=== PATIENT | male | born 1935 | race Caucasian/White ===

== ENCOUNTER 2023-07-07 07:58 | Outpatient (OUT) | payer MEDICARE, SELFPAY ==
[2023-07-07 08:27] LABS: Basophils Absolute Auto 0.1 10^3/uL (0.0-0.1); Basophils Percent Auto 1.4 % (0.2-2.0); Eosinophils Absolute Auto 0.3 10^3/uL (0.0-0.7); Eosinophils Percent Auto 3.4 % (0.9-7.0); Hematocrit 43.5 % (42.0-54.0); Hemoglobin 14.3 g/dL (14.0-18.0); Immature Granulocytes Abs Auto 0.02 10^3/uL (0.00-0.03); Immature Granulocytes Pct Auto 0.3 % (0.0-0.5); Lymphocytes Absolute Auto 2.5 10^3/uL (1.2-3.8); Lymphocytes Percent Auto 30.9 % (20.5-60.0); Mean Corpuscular HGB Conc 32.9 g/dL (29.9-35.2); Mean Corpuscular Hemoglobin 31.1 pg (25.9-34.0); Mean Corpuscular Volume 94.6 fL (80.0-94.0); Mean Platelet Volume 10.1 fL (9.5-13.5); Monocytes Absolute Auto 0.7 10^3/uL (0.3-0.8); Monocytes Percent Auto 8.3 % (1.7-12.0); Neutrophils Absolute Auto 4.4 10^3/uL (1.4-6.5); Neutrophils Percent Auto 55.7 % (43.0-75.0); Platelet Count 207 10^3/uL (150-450); Red Cell Distribution Width 13.9 % (11.0-15.0)
[2023-07-07 08:44] LABS: Estimated Average Glucose 131 mg/dL; Glycohemoglobin A1C 6.2 % (4.5-6.2)
[2023-07-07 09:01] LABS: Alanine Aminotransferase 21 U/L (16-63); Albumin Globulin Ratio 0.9; Albumin Level 3.3 g/dL (3.4-5.0); Alkaline Phosphatase 74 U/L (46-116); Anion Gap 14.4; Aspartate Amino Transferase 15 U/L (15-37); Bilirubin Total 0.6 mg/dL (0.2-1.0); Calcium 9.1 mg/dL (8.5-10.1); Carbon Dioxide 27.3 mmol/L (21.0-32.0); Chloride 107 mmol/L (98-107); Chol HDL Ratio 3.3; Cholesterol 137 mg/dL (<=200); Estimated GFR (African America 55 (>=60); Estimated GFR (Non-African Ame 45 (>=60); Globulin 3.8 g/dL; Glucose 115 mg/dL (74-106); HDL Cholesterol 42 mg/dL (40-60); LDL Cholesterol Calculated 76.8 mg/dL; Potassium 4.7 mmol/L (3.5-5.1); Sodium 144 mmol/L (136-145); Total Protein 7.1 g/dL (6.4-8.2); Triglycerides 91 mg/dL (<=150); VLDL CHOLESTEROL 18.2 mg/dL
[2023-07-07 09:04] LABS: Prostate Specific Antigen Scrn 4.38 ng/mL (<=4.00)
[2023-07-09 08:10] LABS: PSA, Free 0.98 ng/mL; Prostate Specific Ag 3.2 ng/mL (0.0-4.0)
== END 2023-07-07 07:59 | disposition home or self-care (01) ==
LOC: LAB 08:03
PROVIDERS: PCP Family Medicine; Visit Provider Family Medicine
DX: Z79.899 Other long term (current) drug therapy (principal); R53.83 Other fatigue; E78.5 Hyperlipidemia, unspecified; Z12.5 Encounter for screening for malignant neoplasm of prostate; R97.20 Elevated prostate specific antigen [PSA]
CPT/HCPCS: 36415; 80053; 80061; 83036; 84153; 84154; 85025; G0103

== ENCOUNTER 2023-07-26 09:09 | Outpatient (RCR) | payer MEDICARE, SELFPAY | END 2023-08-17 17:24 | disposition home or self-care (01) | LOC: MM 09:09 | PROVIDERS: PCP Internal Medicine Cardiovascular Disease; Visit Provider Internal Medicine | DX: Z51.81 Encounter for therapeutic drug level monitoring (principal); Z79.01 Long term (current) use of anticoagulants; I48.0 Paroxysmal atrial fibrillation | CPT/HCPCS: 85610; G0463 ==

== ENCOUNTER 2023-08-18 02:01 | Outpatient (RCR) | payer MEDICARE, SELFPAY | END 2023-09-15 17:31 | disposition home or self-care (01) | LOC: MM 02:01 | PROVIDERS: PCP Internal Medicine Cardiovascular Disease; Visit Provider Internal Medicine | DX: Z51.81 Encounter for therapeutic drug level monitoring (principal); Z79.01 Long term (current) use of anticoagulants; I48.0 Paroxysmal atrial fibrillation | CPT/HCPCS: 85610; G0463 ==

== ENCOUNTER 2023-09-16 03:37 | Outpatient (RCR) | payer MEDICARE, SELFPAY | END 2023-10-14 14:14 | disposition home or self-care (01) | LOC: MM 03:37 | PROVIDERS: PCP Internal Medicine Cardiovascular Disease; Visit Provider Internal Medicine | DX: Z51.81 Encounter for therapeutic drug level monitoring (principal); Z79.01 Long term (current) use of anticoagulants; I48.0 Paroxysmal atrial fibrillation | CPT/HCPCS: 85610; G0463 ==

== ENCOUNTER 2023-10-17 00:27 | Outpatient (RCR) | payer MEDICARE, SELFPAY | END 2023-11-15 18:03 | disposition home or self-care (01) | LOC: MM 00:27 | PROVIDERS: PCP Internal Medicine Cardiovascular Disease; Visit Provider Internal Medicine | DX: Z51.81 Encounter for therapeutic drug level monitoring (principal); Z79.01 Long term (current) use of anticoagulants; I48.0 Paroxysmal atrial fibrillation | CPT/HCPCS: 85610; G0463 ==

== ENCOUNTER 2023-11-16 00:24 | Outpatient (RCR) | payer MEDICARE, SELFPAY | END 2023-12-16 11:22 | disposition home or self-care (01) | LOC: MM 00:24 | PROVIDERS: PCP Internal Medicine Cardiovascular Disease; Visit Provider Internal Medicine | DX: Z51.81 Encounter for therapeutic drug level monitoring (principal); Z79.01 Long term (current) use of anticoagulants; I48.0 Paroxysmal atrial fibrillation | CPT/HCPCS: 85610; G0463 ==

== ENCOUNTER 2023-12-19 03:18 | Outpatient (RCR) | payer MEDICARE, SELFPAY | END 2024-01-13 10:48 | disposition home or self-care (01) | LOC: MM 03:18 | PROVIDERS: PCP Internal Medicine Cardiovascular Disease; Visit Provider Internal Medicine | DX: Z51.81 Encounter for therapeutic drug level monitoring (principal); Z79.01 Long term (current) use of anticoagulants; I48.0 Paroxysmal atrial fibrillation ==

== ENCOUNTER 2024-01-16 00:26 | Outpatient (RCR) | payer MEDICARE, SELFPAY | END 2024-02-15 10:05 | disposition home or self-care (01) | LOC: MM 00:26 | PROVIDERS: PCP Internal Medicine Cardiovascular Disease; Visit Provider Internal Medicine | DX: Z51.81 Encounter for therapeutic drug level monitoring (principal); Z79.01 Long term (current) use of anticoagulants; I48.0 Paroxysmal atrial fibrillation | CPT/HCPCS: 85610; G0463 ==

== ENCOUNTER 2024-02-16 00:23 | Outpatient (RCR) | payer MEDICARE, SELFPAY | END 2024-03-16 09:59 | disposition home or self-care (01) | LOC: MM 00:23 | PROVIDERS: PCP Internal Medicine Cardiovascular Disease; Visit Provider Internal Medicine | DX: Z51.81 Encounter for therapeutic drug level monitoring (principal); Z79.01 Long term (current) use of anticoagulants; I48.0 Paroxysmal atrial fibrillation | CPT/HCPCS: 85610; G0463 ==

== ENCOUNTER 2024-02-29 10:30 | Outpatient (OUT) | payer MEDICARE, SELFPAY ==
--- OUTSIDE RECORDS SUMMARY | 2024-02-29 10:51 | XMS_ITS | CCD ---
Author Organization [facility] Care Team Providers Care Mail Room Name Role Phone GHAZOUL, JOCELYN Unavailable Unavailable HOY, LSIA M Unavailable Unavailable GHAZOUL, JOCELYN Unavailable Unavailable HOY, LISA M Unavailable Unavailable GHAZOUL, JOCELYN Unavailable Unavailable GHAZOUL, JOCELYN Unavailable Unavailable GHAZOUL, JOCELYN Unavailable Unavailable GHAZOUL, JOCELYN Unavailable Unavailable GHAZOUL, JOCELYN Unavailable Unavailable UNKNOWN, PROVIDER Unavailable Unavailable HOYLISA M Unavailable Unavailable HoyLisa Unavailable Unavailable Unavailable MD Lisa Severino Primary Care Provider [phone] MD Jaja Cerda Attending Provider MD Lisa Severino Primary Care Provider [phone] MD Jaja Cerda Attending Provider Dr. Jaja Flower Attending Unavailable Dr. Jaja Flower Referring Unavailable Dr. Lisa Severino Primary Care Unavail able Dr. Jaja Flower Attending Unavailable Dr. Lisa Severino Primary Care Unavail able MD Lisa Severino Primary Care Provider [phone] MD Jaja Cerda Attending Provider DR LISA SEVERINO Consulting Unavailable DR LISA SEVERINO Attending Unavailable DR LISA SEVERINO Admitting Unavailable DR LISA SEVERINO Primary Care Unavailable DR BRIANNA SMITH V Consulting Unavailable DR JAJA FLOWER Consulting Unavailabl e DR LISA SEVERINO Consulting Unavailable DR LISA SEVERINO Attending Unavailable DR LISA SEVERINO Admitting Unavailable DR LISA SEVERINO Primary Care Unavailable MD Lisa Severino Primary Care Provider [phone] MD Jaja Cerda Attending Provider MD Lisa Severino Primary Care Provider MD Jaja Cerda Attending Provider MD Lisa Severino Primary Care Provider MD Jaja Cerda Attending Provider Dr. Lisa Severino Primary Care Unavail able Mere, Dr. Lisa Byers Primary Care Unavail able Mere, Dr. Lisa Byers Primary Care Unavail able Mere, Dr. Lisa Byers Primary Care Unavail able Hernan, Dr. Jaja Fonseca Referring Unava ilana m Flower, Dr. Jaja Fonseca Attending Unava ilana m Severino, Dr. Lisa Byers Primary Care Unavail able JALEN BLEDSOE Attending Unavailable MD Lisa Severino Primary Care Provider [phone] MD Jaja Cerda Attending Provider Lisa Severino MD Primary Care Provider MD Lisa Severino Primary Care Provider MD Jaja Cerda Attending Provider LISA SEVERINO Primary Care Unavailable JAJA FLOWER Referring Unavailable LIZA BLEDSOE Attending Unavailable JAJA FLOWER Referring Unavailable LISA SEVERINO Primary Care Unavailable JAJA FLOWER Attending Unavailable LISA SEVERINO Primary Care Unavailable MD Lisa Severino Primary Care Provider MD Jaja Cerda Attending Provider Jaja Cerda Admitting Unavail able Jaja Cerda Attending Unavail able Lisa Severino Primary Care Unavailable Jaja Cerda Admitting Unavail able Jaja Cerda Attending Unavail able Lisa Severino Primary Care Unavailable Jaja Cerda Admitting Unavail able Jaja Cerda Attending Unavail able Lisa Severino Primary Care Unavailable Jaja Creda Admitting Unavail able Jaja Cerda Attending Unavail able Lisa Severino Primary Care Unavailable Guy ANGELES Attending Unavailable Lisa Severino Referring Unavailable Lisa Severino Primary Care Physician Allergies Allergy Classification Reported Allergen(s) Allergy Type Date of Onset Reaction(s) Facility (1 source) meloxicam; Translations: [Mobic] Drug Allergy [facility] Repository (1 source) Naproxen; Translations: [Naprosyn] Drug Allergy [facility] Repository Medications Current Medications Medication Drug Class(es) Dates Sig (Normalized) Sig (Original) amoxicillin 500 mg oral capsule (9 sources) Penicillin-class Antibacterial Start: 12-01-2021 take 4 capsules by mouth every hour amoxicillin (Amoxil) 500 mg capsule Take 4 capsules (2,000 mg) by mouth see administration instructions. One hour prior to dental appointment 12/01/2021 Active aspirin 81 mg delayed release oral tablet (20 sources) Platelet Aggregation Inhibitor, Nonsteroidal Anti-inflammatory Drug Start: 01-31-2024 aspirin 81 mg Oral EC Tab 81 mg = 1 tab(s), Oral, TueSat, Refills(s) 0 Start Date: 01/31/24 Status: Ordered Start: 07-28-2023 take 1 tablet by angel th two times weekly aspirin 81 mg EC tablet Indications: S/P TAVR (transcatheter aortic valve replacement) , Valvular heart disease , Chronic systolic heart failure (CMS/HCC) , Mixed hyperlipidemia Take 1 tablet (81 mg) by mouth 2 times a week. 32 tablet 1 07/28/2023 Active Start: 12-14-2020 take 1 tablet by angel th once daily Aspirin (Aspirin Childrens) 81 mg Tablet,Chewable Active 81 MG PO Daily December 14, 2020 12:00am Start: 03-12-2016 take 1 tablet by angel th once daily Aspirin Low Dose 81 MG Oral Tablet Delayed Release Take 1 tablet daily Quantity: 90 Refills: 3 Ordered: 14-Oct-2022 Jaja Flower DO Start : 12-Mar-2016 Active Start: 03-12-2016 Aspirin Low Do se 81 MG Oral Tablet Delayed Release Quantity: 0 Refills: 0 Ordered: 12-Mar-2016 Kamla Macias Start : 12-Mar-2016 Active atorvastatin 40 mg oral tablet (20 sources) HMG-CoA Reductase Inhibitor Start: 12-27-2023 take 1 tablet by mouth once daily atorvastatin 40 mg Tab 40 mg = 1 tab(s), Oral, Daily, Refills(s) 0 Start Date: 12/27/23 Status: Ordered Start: 10-26-2023 take 1 tablet by angel th once daily at bedtime atorvastatin (Lipitor) 40 mg tablet Indications: Mixed hyperlipidemia Take 1 tablet (40 mg) by mouth once daily at bedtime. 90 tablet 3 10/26/2023 Active Start: 03-12-2016 End: 10-26-2023 take 1 tablet by mouth once daily Atorvastatin (Lipitor) 40 mg Tablet Active 40 MG PO Daily December 14, 2020 12:00am carvedilol 6.25 mg oral tablet (20 sources) alpha-Adrenergic Alvaro, beta-Adrenergic Alvaro Start: 10-26-2023 take 1 tablet by mouth twice daily carvedilol (Coreg) 6.25 mg tablet Indications: Paroxysmal atrial fibrillation (CMS/HCC) , Primary hypertension Take 1 tablet (6.25 mg) by mouth 2 times a day. 180 tablet 3 10/26/2023 Active Start: 03-12-2016 End: 10-26-2023 take 1 tablet by mouth twice daily Coreg 6.25 mg Tab 6.25 mg = 1 tab(s), Oral, BID, Refills(s) 0, High blood pressure Start Date: 10/04/16 Status: Ordered Start: 03-12-2016 Carvedilol 6.2 5 MG Oral Tablet Quantity: 0 Refills: 0 Ordered: 12-Mar-2016 Kamla Macias Start : 12-Mar-2016 Active clindamycin 300 mg oral capsule (9 sources) Lincosamide Antibacterial Start: 12-17-2020 take 600 mg by mouth three times daily Clindamycin Hcl Active 600 MG PO Three times daily 12 December 17, 2020 12:00am lisinopril 10 mg oral tablet (20 sources) Angiotensin Converting Enzyme Inhibitor Start: 12-27-2023 take 1 tablet by mouth once daily lisinopril 10 mg Tab 10 mg = 1 tab(s), Oral, Daily, Refills(s) 0 Start Date: 12/27/23 Status: Ordered Start: 10-26-2023 take 1 tablet by angel th once daily lisinopril 10 mg tablet Indications: Primary hypertension Take 1 tablet (10 mg) by mouth once daily. 90 tablet 3 10/26/2023 Active Start: 10-07-2021 End: 10-26-2023 take 1 tablet by mouth once daily lisinopril 10 mg tablet Take 1 tablet (10 mg) by mouth once daily. 10/07/2021 10/26/2023 Discontinued (Reorder) Start: 12-14-2020 take 5 mg by mouth once daily Lisinopril Active 5 MG PO Daily December 14, 2020 12:00am Start: 04-28-2017 take 1 tablet by angel th once daily Lisinopril 2.5 MG Oral Tablet Take 1 tablet daily Quantity: 0 Refills: 0 Ordered: 28-Apr-2017 [place] Kamla Start : 28-Apr-2017 Active warfarin sodium 5 mg oral tablet (5 sources) Vitamin K Antagonist Start: 07-25-2023 End: 07-24-2024 warfarin 5 mg Tab as directed, Refills(s) 0 Start Date: 12/27/23 Status: Ordered Completed/Discontinued Medications Medication Drug Class(es) Dates Sig (Normalized) Sig (Original) amoxicillin 875 mg / clavulanate 125 mg oral tablet (2 sources) Penicillin-class Antibacterial Start: 08-30-2022 take 1 tablet by mouth twice daily Amoxicillin-Pot Clavulanate 875-125 MG Oral Tablet TAKE 1 TABLET BY MOUTH TWICE A DAY Quantity: 20 Refills: 0 Ordered: 30-Aug-2022 DO Start : 30-Aug-2022 Complete predniSONE 20 mg oral tablet (2 sources) Start: 06-16-2022 take 3 tablets by mouth once daily predniSONE 20 MG Oral Tablet TAKE 3 TABLET BY MOUTH ONCE A DAY Quantity: 15 Refills: 0 Ordered: 16-Jun-2022 DO Start : 16-Jun-2022 Complete Problems Active Problems Problem Classification Problem Date Documented Date Episodic/Chronic Acute bronchitis (4 sources) Acute bronchitis, unspecified; Translations: [ACUTE BRONCHITIS UNSPECIFIED] Onset: 08-30-2022 Episodic Blindness and vision defects (1 source) Other visual disturbances; Translations: [OTHER VISUAL DISTURBANCES] Onset: 07-03-2022 Episodic Cardiac dysrhythmias (13 sources) Paroxysmal atrial fibrillation; Translations: [Paroxysmal atrial fibrillation] Onset: 08-17-2023 08-17-2023 Chronic Chronic kidney disease (9 sources) Chronic kidney disease; Translations: [Chronic kidney disease, unspecified] 12-15-2020 Chronic Conduction disorders (20 sources) Second degree atrioventricular block; Translations: [Other second degree atrioventricular block] Onset: 07-07-2023 Resolved: 08-17-2023 12-14-2020 Chronic Congestive heart failure; nonhypertensive (13 sources) Chronic systolic heart failure; Translations: [Chronic systolic heart failure] Onset: 04-15-2022 Resolved: 08-17-2023 08-17-2023 Chronic Coronary atherosclerosis and other heart disease (1 source) Coronary atherosclerosis and other heart disease Onset: 05-10-2018 Diabetes mellitus without complication (1 source) Other abnormal glucose; Translations: [OTHER ABNORMAL GLUCOSE] Onset: 07-03-2022 Episodic Disorders of lipid metabolism (17 sources) Hyperlipidemia; Translations: [Other and unspecified hyperlipidemia] Onset: 07-03-2022 08-17-2023 Chronic Essential hypertension (20 sources) Hypertensive disorder; Translations: [Unspecified essential hypertension] Onset: 07-07-2023 12-14-2020 Chronic Gout and other crystal arthropathies (1 source) Gout 12-27-2023 Chronic Heart valve disorders (20 sources) Nonrheumatic aortic (valve) stenosis; Translations: [Aortic valve stenosis, severe] Onset: 04-15-2022 Resolved: 08-17-2023 12-15-2020 Chronic Heart valve disorders (1 source) Murmur 12-27-2023 Episodic Malaise and fatigue (12 sources) Fatigue; Translations: [Other malaise and fatigue] Onset: 07-07-2023 07-07-2023 Episodic Neoplasms of unspecified nature or uncertain behavior (2 sources) Neoplasm of uncertain behavior of skin; Translations: [Neoplasm of uncertain behavior of skin] Onset: 11-21-2017 Episodic Nutritional deficiencies (1 source) Vitamin D deficiency, unspecified; Translations: [VITAMIN D DEFICIENCY UNSPECIFIED] Onset: 07-03-2022 Chronic Occlusion or stenosis of precerebral arteries (1 source) Occlusion and stenosis of bilateral carotid arteries; Translations: [OCCLUSION AND STENOS AUNDREA CAROTID ART] Onset: 07-03-2022 Chronic Other aftercare (6 sources) Long-term current use of anticoagulant; Translations: [residential (current) use of anticoagulants] Onset: 08-17-2023 08-17-2023 Episodic Other aftercare (2 sources) residential (current) use of anticoagulants; Translations: [residential (current) use of anticoagulants] Onset: 08-17-2023 Episodic Other and ill-defined heart disease (1 source) Heart disease 12-27-2023 Chronic Other circulatory disease (12 sources) History of cerebrovascular accident; Translations: [Personal history of transient ischemic attack (TIA), and cerebral infarction without residual deficits] Onset: 07-07-2023 07-07-2023 Episodic Other nutritional; endocrine; and metabolic disorders (1 source) Body mass index 25-29 - overweight; Translations: [Body Mass Index 25.0-25.9, adult] Episodic Other nutritional; endocrine; and metabolic disorders (2 sources) Overweight; Translations: [Overweight] 12-27-2023 Episodic Other nutritional; endocrine; and metabolic disorders (10 sources) Overweight in adulthood with body mass index of 25 or more but less than 30; Translations: [Overweight] Onset: 08-17-2023 08-17-2023 Episodic Other nutritional; endocrine; and metabolic disorders (2 sources) Body mass index (BMI) 25.0-25.9, adult; Translations: [Body mass index (BMI) 25.0-25.9, adult] Onset: 08-17-2023 Episodic Other screening for suspected conditions (not mental disorders or infectious disease) (5 sources) Elevated prostate specific antigen [PSA]; Translations: [Encounter for screening for malignant neoplasm of prostate] Onset: 06-28-2022 Episodic Other skin disorders (1 source) Epidermoid cyst; Translations: [Epidermal cyst] Onset: 01-31-2024 Episodic Other skin disorders (1 source) Epidermoid cyst of skin 01-31-2024 Episodic Residual codes; unclassified (3 sources) Body mass index 20-24 - normal; Translations: [Body Mass Index between 19-24, adult] Episodic Screening and history of mental health and substance abuse codes (10 sources) Ex-smoker; Translations: [Personal history of tobacco use] Onset: 10-26-2023 10-26-2023 Episodic Comment on above: Quit at age 37. 2 pp d; Syncope (9 sources) Near syncope; Translations: [Syncope and collapse] 12-14-2020 Episodic Unclassified (2 sources) Other cardiomyopathies / I42.8(ICD-9) Onset: 05-10-2018 Unclassified (1 source) Presence of prosthetic heart valve / Z95.2(ICD-9) Onset: 05-10-2018 Unclassified (1 source) Personal history of nicotine dependence / Z87.891(ICD-9) Onset: 05-10-2018 Unclassified (1 source) Prsnl hx of TIA (TIA), and cereb infrc w/o resid deficits / Z86.73(ICD-9) Onset: 05-10-2018 Unclassified (1 source) Encounter for checking and testing of cardiac pacemaker pulse generator [battery]; Translations: [Encounter for checking and testing of cardiac pacemaker pulse generator [battery]] Onset: 07-04-2023 Viral infection (1 source) COVID-19; Translations: [COVID-19] Onset: 09-03-2022 Past or Other Problems Problem Classification Problem Date Documented Da te Episodic/Chronic [place]-; endo-; and myocarditis; cardiomyopathy (except that caused by tuberculosis or sexually transmitted disease) (20 sources) Other cardiomyopathies ; Translations: [Cardiomyopathy] Onset: 05-10-2018 Resolved: 10-26-2023 07-07-2023 Chronic Unclassified (4 sources) Onset: 08-17-2023 Resolved: 10-26-2023 08-17-2023 Results Test Name Value Interpretation Reference Range Facility Ambulatory Visit Summaryon 0 01-31-2024 Ambulatory Visit Summary Ambulatory Visi t Summary MELO CUEVAS :1935 Visit Date:01/31/2024 Ambulatory Visit Instructions Your Care Team Attending Physician - Guy ANGELES MD Primary Care Physician - Lisa Severino MD Referring Physician - Lisa Severino MD This Is Your Medications List Contact prescribing physician if questions or concerns aspirin (aspirin 81 mg Oral EC Tab) atorvastatin (atorvastatin 40 mg Tab) carvedilol (Coreg 6.25 mg Tab) lisinopril (lisinopril 10 mg Tab) warfarin (warfarin 5 mg Tab) Procedures Performed Cataract Extraction with IOL placement / iStent - OS. (10/21/2016), Cataract extraction and insertion of intraocular lens (10/05/2016), Cardiac pacemaker, Repair of umbilical hernia, Replacement of aortic valve. Discharge Vitals Heart Rate (Peripheral) 72 Respiratory Rate 16 Blood Pressure 116/76 Height 188 cm Height 74 in Weight 89.3 kg Weight 196.46 lb BMI 25.27 Medications What How Much When Instructions Unchanged aspirin (aspirin 81 mg Oral EC Tab) 1 Tablets By Mouth Tuesday & Tuesday Contact prescribing physician if questions or concerns Unchanged atorvastatin (atorvastatin 40 mg Tab) 1 Tablets By Mouth Every day Contact prescribing physician if questions or concerns Unchanged carvedilol (Coreg 6.25 mg Tab) 1 Tablets By Mouth 2 times a day Contact prescribing physician if questions or concerns Unchanged lisinopril (lisinopril 10 mg Tab) 1 Tablets By Mouth Every day Contact prescribing physician if questions or concerns Unchanged warfarin (warfarin 5 mg Tab) as directed Contact prescribing physician if questions or concerns Allergies No Known Allergies Problems Ongoing - Any problem that you are currently receiving treatment for. Aortic stenosis Atrial fibrillation BMI 25.0-25.9,adult Congestive heart failure Essential hypertension Gout Heart disease History of CVA (cerebrovascular accident) Hyperlipidemia Murmur Overweight Patient Survey You may receive a survey via text or e-mail asking about your office visit. Please share your experience with us by completing your survey. We appreciate your feedback and thank you for choosing us for your care. [facility] Physician Referralon 024 Physician Referral [id number] 23#1.00TIFF [facility] Physician Referralon 024 Physician Referral [id number]# 1.00TIFF [facility] Physician Referral [id number]# 1.00TIFF [facility] Comment on above: Other Comment: MINDY KAM Physician Referral [id number]# 1.00TIFF [facility] US Heart TransthoracicOrdere d By: Moody Teixeira on 10-19-2023 Aortic Valve Area by Continuity of Peak Velocity 2.[address] [facility] Work Phone: Aortic Valve Area by Continuity of VTI 2.[address] [facility] Work Phone: AV mn grad 6.[address] [facility] Work Phone: AV pk grad 12.[address] [facility] Work Phone: AV pk benjamin 1.73 m/s [facility] Work Phone: LV A4C EF 56.[address] [facility] Work Phone: LVIDd 3.[address] [facility] Work Phone: LVOT diam 2.[address] [facility] Work Phone: MV avg E/e' ratio 22.20 [facility] Work Phone: MV E/A ratio 0.[address] [facility] Work Phone: RVSP 23.[address] [facility] Work Phone: [facility] Work Phone: Heart Tr[facility]hor[facility] [address], [address] [place] [address] TRANSTHORACIC ECHOCARDIOGRAM REPORT Patient Name: MELO Gant MASON Reading Physician: [id number] Moody Teixeira MD, [facility] Study Date: 10/18/2023 Ordering Provider: [id number] JAJA FLOWER MRN/PID: [id number] Fellow: Nurse: Date of /Age: 8 1935 / 88 years Wedger And Gluer: Daniela Veras RDCS, RVT Gender: M Additional Staff: Height: 187.96 cm Admit Date: Weight: 89.81 kg Admission Status: BSA / BMI: 2.16 m2 / 25.42 kg/m2 Department Location: [facility] Blood Pressure: 134 /72 mmHg Study Type: TRANSTHORACIC ECHO (TTE) COMPLETE Diagnosis/ICD: Nonrheumatic aortic (valve) stenosis-I35.0 Indication: #29 Luca 3 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 PHYSICIAN INTERPRETATION: Left Ventricle: Left ventricular systolic function is normal, with an estimated ejection fraction of 60-65%. There are no regional wall motion abnormalities. The left ventricular cavity size is normal. Spectral Doppler shows an impaired relaxation pattern of left ventricular diastolic filling. There is an elevated mean left atrial pressure. Mild to moderate concentric left ventricular hypertrophy. Left Atrium: The left atrium is mildly dilated. Right Ventricle: The right ventricle is normal in size. There is normal right ventricular global systolic function. Right Atrium: The right atrium is normal in size. Aortic Valve: The aortic valve appears abnormal. There is trivial aortic valve regurgitation. The peak instantaneous gradient of the aortic valve is 12.0 mmHg. The mean gradient of the aortic valve is 6.0 mmHg. There is a TAVR in good position and function. Mitral Valve: The mitral valve is severely thickened. There is evidence of mild to moderate mitral valve stenosis. The doppler estimated mean and peak diastolic pressure gradients are 7.5 mmHg and 23.7 mmHg respectively. There is severe mitral annular calcification. There is trace to mild mitral valve regurgitation. Mild to moderate degree of mitral stenosis with a mean gradient of 7 - 8 mmHg. Tricuspid Valve: The tricuspid valve is structurally normal. There is trace tricuspid regurgitation. Pulmonic Valve: The pulmonic valve is structurally normal. There is no indication of pulmonic valve regurgitation. Pericardium: There is no pericardial effusion noted. Aorta: The aortic root is normal. Systemic Veins: The inferior vena cava appears to be of normal size. In comparison to the previous echocardiogram(s): When compared to study from 04/13/2022 the present study demonstrated less amount of mitral and aortic regurgitation otherwise they look similar. CONCLUSIONS: 1. Left ventricular systolic function is normal with a 60-65% estimated ejection fraction. 2. Mild to moderate concentric left ventricular hypertrophy. 3. Spectral Doppler shows an impaired relaxation pattern of left ventricular diastolic filling. 4. There is an elevated mean left atrial pressure. 5. The mitral valve is severely thickened. 6. Mild to moderate degree of mitral stenosis with a mean gradient of 7 - 8 mmHg. 7. There is severe mitral annular calcification. 8. Aortic valve appears abnormal. 9. There is a TAVR in good position and function. 10. When compared to study from 04/13/2022 the present study demonstrated less amount of mitral and aortic regurgitation otherwise they look similar. QUANTITATIVE DATA SUMMARY: 2D MEASUREMENTS: Normal Ranges: Ao Root d: 2.80 cm (2.0-3.7cm) LAs: 3.90 cm (2.7-4.0cm) RVIDd: 3.39 cm (0.9-3.6cm) IVSd: 2.16 cm (0.6-1.1cm) LVPWd: 1.45 cm (0.6-1.1cm) LVIDd: 3.57 cm (3.9-5.9cm) LVIDs: 2.69 cm LV Mass Index: 125.1 g/m2 LV % FS 24.6 % LV SYSTOLIC FUNCTION BY 2D PLANIMETRY (MOD): Normal Ranges: EF-A4C View: 56.2 % (>=55%) LV DIASTOLIC FUNCTION: Normal Ranges: MV Peak E: 1.21 m/s (0.7-1.2 m/s) MV Peak A: 1.98 m/s (0.42-0.7 m/s) E/A Ratio: 0.61 (1.0-2.2) MV lateral e' 0.05 m/s MV medial e' 0.03 m/s E/e' Ratio: 22.20 (<8.0) MITRAL VALVE: Normal Ranges: (more content not included)... Moody Aguilar MD - 10/19/[address], [address] [place] [address] TRANSTHORACIC ECHOCARDIOGRAM REPORT Patient Name: MELO Pugh Physician: [id number] Moody Teixeira MD, [facility] Study Date: 10/18/2023 Ordering Provider: [id number] JAJA FLOWER MRN/PID: [id number] Fellow: Nurse: Date of /Age: 8 1935 / 88 years Wedger And Gluer: Daniela Veras RDCS, RVT Gender: M Additional Staff: Height: 187.96 cm Admit Date: Weight: 89.81 kg Admission Status: BSA / BMI: 2.16 m2 / 25.42 kg/m2 Department Location: [facility] Blood Pressure: 134 /72 mmHg Study Type: TRANSTHORACIC ECHO (TTE) COMPLETE Diagnosis/ICD: Nonrheumatic aortic (valve) stenosis-I35.0 Indication: #29 Luca 3 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 PHYSICIAN INTERPRETATION: Left Ventricle: Left ventricular systolic function is normal, with an estimated ejection fraction of 60-65%. There are no regional wall motion abnormalities. The left ventricular cavity size is normal. Spectral Doppler shows an impaired relaxation pattern of left ventricular diastolic filling. There is an elevated mean left atrial pressure. Mild to moderate concentric left ventricular hypertrophy. Left Atrium: The left atrium is mildly dilated. Right Ventricle: The right ventricle is normal in size. There is normal right ventricular global systolic function. Right Atrium: The right atrium is normal in size. Aortic Valve: The aortic valve appears abnormal. There is trivial aortic valve regurgitation. The peak instantaneous gradient of the aortic valve is 12.0 mmHg. The mean gradient of the aortic valve is 6.0 mmHg. There is a TAVR in good position and function. Mitral Valve: The mitral valve is severely thickened. There is evidence of mild to moderate mitral valve stenosis. The doppler estimated mean and peak diastolic pressure gradients are 7.5 mmHg and 23.7 mmHg respectively. There is severe mitral annular calcification. There is trace to mild mitral valve regurgitation. Mild to moderate degree of mitral stenosis with a mean gradient of 7 - 8 mmHg. Tricuspid Valve: The tricuspid valve is structurally normal. There is trace tricuspid regurgitation. Pulmonic Valve: The pulmonic valve is structurally normal. There is no indication of pulmonic valve regurgitation. Pericardium: There is no pericardial effusion noted. Aorta: The aortic root is normal. Systemic Veins: The inferior vena cava appears to be of normal size. In comparison to the previous echocardiogram(s): When compared to study from 04/13/2022 the present study demonstrated less amount of mitral and aortic regurgitation otherwise they look similar. CONCLUSIONS: 1. Left ventricular systolic function is normal with a 60-65% estimated ejection fraction. 2. Mild to moderate concentric left ventricular hypertrophy. 3. Spectral Doppler shows an impaired relaxation pattern of left ventricular diastolic filling. 4. There is an elevated mean left atrial pressure. 5. The mitral valve is severely thickened. 6. Mild to moderate degree of mitral stenosis with a mean gradient of 7 - 8 mmHg. 7. There is severe mitral annular calcification. 8. Aortic valve appears abnormal. 9. There is a TAVR in good position and function. 10. When compared to study from 04/13/2022 the present study demonstrated less amount of mitral and aortic regurgitation otherwise they look similar. QUANTITATIVE DATA SUMMARY: 2D MEASUREMENTS: Normal Ranges: Ao Root d: 2.80 cm (2.0-3.7cm) LAs: 3.90 cm (2.7-4.0cm) RVIDd: 3.39 cm (0.9-3.6cm) IVSd: 2.16 cm (0.6-1.1cm) LVPWd: 1.45 cm (0.6-1.1cm) LVIDd: 3.57 cm (3.9-5.9cm) LVIDs: 2.69 cm LV Mass Index: 125.1 g/m2 LV % FS 24.6 % LV SYSTOLIC FUNCTION BY 2D PLANIMETRY (MOD): Normal Ranges: EF-A4C View: 56.2 % (>=55%) LV DIASTOLIC FUNCTION: Normal Ranges: MV Peak E: 1.21 m/s (0.7-1.2 m/s) MV Peak A: 1.98 m/s (0.42-0.7 m/s) E/A Ratio: 0.61 (1.0-2.2) MV lateral e' 0.05 m/s MV medial e' 0.03 m/s E/e' Ratio: 22.20 (<8.0) MITRAL VALVE: Normal Ranges: MV Vmax: 2.44 m/s (<=1.3m/s) MV peak P.7 mmHg (<5mmHg) MV mean P.5 mmHg (<48mmHg) MITRAL INSUFFICIENCY: Normal Ranges: MR Vmax: 434.00 cm/s dP/dt: 568 mmHg/s (>1200mmHg/sec) AORTIC VALVE: Normal Ranges: AoV Vmax: 1.73 m/s (<=1.7m/s) AoV Peak P.0 mmHg (<20mmHg) AoV Mean P.0 mmHg (1.7-11.5mmHg) LVOT Max Benjamin: 0.99 m/s (<=1.1m/s) AoV VTI: 35.50 cm (18-25cm) LVOT VTI: 21.40 cm LVOT Diameter: 2.40 cm (1.8-2.4cm) AoV Area, VTI: 2.73 cm2 (2.5-5.5cm2) AoV Area,Vmax: 2.59 cm2 (2.5-4.5cm2) AoV Dimensionless Index: 0.60 AORTIC INSUF (more content not included)... 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 PHYSICIAN INTERPRETATION: Left Ventricle: Left ventricular systolic function is normal, with an estimated ejection fraction of 60-65%. There are no regional wall motion abnormalities. The left ventricular cavity size is normal. Spectral Doppler shows an impaired relaxation pattern of left ventricular diastolic filling. There is an elevated mean left atrial pressure. Mild to moderate concentric left ventricular hypertrophy. Left Atrium: The left atrium is mildly dilated. Right Ventricle: The right ventricle is normal in size. There is normal right ventricular global systolic function. Right Atrium: The right atrium is normal in size. Aortic Valve: The aortic valve appears abnormal. There is trivial aortic valve regurgitation. The peak instantaneous gradient of the aortic valve is 12.0 mmHg. The mean gradient of the aortic valve is 6.0 mmHg. There is a TAVR in good position and function. Mitral Valve: The mitral valve is severely thickened. There is evidence of mild to moderate mitral valve stenosis. The doppler estimated mean and peak diastolic pressure gradients are 7.5 mmHg and 23.7 mmHg respectively. There is severe mitral annular calcification. There is trace to mild mitral valve regurgitation. Mild to moderate degree of mitral stenosis with a mean gradient of 7 - 8 mmHg. Tricuspid Valve: The tricuspid valve is structurally normal. There is trace tricuspid regurgitation. Pulmonic Valve: The pulmonic valve is structurally normal. There is no indication of pulmonic valve regurgitation. Pericardium: There is no pericardial effusion noted. Aorta: The aortic root is normal. Systemic Veins: The inferior vena cava appears to be of normal size. In comparison to the previous echocardiogram(s): When compared to study from 04/13/2022 the present study demonstrated less amount of mitral and aortic regurgitation otherwise they look similar. CONCLUSIONS: 1. Left ventricular systolic function is normal with a 60-65% estimated ejection fraction. 2. Mild to moderate concentric left ventricular hypertrophy. 3. Spectral Doppler shows an impaired relaxation pattern of left ventricular diastolic filling. 4. There is an elevated mean left atrial pressure. 5. The mitral valve is severely thickened. 6. Mild to moderate degree of mitral stenosis with a mean gradient of 7 - 8 mmHg. 7. There is severe mitral annular calcification. 8. Aortic valve appears abnormal. 9. There is a TAVR in good position and function. 10. When compared to study from 04/13/2022 the present study demonstrated less amount of mitral and aortic regurgitation otherwise they look similar. QUANTITATIVE DATA SUMMARY: 2D MEASUREMENTS: Normal Ranges: Ao Root d: 2.80 cm (2.0-3.7cm) LAs: 3.90 cm (2.7-4.0cm) RVIDd: 3.39 cm (0.9-3.6cm) IVSd: 2.16 cm (0.6-1.1cm) LVPWd: 1.45 cm (0.6-1.1cm) LVIDd: 3.57 cm (3.9-5.9cm) LVIDs: 2.69 cm LV Mass Index: 125.1 g/m2 LV % FS 24.6 % LV SYSTOLIC FUNCTION BY 2D PLANIMETRY (MOD): Normal Ranges: EF-A4C View: 56.2 % (>=55%) LV DIASTOLIC FUNCTION: Normal Ranges: MV Peak E: 1.21 m/s (0.7-1.2 m/s) MV Peak A: 1.98 m/s (0.42-0.7 m/s) E/A Ratio: 0.61 (1.0-2.2) MV lateral e' 0.05 m/s MV medial e' 0.03 m/s E/e' Ratio: 22.20 (<8.0) MITRAL VALVE: Normal Ranges: MV Vmax: 2.44 m/s (<=1.3m/s) MV peak P.7 mmHg (<5mmHg) MV mean P.5 mmHg (<48mmHg) MITRAL INSUFFICIENCY: Normal Ranges: MR Vmax: 434.00 cm/s dP/dt: 568 mmHg/s (>1200mmHg/sec) AORTIC VALVE: Normal Ranges: AoV Vmax: 1.73 m/s (<=1.7m/s) AoV Peak P.0 mmHg (<20mmHg) AoV Mean P.0 mmHg (1.7-11.5mmHg) LVOT Max Benjamin: 0.99 m/s (<=1.1m/s) AoV VTI: 35.50 cm (18-25cm) LVOT VTI: 21.40 cm LVOT Diameter: 2.40 cm (1.8-2.4cm) AoV Area, VTI: 2.73 cm2 (2.5-5.5cm2) AoV Area,Vmax: 2.59 cm2 (2.5-4.5cm2) AoV Dimensionless Index: 0.60 AORTIC INSUFFICIENCY: AI Vmax: 3.82 m/s AI Half-time: 409 msec AI Decel Rate: 249.50 cm/s2 TRICUSPID VALVE/RVSP: No (more content not included)... 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) Pacemaker (V45.01) (Z95.0) Valvular heart disease (424.90) (I38) Orders Aortic valve stenosis, severe, AV block, 2nd degree, Chronic systolic heart failure Echocardiogram; Status:Hold For - Scheduling,Retrospec tive Authorization; Requested for:15Oct2023; Aortic valve stenosis, severe, HTN (hypertension), Non-ischemic cardiomyopathy Renew: Carvedilol 6.25 MG Oral Tablet; Take 1 tablet twice daily Aortic valve stenosis, severe, Non-ischemic cardiomyopathy Renew: Aspirin Low Dose 81 MG Oral Tablet Delayed Release; Take 1 tablet daily HLD (hyperlipidemia) Renew: Atorvastatin Calcium 40 MG Oral Tablet (Lipitor); TAKE 1 TABLET Bedtime HTN (hypertension) Renew: Lisinopril 10 MG Oral Tablet; TAKE 1 TABLET DAILY Overweight with body mass index (BMI) of 25 to 25.9 in adult Healthy Weight Tips; Status:Complete - Retrospective Authorization; Done: 14Oct2022 Some eating tips that can help you lose weight.; Status:Complete - Retrospective Authorization; Done: 14Oct2022 Patient Instructions Please bring all medicines, vitamins, and herbal supplements with you when you come to the office. Prescriptions will not be filled unless you are compliant with your follow up appointments or have a follow up appointment scheduled as per instruction of your physician. Refills should be requested at the time of your visit. Pacemaker/Defibrilla tor follow up per routine Follow up in 1 year Chief Complaint MELO CUEVAS is being seen for a 6 month follow-up of. 87-year-old gentleman returns for follow-up he is doing very well he has no cardiovascular complaints. He remains independent and ambulatory with minimal dyspnea. He has history of TAVR in 2015, recent echo from March 2022 reveals an intact aortic valve prosthesis with peak and mean gradients of 12.4 and 6 mm respectively, moderate to severely thickened mitral valve with evidence of moderate mitral valve stenosis with peak and mean gradients of 17 and 6 mmHg respectively with an estimated area of 1.5 cm. Left ventricular function is normal with ejection fraction of 70%; notably there is mild to moderate prosthetic valve central aortic valve regurgitation He does have a history of sick sinus syndrome with a pacemaker. He denies any angina or heart failure hospitalizations, he has no history of coronary revascularization. He remains hemodynamically stable his BMI is 25 Recommendations, continue current therapies and follow-up in 1 year Surgical History Problems History of Aortic valve repair 20Apr2016 History of Cataract Surgery Denied: History of Colonoscopy History of Inguinal Hernia Repair History of Lip surgery blood blister removal History of Pacemaker insertion 12/16/2020 History of Skin lesion excision Nose History of Surgery Basal cell removal History of Tonsillectomy History of Tonsillectomy History of Umbilical Hernia Repair Current Meds Medication NameInstruction Amoxicillin 500 MG Oral CapsuleTAKE FOUR CAPSULES BY MOUTH ONE HOUR BEFORE APPOINTMENT Aspirin Low Dose 81 MG Oral Tablet Delayed ReleaseTake 1 tablet daily Atorvastatin Calcium 40 MG Oral TabletTAKE 1 TABLET Bedtime Carvedilol 6.25 MG Oral TabletTake 1 tablet twice daily Lisinopril 10 MG Oral TabletTAKE 1 TABLET DAILY. Patient did not bring medication list or bottles. Updated verbally with patient Allergies Medication No Known Drug Allergies Recorded By: Shaunna Young; 02/19/2015 1:51:06 PM Social History Problems Caffeine use (V49.89) (Z78.9) Coffee - 1/2 cup daily Consumes alcohol (V49.89) (Z78.9) Rarely Former smoker (V15.82) (Z87.891) Quit at age 37. 2 ppd No illicit drug use Review of Systems Constitutional: not feeling tired. Cardiovascular: no intermittent leg claudication and as noted in HPI. Respiratory: no cough and no shortness of breath. Gastrointestinal: no change in bowel habits and no blood in stools. Integumentary: no skin rashes. Neurological: no seizures and no frequent falls. All other systems have been reviewed and are negative for complaint. Vitals Vital Signs Recorded: 14Oct2022 10:03AM Heart Rate64, L Radial [id number], LUE, Sitting [id number], LUE, Sitting Height6 ft 2 in Eyrflw106 lb BMI Hhsninhyza29.29 kg/m2 BSA Calculated2.16 Tobacco Useb) No Falls Screening (Age 18+)a) No falls within the last year Physical Exam Constitutional: alert and in no acute distress. Neck: neck is supple, symmetric, trachea midline, no masses and no thyromegaly . Pulmonary: no increased work of breathing or signs of respiratory distress and lungs clear to auscultation. (more content not included)... Normal [employer] Tobacco Screening.on 023 Fall risk assessment a) No falls within the last year [facility] [address] DO Work Phone: Tobacco use status [facility] b) No M [facility] [employer] [facility] 250 DO Work Phone: Covid-19 PCR ([facility])on 08-18 SARS-CoV-2 (COVID-19) RNA SVETLANA+probe Ql (Unsp spec) Detected Abnormal NOT DETECTED [facility] Comment on above: Result Comment: This test is not yet approved or cleared by the [place] FDA. When there are no FDA-approved or cleared tests available, and other criteria are met, FDA can make tests available under an emergency access mechanism called an Emergency Use Authorization (EUA). The EUA for this test is supported by the Intern of Health and Human Service's (HHS's) declaration that circumstances exist to justify the emergency use of in vitro diagnostics for the detection and/or diagnosis of the virus that causes COVID-19. This EUA will remain in effect (meaning this test can be used) for the duration of the COVID-19 declaration justifying emergency of IVDs, unless it is terminated or revoked by FDA (after which the test may no longer be used). Performed By: #### C VDTBH #### [facility] [address] [place] [id number] Ekaterina Alcocer INFLUENZA A AND B AGon 08-30 INFLUANEGH SEE BELOW Normal [facility] Comment on above: Result Comment: Nega tive for Flu A protein angiten. Infection due to Flu A cannot be ruled out. Flu A angiten in the sample may be below the detection limit of the test. Performed By: #### I NFLUAB #### [facility] [address] [place] [id number] Ekaterina Alcocer [facility] SEE BELOW Normal [facility] Comment on above: Result Comment: Nega tive for Flu B protein antigen. Infection due to Flu B cannot be ruled out. Flu B antigen in the sample may be below the detection limit of the test. Performed By: #### I NFLUAB #### [facility] [address] [place] [address] [address] Ekaterina Alcocer INFLUENZA A AG Negative Normal NEGATIVE SEE COMMENT [facility] Comment on above: Performed By: #### I NFLUAB #### [facility] [address] [place], [place] [address] Dr. Ekaterina Alcocer INFLUENZA B AG Negative Normal NEGATIVE SEE COMMENT [facility] Comment on above: Performed By: #### I NFLUAB #### [facility] [address] [place] [address] [address] Ekaterina Alcocer PSA, FREE AND TOTAL RATIOon 06-30-2022 % Free PSA 26.8 % Normal [facility] Comment on above: Result Comment: The table below lists the probability of prostate cancer for men with non-suspicious ANJEL results and total PSA between 4 and 10 ng/mL, by patient age (Desiree et al, GENARO 1998, 279:1542). % Free PSA 50-64 yr 65-75 yr 0.00-10.00% 56% 55% 10.01-15.00% 24% 35% 15.01-20.00% 17% 23% 20.01-25.00% 10% 20% >25.00% 5% 9% Please note: Desiree et al did not make specific recommendations regarding the use of percent free PSA for any other population of men. Performed By: #### P SAFREE ####[facility] [address] [place], [place] [address]ErDr. Ekaterina Alcocer Prostate specific Ag [Mass/Vol] 4.4 ng/mL Critically high 0.0-4.0 [facility] Comment on above: Result Comment: Roch cristofer ECLIA methodology. . According to the [employer] [place] [employer], Serum PSA should decrease and remain at undetectable levels after radical prostatectomy. The AUA defines biochemical recurrence as an initial PSA value 0.2 ng/mL or greater followed by a subsequent confirmatory PSA value 0.2 ng/mL or greater. Values obtained with different assay methods or kits cannot be used interchangeably. Results cannot be interpreted as absolute evidence of the presence or absence of malignant disease. Performed By: #### P SAFREE ####[facility] [address] [place] [address]Dr. Ekaterina Alcocer PSA, Free 1.18 ng/mL Normal N/A [facility] Comment on above: Result Comment: Antonio WHITE methodology. Performed By: #### P SAFREE ####[facility] [address] [place] [address]Dr. Ekaterina Alcocer INSULINon 06-29-2022 Insulin 7.5 uIU/mL Normal 2.6-24.9 [facility] Comment on above: Performed By: #### I NSULIN ####[facility] [address] [place], [place] [address]Dr. Ekaterina Alcocer CBC AUTO DIFFon 06-28-2022 BASO # 0.1 103/ul Normal 0.0-0.1 [facility] Comment on above: Performed By: #### C BC #### [facility] [address] [place] [address] Dr. Ekaterina Alcocer Basophils/100 WBC (Bld) 1.5 % Normal 0.2-2.0 [facility] Comment on above: Performed By: #### C BC #### [facility] [address] [place] [address] Dr. Ekaterina Alcocer EO # 0.2 103/ul Normal 0.0-0.7 [facility] Comment on above: Performed By: #### C BC #### [facility] [address] [place] [address] Dr. Ekaterina Alcocer Eosinophils/100 WBC (Bld) 2.4 % Normal 0.9-7.0 [facility] Comment on above: Performed By: #### C BC #### [facility] [address] [place] [address] Dr. Ekaterina Alcocer Erythrocyte distribution width (RBC) [Ratio] 13.6 % Normal 11.0-15.0 [facility] Comment on above: Performed By: #### C BC #### [facility] [address] [place] [address] Dr. Ekaterina Alcocer Hematocrit (Bld) [Volume fraction] 46.3 % Normal 42.0-54.0 [facility] Comment on above: Performed By: #### C BC #### [facility] [address] [place] [address] Dr. Ekaterina Alcocer Hemoglobin (Bld) [Mass/Vol] 15.5 g/dL Normal 14.0-18.0 [facility] Comment on above: Performed By: #### C BC #### [facility] [address] [place] [address] Dr. Ekaterina Alcocer IG # 0.03 10e3/ul Normal 0.00-0.03 [facility] Comment on above: Performed By: #### C BC #### [facility] [address] [place] [address] Dr. Ekaterina Alcocer IG % 0.3 % Normal 0.0-0.5 [facility] Comment on above: Performed By: #### C BC #### [facility] [address] [place] [address] Dr. Ekaterina Alcocer LYMPH # 2.6 103/ul Normal 1.2-3.8 [facility] Comment on above: Performed By: #### C BC #### [facility] [address] [place] [address] Dr. Ekaterina Alcocer Lymphocytes/100 WBC (Bld) 28.8 % Normal 20.5-60.0 [facility] Comment on above: Performed By: #### C BC #### [facility] [address] [place] [address] Dr. Ekaterina Aclocer MANUAL DIFF REQ NO Normal [facility] Comment on above: Performed By: #### C BC #### [facility] [address] [place] [address] Dr. Ekaterina Alcocer MCH (RBC) [Entitic mass] 30.7 pg Normal 25.9-34.0 [facility] Comment on above: Performed By: #### C BC #### [facility] [address] [place] [address] [address] Ekaterina Alcocer MCHC (RBC) [Mass/Vol] 33.5 g/dL Normal 29.9-35.2 [facility] Comment on above: Performed By: #### C BC #### [facility] [address] [place] [address] Dr. Ekaterina Alcocer MCV (RBC) [Entitic vol] 91.7 fL Normal 80.0-94.0 [facility] Comment on above: Performed By: #### C BC #### [facility] [address] [place] [address] Dr. Ekaterina Alcocer MONO # 0.7 103/ul Normal 0.3-0.8 [facility] Comment on above: Performed By: #### C BC #### [facility] [address] [place] [address] Dr. Ekaterina Alcocer Monocytes/100 WBC (Bld) 8.3 % Normal 1.7-12.0 [facility] Comment on above: Performed By: #### C BC #### [facility] [address] [place] [address] Dr. Ekaterina Alcocer NEUT # 5.2 103/ul Normal 1.4-6.5 [facility] Comment on above: Performed By: #### C BC #### [facility] [address] [place] [address] Dr. Ekaterina Alcocer Neutrophils/100 WBC (Bld) 58.7 % Normal 43.0-75.0 [facility] Comment on above: Performed By: #### C BC #### [facility] [address] [place] [address] Dr. Ekaterina Alcocre Platelet mean volume (Bld) [Entitic vol] 9.8 fL Normal 9.5-13.5 [facility] Comment on above: Performed By: #### C BC #### [facility] [address] [place] [address] Dr. Ekaterina Alcocer PLT 230 103/ul Normal 150-450 [facility] Comment on above: Performed By: #### C BC #### [facility] [address] [place] [address] [address] Ekaterina Alcocer RBC 5.05 106/ul Normal 4.70-6.10 [facility] Comment on above: Performed By: #### C BC #### [facility] [address] [place] [address] [address] Ekaterina Alcocer WBC 8.9 103/ul Normal 4.0-11.0 [facility] Comment on above: Performed By: #### C BC #### [facility] [address] [place] [address] Dr. Ekaterina Alcocer FREE THYROXINE INDEX T7on FTI 2.02 Normal 1.30-4.50 [facility] Comment on above: Performed By: #### T 7, TSH, LIPID, URIC, CMP #### [facility] [address] [place] [address] Dr. Ekaterina Alcocer T3U 32.0 % Critically low 33.0-40.0 [facility] Comment on above: Performed By: #### T 7, TSH, LIPID, URIC, CMP #### [facility] [address] [place] [address] Dr. Ekaterina Alcocer T4 [Mass/Vol] 6.30 ug/dL Normal 4.50-12.10 [facility] [place] [facility] Comment on above: Performed By: #### T 7, TSH, LIPID, URIC, CMP #### [facility] [address] [place] [address] Dr. Ekaterina Alcocer GLYCOHEMOGLOBIN A1Con 2021 ADA RECOMMENDATION SEE BELOW Normal [facility] Comment on above: Result Comment: ADA RECOMMENDED LIMIT 4.0 - 6.0 ADA THERAPEUTIC TARGET < 7.0 ACTION SUGGESTED > 7.0 Performed By: #### A 1C #### [facility] [address] [place] [address] Dr. Ekaterina Alcocer Glucose [Mass/Vol] 134 mg/dL Normal [facility] Comment on above: Performed By: #### A 1C #### [facility] [address] [place] [address] Dr. Ekaterina Alcocer HbA1c (Bld) [Mass fraction] 6.3 % Critically high 4.5-6.2 [facility] Comment on above: Performed By: #### A 1C #### [facility] [address] [place] [address] Dr. Ekaterina Alcocer LIPID PROFILEon 06-28-2022 CHOL-HDL RATIO NORM SEE BELOW Normal [facility] Comment on above: Result Comment: 3.3 - 4.4 LOW RISK 4.4 - 7.1 AVERAGE RISK 7.1 - 11.0 MODERATE RISK >11.0 HIGH RISK Performed By: #### T 7, TSH, LIPID, URIC, CMP #### [facility] [address] [place] [address] Dr. Ekaterina Alcocer Cholesterol [Mass/Vol] 142 mg/dL Normal <=200 Th [facility] Comment on above: Performed By: #### T 7, TSH, LIPID, URIC, CMP #### [facility] [address] [place] [address] Dr. Ekaterina Alcocer Cholesterol in HDL [Mass/Vol] 43 mg/dL Normal 40-60 [facility] Comment on above: Performed By: #### T 7, TSH, LIPID, URIC, CMP #### [facility] [address] [place] [address] Dr. Ekaterina Alcocer Cholesterol in LDL [Mass/Vol] 78.8 mg/dL Normal [facility] Comment on above: Performed By: #### T 7, TSH, LIPID, URIC, CMP #### [facility] [address] [place] [address] Dr. Ekaterina Alcocer Cholesterol.total/Choles terol in HDL [Mass ratio] 3.3 {ratio} Normal [facility] Comment on above: Performed By: #### T 7, TSH, LIPID, URIC, CMP #### [facility] [address] [place] [address] Dr. Ekaterina Alcocer HDL NORMAL > or = 60 mg/dl - LOW CARDIOVASCULAR RISK <40 mg/dl - HIGH CARDIOVASCULAR RISK Normal [facility] Comment on above: Performed By: #### T 7, TSH, LIPID, URIC, CMP #### [facility] [address] [place], [place] [id number] Dr. Ekaterina Alcocer LDL CALC NORMAL SEE BELOW Normal [facility] Comment on above: Result Comment: <100 mg/dl OPTIMAL 100 - 129 mg/dl NEAR OR ABOVE OPTIMAL 130 - 159 mg/dl BORDERLINE HIGH 160 - 189 mg/dl HIGH >190 mg/dl VERY HIGH Performed By: #### T 7, TSH, LIPID, URIC, CMP #### [facility] [address] [place] [address] Dr. Ekaterina Alcocer Triglyceride [Mass/Vol] 101 mg/dL Normal <=150 T [facility] Comment on above: Performed By: #### T 7, TSH, LIPID, URIC, CMP #### [facility] [address] [place] [address] Dr. Ekaterina Alcocer VLDL CALC 20.2 mg/dL Normal [facility] Comment on above: Performed By: #### T 7, TSH, LIPID, URIC, CMP #### [facility] [address] [place] [address] Dr. Ekaterina Alcocer PROF 14(COMP METB)on 022 Albumin [Mass/Vol] 3.5 g/dL Normal 3.4-5.0 [facility] Comment on above: Performed By: #### T 7, TSH, LIPID, URIC, CMP #### [facility] [address] [place] [address] Dr. Ekaterina Alcocer Albumin/Globulin [Mass ratio] 0.9 {ratio} Normal [facility] Comment on above: Performed By: #### T 7, TSH, LIPID, URIC, CMP #### [facility] [address] [place] [address] Dr. Ekaterina Alcocer ALP [Catalytic activity/Vol] 82 U/L Normal 46-116 [facility] Comment on above: Performed By: #### T 7, TSH, LIPID, URIC, CMP #### [facility] [address] [place] [address] Dr. Ekaterina Alcocer ALT [Catalytic activity/Vol] 26 U/L Normal 16-63 [facility] Comment on above: Performed By: #### T 7, TSH, LIPID, URIC, CMP #### [facility] [address] [place] [address] Dr. Ekaterina Alcocer Anion gap [Moles/Vol] 8.4 mmol/L Normal [facility] Comment on above: Performed By: #### T 7, TSH, LIPID, URIC, CMP #### [facility] [address] [place] [address] Dr. Ekaterina Alcocer AST [Catalytic activity/Vol] 17 U/L Normal 15-37 [facility] Comment on above: Performed By: #### T 7, TSH, LIPID, URIC, CMP #### [facility] [address] [place] [address] Dr. Ekaterina Alcocer Bilirubin [Mass/Vol] 0.6 mg/dL Normal 0.2-1.0 [facility] Comment on above: Performed By: #### T 7, TSH, LIPID, URIC, CMP #### [facility] [address] [place] [address] Dr. Ekaterina Alcocer Calcium [Mass/Vol] 8.8 mg/dL Normal 8.5-10.1 [facility] Comment on above: Performed By: #### T 7, TSH, LIPID, URIC, CMP #### [facility] [address] [place] [address] Dr. Ekaterina Alcocer Chloride [Moles/Vol] 105 mmol/L Normal 98-107 [facility] Comment on above: Performed By: #### T 7, TSH, LIPID, URIC, CMP #### [facility] [address] [place] [address] Dr. Ekaterina Alcocer CO2 [Moles/Vol] 32.6 mmol/L Critically high 21.0-32.0 [facility] Comment on above: Performed By: #### T 7, TSH, LIPID, URIC, CMP #### [facility] [address] [place] [address] Dr. Ekaterina Alcocer Creatinine [Mass/Vol] 1.48 mg/dL Critically high 0.70-1.30 [facility] Comment on above: Performed By: #### T 7, TSH, LIPID, URIC, CMP #### [facility] [address] [place] [address] Dr. Ekaterina Alcocer EGFR-AF IRANIAN 55 mL/min/1.73m2 Critically low >=60 [facility] Comment on above: Performed By: #### T 7, TSH, LIPID, URIC, CMP #### [facility] [address] [address] [address] Ekaterina Alcocer EGFR-NON AF IRANIAN 45 mL/min/1.73m2 Critically low >=60 [facility] Comment on above: Performed By: #### T 7, TSH, LIPID, URIC, CMP #### [facility] [address] [address] [address] Ekaterina Alcocer Globulin (S) [Mass/Vol] 3.9 g/dL Normal [facility] Comment on above: Performed By: #### T 7, TSH, LIPID, URIC, CMP #### [facility] [address] [place] [address] Dr. Ekaterina Alcocer Glucose [Mass/Vol] 118 mg/dL Critically high 74-106 [facility] Comment on above: Performed By: #### T 7, TSH, LIPID, URIC, CMP #### [facility] [address] [address] [address] Ekaterina Alcocer Potassium [Moles/Vol] 5.0 mmol/L Normal 3.5-5.1 [facility] Comment on above: Performed By: #### T 7, TSH, LIPID, URIC, CMP #### [facility] [address] [place] [address] Dr. Ekaterina Alcocer Protein [Mass/Vol] 7.4 g/dL Normal 6.4-8.2 [facility] Comment on above: Performed By: #### T 7, TSH, LIPID, URIC, CMP #### [facility] [address] [address] [address] Ekaterina Alcocer Sodium [Moles/Vol] 141 mmol/L Normal 136-145 [facility] Comment on above: Performed By: #### T 7, TSH, LIPID, URIC, CMP #### [facility] [address] [address] [address] Ekaterina Alcocer Urea nitrogen [Mass/Vol] 23.0 mg/dL Critically high 7.0-18 .0 [facility] Comment on above: Performed By: #### T 7, TSH, LIPID, URIC, CMP #### [facility] [address] [address] [address] Ekaterina Alcocer Urea nitrogen/Creatinine [Mass ratio] 15.5 mg/mg Normal [facility] Comment on above: Performed By: #### T 7, TSH, LIPID, URIC, CMP #### [facility] [address] [address] [address] Ekaterina Alcocer TSHon 06-28-2022 TSH 3.329 uIU/mL Normal 0.358-3.740 [facility] Comment on above: Performed By: #### T 7, TSH, LIPID, URIC, CMP #### [facility] [address] [address] [address] Ekaterina Alcocer URIC ACID SERUMon 06-28-2022 Urate [Mass/Vol] 8.1 mg/dL Critically high 3.5-7.2 [facility] Comment on above: Performed By: #### T 7, TSH, LIPID, URIC, CMP #### [facility] [address] [address] [address] Ekaterina Alcocer US CAROTID ART BILon 022 US CAROTID ART AUNDREA EXAMINATION: US CAROTID ART AUNDREA HISTORY: Visual disturbance COMPARISON: No relevant comparison available. TECHNIQUE: Duplex Doppler ultrasound analysis of carotid and vertebral arteries. . Bilateral carotid arterial duplex examination was performed using B-mode, color flow and spectral analysis. Carotid stenosis is reported according to validated velocity parameters, similar to NASCET criteria. FINDINGS: RIGHT CAROTID ARTERY Mild atherosclerotic plaque Subclavian: PSV: 131.9 cm/s cm/s EDV: 0.0 cm/s cm/s CCA: Prox: PSV: 114.1 cm/s cm/s EDV: 17.5 cm/s cm/s Mid: PSV: 96.4 cm/s cm/s EDV: 19.5 cm/s cm/s Distal: PSV: 70.8 cm/s cm/s EDV: 11.6 cm/s cm/s BULB: PSV: 72.7 cm/s cm/s EDV: 13.6 cm/s cm/s ICA: Prox: PSV: 82.6 cm/s cm/s EDV: 25.4 cm/s cm/s Mid: PSV: 70.7 cm/s cm/s EDV: 23.4 cm/s cm/s Distal: PSV: 82.5 cm/s cm/s EDV: 27.4 cm/s cm/s ECA: PSV: 102.2 cm/s cm/s EDV: 0.0 cm/s cm/s VERTEBRAL: PSV: 62.8 cm/s cm/s EDV: 13.6 cm/s cm/s ICA/CCA ratio: PSV: 0.7 EDV: 1.4 LEFT CAROTID ARTERY Mild atherosclerotic plaque Subclavian: PSV: 171.7 cm/s cm/s EDV: 16.0 cm/s CCA: Prox: PSV: 153.1 cm/s cm/s EDV: 20.7 cm/s Mid: PSV: 134.5 cm/s cm/s EDV: 20.7 cm/s Distal: PSV: 139.0 cm/s cm/s EDV: 20.7 cm/s BULB: PSV: 101.9 cm/s cm/s EDV: 11.4 cm/s ICA: Prox: PSV: 92.6 cm/s cm/s EDV: 18.3 cm/s Mid: PSV: 67.1 cm/s cm/s EDV: 20.7 cm/s Distal: PSV: 80.9 cm/s cm/s EDV: 23.0 cm/s ECA: PSV: 76.3 cm/s cm/s EDV: 0.0 cm/s VERTEBRAL: PSV: 59.4 cm/s cm/s EDV: 15.4 cm/s ICA/CCA ratio: PSV: 0.7 EDV: 0.5 IMPRESSION: 0-49% flow stenosis bilateral internal carotid arteries Spectral Doppler US Thresholds (Reference: Christiano EG, et al. Radiology 2000; 214:247-252) Stenosis (%) PSV (cm/sec) VICA/VCCA 0-49 <150 <2.5 50-69 150-225 2.5-4.0 >70 >225 >4.0 Electronically authenticated by: BRIANNA SMITH Date: 2022-06-28 17:35 Normal [facility] VITAMIN D 25 OHon 06-28-2022 VIT D 25-OH 53.8 ng/mL Normal [facility] Comment on above: Performed By: #### V ITAD, PSASC ####[facility] [id number] [place], [place] [address]Rl. Ekaterina Alcocer VIT D RANGES SEE BELOW Normal [facility] Comment on above: Result Comment: <20 ng/mL Vit D deficient 20 - <30 ng/mL Vit D insufficient 30 - 100 ng/mL Vit D sufficient >100 ng/mL Potential Toxicity Performed By: #### V ITHOLLEY, PSASC ####[facility] [id number] [id number]. Ekaterina Alcocer Echocardiogramon 04-15-[address], [address] [address] TRANSTHORACIC ECHOCARDIOGRAM REPORT Patient Name: MELO CUEVAS Reading Physician: [id number] Fabián Tony MD Study Date: 04/15/2022 Referring Physician: JAJA FLOWER MRN/PID: [id number] PCP: Lisa Severino Accession/Order#: [id number] Department Location: [facility] Date of : 1935 Fellow: Gender: M Nurse: Admit Date: Wedger And Gluer: Daniela Veras RD, T Height: 187.96 cm CC Report to: Weight: 87.09 kg Study Type: Echocardiogram BSA: 2.14 m2 Blood Pressure: 120 /74 mmHg Diagnosis/ICD: I35.0-Nonrheumatic aortic (valve) stenosis; I50.22-Chronic systolic (congestive) heart failure (CHF); I34.0-Nonrheumatic mitral (valve) insufficiency; 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 PHYSICIAN INTERPRETATION: Left Ventricle: Left ventricular systolic function is normal, with an estimated ejection fraction of 70%. There are no regional wall motion abnormalities. The left ventricular cavity size is normal. Spectral Doppler shows a normal pattern of left ventricular diastolic filling. Mild to moderate concentric left ventricular hypertrophy. Left Atrium: The left atrium is mildly dilated. Mildly dilated left atrium. Right Ventricle: The right ventricle is normal in size. There is normal right ventricular global systolic function. Right Atrium: The right atrium is normal in size. Aortic Valve: The aortic valve appears abnormal. There is mild to moderate aortic valve regurgitation. The peak instantaneous gradient of the aortic valve is 12.4 mmHg. The mean gradient of the aortic valve is 6.0 mmHg. The aortic valve historically is bioprosthetic. Appears to be in good position. Peak gradient measured around 12 mmHg. Mean gradient is 6 mmHg. Calculated aortic valve area is 3 cm???. Those findings consistent with acceptable bioprosthetic aortic valve function. Mitral Valve: The mitral valve is moderately to severely thickened. There is mild to moderate mitral valve regurgitation. The mitral valve is heavily calcified with appearance of degenerative mitral stenosis. Peak gradient is 17 mmHg. Mean gradient is 6 mmHg. Calculated mitral valve area is 1.5 sonometer square consistent with moderate mitral stenosis. Tricuspid Valve: The tricuspid valve is structurally normal. No evidence of tricuspid regurgitation. Pulmonic Valve: The pulmonic valve is structurally normal. There is no indication of pulmonic valve regurgitation. Pericardium: There is no pericardial effusion noted. Aorta: The aortic root is normal. CONCLUSIONS: 1. Left ventricular systolic function is normal with a 70% estimated ejection fraction. 2. Mild to moderate concentric left ventricular hypertrophy. 3. Mildly dilated left atrium. 4. The mitral valve is moderately to severely thickened. 5. The mitral valve is heavily calcified with appearance of degenerative mitral stenosis. Peak gradient is 17 mmHg. Mean gradient is 6 mmHg. Calculated mitral valve area is 1.5 sonometer square consistent with moderate mitral stenosis. 6. Mild to moderate mitral valve regurgitation. 7. Aortic valve appears abnormal. 8. The aortic valve historically is bioprosthetic. Appears to be in good position. Peak gradient measured around 12 mmHg. Mean gradient is 6 mmHg. Calculated aortic valve area is 3 cm???. Those findings consistent with acceptable bioprosthetic aortic valve function. 9. Mild to moderate aortic valve regurgitation. QUANTITATIVE DATA SUMMARY: 2D MEASUREMENTS: Normal Ranges: Ao Root d: 3.20 cm (2.0-3.7cm) LAs: 4.30 cm (2.7-4.0cm) RVIDd: 3.50 cm (0.9-3.6cm) IVSd: 1.70 cm (0.6-1.1cm) LVPWd: 1.10 cm (0.6-1.1cm) LVIDd: 4.20 cm (3.9-5.9cm) LVIDs: 2.90 cm LV Mass Index: 105.0 g/m2 LV % FS 31.0 % LV SYSTOLIC FUNCTION BY 2D PLANIMETRY (MOD): Normal Ranges: EF-A4C View: 52.1 % (>55%) LV DIASTOLIC FUNCTION: Normal Ranges: MV Peak E: 1.36 m/s (0.7-1.2 m/s) MV Peak A: 2.05 m/s (0.42-0.7 m/s) E/A Ratio: 0.66 (1.0-2.2) MV lateral e' 0.07 m/s MV medial e' 0.03 m/s E/e' Ratio: 19.80 (<8.0) MITRAL VALVE: Normal Ranges: MV Vmax: 2.28 m/s (<1.3m/s) MV peak P.9 mmHg (<5mmHg) MV mean P.5 mmHg (<48mmHg) MITRAL INSUFFICIENCY: Normal Ranges: MR Vmax: 478.00 cm/s dP/dt: 606 mmHg/s (>1200mmHg/sec) AORTIC VALVE: Normal Ranges: AoV Vmax: 1.76 m/s (<1.7m/s) AoV Peak P.4 mmHg (<20mmHg) AoV Mean P.0 mmHg (1.7-11.5mmHg) LVOT Max Benjamin: 1.02 m/s (<1.1m/s) AoV VTI: 36.80 cm (18-25cm) LVOT VTI: 22.60 (more content not included)... 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 Prescriptions will not be filled unless you are compliant with your follow up appointments or have a follow up appointment scheduled as per instruction of your physician. Refills should be requested at the time of your visit. Pacemaker/Defibrilla tor follow up per routine Follow up in 6 months Chief Complaint MELO CUEVAS is being seen for a 6 month follow-up of. 87-year-old gentleman returns for follow-up. He is doing well he has no cardiovascular complaints other than the occasional exertional dyspnea and fatigue while doing yard work. He denies any angina or heart failure. Patient underwent TAVR with Garcia S3 #29 valve on 04/20/2016. 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 On exam he has a persistent 2/6 diastolic AI murmur. Recommendations, follow-up with echocardiogram and further potential assessment with structural heart team if necessary. 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 (V12.54) (Z86.73) Valvular heart disease (424.90) (I38) Surgical History Problems History of Aortic valve repair 20Apr2016 History of Cataract Surgery Denied: History of Colonoscopy History of Inguinal Hernia Repair History of Lip surgery blood blister removal History of Pacemaker insertion 12/16/2020 History of Skin lesion excision Nose History of Surgery Basal cell removal History of Tonsillectomy History of Tonsillectomy History of Umbilical Hernia Repair Current Meds Medication NameInstruction Amoxicillin 500 MG Oral CapsuleTAKE FOUR CAPSULES BY MOUTH ONE HOUR BEFORE APPOINTMENT Aspirin Low Dose 81 MG Oral Tablet Delayed ReleaseTake 1 tablet daily Atorvastatin Calcium 40 MG Oral TabletTAKE 1 TABLET Bedtime Carvedilol 6.25 MG Oral TabletTake 1 tablet twice daily Lisinopril 10 MG Oral TabletTAKE 1 TABLET DAILY. Allergies Medication No Known Drug Allergies Recorded By: Shaunna Young; 02/19/2015 1:51:06 PM Family History Father Family history of congestive heart failure (V17.49) (Z82.49) - age 83 Social History Problems Caffeine use (V49.89) (Z78.9) Coffee - 1/2 cup daily Consumes alcohol (V49.89) (Z72.89) Rarely Former smoker (V15.82) (Z87.891) Quit at age 37. 2 ppd No illicit drug use Review of Systems Constitutional: not feeling tired. Cardiovascular: no intermittent leg claudication and as noted in HPI. Respiratory: no cough and no shortness of breath. Gastrointestinal: no change in bowel habits and no blood in stools. Integumentary: no skin rashes. Neurological: no seizures and no frequent falls. All other systems have been reviewed and are negative for complaint. Vitals Vital Signs Recorded: [id number] 10:47AM Heart Rate72, L Radial Wumidrmi225, LUE, Sitting [id number], LUE, Sitting Height6 ft 2 in Grfbbc032 lb BMI Bamuxaizpi84.65 kg/m2 BSA Calculated2.14 Tobacco Useb) No Falls Screening (Age 18+)a) No falls within the last year Physical Exam Constitutio (more content not included)... Normal [facility] Tobacco Screening.on 022 Fall risk assessment a) No falls within the last year [facility] [place] 250 DO Work Phone: Tobacco use status [facility] b) No M [facility] y 250 DO Work Phone: Tobacco Screening.on 022 Adult depression screening assessment No [facility] y 250 DO Work Phone: Fall risk assessment a) No falls within the last year [facility] y 250 DO Work Phone: Heart Rate Bounding [facility] [place] 250 DO Work Phone: Tobacco use status [facility] b) No M [facility] [employer] y 250 DO Work Phone: Echocardiogramon 09-29-2021 Echocardiography [facility] [address] [place] [address], Suite [facility] [place], [place] [address] TRANSTHORACIC ECHOCARDIOGRAM REPORT Patient Name: MELO CUEVAS Reading Physician: [id number] Fabián Tony MD Study Date: 09/29/2021 Referring Physician: [id number] JAJA FLOWER MRN/PID: [id number] PCP: Lisa Severino Accession/Order#: [id number] Department Location: Date of : 1935 Fellow: Gender: M Nurse: Admit Date: Wedger And Gluer: Daniela Veras RDCS, RVT Height: 187.96 cm CC Report to: Weight: 88.45 kg Study Type: Echocardiogram BSA: 2.15 m2 Blood Pressure: 116 /58 mmHg Diagnosis/ICD: I35.0-Nonrheumatic aortic (valve) stenosis; 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 Indication: #29 Luca 3 TAVR-04/2016, Abnormal EKG-Complete Heart Block, Pacemaker-12/2020, Hyperlipidemia, Former Smoker, Mitral Stenosis, Aortic Regurgiation, CVA Procedure/CPT: Echo Complete w Full Doppler-[id number] Study Detail: The following Echo studies were performed: 2D, M-Mode, Doppler and color flow. PHYSICIAN INTERPRETATION: Left Ventricle: The left ventricular systolic function is normal, with an estimated ejection fraction of 70%. The left ventricular cavity size is normal. Spectral Doppler shows an impaired relaxation pattern of left ventricular diastolic filling. Mild to moderate left ventricular hypertrophy. Left Atrium: The left atrium is mildly dilated. Right Ventricle: The right ventricle is normal in size. There is normal right ventricular global systolic function. Right Atrium: The right atrium is normal in size. Aortic Valve: The aortic valve appears abnormal. There is moderate aortic valve regurgitation. The peak instantaneous gradient of the aortic valve is 14.0 mmHg. The mean gradient of the aortic valve is 8.0 mmHg. The aortic valve historically is bioprosthetic. Peak gradient measured at 14 mmHg. Mean gradient is 8 mmHg. There is evidence of moderate aortic regurgitation difficult to determine whether it is intra or perivalvular regurgitation. Mitral Valve: The mitral valve is abnormal. There is mild to moderate mitral valve regurgitation. The mitral valve demonstrate heavy calcification and restriction of leaflet motion. There is evidence of mild to moderate mitral stenosis with peak gradient of 17 mmHg and mean around 8 mmHg and calculated aortic valve area of 1.71 cm???. Tricuspid Valve: The tricuspid valve is structurally normal. There is mild tricuspid regurgitation. The Doppler estimated RVSP is within normal limits at 21.1 mmHg. Pulmonic Valve: The pulmonic valve is structurally normal. There is no indication of pulmonic valve regurgitation. Pericardium: There is no pericardial effusion noted. Aorta: The aortic root is normal. CONCLUSIONS: 1. The left ventricular systolic function is normal with a 70% estimated ejection fraction. 2. Mild to moderate left ventricular hypertrophy. 3. Spectral Doppler shows an impaired relaxation pattern of left ventricular diastolic filling. 4. The mitral valve demonstrate heavy calcification and restriction of leaflet motion. There is evidence of mild to moderate mitral stenosis with peak gradient of 17 mmHg and mean around 8 mmHg and calculated aortic valve area of 1.71 cm???. 5. Mild to moderate mitral valve regurgitation. 6. RVSP within normal limits. 7. The aortic valve historically is bioprosthetic. Peak gradient measured at 14 mmHg. Mean gradient is 8 mmHg. There is evidence of moderate aortic regurgitation difficult to determine whether it is intra or perivalvular regurgitation. 8. There is moderate aortic valve regurgitation. 9. No significant changes noted when compared to prior study. QUANTITATIVE DATA SUMMARY: 2D MEASUREMENTS: Normal Ranges: Ao Root d: 2.90 cm (2.0-3.7cm) LAs: 4.30 cm (2.7-4.0cm) RVIDd: 3.00 cm (0.9-3.6cm) IVSd: 1.80 cm (0.6-1.1cm) LVPWd: 1.50 cm (0.6-1.1cm) LVIDd: 3.70 cm (3.9-5.9cm) LVIDs: 2.50 cm LV Mass Index: 113.4 g/m2 LV % FS 32.4 % LV SYSTOLIC FUNCTION BY 2D PLANIMETRY (MOD): Normal Ranges: EF-A4C View: 68.7 % (>55%) LV DIASTOLIC FUNCTION: Normal Ranges: MV Peak E: 1.40 m/s (0.7-1.2 m/s) MV Peak A: 1.76 m/s (0.42-0.7 m/s) E/A Ratio: 0.79 (1.0-2.2) MV lateral e' 0.03 m/s MV medial e' 0.03 m/s E/e' Ratio: 49.50 (<8.0) MITRAL VALVE: Normal Ranges: MV Vmax: 2.09 m/s (<1.3m/s) MV peak P.5 mmHg (<5mmHg) MV mean P.0 mmHg (<48mmHg) MITRAL INSUFFICIENCY: Normal Ranges: MR Vmax: 480.00 cm/s dP/dt: 699 mmHg/s (>1200mmHg/sec) AORTIC VALVE: Normal Ranges: AoV Vmax: 1.87 m/s (<1.7m/s) AoV Peak P.0 mmHg (<20mmHg) AoV Mean P.0 mmHg (1.7-11.5mmHg) LVOT Max Benjamin: 0.86 m/s (<1.1m/s) AoV VTI: 42.70 cm (18-25cm) LVOT VTI: 19.70 cm LVOT Diameter: 2.40 cm (1.8-2.4cm) AoV Area, VTI: 2.09 cm2 (2.5-5.5cm2) AoV Area,Vmax: 2.09 cm2 (2.5-4.5cm2) AoV Dimensionless Index: 0.46 AORTIC INSUFFICIENCY: AI Vmax: 3.10 m/s AI Half-time: 524 msec AI Decel Rate: 162.00 cm/s2 TRICU (more content not included)... Normal [facility] PROGRESSon 12-06-2017 [facility] NOTES Normal [facility] BRIEF OP NOTon 11-21-2017 [facility] HIM CAC NOTES Normal [facility] HISTORY AND PHYSICALon 11-21 [facility] NOTES Normal [facility] OR NURSINGon 11-21-2017 [facility] HIM CAC NOTES Normal [facility] PROGRESSon 11-01-2017 [facility] NOTES Normal [facility] Vital Signs Date Time Vital Sign Value Performing Clinician Facility 01-31-2024 13:10-0400 Blood Pressure Location Guy ANGELES [facility] 01-31-2024 13:10-0400 Diastolic blood pressure 76 mm[Hg] Guy ANGELES [facility] 01-31-2024 13:10-0400 Heart rate 72 /min Guy ANGELES [facility] 01-31-2024 13:10-0400 Respiratory rate 16 /min Guy ANGELES [facility] 01-31-2024 13:10-0400 Systolic blood pressure 116 mm[Hg] Guy ANGELES [facility] 10-26-2023 09:30-0400 Body height 188 cm Jaja Hernan Work Phone: [facility] 10-26-2023 09:30-0400 Body mass index (BMI) [Ratio] 25.42 kg/m2 Jaja Flower DO Work Phone: [facility] 10-26-2023 09:30-0400 Body weight 89.81 kg Jaja Flower DO Work Phone: [facility] 10-26-2023 09:30-0400 Diastolic blood pressure 60 mm[Hg] Jaja Flower DO Work Phone: [facility] 10-26-2023 09:30-0400 Heart rate 60 /min Jaja Yorkdon Work Phone: [facility] 10-26-2023 09:30-0400 Systolic blood pressure 118 mm[Hg] Jaja Yorkshabnam POTTER Work Phone: [facility] 10-18-2023 09:41-0400 Body height [address] 10-18-2023 09:41-0400 Body mass index (BMI) [Ratio] 25.42 kg/m2 [address] 10-18-2023 09:41-0400 Body weight 89.[address] 10-18-2023 09:41-0400 Diastolic blood pressure 72 mm[Hg] [address] 10-18-2023 09:41-0400 Systolic blood pressure 134 mm[Hg] [address] 08-17-2023 11:27-0500 Body height 188 cm Liza Bledsoe APRN-CORRECTIONAL SUPPLY SUPERVISOR Work Phone: [facility] 08-17-2023 11:27-0500 Body mass index (BMI) [Ratio] 25.42 kg/m2 Liza Bledsoe ACTIVE DIRECTORY ARCHITECT-CORRECTIONAL SUPPLY SUPERVISOR Work Phone: [facility] 08-17-2023 11:27-0500 Body weight 89.81 kg Liza Bledsoe ACTIVE DIRECTORY ARCHITECT-CORRECTIONAL SUPPLY SUPERVISOR Work Phone: [facility] 08-17-2023 11:27-0500 Diastolic blood pressure 64 mm[Hg] Liza Bledsoe ACTIVE DIRECTORY ARCHITECT-CORRECTIONAL SUPPLY SUPERVISOR Work Phone: [facility] 08-17-2023 11:27-0500 Heart rate 60 /min Liza Bledsoe ACTIVE DIRECTORY ARCHITECT-CORRECTIONAL SUPPLY SUPERVISOR Work Phone: [facility] 08-17-2023 11:27-0500 Systolic blood pressure 138 mm[Hg] Liza Bledsoe ACTIVE DIRECTORY ARCHITECT-CORRECTIONAL SUPPLY SUPERVISOR Work Phone: [facility] 10-14-2022 10:03-0400 Body height 187.96 cm Lisa Kameron Hoy Work Phone: [facility] [address] [place] Work Phone: 10-14-2022 10:03-0400 Body mass index (BMI) [Ratio] 25.29 kg/m2 Lisa M Hoy Work Phone: [facility] DO Work Phone: 10-14-2022 10:03-0400 Body surface area Derived from formula 2.16 m2 Lisa M Hoy Work Phone: [facility] [address] DO Work Phone: 10-14-2022 10:03-0400 Body weight 89.36 kg Lisa M Hoy Work Phone: [facility] [address] DO Work Phone: 10-14-2022 10:03-0400 Diastolic blood pressure 52 mm[Hg] Lisa M Hoy Work Phone: [facility] [address] DO Work Phone: 10-14-2022 10:03-0400 Heart rate 64 /min Lisa Kameron Hoy Work Phone: [facility] [address] DO Work Phone: 10-14-2022 10:03-0400 Systolic blood pressure 112 mm[Hg] Lisa Kameron Hoy Work Phone: [facility] [address] DO Work Phone: 04-15-2022 09:45-0400 70 1 Lisa M Hoy Work Phone: [facility] [address] [place] Work Phone: Comment on above: [id number] 04-13-2022 10:47-0400 Body height 187.96 cm Lisa Kameron Hoy Work Phone: [facility] [address] DO Work Phone: 04-13-2022 10:47-0400 Body mass index (BMI) [Ratio] 24.65 kg/m2 Lisa Kameron Hoy Work Phone: [facility] [address] DO Work Phone: 04-13-2022 10:47-0400 Body surface area Derived from formula 2.14 m2 Lisa Kameron Hoy Work Phone: [facility] [address] DO Work Phone: 04-13-2022 10:47-0400 Body weight 87.09 kg Lisa M Hoy Work Phone: [facility] [address] DO Work Phone: 04-13-2022 10:47-0400 Diastolic blood pressure 74 mm[Hg] Lisa M Hoy Work Phone: [facility] [address] DO Work Phone: 04-13-2022 10:47-0400 Heart rate 72 /min Lisa Kameron Hoy Work Phone: [facility] [address] DO Work Phone: 04-13-2022 10:47-0400 Systolic blood pressure 122 mm[Hg] Lisa Kameron Hoy Work Phone: [facility] [address] DO Work Phone: 10-07-2021 10:50-0400 Body height 185.42 cm Lisa Kameron Hoy Work Phone: [facility] [address] DO Work Phone: 10-07-2021 10:50-0400 Body mass index (BMI) [Ratio] 26.25 kg/m2 Lisa M Hoy Work Phone: [facility] [address] DO Work Phone: 10-07-2021 10:50-0400 Body surface area Derived from formula 2.15 m2 Lisa Kameron Hoy Work Phone: [facility] DO Work Phone: 10-07-2021 10:50-0400 Body weight 90.27 kg Lisa Kameron Hoy Work Phone: [facility] DO Work Phone: 10-07-2021 10:50-0400 Diastolic blood pressure 60 mm[Hg] Lisa Kameron Hoy Work Phone: [facility] DO Work Phone: 10-07-2021 10:50-0400 Heart rate 61 /min Lisa Kameron Hoy Work Phone: [facility] [facility] DO Work Phone: 10-07-2021 10:50-0400 Systolic blood pressure 136 mm[Hg] Lisa Kameron Hoy Work Phone: [facility] [facility] DO Work Phone: 09-29-2021 10:45-0400 70 1 iLsa Severino Work Phone: [facility] [address] [place] Work Phone: Comment on above: [id number] Encounters Encounter Date Encounter Type Care Provider Facility Start: 01-31-2024 End: 01-31-2024 ambulatory Guy ANGELES Facility:[facility] Start: 01-31-2024 End: 01-31-2024 Patient encounter procedure Guy ANGELES [facility] Start: 01-03-2024 End: 01-03-2024 Patient encounter procedure MD Lisa Severino Work Phone: [facility] Start: 01-03-2024 End: 01-03-2024 ambulatory MD Lisa Severino Work Phone: [facility] Work Phone: Start: 12-26-2023 ambulatory Guy BRIDGETTE Facility:[facility] Start: 10-26-2023 End: 10-26-2023 ambulatory [facility] Amb[facility] Start: 10-26-2023 End: 10-26-2023 Office outpatient visit 25 minutes [facility] Work Phone: [facility] Comment on above: Paroxysmal atrial fi brillation (CMS/HCC); 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; Fatigue, unspecified type; SSS (sick sinus syndrome) (CMS/HCC); Pacemaker; Mitral valve stenosis, unspecified etiology; Primary hypertension; Mixed hyperlipidemia; BMI 25.0-25.9,adult; Former smoker Start: 10-18-2023 End: 10-19-2023 ambulatory LISA BYERS [facility] Start: 10-18-2023 End: 10-18-2023 Subsequent hospital visit by physician Janet Wu Echo/Vasc Room 2 [facility] Comment on above: Aortic valve stenosi s, etiology of cardiac valve disease unspecified Start: 10-04-2023 End: 10-04-2023 Patient encounter procedure MD Lisa Severino Work Phone: [facility] Start: 10-04-2023 End: 10-04-2023 ambulatory MD Lisa Severino Work Phone: [facility] Work Phone: Start: 08-17-2023 End: 08-17-[address] 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); Paroxysmal atrial fibrillation (CMS/HCC); residential current use of anticoagulant therapy; Mitral valve stenosis, unspecified etiology; Mixed hyperlipidemia; Primary hypertension; Pacemaker; BMI 25.0-25.9,adult Start: 07-04-2023 End: 07-04-2023 Patient encounter procedure MD Lisa Severino Work Phone: [facility] Start: 07-04-2023 End: 07-04-2023 ambulatory MD Lisa Severino Work Phone: [facility] Work Phone: Start: 06-23-2023 End: 06-23-2023 ambulatory JALEN BLEDSOE Not Available Start: 04-04-2023 End: 04-04-2023 Patient encounter procedure MD Lisa Severino Work Phone: [facility] Start: 04-04-2023 End: 04-04-2023 ambulatory MD Lisa Severino Work Phone: [facility] Work Phone: Start: 01-03-2023 End: 01-03-2023 ambulatory MD Lisa Severino Work Phone: [facility] Work Phone: Start: 01-03-2023 End: 01-03-2023 Patient encounter procedure MD Lisa Severino Work Phone: [facility] Start: 01-03-[address] Lisa Severino Facility:[id number] Start: 10-14-2022 Office outpatient vi sit 15 minutes Lisa Severino Work Phone: [facility] DO Work Phone: Start: 10-14-[address] Lisa Severino Facility:[id number] Start: 10-04-2022 End: 10-04-2022 Patient encounter procedure MD Lisa Severino Work Phone: [facility] Start: 10-04-2022 End: 10-04-2022 ambulatory MD Lisa Severino Work Phone: [facility] Work Phone: Start: 08-30-2022 End: 08-30-[address] LISA SEVERINO Facility:H1 Start: 07-05-[address] Lisa Severino Facility:[id number] Start: 07-05-2022 End: 07-05-2022 ambulatory MD Lisa Severino Work Phone: [facility] Work Phone: Start: 07-05-2022 End: 07-05-2022 Patient encounter procedure MD Lisa Severino Work Phone: [facility] Start: 06-28-2022 End: 06-29-[address] LISA SEVERINO Facility:[id number] Start: 04-21-2022 Chart Update Lisa Severino Work Phone: [facility] [facility] DO Work Phone: Start: 04-15-2022 ECHO, Provider: MARIELLE EVANS ULTRASOUND 01,[id number], Status: Pen, Time: 9:45 AM Lisa Severino Work Phone: [facility] DO Work Phone: Start: 04-15-2022 Patient encounter procedure Lisa Severino Work Phone: [facility] [address] [place] Work Phone: Start: 04-15-[address] Jaja presleyty:[id number] Start: 04-13-2022 Office outpatient vi sit 25 minutes Lisa M Hoy Work Phone: [facility] DO Work Phone: Start: 04-02-2022 End: 04-02-2022 Patient encounter procedure MD Lisa Severino Work Phone: [facility] Start: 01-01-2022 End: 01-01-2022 Patient encounter procedure MD Lisa Severino Work Phone: [facility] Start: 10-07-2021 Office outpatient vi sit 25 minutes Lisa M Hoy Work Phone: [facility] DO Work Phone: Start: 09-29-2021 Patient encounter procedure Lisa M Hoy Work Phone: [facility] [address] [place] Work Phone: Start: 09-29-[address] Jaja presleyty:[id number] Start: 05-10-2018 Patient encounter procedure PROVIDER UNKNOWN Facility:[facility] Start: 12-06-2017 Ambulatory [facility] Start: 11-21-2017 Ambulatory JOCELYN GHAZOUL [facility] Start: 11-21-2017 End: 11-21-2017 Ambulatory [facility] Start: 11-01-2017 Ambulatory JOCELYN GHAZOUL [facility] Procedures Date Procedure Procedure Detail Performing Clinician Start: 10-18-2023 TRANSTHORACIC ECHO ( TTE) SHO SEVERINO Start: 10-18-2023 Echo tthrc r-t 2d w/wom-mode compl spec&colr d Jaja Flower DO Work Phone: Start: 08-17-2023 FOLLOW UP IN CARDIOLOGY LIZA BLEDSOE Start: 06-28-[address] MELO SEVERINO Comment on above: Performed By: #### V ITAD, PSASC ####[facility] [address] [place], [place] [address]HyDr. Ekaterina Alcocer Start: 04-15-2022 Echocardiography Melo Severino Work Phone: Start: 09-29-2021 Echocardiography Melo Severino Work Phone: Start: 10-21-2016 Cataract Extraction with IOL placement / iStent - OS. Guy LARIOSL Start: 10-05-2016 Cataract extraction and insertion of intraocular lens [facility] [employer] (P) Comment on above: right Aortic valve repair Lisa Severino Work Phone: Comment on above: 20Apr2016; Cardiac pacemaker, d evice (physical object) [facility] [employer] (P) Cataract surgery Lisa Siddiqui oy Work Phone: Excision of lesion of skin D ouglas Kameron Hocurtis Work Phone: Comment on above: Nose; Inguinal Hernia Repair Adalid as Kameron Hoy Work Phone: Insertion of pacemak er pulse generator Lisa Severino Work Phone: Comment on above: 12/16/2020; Operation on lip Lisa Siddiqui oy Work Phone: Comment on above: blood blister remova l; Repair of umbilical hernia Kameron ANGELES Replacement of aorti c valve Guy LARIOSShoutEm Surgical procedure Lisa Severino Work Phone: Comment on above: Basal cell removal; Tonsillectomy Lisa Rothmany Work Phone: Total colonoscopy Lisa Severino Work Phone: Umbilical Hernia Repair Osvaldo las Kameron Hoy Work Phone: Valvuloplasty of aor tic valve Lisa Melo Hoy Work Phone: Comment on above: 20Apr2016; NEGATED: Highlighted row has not occurred! Colonoscopy Lisa Severino Work Phone: Plan of Treatment Date Care Activity Detail Author Start: 08-27-2024 End: 10-25-2025 [facility] Transthoracic Transthoracic Echo Complete Echocardiography Routine Mitral valve stenosis, unspecified etiology Expected: 08/27/2024 (Approximate), Expires: 10/25/2025 [facility] [[email or web address] Service Area Work Phone: Comment on above: Expected: 08/27/2024 (Approximate), Expires: 10/25/2025 Start: 08-07-2024 End: 08-07-2024 Patient encounter procedure 08/07/2024 9:30 AM EST Office Visit [facility] [address] [place] [id number] Jaja Flower, DO [address] [place] [address] [facility] Start: 07-24-2024 End: 07-24-2024 Patient encounter procedure 07/24/2024 9:45 AM EST Appointment [facility] [address] [place] [phone] [facility] Start: 03-18-2024 Influenza vaccination Influenz a Vaccine (Season Ended) [facility] Start: 10-26-2023 FUV, Provider: Jaja Flower, Status: Pen, Time: 9:30 AM FUV, Provider: Jaja Flower, Status: Pen, Time: 9:30 AM [facility] [facility] DO Work Phone: Start: 10-26-2023 End: 10-26-2023 Patient encounter procedure 10/26/2023 9:30 AM EDT Office Visit [facility] [address] [place] [address] Jaja Flower, DO [address] [place] [address] [facility] Start: 10-18-2023 ECHO, Provider: [facility] ULTRASOUND 01,[id number], Status: Pen, Time: 9:45 AM ECHO, Provider: [facility] ULTRASOUND 01,[id number], Status: Pen, Time: 9:45 AM -[facility] DO Work Phone: Start: 10-18-2023 End: 10-18-2023 Patient encounter procedure 10/18/2023 9:45 AM EDT Appointment [facility] [address] [place] [id number] [facility] Start: 03-18-2023 COVID-19 Vaccine ( season) COVID-19 Vaccine () [facility] Start: 03-18-2023 Influenza vaccination Influenza Vacc ine (#1) [facility] Start: 10-14-2022 FUV, Provider: Jaja Flower, Status: Pen, Time: 10:00 AM FUV, Provider: Jaja Flower, Status: Pen, Time: 10:00 AM [facility] DO Work Phone: Start: 04-13-2022 FUV, Provider: Jaja Flower, Status: Pen, Time: 10:40 AM FUV, Provider: Jaja Flower, Status: Pen, Time: 10:40 AM [facility] [facility] DO Work Phone: Start: 10-07-2021 FUV, Provider: Jaja Flower, Status: Pen, Time: 10:30 AM FUV, Provider: Jaja Flower, Status: Pen, Time: 10:30 AM [facility] [address] [place] Work Phone: Start: 06-28-2018 Pneumococcal Vaccine : 65+ Years (2 - PPSV23 or PCV20) Pneumococcal Vaccine: 65+ Years (2 - PPSV23 or PCV20) [facility] Start: 06-28-2018 Pneumococcal Vaccine : 65+ Years (2 of 2 - PPSV23 or PCV20) Pneumococcal Vaccine: 65+ Years (2 of 2 - PPSV23 or PCV20) [facility] Start: 1987 Zoster Vaccines (1 o f 2) Zoster Vaccines (1 of 2) [facility] Start: 1959 DTaP/Tdap/Td Vaccine s (1 - Tdap) DTaP/Tdap/Td Vaccines (1 - Tdap) [facility] Start: 1955 Diabetes mellitus screening Diabetes Screening [facility] Start: 1937 Lipid panel Lipid Panel [facility] Start: 1937 Medicare Annual Wellness Visit Medicare Annual Wellness Visit (AWV) [facility] End: 10-18-2023 [facility] Service Area Work Phone: Comment on above: Once for 1 Occurrenc es starting 10/18/2023 until 10/18/2023 Immunizations Immunization Date Immunization Notes Care Provider Pricila smith 06-25-2021 Influenza, injectabl e, Madin Tracey Canine Kidney, preservative free, quadrivalent [facility] [place] Work Phone: 10-07-2020 Pfizer-BioNTech COVI D-19 Vacc 30 MCG/0.3ML Intramuscular Suspension Lisa M HealthTeacher / [employer] Work Phone: [facility] 09-15-2020 Pfizer-BioNTech COVI D-19 Vacc 30 MCG/0.3ML Intramuscular Suspension Lisa M HealthTeacher / [employer] Work Phone: [facility] 04-29-2020 Seasonal trivalent influenza vaccine, adjuvanted, preservative free Lisa Melo HealthTeacher / [employer] [facility] [place] Work Phone: 04-17-2020 influenza virus vacc ine, unspecified formulation Lisa Kameron HealthTeacher / [employer] [facility] [place] Work Phone: 04-25-2019 Seasonal trivalent influenza vaccine, adjuvanted, preservative free Lisa M Mere Work Phone: [facility] [address] [place] Work Phone: 03-18-2019 influenza virus vacc ine, unspecified formulation Lisa Kameron Hoy Work Phone: [facility] [address] [place] Work Phone: 05-03-2018 pneumococcal vaccine , unspecified formulation Lisa M Hoy Work Phone: [facility] [address] [place] Work Phone: 05-02-2018 pneumococcal polysaccharide vaccine, 23 valent Lisa M Hoy Work Phone: [facility] [address] [place] Work Phone: 04-26-2018 influenza virus vacc ine, unspecified formulation Lisa Kameron HealthTeacher / [employer] Work Phone: [facility] [address] [place] Work Phone: 04-18-2018 Seasonal trivalent influenza vaccine, adjuvanted, preservative free Lisa Melo HealthTeacher / [employer] Work Phone: [facility] [address] [place] Work Phone: 06-15-2017 pneumococcal polysaccharide vaccine, 23 valent Lisa M HealthTeacher / [employer] Work Phone: [facility] [address] [place] Work Phone: 05-05-2017 influenza, injectabl e, quadrivalent, preservative free Lisa Melo HealthTeacher / [employer] Work Phone: [facility] [address] [place] Work Phone: 04-17-2017 influenza virus vacc ine, unspecified formulation Lisa Kameron HealthTeacher / [employer] Work Phone: [facility] [address] [place] Work Phone: 06-14-2016 pneumococcal conjuga te vaccine, 13 valent Lisa M Hoy Work Phone: [facility] [address] [place] Work Phone: 05-18-2016 pneumococcal conjuga te vaccine, 13 valent Lisa M Hoy [facility] [place] Work Phone: 04-17-2016 influenza virus vacc ine, unspecified formulation Lisa Severino [facility] [place] Work Phone: 05-09-2015 tetanus toxoid, redu alexandra diphtheria toxoid, and acellular pertussis vaccine, adsorbed Lisa Severino Work Phone: [facility] [address] [place] Work Phone: 05-01-2015 influenza, high dose seasonal, preservative-free Lisa Severino Work Phone: [facility] [address] [place] Work Phone: 04-17-2015 influenza virus vacc ine, unspecified formulation Lisa Severino Work Phone: [facility] [address] [place] Work Phone: 07-30-2005 hepatitis A vaccine, unspecified formulation Lisa Severino Work Phone: [facility] [address] [place] Work Phone: Comment on above: Series: Payers Date Payer Category Payer Self-pay [id number] 2002 Medicare [id number] 2002 Medicare [id number] 1959 Medicare [id number] 1959 Unknown [id number] 1937 Unknown [id number] 2.16.8 [id number] 1937 Unknown [id number] 2.16.8 40.1.572770.3.579.2.1068 1937 Unknown [id number] 2.16.8 40.1.930662.3.579.2.1068 1937 Unknown [id number] 2.16.84 0.1.212272.3.579.2.593 1937 Unknown [id number] 2.16.84 0.1.024626.3.579.2.593 1937 Unknown [id number] 2.16. 840.1.316649.3.579.2.356 1937 Unknown [id number] 2.16. 840.1.410334.3.579.2.356 1937 Unknown [id number] 2.16. 840.1.263788.3.579.2.356 1937 Unknown [id number] 2.16. 840.1.376982.3.579.2.356 1937 Unknown [id number] 2.16. 840.1.661060.3.579.2.356 1937 Unknown [id number] 2.16.840 .1.784188.3.579.2.1259 1937 Unknown [id number] 2.16.84 0.1.799610.3.579.2.1246 1937 Unknown [id number] 2.16.8 40.1.054764.3.579.2.1244 1937 Unknown [id number] 2.16.8 40.1.506415.3.579.2.1244 1937 Unknown [id number] 2.16.8 40.1.758520.3.579.2.727 1937 Unknown [id number] 2.16.8 40.1.093411.3.579.2.727 Medicare [id number] Private Health Insurance Unknown Unknown [id number] 2.16.8 40.1.489408.3.579.2.531 Unknown [id number] 2.16.8 40.1.060274.3.579.2.531 Unknown [id number] 2.16.8 40.1.033192.3.579.2.531 Unknown [id number] 2.16.8 40.1.310410.3.579.2.531 Social History Date Type Detail Facility Start: 08-17-2023 End: 10-26-2023 Retired Retired [facility] [address] [place] Work Phone: Comment on above: Quit at 37. 2 ppd; Coffee - 1/2 cup michael ly; Rarely; Quit at age 37. 2 pp d; Start: 12-16-2020 End: 01-31-2024 Tobacco smoking status NHIS Ex-smoker (finding) [facility] Start: 08-17-2023 End: 10-26-2023 History of tobacco use [facility] Start: 1935 Sex Assigned At Male F [facility] History of tobacco use Current smoker [facility] Work Phone: History of tobacco use Cigarette Smoker [facility] Work Phone: Start: 08-17-2023 Tobacco use and exposure Smokeless tobacco non-user [facility] Work Phone: Start: 08-17-2023 End: 10-26-2023 Alcohol intake Current drinker of alcohol (finding) [facility] Work Phone: Start: 08-17-2023 Alcohol Comment beer nightly [facility] Work Phone: Start: 1935 Sex Assigned At Not on file [facility] Work Phone: Start: 08-07-2023 End: 10-26-2023 Exposure to SARS-CoV-2 (event) Not sure [facility] Start: 10-18-2023 Gender identity Identifies as male gender (finding) [facility] Work Phone: Start: 10-18-2023 Sexual orientation Heterosexual (fracisco rouse) [facility] Work Phone: Tobacco smoking status Never [facility] Equipment Procedure Code Equipment Code Equipment Origin al Text Equipment Identifier Dates Insertion, pacemaker Endocardial pacing lead [id number] FDA Start: 12-16-2020 Insertion, pacemaker Endocardial pacing lead [id number] FDA Start: 12-16-2020 Insertion, pacemaker Dual-chamber implantable pacemaker, rate-responsive [id number] FDA Start: 12-16-2020 Functional Status Date Assessment Result Facility 01-31-2024 [facility] 08-17-2023 to 01-31-2024 Jaja Flower, - 10/26/2023 9:30 AM EDTPatient InstructionsAssessment & Plan Note - BUCK Stoner - 08/18/2023 1:11 PM TRACY Diaz CNP - 08/17/2023 11:30 AM EST Note Date & Type Note Facility 01-31-2024 Note General Surgery Offi ce/Clinic Note Chief Complaint consultation for cyst HPI Staff 88 year old male presents on consultation from Dr. Severino for sebaceous cyst. Reports noting nodule to mid upper back approximately 4 months ago. Unsure if this has changed in size. Denies redness, soreness or tenderness. Verbalized this has never opened or drained. He noted similar nodules to back in the past all of which have spontaneously drained and resolved. On Warfarin for a.fib. History of Present Illness 88 yo male with h/o htn, AVR, atrial fibrillation, on Coumadin, CAD, CVA, hyperlipidemia, referred for enlarging epidermal cyst of upper back; patient reports 4 month h/o enlarging cyst upper back; no pain or drainage; has had cyst in past that spontaneously drained and went away; on Coumadin and baby asa; no tobacco use. Review of Systems PHQ Score Initial Depression Screen Score: 0 SCORE ROS - Provider Constitutional: no fever, no sweats, no weight loss. Eyes: yes glasses, no blurred vision, no visual loss. ENMT: no dentures, no hoarseness, no swallowing difficulties, no hearing loss, no ear infection(s), no nose bleeds. Cardiovascular: normal blood pressure, no chest pain, regular heartbeat, no heart murmur. Respiratory: no shortness of breath, no cough, no asthma, no wheezing. Gastrointestinal: no nausea, no vomiting, no diarrhea, no constipation, no blood in stool, no change in bowel habits, no abdominal pain, no hepatitis. Genitourinary: no kidney stones, no urine infection, no dysuria. Musculoskeletal: no pain, no weakness. Skin: no changing moles, no rash, yes skin lumps. Neurologic: no seizures, no epilepsy, no headache. Psychiatric: no emotional or psychiatric problem. Heme/Lymph: no bleeding problems, no anemia, no blood clots, no transfusions. Allergy/Immunologic: no swollen lymph nodes/glands, no IV drug abuse. Other: Additional ROS info: Except as noted in the above Review of Systems and in the History of Present Illness, all other systems have been reviewed and are negative or noncontributory. Physical Exam Vitals & Measurements HR: 72(Peripheral) RR: 16 BP: 116/76 HT: 74 in HT: 188 cm WT: 89.3 kg WT: 196.46 lb BMI: 25.27 HEENT: normal conjunctiva, sclera clear, no scleral icterus, EOM intact, PERRLA, oral mucosa moist without lesions. Respiratory: lungs CTA, respirations non labored. Cardiovascular: regular rate and rhythm, no murmur, no pedal edema or varicosities. Lymphatic: no cervical adenopathy, no supraclavicular adenopathy. Musculoskeletal: normal gait, digits and nails without infection, nodes, cyanosis, clubbing. Skin: no rashes, no lesions, no ulcers, upper mid back with 2 cm epidermal cyst, below and to right of old scar; no skin changes, nontender, no drainage or fluctuance. Psychiatric/Neuro: oriented to time, place, person, judgement normal, affect appropriate for age, insight intact, no focal deficits. Tests: review of old records completed , Discussed surgical options, risks, and possible complications with patient. Assessment/Plan 1. Epidermal cyst (L72.0: Epidermal cyst) plan excisional biopsy under local anesthesia at [facility]; informed consent obtained; hold Coumadin 4 days prior to procedure, if ok with Dr. Pinzon. Follow-up No qualifying data available Problem List/Past Medical History Ongoing Aortic stenosis Atrial fibrillation BMI 25.0-25.9,adult Congestive heart failure Epidermal cyst Essential hypertension Gout Heart disease History of CVA (cerebrovascular accident) Hyperlipidemia Murmur Overweight Historical No qualifying data Procedure/Surgical History Cataract Extraction with IOL placement / iStent - OS. (10/21/2016), Cataract extraction and insertion of intraocular lens (10/05/2016), Cardiac pacemaker, Repair of umbilical hernia, Replacement of aortic valve. Medications aspirin 81 mg Oral EC Tab, 81 mg= 1 tab(s), Oral, TueSat atorvastatin 40 mg Tab, 40 mg= 1 tab(s), Oral, Daily Coreg 6.25 mg Tab, 6.25 mg= 1 tab(s), Oral, BID lisinopril 10 mg Tab, 10 mg= 1 tab(s), Oral, Daily warfarin 5 mg Tab Allergies No Known Allergies Social History Alcohol Current, Beer, Daily, 01/31/2024 Substance Abuse - Denies Substance Abuse, 01/31/2024 Tobacco Former smoker, quit more than 30 days ago Tobacco Use:. Never Smokeless Tobacco Use:. Cigarettes, 1 per day. Started age 16.0 Years. Stopped age 37 Years., 01/31/2024 Family History Dementia: Mother. Diabetes mellitus type 2: Father. Immunizations Vaccine Date Status SARS-CoV-2 (COVID-19) mRNA BNT-162b2 vax 10/07/2020 Recorded SARS-CoV-2 (COVID-19) mRNA BNT-162b2 vax 09/15/[address] [facility] Comment on above: Result Comment: Elec tronically Signed By: BRIDGETTE SCOTT, Guy Min\Date and Time Signed: 01/31/24 14:00 EDT 10-26-2023 History of Presen t illness Narrative Subjective Melo Cuevas is a 88 y.o. 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 He is doing well other than exertional fatigue. He has no significant dyspnea or angina or hospitalizations. He has history of TAVR in 2016 with a nicely functioning aortic valve prosthesis with mild aortic insufficiency. We continue to follow him as well for moderate mitral stenosis with peak/mean gradients of 23/7 to 8 mmHg. His mitral valve gradients have been stable. He has had no edema, abdominal ascites, thromboembolic events or bleeding issues. We continue to treat him for history of sick sinus syndrome, paroxysmal atrial fibrillation currently on warfarin He is otherwise performing yard work, moving 2 yards of mulch and housework without any difficulty other than daily fatigue Recommendations: Continue current therapies, follow-up in July with another echocardiogram Review of Systems All other systems reviewed and are negative. Vitals: 10/26/23 0930 BP: 118/60 BP Location: Left arm Patient Position: Sitting Pulse: 60 Weight: 89.8 kg (198 lb) Height: 1.88 m (6' 2 ) Objective Physical Exam Constitutional: Appearance: Normal appearance. HENT: Nose: Nose normal. Neck: Vascular: No carotid bruit. Cardiovascular: Rate and Rhythm: Normal rate. Pulses: Normal pulses. Heart sounds: Normal heart sounds. Pulmonary: Effort: Pulmonary effort is normal. Abdominal: General: Bowel sounds are normal. Palpations: Abdomen is soft. Musculoskeletal: General: Normal range of motion. Cervical back: Normal range of motion. Right lower leg: No edema. Left lower leg: No edema. Skin: General: Skin is warm and dry. Neurological: General: No focal deficit present. Mental Status: He is alert. Psychiatric: Mood and Affect: Mood normal. Behavior: Behavior normal. Thought Content: Thought content normal. Judgment: Judgment normal. Allergies Patient has no known allergies. Current Medications Current Outpatient Medications: amoxicillin (Amoxil) 500 mg capsule, Take 4 capsules (2,000 mg) by mouth see administration instructions. One hour prior to dental appointment, Disp: , Rfl: aspirin 81 mg EC tablet, Take 1 tablet (81 mg) by mouth 2 times a week., Disp: 32 tablet, Rfl: 1 atorvastatin (Lipitor) 40 mg tablet, Take 1 tablet (40 mg) by mouth once daily at bedtime., Disp: , Rfl: carvedilol (Coreg) 6.25 mg tablet, Take 1 tablet (6.25 mg) by mouth 2 times a day., Disp: , Rfl: lisinopril 10 mg tablet, Take 1 tablet (10 mg) by mouth once daily., Disp: , Rfl: warfarin (Coumadin) 5 mg tablet, Take 1 tablet (5 mg) by mouth see administration instructions. Start with one tablet daily. Take as directed per [place] [facility], Disp: 90 tablet, Rfl: 0 Assessment/Plan 1. 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 Fatigue, unspecified type 4. SSS (sick sinus syndrome) (CMS/HCC) 5. Pacemaker 6. Mitral valve stenosis, unspecified etiology 7. Primary hypertension 8. Mixed hyperlipidemia 9. BMI 25.0-25.9,adult 10. Former smoker Scribe Attestation By signing my name below, I, [place] Ellison LPN attest that this documentation has been prepared under the direction and in the presence of Jaja Flower DO. Provider Attestation - Scribe documentation All medical record entries made by the Scribe were at my direction and personally dictated by me. I have reviewed the chart and agree that the record accurately reflects my personal performance of the history, physical exam, discussion and plan. documented in this encounter [facility] Work Phone: 10-26-2023 Instructions Jocelyn Pop LPN - 10/26/2023 9:30 AM EDT Please bring all medicines, vitamins, and herbal supplements with you when you come to the office. Prescriptions will not be filled unless you are compliant with your follow up appointments or have a follow up appointment scheduled as per instruction of your physician. Refills should be requested at the time of your visit. Pacemaker/Defibrillator follow up per routine BMI was above normal measurement. Current weight: 89.8 kg (198 lb) Weight change since last visit (-) denotes wt loss 0 lbs Weight loss needed to achieve BMI 25: 3.7 Lbs Weight loss needed to achieve BMI 30: -35.2 Lbs Provided instructions on dietary changes Provided instructions on exercise. documented in this encounter [facility] Work Phone: 08-18-2023 Evaluation + Plan note Associated Problem(s): Cardiac and Vasculature February 2016 cardiac cath minimal CAD March 2022 TTE LVEF 70% [facility] Work Phone: 08-18-2023 Miscellaneous Notes Associated Problem(s): Cardiac and Vasculature February 2016 cardiac cath minimal CAD March 2022 TTE LVEF 70% Associated Problem(s): BMI 25.0-25.9,adult Reviewed the merits of healthy lifestyle choices on overall cardiovascular health. 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 Work Phone: 08-18-2023 Evaluation + Plan note Associated Problem(s): BMI 25.0-25.9,adult Reviewed the merits of healthy lifestyle choices on overall cardiovascular health. 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 Work Phone: 08-18-2023 Evaluation + Plan note Associated Problem(s): Paroxysmal atrial fibrillation (CMS/HCC) June 2023 device interrogation with [address] 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 Last evaluated March 2022 TTE Peak 12, mean 6 [facility] Work Phone: 08-18-2023 Evaluation + Plan note Associated Problem(s): Pacemaker M Assurity 2272 dual-chamber permanent pacemaker June 2023 device interrogation [facility] Work Phone: 08-18-2023 Evaluation + Plan note Associated Problem(s): Mitral stenosis March 2022 TTE Mild mitral stenosis peak 17, mean 6 Valve area 1.5 [facility] Work Phone: 08-18-2023 Evaluation + Plan note Associated Problem(s): HTN (hypertension) Optimal in office [facility] Work Phone: 08-18-2023 Evaluation + Plan note Associated Problem(s): HLD (hyperlipidemia) Moderate intensity statin Reports had lab completed earlier this month at [facility] Work Phone: 08-17-2023 History of Presen t illness Narrative Chief Complaint Doing pretty good Reason for Visit 9-month follow-up Patient presents to the office today for outpatient follow-up for valvular heart disease, newly diagnosed atrial fibrillation initiation of anticoagulation. Last evaluated in clinic by Dr. Flower September 2022 Presents today ambulatory with steady gait. Accompanied by patient Patient denies any hospitalizations or significant changes to interval medical history since last office follow-up. June 2023 device interrogation showed 10 seconds of atrial fibrillation, he was initiated on anticoagulation. DOACs were cost prohibitive. Tolerating initiation of Coumadin, managed by Coumadin clinic. History of Present Illness Patient is an extremely pleasant 88-year-old gentleman who presents to the office today where he reports a 3-day history of feeling congestion around my heart . He describes this more of a fullness across his anterior chest wall, denies any dyspnea. He reports a 3-day weight gain over approximately 48 hours without any sodium indiscretions. He reports he had some difficulty sleeping and was twisting and turning . He denies any nocturnal cough, there is no edema noted on exam today. He does feel better today . Unclear if this represents early onset of URI symptoms, possibility of symptomatic atrial fibrillation (will call and check device clinic for remote interrogation) -offered to repeat echocardiogram earlier than scheduled. He prefers to [id number] and will notify me if symptoms do not completely atli. Otherwise, last week he was out picking up sticks in his yard, he has stairs down to the basement. He tries to do 1 mile on his treadmill daily. He ambulated in from the parking lot without concerns. Patient reports that overall has no complaint(s) of chest pain, chest pressure/discomfort, claudication, exertional chest pressure/discomfort, fatigue, irregular heart beat, and lower extremity edema Denies any change in exercise capacity or functional tolerance since last office visit. Reviewed the pathophysiology of atrial fibrillation and the need to reduce cardioembolic events with anticoagulation. Discussed possibility of antiarrhythmic initiation for symptomatic atrial fibrillation (in setting [place]) Mild mitral stenosis: no dyspnea or hemoptysis, no fatigability. Otherwise primary prevention is optimally addressed. Reports that he had lab work done earlier this month, will need to obtain. Review of Systems Constitutional: Positive for weight gain. HENT: Positive for congestion. Cardiovascular: Negative for chest pain, dyspnea on exertion, irregular heartbeat, leg swelling, near-syncope, orthopnea, palpitations, paroxysmal nocturnal dyspnea and syncope. Visit Vitals BP 138/64 (BP Location: Right arm, Patient Position: Sitting) Pulse 60 Ht 1.88 m (6' 2 ) Wt 89.8 kg (198 lb) BMI 25.42 kg/m Smoking Status Former BSA 2.17 m Physical Exam Vitals and nursing note reviewed. Constitutional: Appearance: Normal appearance. Cardiovascular: Rate and Rhythm: Normal rate and regular rhythm. Heart sounds: Murmur heard. Systolic murmur is present with a grade of 2/6. Diastolic murmur is present with a grade of 1/4. Pulmonary: Effort: Pulmonary effort is normal. Breath sounds: Normal breath sounds. Musculoskeletal: Cervical back: Full passive range of motion without pain. Right lower leg: No edema. Left lower leg: No edema. Skin: General: Skin is cool. Neurological: Mental Status: He is alert and oriented to person, place, and time. Psychiatric: Attention and Perception: Attention normal. Mood and Affect: Mood normal. Behavior: Behavior is cooperative. No Known Allergies Current Outpatient Medications Medication Instructions amoxicillin (AMOXIL) 2,000 mg, oral, See admin instructions, One hour prior to dental appointment aspirin 81 mg, oral, 2 times weekly atorvastatin (Lipitor) 40 mg tablet 1 tablet, oral, Nightly carvedilol (Coreg) 6.25 mg tablet 1 tablet, oral, 2 times daily lisinopril 10 mg tablet 1 tablet, oral, Daily warfarin (COUMADIN) 5 mg, oral, See admin instructions, Start with one tablet daily. 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 Cardiac and Vasculature February 2016 cardiac cath minimal CAD March 2022 TTE LVEF 70% Plan: Through informed decision making process incorporating patients unique circumstances, the following treatment plan will be initiated: 1. Prescription drug management of cardiovascular medication for efficacy, adherence to treatment, side effect assessment and polypharmacy. Current treatment clinically warranted and to continue without modifications. 2. Return for follow-up; in the interim, contact the office if new symptoms arise. Dr. Flower as scheduled Liza Bledsoe MSN, ACTIVE DIRECTORY ARCHITECT-CORRECTIONAL SUPPLY SUPERVISOR, PMHNP-[facility] Please excuse any errors in grammar or translation related to this dictation. Voice recognition software was utilized to prepare this document. documented in this encounter [facility] Work Phone: 08-17-2023 Instructions BUCK Stoner - 08/17/2023 11:30 AM EST Please bring all medicines, vitamins, and herbal supplements with you when you come to the office. Prescriptions will not be filled unless you are compliant with your follow up appointments or have a follow up appointment scheduled as per instruction of your physician. Refills should be requested at the time of your visit. PLAN: Through informed decision making process incorporating patients unique circumstances, the following treatment plan will be initiated: 1. Prescription drug management of cardiovascular medication for efficacy, adherence to treatment, side effect assessment and polypharmacy. Current treatment clinically warranted and to continue without modifications. 2. Return for follow-up; in the interim, contact the office if new symptoms arise. Dr. Flower as scheduled documented in this encounter [facility] Work Phone: Evaluation + Plan note No data available for this section [facility] [place] Evaluation note No assessment inform ation available [facility] Work Phone: Evaluation note Diagnosis S/P TAVR (transcatheter aortic valve replacement)- Primary Paroxysmal atrial fibrillation (CMS/HCC) Atrial fibrillation residential current use of anticoagulant therapy Mitral valve stenosis, unspecified etiology Mixed hyperlipidemia Primary hypertension Unspecified essential hypertension Pacemaker Cardiac pacemaker in situ BMI 25.0-25.9,adult documented in this encounter [facility] Work Phone: Evaluation note* Diagnosis Aortic valve stenosis, etiology of cardiac valve disease unspecified documented in this encounter [facility] Work Phone: Evaluation note* Diagnosis Aortic valve stenosis, etiology of cardiac valve disease unspecified documented in this encounter [facility] Work Phone: Evaluation note* Diagnosis Paroxysmal atrial fibrillation (CMS/HCC) Atrial fibrillation residential current use of anticoagulant therapy Fatigue, unspecified type SSS (sick sinus syndrome) (CMS/HCC) Sinoatrial node dysfunction Pacemaker Cardiac pacemaker in situ Mitral valve stenosis, unspecified etiology Primary hypertension Unspecified essential hypertension Mixed hyperlipidemia BMI 25.0-25.9,adult Former smoker Personal history of tobacco use, presenting hazards to health documented in this encounter [facility] Work Phone: Hospital Discharge instructions No data available for this section [facility] [place] Progress note No data available for this section [facility] Summary Purpose Family History Unknown Family Member Name Dates Details Family history of congestive heart failure: Father(V17.49, Z82.49) Comments: - age 83; Status:Active Unknown Family Member Name Dates Details Family history of congestive heart failure: Father(V17.49, Z82.49) Comments: - age 83; Status:Active Unknown Family Member Name Dates Details Family history of congestive heart failure: Father(V17.49, Z82.49) Comments: - age 83; Status:Active Unknown Family Member Name Dates Details Family history of congestive heart failure: Father(V17.49, Z82.49) Comments: - age 83; Status:Active Unknown Family Member Name Dates Details Family history of congestive heart failure: Father(V17.49, Z82.49) Comments: - age 83; Status:Active Unknown Family Member Name Dates Details Family history of congestive heart failure: Father(V17.49, Z82.49) Comments: - age 83; Status:Active Unknown Family Member Name Dates Details Family history of congestive heart failure: Father(V17.49, Z82.49) Comments: - age 83; Status:Active Advance Directives Advance Directive Response Recorded Date/ Time Advance Directives No December 14 1:49pm Advance Directive Response Recorded Date/ Time Advance Directives No December 14 12:49pm Chief Complaint * Echo results. * MELO CUEVAS is being seen for a month follow-up of. * Patient is 86-year-old gentleman returns for follow-up he is asymptomatic and doing very well. He has no heart failure, angina, hospitalizations. He has valvular heart disease with previous TAVR in 2016 with sapient 3 valve. 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 * Most recent echo is reviewed and unchanged from 6 months ago * Recommendations: Increase lisinopril to 10 mg daily based on hemodynamics, as well as aortic regurgitation, will follow-up in 6 months with another echo. * MELO CUEVAS is being seen for a 6 month follow-up of. * 87-year-old gentleman returns for follow-up. He is doing well he has no cardiovascular complaints other than the occasional exertional dyspnea and fatigue while doing yard work. He denies any angina or heart failure. Patient underwent TAVR with Garcia S3 #29 valve on 04/20/2016. 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 On exam he has a persistent 2/6 diastolic AI murmur. * Recommendations, follow-up with echocardiogram and further potential assessment with structural heart team if necessary. * MELO CUEVAS is being seen for a 6 month follow-up of. * 87-year-old gentleman returns for follow-up he is doing very well he has no cardiovascular complaints. He remains independent and ambulatory with minimal dyspnea. * He has history of TAVR in 2016, recent echo from March 2022 reveals an intact aortic valve prosthesis with peak and mean gradients of 12.4 and 6 mm respectively, moderate to severely thickened mitral valve with evidence of moderate mitral valve stenosis with peak and mean gradients of 17 and 6 mmHg respectively with an estimated area of 1.5 cm . 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 * He denies any angina or heart failure hospitalizations, he has no history of coronary revascularization. He remains hemodynamically stable his BMI is 25 * Recommendations, continue current therapies and follow-up in 1 year * MELO CUEVAS is being seen for a 6 month follow-up of. * 87-year-old gentleman returns for follow-up he is doing very well he has no cardiovascular complaints. He remains independent and ambulatory with minimal dyspnea. * He has history of TAVR in 2016, recent echo from March 2022 reveals an intact aortic valve prosthesis with peak and mean gradients of 12.4 and 6 mm respectively, moderate to severely thickened mitral valve with evidence of moderate mitral valve stenosis with peak and mean gradients of 17 and 6 mmHg respectively with an estimated area of 1.5 cm . 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 * He denies any angina or heart failure hospitalizations, he has no history of coronary revascularization. He remains hemodynamically stable his BMI is 25 * Recommendations, continue current therapies and follow-up in 1 year Chief Complaint and Reason for Visit Chief Complaint complete heart block Reason for Referral Specialty Diagnoses / Procedures Referred By Julius campbell Referred To Contact Cardiology Diagnoses Aortic valve stenosis, etiology of cardiac valve disease unspecified Procedures Transthoracic Echo (TTE) Complete OR ECHO TRANSTHORC R-T 2D W/WO M-MODE REC F-UP/LMTD OR DOP ECHOCARD COLOR FLOW VELOCITY MAPPING OR DOP ECHOCARD PULSE WAVE W/SPECTRAL F-UP/LMTD STD Jaja Flower DO [address] [facility], [facility] [address] [place] [address] Referral ID Status Reason Start Date Expiration Date Visits Requested Visits Authorized [id number] Authorized Perform Procedure 3 06/28/2024 1 1 Specialty Diagnoses / Procedures Referred By Contac t Referred To Contact Cardiology Diagnoses Mitral valve stenosis, unspecified etiology Procedures Transthoracic Echo Complete OR ECHO TTHRC R-T 2D W/WOM-MODE COMPL SPEC&COLR D Jaja Flower, DO [address] [facility], [place] [address] [place] [id number] Referral ID Status Reason Start Date Expiration Date Visits Requested Visits Authorized [id number] Pending Review Perform Procedure 10/26/2023 10/25/2024 1 1 Specialty Diagnoses / Procedures Referred By Contac t Referred To Contact Cardiology Diagnoses Mitral valve stenosis, unspecified etiology Procedures Follow Up In Cardiology Jaja Flower, DO [address] [facility], [address] [address] Jaja Flower, DO [address] [facility], [address] [address] Referral ID Status Reason Start Date Expiration Date V isits Requested Visits Authorized [id number] Authorized 10/26/2023 10/25/2024 1 1 Additional Source Comments (unrecognized sect ion and content) No Status Records FoundNo Status Records FoundNo Status Records FoundNo Status Records FoundNo Status Records FoundNo Status Records FoundNo Status Records FoundNo Status Records FoundNo Status Records FoundNo Status Records FoundNo Status Records FoundNo Status Records FoundNo Status Records Found INFORMATION SOURCE (unrecogn ized section and content) DATE CREATED AUTHOR 01/04/2018 [facility] DATE CREATED AUTHOR AUTHOR'S ORGANIZ ATION 01/05/2018 [facility] DATE CREATED AUTHOR AUTHOR'S ORGANIZ ATION 01/05/2018 [facility] DATE CREATED AUTHOR AUTHOR'S ORGANIZ ATION 06/16/2018 [facility] DATE CREATED AUTHOR AUTHOR'S ORGANIZ ATION 04/19/2022 [facility] DATE CREATED AUTHOR AUTHOR'S ORGANIZ ATION 09/04/2022 [facility] DATE CREATED AUTHOR AUTHOR'S ORGANIZ ATION 10/19/2022 [facility] DATE CREATED AUTHOR AUTHOR'S ORGANIZ ATION 05/14/2023 [facility] DATE CREATED AUTHOR AUTHOR'S ORGANIZ ATION 06/25/2023 [facility] DATE CREATED AUTHOR AUTHOR'S ORGANIZ ATION 10/22/2023 [facility] DATE CREATED AUTHOR AUTHOR'S ORGANIZ ATION 10/27/2023 [facility] DATE CREATED AUTHOR AUTHOR'S ORGANIZ ATION 01/08/2024 [facility] DATE CREATED AUTHOR AUTHOR'S ORGANIZ ATION 02/02/[address] [facility] Care Teams (unrecognized sec tion and content) Personnel Name: Lisa Severino MD Address: Address: [address] [place] [address] Team Status: Active Member Role Status Dates Lisa Severino MD Primary Care Provider Active Team Status: Inactive Member Role Status Dates Lisa Severino MD Primary Care Provider Active Jaja Cerda MD Attending Provider Active Mail Room Relationship Specialty Start Date End Date Lisa Severino MD [address] [place], [place] [id number] PCP - General 05/13/20 Team Status: Inactive Member Role Status Dates Lisa Severino MD Primary Care Provider Active Start: October 04, 2023 End: October 04, 2023 Jaja Cerda MD Attending Provider Active Start: October 04, 2023 End: October 04, 2023 Mail Room Relationship Specialty Start Date End Date Lisa Severino MD [address] [place] [id number] PCP - General 05/13/20 Mail Room Relationship Specialty Start Date End Date Lisa Severino MD [address] [place] [id number] PCP - General 05/13/20 Mail Room Relationship Specialty Start Date End Date Lisa Severino MD [address] [facility] [place] [id number] PCP - General 05/13/20 Team Status: Inactive Member Role Status Dates Lisa Severino MD Primary Care Provider Active Start: January 03, 2024 End: January 03, 2024 Jaja Cerda MD Attending Provider Active Start: January 03, 2024 End: January 03, 2024 Goals (unrecognized section and content) Goals may be documented in a n alternate sectionGoals may be documented in an alternate sectionGoals may be documented in an alternate sectionGoals may be documented in an alternate sectionGoals may be documented in an alternate sectionGoals may be documented in an alternate sectionGoals may be documented in an alternate sectionGoals may be documented in an alternate sectionGoals may be documented in an alternate section No data available for this section Reason for Visit (unrecogniz ed section and content) Reason Comments Follow-up 6-8 week, Afib Specialty Diagnoses / Procedures Referred By Contac t Referred To Contact Cardiology Diagnoses Paroxysmal atrial fibrillation (CMS/HCC) Procedures Follow Up In Cardiology Jaja Flower, DO [address] [facility], [address] [address] Liza Bledsoe, ACTIVE DIRECTORY ARCH[employer] SUPER[employer] [address] [facility], [address] [address] Referral ID Status Reason Start Date Expiration Date V isits Requested Visits Authorized [id number] Authorized 07/08/2023 07/07/2024 1 1 Specialty Diagnoses / Procedures Referred By Contac t Referred To Contact Cardiology Diagnoses Aortic valve stenosis, etiology of cardiac valve disease unspecified Procedures Transthoracic Echo (TTE) Complete OR ECHO TRANSTHORC R-T 2D W/WO M-MODE REC F-UP/LMTD OR DOP ECHOCARD COLOR FLOW VELOCITY MAPPING OR DOP ECHOCARD PULSE WAVE W/SPECTRAL F-UP/LMTD STD Jaja Flower, DO [address] [facility], [address] [address] Referral ID Status Reason Start Date Expiration Date Visits Requested Visits Authorized [id number] Authorized Perform Procedure 3 06/28/2024 1 1 Reason Comments Annual Exam 1yr FOR RECORDS PERTAINING TO PATIENTS WHO ARE OR HAVE BEEN ENROLLED IN A CHEMICAL DEPENDENCY/SUBSTANCEABUSE PROGRAM, SOME INFORMATION MAY BE OMITTED. This clinical summary was aggregated from multiple sources. Caution should be exercised in using it in the provision of clinical care. This summary normalizes information from multiple sources, and as a consequence, information in this document may materially change the coding, format and clinical context of patient data. In addition, data may be omitted in some cases. CLINICAL DECISIONS SHOULD BE BASED ON THE PRIMARY CLINICAL RECORDS. [facility]. provides no warranty or guarantee of the accuracy or completeness of information in this document.
== END 2024-02-29 10:31 | disposition home or self-care (01) ==
LOC: PST 10:30
PROVIDERS: PCP Internal Medicine Cardiovascular Disease; Visit Provider Surgery
DX: Z01.818 Encounter for other preprocedural examination (principal); L72.0 Epidermal cyst; Z95.0 Presence of cardiac pacemaker

== ENCOUNTER 2024-03-07 09:44 | Day surgery (SDC) | payer MEDICARE, SELFPAY ==
--- NOTE | 2024-03-07 | OP_ITS ---
OPERATION DATE: 03/07/2024 PREOPERATIVE DIAGNOSIS: Enlarging epidermal cyst mid back. POSTOPERATIVE DIAGNOSIS: Enlarging epidermal cyst mid back. PROCEDURE: Excisional biopsy enlarging epidermal cyst of the mid back. SURGEON: Guy Clay M.D. ANESTHESIA: Local with 1% lidocaine with epinephrine. ESTIMATED BLOOD LOSS: Less than 5 mL. INDICATIONS AND CONSENT: Patient is an 89-year-old male with history of an enlarging epidermal cyst of the mid back. Indications, risks, benefits, alternatives of proceeding with excisional biopsy under local anesthesia were explained extensively to the patient, including risks of bleeding, infection, scarring, pain, recurrence, need for further surgery. All of his questions were answered. Informed consent was obtained. PROCEDURE: Patient brought to the procedure room, placed in the left lateral decubitus position. The area was prepped and draped in the usual sterile fashion. It was anesthetized with 0.5% lidocaine with epinephrine. The lesion was excised in elliptical fashion, down to the subcutaneous fat. Total length of the incision was 3 cm. Once it was completely excised, the cyst was sent off to Pathology. Hemostasis was achieved with needle tip electrocautery. Incision was then closed with 3-0 nylon mattress sutures, as well as 4-0 nylon simple sutures. There was good hemostasis. A sterile pressure dressing was applied. Sponge and needle counts were correct x3 per nursing personnel. Patient tolerated procedure well, was sent back to recovery room and discharged to home in good condition. CC: Jolene Tomas
[2024-03-07 11:35] VITALS: BP 153/69; PULSE 61; O2SAT 98
[2024-03-07] MEDS: LIDOCAINE HCL 1%-EPINEPHRINE 1:100,000 10 ML MDV 9 ML INJ (11:37)
[2024-03-07 12:02] VITALS: BP 152/75; PULSE 62; O2SAT 100
== END 2024-03-07 12:10 | disposition home or self-care (01) ==
PROVIDERS: PCP Family Medicine; Visit Provider Surgery
PROC: (CPT 11403; principal; 2024-03-07 10:20)
DX: L72.0 Epidermal cyst (principal); Z95.0 Presence of cardiac pacemaker; D48.5 Neoplasm of uncertain behavior of skin
CPT/HCPCS: 11403; 88304

== ENCOUNTER 2024-03-19 01:35 | Outpatient (RCR) | payer MEDICARE, SELFPAY | END 2024-04-16 23:56 | disposition home or self-care (01) | LOC: MM 01:35 | PROVIDERS: PCP Family Medicine; Visit Provider Internal Medicine | DX: Z51.81 Encounter for therapeutic drug level monitoring (principal); Z79.01 Long term (current) use of anticoagulants; I48.0 Paroxysmal atrial fibrillation | CPT/HCPCS: 85610; G0463 ==

== ENCOUNTER 2024-04-17 02:44 | Outpatient (RCR) | payer MEDICARE, SELFPAY | END 2024-05-17 23:47 | disposition home or self-care (01) | LOC: MM 02:44 | PROVIDERS: PCP Family Medicine; Visit Provider Internal Medicine | DX: Z51.81 Encounter for therapeutic drug level monitoring (principal); Z79.01 Long term (current) use of anticoagulants; I48.0 Paroxysmal atrial fibrillation | CPT/HCPCS: 85610; G0463 ==

== ENCOUNTER 2024-05-18 12:50 | Outpatient (RCR) | payer MEDICARE, SELFPAY | END 2024-06-16 23:59 | disposition home or self-care (01) | LOC: MM 12:50 | PROVIDERS: PCP Family Medicine; Visit Provider Internal Medicine | DX: Z51.81 Encounter for therapeutic drug level monitoring (principal); Z79.01 Long term (current) use of anticoagulants; I48.0 Paroxysmal atrial fibrillation | CPT/HCPCS: 85610; G0463 ==

== ENCOUNTER 2024-06-18 05:12 | Outpatient (RCR) | payer MEDICARE, SELFPAY | END 2024-07-17 09:20 | disposition home or self-care (01) | LOC: MM 05:12 | PROVIDERS: PCP Family Medicine; Visit Provider Internal Medicine | DX: Z51.81 Encounter for therapeutic drug level monitoring (principal); Z79.01 Long term (current) use of anticoagulants; I48.0 Paroxysmal atrial fibrillation | CPT/HCPCS: 85610; G0463 ==

== ENCOUNTER 2024-07-19 01:06 | Outpatient (RCR) | payer MEDICARE, SELFPAY | END 2024-08-17 14:37 | disposition home or self-care (01) | LOC: MM 01:06 | PROVIDERS: PCP Family Medicine; Visit Provider Internal Medicine | DX: Z51.81 Encounter for therapeutic drug level monitoring (principal); Z79.01 Long term (current) use of anticoagulants; I48.0 Paroxysmal atrial fibrillation | CPT/HCPCS: 85610; G0463 ==

== ENCOUNTER 2024-08-09 08:48 | Outpatient (OUT) | payer MEDICARE, SELFPAY ==
--- OUTSIDE RECORDS SUMMARY | 2024-08-09 08:52 | XMS_ITS | CCD ---
Author Organization [facility] CliniSyal Care Team Providers Care Women'S Swim Coach Name Role Phone GHAZOUL, BEBE Unavailable Unavailable HOYOSVALDOLISA M Unavailable Unavailable GHAZOUL, BEBE Unavailable Unavailable HOYLISA M Unavailable Unavailable GHAZOUL, BEBE Unavailable Unavailable GHAZOUL, BEBE Unavailable Unavailable GHAZOUL, BEBE Unavailable Unavailable GHAZOUL, BEBE Unavailable Unavailable GHAZOUL, BEBE Unavailable Unavailable UNKNOWN, PROVIDER Unavailable Unavailable LISA MIMS Unavailable Unavailable Lisa Mims Unavailable Unavailable Unavailable MD Lisa Mims Primary Care Provider [phone] MD Alex Cerda Attending Provider MD Lisa Mims Primary Care Provider [phone] MD Alex Cerda Attending Provider Dr. Alex Becerra Attending Unavailable Dr. Alex Becerra Referring Unavailable Dr. Lisa Mims Primary Care Unavail able Dr. Alex Becerra Attending Unavailable Dr. Lisa Mims Primary Care Unavail able MD Lisa Mims Primary Care Provider [phone] MD Alex Cerda Attending Provider DR LISA MIMS Consulting Unavailable DR LISA MIMS Attending Unavailable DR LISA MIMS Admitting Unavailable DR LISA MIMS Primary Care Unavailable DR BRIANNA SMITH V Consulting Unavailable DR ALEX BECERRA Consulting Unavailabl DR LISA Cagle Consulting Unavailable DR LISA MIMS Attending Unavailable DR LISA MIMS Admitting Unavailable DR LISA MIMS Primary Care Unavailable MD Lisa Mims Primary Care Provider [phone] MD Alex Cerda Attending Provider MD Lisa Mims Primary Care Provider [phone] MD Alex Cerda Attending Provider MD Lisa Mims Primary Care Provider MD Alex Cerda Attending Provider Dr. Lisa Mims Primary Care Unavail able Mere, Dr. Lisa Byers Primary Care Unavail able Mere, Dr. Lisa Byers Primary Care Unavail able Mere, Dr. Lisa Byers Primary Care Unavail able Hernan, Dr. Alex Fonseca Referring Unava lachelle Becerra, Dr. Alex Fonseca Attending Unava ilable Mere, Dr. Lisa Byers Primary Care Unavail able MD Lisa Mims Primary Care Provider MD Alex Cerda Attending Provider Lisa Mims MD Primary Care Provider MD Lisa Mims Primary Care Provider [phone] MD Alex Cerda Attending Provider MD Lisa Mims Primary Care Provider MD Alex Cerda Attending Provider Lisa Mims Primary Care Physician MD Guy Angeles Attending Provider Guy ANGELES Attending Unavailable Lisa Mims Referring Unavailable Guy ANGELES Attending Unavailable Guy ANGELES Attending Unavailable MD Lisa Mims Primary Care Provider MD Alex Cerda Attending Provider Lisa Mims MD Primary Care Provider Alex Cerda Admitting Unavail able Lisa Mims Primary Care Unavailable Alex Cerda Attending Unavail able Alex Cerda Attending Unavail able Lisa Mims Primary Care Unavailable Alex Cerda Admitting Unavail able Alex Cerda Attending Unavail able Lisa Mims Primary Care Unavailable Alex Cerda Admitting Unavail able Lisa Mims Primary Care Unavailable Nill, Guy R Admitting Unavailable Guy Angeles Attending Unavailable Alex Cerda Attending Unavail able Lisa Mims Primary Care Unavailable Alex Cerda Admitting Unavail able LISA MIMS Primary Care Unavailable HERNANALEX GARCIA Referring Unavailable HERNANALEX GARCIA Referring Unavailable LISA MIMS Primary Care Unavailable POCOS, BRIANNA Main Referring Unavailable POCOS, BRIANNA Main Attending Unavailable LISA MIMS Referring Unavailable SHAYY TROTTER Attending Unavailable POCOS, BRIANNA Main Referring Unavailable CIARRABLEMARY Simpson Attending Unavailable POCOS, BRIANNA Main Referring Unavailable POCOS, BRIANNA Main Referring Unavailable POCOS, BRIANNA Main Attending Unavailable POCOS, BRIANNA Main Referring Unavailable POCOS, BRIANNA Main Referring Unavailable SHAYY TROTTER Attending Unavailable POCOS, BRIANNA Main Referring Unavailable ROXANA MANLEY Attending Unavailable POCOS, BRIANNA Main Referring Unavailable BRJIM MATSON Attending Unavailable POCOS, BRIANNA Main Referring Unavailable JIM MURILLO Attending Unavailable POCOS, BRIANNA Main Referring Unavailable POCOS, BRIANNA aMin Attending Unavailable LIZA BLEDSOE Attending Unavailable HERNAN, ALEX Bundy Referring Unavailable LISA MIMS [facility] Care Unavailable HERNANALEX Attending Unavailable LISA MIMS [facility] Care Unavailable HERNAN, ALEX Bundy Attending Unavailable HERNAN, ALEX Bundy Referring Unavailable LISA MIMS [facility] Unavailable Allergies Allergy Classification Reported Allergen(s) Allergy Type Date of Onset Reaction(s) Facility (1 source) meloxicam; Translations: [Mobic] Drug Allergy [facility] Repository (1 source) Naproxen; Translations: [Naprosyn] Drug Allergy [facility] Repository Medications Current Medications Medication Drug Class(es) Dates Sig (Normalized) Sig (Original) amoxicillin 500 mg oral capsule (11 sources) Penicillin-class Antibacterial Start: 12-01-2021 take 4 capsules by mouth every hour amoxicillin (Amoxil) 500 mg capsule Take 4 capsules (2,000 mg) by mouth see administration instructions. One hour prior to dental appointment 12/01/2021 Active aspirin 81 mg delayed release oral tablet (20 sources) Platelet Aggregation Inhibitor, Nonsteroidal Anti-inflammatory Drug Start: 07-28-2023 aspirin 81 MG EC tablet Take 81 mg by mouth 07/28/2023 Active Start: 12-14-2020 take 1 tablet by angel th once daily Aspirin (Aspirin Childrens) 81 mg Tablet,Chewable Active 81 MG PO Daily December 14, 2020 12:00am Start: 03-12-2016 take 1 tablet by angel th once daily Aspirin Low Dose 81 MG Oral Tablet Delayed Release Take 1 tablet daily Quantity: 90 Refills: 3 Ordered: 14-Oct-2022 Alex Becerra DO Start : 12-Mar-2016 Active Start: 03-12-2016 Aspirin Low Do se 81 MG Oral Tablet Delayed Release Quantity: 0 Refills: 0 Ordered: 12-Mar-2016 Kamla Macias Start : 12-Mar-2016 Active atorvastatin 40 mg oral tablet (20 sources) HMG-CoA Reductase Inhibitor Start: 03-12-2016 End: 10-26-2023 take 1 tablet by mouth once daily at bedtime atorvastatin (Lipitor) 40 mg tablet Indications: Mixed hyperlipidemia Take 1 tablet (40 mg) by mouth once daily at bedtime. 90 tablet 3 10/26/2023 Active carvedilol 6.25 mg oral tablet (20 sources) alpha-Adrenergic Alvaro, beta-Adrenergic Alvaro Start: 03-12-2016 End: 10-26-2023 take 1 tablet by mouth twice daily carvedilol (Coreg) 6.25 mg tablet Indications: Paroxysmal atrial fibrillation (Multi) , Primary hypertension Take 1 tablet (6.25 mg) by mouth 2 times a day. 180 tablet 3 10/26/2023 Active Start: 03-12-2016 Carvedilol 6.2 5 MG Oral Tablet Quantity: 0 Refills: 0 Ordered: 12-Mar-2016 Kamla Macias Start : 12-Mar-2016 Active clindamycin 300 mg oral capsule (11 sources) Lincosamide Antibacterial Start: 12-17-2020 take 600 mg by mouth three times daily Clindamycin Hcl Active 600 MG PO Three times daily 12 December 17, 2020 12:00am lisinopril 10 mg oral tablet (20 sources) Angiotensin Converting Enzyme Inhibitor Start: 10-07-2021 End: 10-26-2023 take 1 tablet by mouth once daily lisinopril 10 mg tablet Indications: Primary hypertension Take 1 tablet (10 mg) by mouth once daily. 90 tablet 3 10/26/2023 Active Start: 12-14-2020 take 5 mg by mouth once daily Lisinopril Active 5 MG PO Daily December 14, 2020 12:00am Start: 04-28-2017 take 1 tablet by angel th once daily Lisinopril 2.5 MG Oral Tablet Take 1 tablet daily Quantity: 0 Refills: 0 Ordered: 28-Apr-2017 Kamla Macias Start : 28-Apr-2017 Active warfarin sodium 5 mg oral tablet (20 sources) Vitamin K Antagonist Start: 07-25-2023 End: 07-24-2024 warfarin (Coumadin) 5 mg tablet Indications: Paroxysmal atrial fibrillation (Multi) Take 1 tablet (5 mg) by mouth see administration instructions. Start with one tablet daily. Take as directed per [place] coumadin [facility] 90 tablet 07/25/2023 Active Completed/Discontinued Medications Medication Drug Class(es) Dates Sig (Normalized) Sig (Original) amoxicillin 875 mg / clavulanate 125 mg oral tablet (2 sources) Penicillin-class Antibacterial Start: 08-30-2022 take 1 tablet by mouth twice daily Amoxicillin-Pot Clavulanate 875-125 MG Oral Tablet TAKE 1 TABLET BY MOUTH TWICE A DAY Quantity: 20 Refills: 0 Ordered: 30-Aug-2022 DO Start : 30-Aug-2022 Complete betamethasone 3 mg/ml / betamethasone acetate 3 mg/ml injectable suspension (4 sources) Corticosteroid Start: 06-27-2024 End: 06-27-2024 betamethasone acetate-betamethas one sodium phosphate (Celestone) injection 1 mg Start: 06-27-2024 End: 06-27-2024 1 mg, Intra-articular, Once PRN Procedure, Starting on Tue06/27/24 at 1430, For 1 dose predniSONE 20 mg oral tablet (2 sources) [...] VISUAL DISTURBANCES] Onset: 07-03-2022 Episodic Cardiac dysrhythmias (20 sources) Paroxysmal atrial fibrillation; Translations: [Paroxysmal atrial fibrillation] Onset: 08-17-2023 08-17-2023 Chronic Chronic kidney disease (11 sources) Chronic kidney disease; Translations: [Chronic kidney disease, unspecified] 12-15-2020 Chronic Conduction disorders (20 sources) Second degree atrioventricular block; Translations: [Other second degree atrioventricular block] Onset: 07-07-2023 Resolved: 08-17-2023 12-14-2020 Chronic Congestive heart failure; nonhypertensive (19 sources) Chronic systolic heart failure; Translations: [Chronic systolic heart failure] Onset: 04-15-2022 Resolved: 08-17-2023 08-17-2023 Chronic Coronary atherosclerosis and other heart disease (2 sources) Ischemic cardiomyopathy; Translations: [Ischemic cardiomyopathy] Onset: 08-07-2024 Chronic Coronary atherosclerosis and other heart disease (1 source) Coronary atherosclerosis and other heart disease Onset: 05-10-2018 Diabetes mellitus without complication (1 source) Other abnormal glucose; Translations: [OTHER ABNORMAL GLUCOSE] Onset: 07-03-2022 Episodic Disorders of lipid metabolism (20 sources) Hyperlipidemia; Translations: [Other and unspecified hyperlipidemia] Onset: 07-03-2022 08-17-2023 Chronic Essential hypertension (20 sources) Hypertensive disorder; Translations: [Unspecified essential hypertension] Onset: 07-07-2023 12-14-2020 Chronic Gout and other crystal arthropathies (2 sources) Gout 12-27-2023 Chronic Heart valve disorders (20 sources) Nonrheumatic aortic (valve) stenosis; Translations: [Aortic valve stenosis, severe] Onset: 04-15-2022 Resolved: 08-17-2023 12-15-2020 Chronic Heart valve disorders (2 sources) Murmur 12-27-2023 Episodic Neoplasms of unspecified nature or uncertain [...] STENOS AUNDREA CAROTID ART] Onset: 07-03-2022 Chronic Osteoarthritis (12 sources) Primary osteoarthritis, right shoulder; Translations: [Arthropathy, unspecified, shoulder region] 06-27-2024 Chronic Other aftercare (11 sources) Long-term current use of anticoagulant; Translations: [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] Onset: 08-17-2023 08-17-2023 Episodic Other and ill-defined heart disease (2 sources) Heart disease 12-27-2023 Chronic Other circulatory disease (16 sources) History of cerebrovascular accident; Translations: [Personal history of transient ischemic attack (TIA), and cerebral infarction without residual deficits] Onset: 07-07-2023 07-07-2023 Episodic Other circulatory disease (2 sources) Personal history of transient ischemic attack (TIA), and cerebral infarction without residual deficits; Translations: [Personal history of transient ischemic attack (TIA), and cerebral infarction without residual deficits] Onset: 07-07-2023 Episodic Other non-traumatic joint disorders (8 sources) Pain in right shoulder; Translations: [Pain in joint, shoulder region] 06-27-2024 Episodic Other non-traumatic joint disorders (2 sources) Hip pain; Translations: [Pain in right hip] 07-12-2024 Episodic Other non-traumatic joint disorders (2 sources) Pain in right knee; Translations: [Pain in joint, lower leg] 07-12-2024 Episodic Other nutritional; endocrine; and metabolic disorders (1 source) Body mass index 25-29 - overweight; Translations: [Body Mass Index 25.0-25.9, adult] Episodic Other nutritional; endocrine; and metabolic disorders (3 sources) Overweight; Translations: [Overweight] 12-27-2023 Episodic Other nutritional; endocrine; and metabolic disorders (14 sources) Overweight in adulthood with body mass index of 25 or more but less than 30; Translations: [Overweight] Onset: 08-17-2023 08-17-2023 Episodic Other screening for suspected conditions (not mental disorders or infectious disease) (5 sources) Elevated prostate specific antigen [PSA]; Translations: [Encounter for screening for malignant neoplasm of prostate] Onset: 06-28-2022 Episodic Other skin disorders (2 sources) Epidermoid cyst; Translations: [Epidermal cyst] Onset: 01-31-2024 Episodic Other skin disorders (2 sources) Epidermoid cyst of skin 01-31-2024 Episodic Residual codes; unclassified (3 sources) Body mass index 20-24 - normal; Translations: [Body Mass Index between 19-24, adult] Episodic Sprains and strains (6 sources) Shoulder strain; Translations: [Strain of unspecified muscle, fascia and tendon at shoulder and upper arm level, right arm, initial encounter] 06-27-2024 Episodic Superficial injury; contusion (4 sources) Contusion of right knee; Translations: [Contusion of right knee, initial encounter] 07-12-2024 Episodic Syncope (11 sources) Near syncope; Translations: [Syncope and collapse] 12-14-2020 Episodic Unclassified (2 sources) Other cardiomyopathies / I42.8(ICD-9) Onset: 05-10-2018 Unclassified (1 source) Presence of prosthetic heart valve / Z95.2(ICD-9) Onset: 05-10-2018 Unclassified (1 source) Personal history of nicotine dependence / Z87.891(ICD-9) Onset: 05-10-2018 Unclassified (1 source) Prsnl hx of TIA (TIA), and cereb infrc w/o resid deficits / Z86.73(ICD-9) Onset: 05-10-2018 Unclassified (4 sources) Right shoulder pain, unspecified chronicity 07-02-2024 Unclassified (2 sources) Arthritis of shoulder region, right 06-27-2024 Viral infection (1 source) COVID-19; Translations: [COVID-19] Onset: 09-03-2022 Past or Other Problems Problem Classification Problem Date Documented Da te Episodic/Chronic Malaise and fatigue (14 sources) Fatigue; Translations: [Other malaise and fatigue] Onset: 07-07-2023 07-07-2023 Episodic Other aftercare (2 sources) 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; Translations: [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] Onset: 08-17-2023 Episodic Other nutritional; endocrine; and metabolic disorders (2 sources) Body mass index (BMI) 25.0-25.9, adult; Translations: [Body mass index (BMI) 25.0-25.9, adult] Onset: 08-17-2023 Episodic [place]-; endo-; and myocarditis; cardiomyopathy (except that caused by tuberculosis or sexually transmitted disease) (20 sources) Other cardiomyopathies ; Translations: [Cardiomyopathy] Onset: 05-10-2018 Resolved: 10-26-2023 07-07-2023 Chronic Screening and history of mental health and substance abuse codes (13 sources) Ex-smoker; Translations: [Personal history of tobacco use] Onset: 10-26-2023 10-26-2023 Episodic Comment on above: Quit at age 37. 2 pp d; Unclassified (6 sources) Onset: 08-17-2023 Resolved: 10-26-2023 08-17-2023 Results Test Name Value Interpretation Reference Range Facility TRANSTHORACIC ECHO (TTE) COM PLETEon 07-24-2024 TRANSTHORACIC ECHO (TTE) COMPLETE [address], [address], [place] [address] TRANSTHORACIC ECHOCARDIOGRAM REPORT Patient Name: MELO CUEVAS Reading Physician: [id number] Fabián Tony MD Study Date: 07/24/2024 Ordering Provider: [id number] ALEX BECERRA MRN/PID: [id number] Fellow: Nurse: Date of /Age: 8 1935 / 89 years Winterizer: Daniela Veras RDCS, RVT Gender Assigned at M Additional Staff: : Height: 187.96 cm Admit Date: Weight: 89.81 kg Admission Status: BSA / BMI: 2.16 m2 / 25.42 Department Location: 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 PHYSICIAN INTERPRETATION: Left Ventricle: The left ventricular systolic function is normal, with a visually estimated ejection fraction of 65%. There is moderate concentric left ventricular hypertrophy. There are no regional wall motion abnormalities. The left ventricular cavity size is normal. Spectral Doppler shows a Grade I (impaired relaxation pattern) of left ventricular diastolic filling with normal left atrial filling pressure. Moderate concentric left nuclear hypertrophy. Left Atrium: The left atrium is normal in size. Right Ventricle: The right ventricle is normal in size. There is normal right ventricular global systolic function. Right Atrium: The right atrium is normal in size. 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 The aortic valve dimensionless index is 0.53. There is no evidence of aortic valve regurgitation. The peak instantaneous gradient of the aortic valve is 11 mmHg. The mean gradient of the aortic valve is 5 mmHg. The aortic valve historically is bioprosthetic. Not well-visualized. Peak gradient measured around 11 mmHg. Mean gradient around 5 mmHg. Calculated aortic valve area is 2.1cm???. By color flow Doppler there is evidence of moderate aortic regurgitation difficult to assess whether it is intra or perivalvular regurgitation. Mitral Valve: The mitral valve is normal in structure with a degenerative appearance. There is moderate to severe mitral annular calcification. The peak instantaneous gradient of the mitral valve is 23 mmHg. There is mild to moderate mitral valve regurgitation. The mitral valve appearance consistent with degenerative changes with restriction of leaflet excursion causing mild degree of mitral stenosis with mean gradient of around 8 mmHg. Tricuspid Valve: The tricuspid valve is structurally normal. There is mild tricuspid regurgitation. Pulmonic Valve: The pulmonic valve is structurally normal. There is no indication of pulmonic valve regurgitation. Pericardium: No pericardial effusion noted. Aorta: The aortic root is normal. CONCLUSIONS: 1. The left ventricular systolic function is normal, with a visually estimated ejection fraction of 65%. 2. Spectral Doppler shows a Grade I (impaired relaxation pattern) of left ventricular diastolic filling with normal left atrial filling pressure. 3. Moderate concentric left nuclear hypertrophy. 4. There is normal right ventricular global systolic function. 5. The mitral valve appearance consistent with degenerative changes with restriction of leaflet excursion causing mild degree of mitral stenosis with mean gradient of around 8 mmHg. 6. There is moderate to severe mitral annular calcification. 7. Mild to moderate mitral valve regurgitation. 8. Mild tricuspid regurgitation is visualized. 9. The aortic valve historically is bioprosthetic. Not well-visualized. Peak gradient measured around 11 mmHg. Mean gradient around 5 mmHg. Calculated aortic valve area is 2.1cm???. By color flow Doppler there is evidence of moderate aortic regurgitation difficult to assess whether it is intra or perivalvular regurgitation. 10. When compared previously the only difference is the aortic regurgitation appears to be more pronounced. QUANTITATIVE DATA SUMMARY: 2D MEASUREMENTS: Normal Ranges: Ao Root d: 3.00 cm (2.0-3.7cm) LAs: 4.20 cm (2.7-4.0cm) RVIDd: 2.65 cm (0.9-3.6cm) IVSd: 1.62 cm (0.6-1.1cm) LVPWd: 1.37 cm (0.6-1.1cm) LVIDd: 4.98 cm (3.9-5.9cm) LVIDs: 3.46 cm LV Mass Index: 147.4 g/m2 LV % FS 30.5 % LV SYSTOLIC FUNCTION BY 2D PLANIMETRY (MOD): Normal Ranges: EF-A4C View: 66 % (>=55%) EF-A2C View: 59 % EF-Biplane: 62 % EF-Visual: 65 % LV EF Reported: 65 % LV DIASTOLIC FUNCTION: Normal Ranges: MV Peak E: 1.23 m/s (0.7-1.2 m/s) MV Peak A: 2.13 m/s (0.42-0.7 m/s) E/A Ratio: 0.58 (1.0-2.2) MV e' 0.054 m/s (>8.0) MV lateral e' 0.08 m/s MV medial e' 0.03 m/s E/e' Ratio: 22.93 (<8.0) (more content not included)... Normal [facility] US Heart TransthoracicOrdere d By: Fabián Tony on 07-24-2024 Aortic Valve Area by Continuity of Peak Velocity 2.74 cm2 [facility] Work Phone: Aortic Valve Area by Continuity of VTI 2.8 cm2 [facility] Work Phone: AV mn grad 5 mmHg [facility] Work Phone: AV pk grad 11 mmHg [facility] Work Phone: AV pk arron 1.65 m/s [facility] Work Phone: LV A4C EF 65.7 [facility] Work Phone: LV Biplane EF 62 % [facility] Work Phone: LV EF 65 % [facility] Work Phone: LVIDd 4.98 cm [facility] Work Phone: LVOT diam 2.6 cm [facility] Work Phone: MV avg E/e' ratio 16.[address] [facility] Work Phone: MV E/A ratio 0.58 [facility] Work Phone: RVSP 20.5 mmHg [facility] Work Phone: [facility] Work Phone: Heart Transthoracicon [address], [address] [place] [address] TRANSTHORACIC ECHOCARDIOGRAM REPORT Patient Name: MELO Pugh Physician: [id number] Fabián Tony MD Study Date: 07/24/2024 Ordering Provider: [id number] ALEX BECERRA MRN/PID: [id number] Fellow: Nurse: Date of /Age: 8 1935 / 89 years Winterizer: Daniela Veras RDCS, RVT Gender Assigned at M Additional Staff: : Height: 187.96 cm Admit Date: Weight: 89.81 kg Admission Status: BSA / BMI: 2.16 m2 / 25.42 Department Location: 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 PHYSICIAN INTERPRETATION: Left Ventricle: The left ventricular systolic function is normal, with a visually estimated ejection fraction of 65%. There is moderate concentric left ventricular hypertrophy. There are no regional wall motion abnormalities. The left ventricular cavity size is normal. Spectral Doppler shows a Grade I (impaired relaxation pattern) of left ventricular diastolic filling with normal left atrial filling pressure. Moderate concentric left nuclear hypertrophy. Left Atrium: The left atrium is normal in size. Right Ventricle: The right ventricle is normal in size. There is normal right ventricular global systolic function. Right Atrium: The right atrium is normal in size. 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 The aortic valve dimensionless index is 0.53. There is no evidence of aortic valve regurgitation. The peak instantaneous gradient of the aortic valve is 11 mmHg. The mean gradient of the aortic valve is 5 mmHg. The aortic valve historically is bioprosthetic. Not well-visualized. Peak gradient measured around 11 mmHg. Mean gradient around 5 mmHg. Calculated aortic valve area is 2.1cm . By color flow Doppler there is evidence of moderate aortic regurgitation difficult to assess whether it is intra or perivalvular regurgitation. Mitral Valve: The mitral valve is normal in structure with a degenerative appearance. There is moderate to severe mitral annular calcification. The peak instantaneous gradient of the mitral valve is 23 mmHg. There is mild to moderate mitral valve regurgitation. The mitral valve appearance consistent with degenerative changes with restriction of leaflet excursion causing mild degree of mitral stenosis with mean gradient of around 8 mmHg. Tricuspid Valve: The tricuspid valve is structurally normal. There is mild tricuspid regurgitation. Pulmonic Valve: The pulmonic valve is structurally normal. There is no indication of pulmonic valve regurgitation. Pericardium: No pericardial effusion noted. Aorta: The aortic root is normal. CONCLUSIONS: 1. The left ventricular systolic function is normal, with a visually estimated ejection fraction of 65%. 2. Spectral Doppler shows a Grade I (impaired relaxation pattern) of left ventricular diastolic filling with normal left atrial filling pressure. 3. Moderate concentric left nuclear hypertrophy. 4. There is normal right ventricular global systolic function. 5. The mitral valve appearance consistent with degenerative changes with restriction of leaflet excursion causing mild degree of mitral stenosis with mean gradient of around 8 mmHg. 6. There is moderate to severe mitral annular calcification. 7. Mild to moderate mitral valve regurgitation. 8. Mild tricuspid regurgitation is visualized. 9. The aortic valve historically is bioprosthetic. Not well-visualized. Peak gradient measured around 11 mmHg. Mean gradient around 5 mmHg. Calculated aortic valve area is 2.1cm . By color flow Doppler there is evidence of moderate aortic regurgitation difficult to assess whether it is intra or perivalvular regurgitation. 10. When compared previously the only difference is the aortic regurgitation appears to be more pronounced. QUANTITATIVE DATA SUMMARY: 2D MEASUREMENTS: Normal Ranges: Ao Root d: 3.00 cm (2.0-3.7cm) LAs: 4.20 cm (2.7-4.0cm) RVIDd: 2.65 cm (0.9-3.6cm) IVSd: 1.62 cm ( (more content not included)... Fabián Beverly MD - 07/24/[address], [address], [place] [address] TRANSTHORACIC ECHOCARDIOGRAM REPORT Patient Name: MELO CUEVAS Reading Physician: [id number] Fabián Tony MD Study Date: 07/24/2024 Ordering Provider: [id number] ALEX BECERRA MRN/PID: [id number] Fellow: Nurse: Date of /Age: 8 1935 / 89 years Winterizer: Daniela Veras RDCS, T Gender Assigned at M Additional Staff: : Height: 187.96 cm Admit Date: Weight: 89.81 kg Admission Status: BSA / BMI: 2.16 m2 / 25.42 Department Location: 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 PHYSICIAN INTERPRETATION: Left Ventricle: The left ventricular systolic function is normal, with a visually estimated ejection fraction of 65%. There is moderate concentric left ventricular hypertrophy. There are no regional wall motion abnormalities. The left ventricular cavity size is normal. Spectral Doppler shows a Grade I (impaired relaxation pattern) of left ventricular diastolic filling with normal left atrial filling pressure. Moderate concentric left nuclear hypertrophy. Left Atrium: The left atrium is normal in size. Right Ventricle: The right ventricle is normal in size. There is normal right ventricular global systolic function. Right Atrium: The right atrium is normal in size. 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 The aortic valve dimensionless index is 0.53. There is no evidence of aortic valve regurgitation. The peak instantaneous gradient of the aortic valve is 11 mmHg. The mean gradient of the aortic valve is 5 mmHg. The aortic valve historically is bioprosthetic. Not well-visualized. Peak gradient measured around 11 mmHg. Mean gradient around 5 mmHg. Calculated aortic valve area is 2.1cm . By color flow Doppler there is evidence of moderate aortic regurgitation difficult to assess whether it is intra or perivalvular regurgitation. Mitral Valve: The mitral valve is normal in structure with a degenerative appearance. There is moderate to severe mitral annular calcification. The peak instantaneous gradient of the mitral valve is 23 mmHg. There is mild to moderate mitral valve regurgitation. The mitral valve appearance consistent with degenerative changes with restriction of leaflet excursion causing mild degree of mitral stenosis with mean gradient of around 8 mmHg. Tricuspid Valve: The tricuspid valve is structurally normal. There is mild tricuspid regurgitation. Pulmonic Valve: The pulmonic valve is structurally normal. There is no indication of pulmonic valve regurgitation. Pericardium: No pericardial effusion noted. Aorta: The aortic root is normal. CONCLUSIONS: 1. The left ventricular systolic function is normal, with a visually estimated ejection fraction of 65%. 2. Spectral Doppler shows a Grade I (impaired relaxation pattern) of left ventricular diastolic filling with normal left atrial filling pressure. 3. Moderate concentric left nuclear hypertrophy. 4. There is normal right ventricular global systolic function. 5. The mitral valve appearance consistent with degenerative changes with restriction of leaflet excursion causing mild degree of mitral stenosis with mean gradient of around 8 mmHg. 6. There is moderate to severe mitral annular calcification. 7. Mild to moderate mitral valve regurgitation. 8. Mild tricuspid regurgitation is visualized. 9. The aortic valve historically is bioprosthetic. Not well-visualized. Peak gradient measured around 11 mmHg. Mean gradient around 5 mmHg. Calculated aortic valve area is 2.1cm . By color flow Doppler there is evidence of moderate aortic regurgitation difficult to assess whether it is intra or perivalvular regurgitation. 10. When compared previously the only difference is the aortic regurgitation appears to be more pronounced. QUANTITATIVE DATA SUMMARY: 2D MEASUREMENTS: Normal Ranges: Ao Root d: 3.00 cm (2.0-3.7cm) LAs: 4.20 cm (2.7-4.0cm) RVIDd: 2.65 cm (0.9-3.6cm) IVSd: 1.62 cm (0.6-1.1cm) LVPWd: 1.37 cm (0.6-1.1cm) LVIDd: 4.98 cm (3.9-5.9cm) LVIDs: 3.46 cm LV Mass Index: 147.4 g/m2 LV % FS 30.5 % LV SYSTOLIC FUNCTION BY 2D PLANIMETRY (MOD): Normal Ranges: EF-A4C View: 66 % (>=55%) EF-A2C View: 59 % EF-Biplane: 62 % EF-Visual: 65 % LV EF Reported: 65 % LV DIASTOLIC FUNCTION: Normal Ranges: MV Peak E: 1.23 m/s (0.7-1.2 m/s) MV Peak A: 2.13 m/s (0.42-0.7 m/s) E/A Ratio: 0.58 (1.0-2.2 (more content not included)... [facility] Work Phone: No Panel Informationon 06-27 Mini Joya MA 07/02/2024 4:42 PM L Inj/Asp: R glenohumeral on 06/27/2024 2:30 PM Indications: pain Details: 22 G needle Medications: 1 mg betamethasone acetate-betamethason e sodium phosphate 6 (3-3) MG/ML [facility] General Surgery Office/Clini c Noteon 03-21-2024 General Surgery Office/Clinic Note General Surgery Office/Clinic Note Chief Complaint post operative follow up HPI Staff 14 day post operative follow up post excisional biopsy epidermal cyst mid back. Reports minimal soreness. Denies bleeding or drainage. History of Present Illness f/u excision epidermal cyst of mid back; doing well, mild soreness/itching; no drainage. Review of Systems ROS - Provider Constitutional: no fever, no sweats, no weight loss. Eyes: no glasses, no blurred vision, no visual loss. [...] weakness. Skin: no changing moles, no rash, no skin lumps. Neurologic: no seizures, no epilepsy, [...] and are negative or noncontributory. Physical Exam skin: incision healing well, minimal erythema around sutures, no induration; no drainage. Assessment/Plan 1. Epidermal cyst (L72.0: Epidermal cyst) sutures removed, doing well; call with problems/questions. Follow-up No qualifying data available Problem List/Past Medical History Ongoing Aortic stenosis Atrial fibrillation BMI 25.0-25.9,adult Congestive heart failure Epidermal cyst Essential hypertension Gout Heart disease History of CVA (cerebrovascular accident) Hyperlipidemia Murmur Overweight Historical No qualifying data Procedure/Surgical History Excision of cyst (03/07/2024), Cataract Extraction with IOL placement / iStent [...] SARS-CoV-2 (COVID-19) mRNA BNT-162b2 vax 09/15/2020 Recorded Normal [facility] Comment on above: Result Comment: Elec tronically Signed By: BRIDGETTE SCOTT, Guy Joyabr\Date and Time Signed: 03/21/24 14:07 EDT Pepe 03-07-2024 L Specimen: [id number] Received: 03/08/24 Status: GAYLE Cole Num: [id number] Spec Type: Surgical Subm Dr: Guy Angeles MD FACS Tissues: A Skin Cyst Procedures: HE, Gross/Micro L3 Age/ Patient Sex Location Account Attending Physician Melo Cuevas 89/M LABELL [id number] Guy Angeles MD FACS SPEC NUM: [id number] RECD: 03/08/24 STATUS: GAYLE COLE NUM: [id number] AALIYHA: 03/07/24-[address]: Guy Angeles MD FACS ENTERED: 03/08/24-[address] [facility] [address]: SPEC TYPE: Surgical DEPT: AHMET NICHOLSON ENTERED BY: [id number] RECV BY: [id number] ORDERED: HE, Gross/Micro L3 ORDERED: HE, Gross/Micro L3 Pathological Diagnosis Cyst, right upper mid back, excision: Epidermal inclusion cyst. Clinical Information Epidermal cyst upper back path pending Gross Description The specimen was received in formalin with the patient's name and right upper mid back cyst is a unoriented olvera ellipse of skin measuring 2.8 x 1.5 cm and excised to a depth of 1.9 cm. Attached to the skin is a oval-shaped white cystic structure measuring 2.0 x 1.8 x 2.0 cm. The resection margin is inked black. The specimen is serially sectioned revealing a cystic cavity filled with white cystic debris. 1 career services representative section is submitted in cassette A1. CPT Codes 16041 Specimen: [id number] Received: 03/08/24-160 Status: GAYLE Emmy Num: [id number] Spec Type: Surgical Subm Dr: Guy Angeles MD [facility] Tissues: A Skin Cyst Procedures: Brian HAIR/Paige L3 Patient: Melo Cuevas [id number] (Continued) Signed (signature on file) Mahesh Ortiz MD 03/13/24 [address] [place] [facility] Ambulatory Visit Summaryon 0 01-31-2024 Ambulatory Visit Summary Ambulatory Visi t Summary MELO CUEVAS :1935 Visit Date:01/31/2024 Ambulatory Visit Instructions Your Care Team Attending Physician - BRIDGETTE SCOTT, Guy Potter Primary Care Physician - Mere SCOTT, Lisa Referring Physician - Lisa Mims MD This Is Your Medications List Contact [...] you for choosing us for your care. [facility] Physician Referralon 024 Physician Referral [id number] 23#1.00TIFF [facility] Physician Referralon 024 Physician Referral [id number]# 1.00TIFF Normal [facility] Physician Referral [id number]# 1.00TIFF Normal [facility] Comment on above: Other Comment: MINDY KAM Physician Referral [id number]# 1.00TIFF Normal [facility] Heart TransthoracicOrdere d By: Moody Teixeira on 10-19-2023 Aortic Valve Area by Continuity of Peak Velocity 2.59 cm2 [facility] Work Phone: Aortic Valve Area by Continuity of VTI 2.73 cm2 [facility] Work Phone: [phone] AV mn grad 6.0 mmHg [facility] Work Phone: [phone] AV pk grad 12.0 mmHg [facility] Work Phone: [phone] AV pk arron 1.73 m/s [facility] Work Phone: [phone] LV A4C EF 56.3 [facility] Work Phone: [phone] LVIDd 3.57 cm [facility] Work Phone: [phone] LVOT diam 2.40 cm [facility] Work Phone: [phone] MV avg E/e' ratio 22.[address] [facility] Work Phone: [phone] MV E/A ratio 0.61 [facility] Work Phone: [phone] RVSP 23.3 mmHg [facility] Work Phone: [phone] [facility] Work Phone: Heart Transthoracicon [address], [address] [facility], [place] [address] TRANSTHORACIC ECHOCARDIOGRAM REPORT Patient Name: MELO Pugh Physician: [id number] Moody Teixeira MD, FACC Study Date: 10/18/2023 Ordering Provider: [id number] ALEX BECERRA MRN/PID: [id number] Fellow: Nurse: Date of /Age: 8 1935 / 88 years Winterizer: Daniela Veras RDCS, RVT Gender: M Additional Staff: Height: 187.96 cm Admit Date: Weight: 89.81 kg Admission Status: BSA / BMI: 2.16 m2 / 25.42 kg/m2 Department Location: [facility] Blood Pressure: 134 /72 mmHg Study Type: [...] not included)... Moody Aguilar MD - 10/19/2023 [facility] [address], [address], [place] [address] TRANSTHORACIC ECHOCARDIOGRAM REPORT Patient Name: MELO CUEVAS Reading Physician: [id number] Moody Teixeira MD, [facility] Study Date: 10/18/2023 Ordering Provider: [id number] ALEX Niharika JAFFEHERNAN MRN/PID: [id number] Fellow: Nurse: Date of /Age: 8 1935 / 88 years Winterizer: Daniela Veras RDCS, RVT Gender: M Additional Staff: Height: 187.96 cm Admit Date: Weight: 89.81 kg Admission Status: BSA / BMI: 2.16 m2 / 25.42 kg/m2 Department Location: [facility] Blood Pressure: 134 /72 mmHg Study Type: [...] AoV Mean P.0 mmHg (1.7-11.5mmHg) LVOT Max Arron: 0.99 m/s (<=1.1m/s) AoV VTI: 35.50 cm (18-25cm) LVOT VTI: 21.40 cm LVOT Diameter: 2.40 cm (1.8-2.4cm) AoV Area, VTI: 2.73 cm2 (2.5-5.5cm2) AoV Area,Vmax: 2.59 cm2 (2.5-4.5cm2) AoV Dimensionless Index: 0.60 AORTIC INSUF (more content not included)... [facility] Work Phone: TRANSTHORACIC ECHO (TTE) [facility] 10-18-2023 TRANSTHORACIC ECHO (TTE) COMPLETE [address], [address] [place] [address] TRANSTHORACIC ECHOCARDIOGRAM REPORT Patient Name: MELO Pugh Physician: [id number] Moody Teixeira MD, [facility] Study Date: 10/18/2023 Ordering Provider: [id number] ALEX BECERRA MRN/PID: [id number] Fellow: Nurse: Date of /Age: 8 1935 / 88 years Winterizer: Daniela Veras RD, RVT Gender: M Additional Staff: Height: 187.96 cm Admit Date: Weight: 89.81 kg Admission Status: BSA / BMI: 2.16 m2 / 25.42 kg/m2 Department Location: [facility] Blood Pressure: 134 /72 mmHg Study Type: [...] AoV Mean P.0 mmHg (1.7-11.5mmHg) LVOT Max Arron: 0.99 m/s (<=1.1m/s) AoV VTI: 35.50 cm (18-25cm) LVOT VTI: 21.40 cm LVOT Diameter: 2.40 cm (1.8-2.4cm) AoV Area, VTI: 2.73 cm2 (2.5-5.5cm2) AoV Area,Vmax: 2.59 cm2 (2.5-4.5cm2) AoV Dimensionless Index: 0.60 AORTIC INSUFFICIENCY: AI Vmax: 3.82 m/s AI Half-time: 409 msec AI Decel Rate: 249.50 cm/s2 TRICUSPID VALVE/RVSP: No (more content not included)... [facility] Office Visit (Cardiology)on 10-14-2022 Follow-up visit Diagnoses/Problems [...] Recorded: 14Oct2022 10:03AM Heart Rate64, L Radial Rfzaaljj354, LUE, Sitting Xxcgmmakf46, LUE, Sitting Height6 ft 2 in Anskor855 lb BMI Gebyhkayoa86.29 kg/m2 BSA Calculated2.16 Tobacco Useb) No Falls Screening (Age 18+)a) No falls within the last year Physical Exam Constitutional: alert and in no acute distress. Neck: neck is supple, symmetric, trachea midline, no masses and no thyromegaly . Pulmonary: no increased work of breathing or signs of respiratory distress and lungs clear to auscultation. (more content not included)... Normal [facility] Tobacco Screening.on 023 Fall risk assessment a) No falls within the last year [facility] y [address] DO Work Phone: Tobacco use status [facility] b) No M [facility] [address] DO Work Phone: Covid-19 PCR (CVDTB)on 08-18 SARS-CoV-2 (COVID-19) RNA SVETLANA+probe Ql (Unsp spec) Detected Abnormal NOT DETECTED [facility] Comment on above: Result Comment: This test is not yet approved or cleared by the [place] FDA. When there are no FDA-approved or cleared tests available, and other criteria are met, FDA can make tests available under an emergency access mechanism called an Emergency Use Authorization (EUA). The EUA for this test is supported by the [place] of Health and Human Service's (HHS's) declaration [...] longer be used). Performed By: #### C VDTB #### [facility] [address] [place] [address] Dr. Ekaterina Alcocer INFLUENZA A AND B [facility] 08[facility] SEE BELOW Normal [facility] Comment on above: Result Comment: Nega tive for Flu A protein angiten. Infection due to Flu A cannot be ruled out. Flu A angiten in the sample may be below the detection limit of the test. Performed By: #### I NFLUAB #### [facility] [address] [place] [address] Dr. [facility]ater[facility] Normal [facility] Comment on above: Result Comment: Nega tive for Flu B protein antigen. Infection due to Flu B cannot be ruled out. Flu B antigen in the sample may be below the detection limit of the test. Performed By: #### I NFLUAB #### [facility] [address] [place] [address] Dr. Ekaterina Alcocer INFLUENZA A AG Negative Normal NEGATIVE SEE COMMENT [facility] Comment on above: Performed By: #### I NFLUAB #### [facility] [address] [place] [address] Dr. Ekaterina Alcocer INFLUENZA B AG Negative Normal NEGATIVE SEE COMMENT [facility] Comment on above: Performed By: #### I NFLUAB #### [facility] [address] [place] [address] Dr. Ekaterina Alcocer PSA, FREE AND TOTAL RATIOon 06-30-2022 % Free PSA 26.8 % Normal [facility] Comment on above: Result Comment: The table below lists the probability of prostate cancer for men with non-suspicious ANJEL results and total PSA between 4 and 10 ng/mL, by patient age (Catalona et al, GENARO 1998, 279:1542). % Free PSA 50-64 yr 65-75 yr 0.00-10.00% 56% 55% 10.01-15.00% 24% 35% 15.01-20.00% 17% 23% 20.01-25.00% 10% 20% >25.00% 5% 9% Please note: Desiree et al did not make specific recommendations regarding the use of percent free PSA for any other population of men. Performed By: #### P SAFREE ####[facility] [address] [place] [id number]. Ekaterina Alcocer Prostate specific Ag [Mass/Vol] 4.4 ng/mL Critically high 0.0-4.0 [facility] Comment on above: Result Comment: Roch cristofer ECLIA methodology. . According to the [place] [employer], Serum PSA should decrease and [...] malignant disease. Performed By: #### P SAFREE ####[facility] [address] [place] [address]Dr. Ekaterina Alcocer PSA, Free 1.18 ng/mL Normal N/A [facility] Comment on above: Result Comment: Antonio gant ECLIA methodology. Performed By: #### P SAFREE ####[facility] [address] [place] [id number]. Ekaterina Alcocer INSULINon 06-29-2022 Insulin 7.5 uIU/mL Normal 2.6-24.9 [facility] Comment on above: Performed By: #### I NSULIN ####[facility] [address] [place] [id number]. Ekaterina Alcocer CBC AUTO DIFFon 06-28-2022 BASO # 0.1 103/ul Normal 0.0-0.1 [facility] Comment on above: Performed By: #### C BC #### [facility] [address] [place] [address] [address] Ekaterina Alcocer Basophils/100 WBC (Bld) 1.5 % Normal 0.2-2.0 [facility] Comment on above: Performed By: #### C BC #### [facility] [address] [place] [address] Dr. Ekaterian Alcocer EO # 0.2 103/ul Normal 0.0-0.7 [facility] Comment on above: Performed By: #### C BC #### [facility] [address] [place] [address] Dr. Ekaterina Alcocer Eosinophils/100 WBC (Bld) 2.4 % Normal 0.9-7.0 [facility] Comment on above: Performed By: #### C BC #### [facility] [address] [place] [address] Dr. Ekaterina Alcocer Erythrocyte distribution width (RBC) [Ratio] 13.6 % Normal 11.0-15.0 [facility] Comment on above: Performed By: #### C BC #### [facility] [address] [place] [address] Dr. Ekaterina Alcocer Hematocrit (Bld) [Volume fraction] 46.3 % Normal 42.0-54.0 [facility] Comment on above: Performed By: #### C BC #### [facility] [address] [place] [address] Dr. Ekaterina Alcocer Hemoglobin (Bld) [Mass/Vol] 15.5 g/dL Normal 14.0-18.0 [facility] Comment on above: Performed By: #### C BC #### [facility] [address] [place] [address] Dr. Ekaterina Alcocer IG # 0.03 10e3/ul Normal 0.00-0.03 [facility] Comment on above: Performed By: #### C BC #### [facility] [address] [place] [address] Dr. Ekaterina Alcocer IG % 0.3 % Normal 0.0-0.5 [facility] Comment on above: Performed By: #### C BC #### [facility] [address] [place] [address] Dr. Ekaterina Alcocer LYMPH # 2.6 103/ul Normal 1.2-3.8 [facility] Comment on above: Performed By: #### C BC #### [facility] [address] [place] [address] Dr. Ekaterina Alcocer Lymphocytes/100 WBC (Bld) 28.8 % Normal 20.5-60.0 [facility] Comment on above: Performed By: #### C BC #### [facility] [address] [place] [address] Dr. Ekaterina Alcocer MANUAL DIFF REQ NO Normal [facility] Comment on above: Performed By: #### C BC #### [facility] [address] [place] [address] Dr. Ekaterina Alcocer MCH (RBC) [Entitic mass] 30.7 pg Normal 25.9-34.0 [facility] Comment on above: Performed By: #### C BC #### [facility] [address] [place] [address] Dr. Ekaterina Alcocer MCHC (RBC) [Mass/Vol] 33.5 g/dL Normal 29.9-35.2 [facility] Comment on above: Performed By: #### C BC #### [facility] [address] [place] [address] Dr. Ekaterina Alcocer MCV (RBC) [Entitic vol] 91.7 fL Normal 80.0-94.0 [facility] Comment on above: Performed By: #### C BC #### [facility] [address] [place] [address] Dr. Ekaterina Alcocer MONO # 0.7 103/ul Normal 0.3-0.8 [facility] Comment on above: Performed By: #### C BC #### [facility] [address] [place] [address] Dr. Ekaterina Alcocer Monocytes/100 WBC (Bld) 8.3 % Normal 1.7-12.0 [facility] Comment on above: Performed By: #### C BC #### [facility] [address] [place] [address] Dr. Ekaterina Alcocer NEUT # 5.2 103/ul Normal 1.4-6.5 [facility] Comment on above: Performed By: #### C BC #### [facility] [address] [place] [address] Dr. Ekaterina Alcocer Neutrophils/100 WBC (Bld) 58.7 % Normal 43.0-75.0 [facility] Comment on above: Performed By: #### C BC #### [facility] [address] [place] [address] Dr. Ekaterina Alcocer Platelet mean volume (Bld) [Entitic vol] 9.8 fL Normal 9.5-13.5 [facility] Comment on above: Performed By: #### C BC #### [facility] [address] [place] [address] Dr. Ekaterina Alcocer PLT 230 103/ul Normal 150-450 [facility] Comment on above: Performed By: #### C BC #### [facility] [address] [place] [address] Dr. Ekaterina Alcocer RBC 5.05 106/ul Normal 4.70-6.10 [facility] Comment on above: Performed By: #### C BC #### [facility] [address] [place] [address] Dr. Ekaterina Alcocer WBC 8.9 103/ul Normal 4.0-11.0 [facility] [facility] Comment on above: Performed By: #### C BC #### [facility] [address] [place] [address] Dr. Ekaterina Alcocer FREE THYROXINE INDEX T7on FTI 2.02 Normal 1.30-4.50 [facility] Comment on above: Performed By: #### T 7, TSH, LIPID, URIC, CMP #### [facility] [address] [place] [address] Dr. Ekaterina Alcocer T3U 32.0 % Critically low 33.0-40.0 [facility] Comment on above: Performed By: #### T 7, TSH, LIPID, URIC, CMP #### [facility] [address] [place] [address] Dr. Ekaterina Alcocer T4 [Mass/Vol] 6.30 ug/dL Normal 4.50-12.10 [facility] Comment on above: Performed By: #### T 7, TSH, LIPID, URIC, CMP #### [facility] [address] [address] [address] Ekaterina Alcocer GLYCOHEMOGLOBIN A1Con 2021 ADA RECOMMENDATION SEE BELOW Normal [facility] Comment on above: Result Comment: ADA RECOMMENDED LIMIT 4.0 - 6.0 ADA THERAPEUTIC TARGET < 7.0 ACTION SUGGESTED > 7.0 Performed By: #### A 1C #### [facility] [address] [address] [address] Ekaterina Alcocer Glucose [Mass/Vol] 134 mg/dL Normal [facility] Comment on above: Performed By: #### A 1C #### [facility] [address] [place] [address] Dr. Ekaterina Alcocer HbA1c (Bld) [Mass fraction] 6.3 % Critically high 4.5-6.2 [facility] Comment on above: Performed By: #### A 1C #### [facility] [address] [address] [address] Ekaterina Alcocer LIPID PROFILEon 06-28-2022 CHOL-HDL RATIO NORM SEE BELOW Normal [facility] Comment on above: Result Comment: 3.3 - 4.4 LOW RISK 4.4 - 7.1 AVERAGE RISK 7.1 - 11.0 MODERATE RISK >11.0 HIGH RISK Performed By: #### T 7, TSH, LIPID, URIC, CMP #### [facility] [address] [address] [address] Ekaterina Alcocer Cholesterol [Mass/Vol] 142 mg/dL Normal <=200 [facility] Comment on above: Performed By: #### T 7, TSH, LIPID, URIC, CMP #### [facility] [address] [address] [address] Ekaterina Alcocer Cholesterol in HDL [Mass/Vol] 43 mg/dL Normal 40-60 [facility] Comment on above: Performed By: #### T 7, TSH, LIPID, URIC, CMP #### [facility] [address] [address] [address] Ekaterina Alcocer Cholesterol in LDL [Mass/Vol] 78.8 mg/dL Normal [facility] Comment on above: Performed By: #### T 7, TSH, LIPID, URIC, CMP #### [facility] [address] [address] [address] Ekaterina Alcocer Cholesterol.total/Choles terol in HDL [Mass ratio] 3.3 {ratio} Normal [facility] Comment on above: Performed By: #### T 7, TSH, LIPID, URIC, CMP #### [facility] [address] [address] [address] Ekaterina Alcocer HDL NORMAL > or = 60 mg/dl - LOW CARDIOVASCULAR RISK <40 mg/dl - HIGH CARDIOVASCULAR RISK Normal [facility] Comment on above: Performed By: #### T 7, TSH, LIPID, URIC, CMP #### [facility] [address] [place] [address] Dr. Ekaterina Alcocer LDL CALC NORMAL SEE BELOW Normal [facility] Comment on above: Result Comment: <100 mg/dl OPTIMAL 100 - 129 mg/dl NEAR OR ABOVE OPTIMAL 130 - 159 mg/dl BORDERLINE HIGH 160 - 189 mg/dl HIGH >190 mg/dl VERY HIGH Performed By: #### T 7, TSH, LIPID, URIC, CMP #### [facility] [address] [place] [address] Dr. Ekaterina Alcocer Triglyceride [Mass/Vol] 101 mg/dL Normal <=[address] [facility] Comment on above: Performed By: #### T 7, TSH, LIPID, URIC, CMP #### [facility] [address] [place] [address] Dr. Ekaterina Alcocer VLDL CALC 20.2 mg/dL Normal [facility] Comment on above: Performed By: #### T 7, TSH, LIPID, URIC, CMP #### [facility] [address] [place] [address] Dr. Ekaterina Alcocer PROF 14(COMP METB)on 2 022 Albumin [Mass/Vol] 3.5 g/dL Normal 3.4-5.0 [facility] Comment on above: Performed By: #### T 7, TSH, LIPID, URIC, CMP #### [facility] [address] [place] [address] Dr. Ekaterina Alcocer Albumin/Globulin [Mass ratio] 0.9 {ratio} Normal [facility] Comment on above: Performed By: #### T 7, TSH, LIPID, URIC, CMP #### [facility] [address] [place] [address] Dr. Ekaterina Alcocer ALP [Catalytic activity/Vol] 82 U/L Normal 46-116 [facility] Comment on above: Performed By: #### T 7, TSH, LIPID, URIC, CMP #### [facility] [address] [place] [address] Dr. Ekaterina Alcocer ALT [Catalytic activity/Vol] 26 U/L Normal 16-63 [facility] Comment on above: Performed By: #### T 7, TSH, LIPID, URIC, CMP #### [facility] [address] [place] [address] Dr. Ekaterina Alcocer Anion gap [Moles/Vol] 8.4 mmol/L Normal [facility] Comment on above: Performed By: #### T 7, TSH, LIPID, URIC, CMP #### [facility] [address] [place] [address] Dr. Ekaterina Alcocer AST [Catalytic activity/Vol] 17 U/L Normal 15-37 [facility] Comment on above: Performed By: #### T 7, TSH, LIPID, URIC, CMP #### [facility] [address] [place] [address] Dr. Ekaterina Alcocer Bilirubin [Mass/Vol] 0.6 mg/dL Normal 0.2-1.0 [facility] Comment on above: Performed By: #### T 7, TSH, LIPID, URIC, CMP #### [facility] [address] [place] [address] Dr. Ekaterina Alcocer Calcium [Mass/Vol] 8.8 mg/dL Normal 8.5-10.1 [facility] Comment on above: Performed By: #### T 7, TSH, LIPID, URIC, CMP #### [facility] [address] [address] [address] Ekaterina Alcocer Chloride [Moles/Vol] 105 mmol/L Normal 98-107 [facility] Comment on above: Performed By: #### T 7, TSH, LIPID, URIC, CMP #### [facility] [address] [place] [address] Dr. Ekaterina Alcocer CO2 [Moles/Vol] 32.6 mmol/L Critically high 21.0-32.0 [facility] Comment on above: Performed By: #### T 7, TSH, LIPID, URIC, CMP #### [facility] [address] [place] [address] Dr. Ekaterina Alcocer Creatinine [Mass/Vol] 1.48 mg/dL Critically high 0.70-1.30 [facility] Comment on above: Performed By: #### T 7, TSH, LIPID, URIC, CMP #### [facility] [address] [place] [address] Dr. Ekaterina Alcocer EGFR-AF ESTONIAN 55 mL/min/1.73m2 Critically low >=60 [facility] Comment on above: Performed By: #### T 7, TSH, LIPID, URIC, CMP #### [facility] [address] [place] [address] Dr. Ekaterina Alcocer EGFR-NON AF ESTONIAN 45 mL/min/1.73m2 Critically low >=60 [facility] Comment on above: Performed By: #### T 7, TSH, LIPID, URIC, CMP #### [facility] [address] [place] [address] Dr. Ekaterina Alcocer Globulin (S) [Mass/Vol] 3.9 g/dL Normal [facility] Comment on above: Performed By: #### T 7, TSH, LIPID, URIC, CMP #### [facility] [address] [place] [address] Dr. Ekaterina Alcocer Glucose [Mass/Vol] 118 mg/dL Critically high 74-106 [facility] Comment on above: Performed By: #### T 7, TSH, LIPID, URIC, CMP #### [facility] [address] [place] [address] Dr. Ekaterina Alcocer Potassium [Moles/Vol] 5.0 mmol/L Normal 3.5-5.1 [facility] Comment on above: Performed By: #### T 7, TSH, LIPID, URIC, CMP #### [facility] [address] [place] [address] Dr. Ekaterina Alcocer Protein [Mass/Vol] 7.4 g/dL Normal 6.4-8.2 [facility] Comment on above: Performed By: #### T 7, TSH, LIPID, URIC, CMP #### [facility] [address] [place] [address] Dr. Ekaterina Alcocer Sodium [Moles/Vol] 141 mmol/L Normal 136-145 [facility] Comment on above: Performed By: #### T 7, TSH, LIPID, URIC, CMP #### [facility] [address] [place] [address] Dr. Ekaterina Alcocer Urea nitrogen [Mass/Vol] 23.0 mg/dL Critically high 7.0-18 .0 [facility] Comment on above: Performed By: #### T 7, TSH, LIPID, URIC, CMP #### [facility] [address] [place] [address] Dr. Ekaterina Alcocer Urea nitrogen/Creatinine [Mass ratio] 15.5 mg/mg Normal [facility] Comment on above: Performed By: #### T 7, TSH, LIPID, URIC, CMP #### [facility] [address] [place] [address] Dr. Ekaterina Alcocer TSHon 06-28-2022 TSH 3.329 uIU/mL Normal 0.358-3.740 [facility] Comment on above: Performed By: #### T 7, TSH, LIPID, URIC, CMP #### [facility] [address] [place] [address] Dr. Ekaterina Alcocer URIC ACID SERUMon 06-28-2022 Urate [Mass/Vol] 8.1 mg/dL Critically high 3.5-7.2 [facility] Comment on above: Performed By: #### T 7, TSH, LIPID, URIC, CMP #### [facility] [address] [address] [address] Ekaterina Alcocer CAROTID ART BILon 12-12-2 022 US CAROTID ART AUNDREA EXAMINATION: US [...] by: BRIANNA SMITH Date: 2022-06-28 17:35 Normal [facility] VITAMIN D 25 OHon 06-28-2022 VIT D 25-OH 53.8 ng/mL Normal [facility] Comment on above: Performed By: #### GEO ROWLAND ####[facility] [id number] [id number] Alcocer VIT D RANGES SEE BELOW Normal [facility] Comment on above: Result Comment: <20 ng/mL Vit D deficient 20 - <30 ng/mL Vit D insufficient 30 - 100 ng/mL Vit D sufficient >100 ng/mL Potential Toxicity Performed By: #### Jocelyn DAVILA PSASC ####[facility] [id number] [id number]. Ekaterina Alcocer Echocardiogramon 04-15-[address], [address], [place] [address] TRANSTHORACIC ECHOCARDIOGRAM REPORT Patient Name: MELO Gant MASON Reading Physician: [id number] Fabián Tony MD Study Date: 04/15/2022 Referring Physician: ALEX BECERRA MRN/PID: [id number] PCP: Lisa Mims Accession/Order#: [id number] Department Location: [facility] Date of : 1935 Fellow: Gender: M Nurse: Admit Date: [place]izer: Daniela Veras RDCS, RVT Height: 187.96 cm [...] 3 TAVR-04/2016 Procedure/CPT: Echo Complete w Full [id number] Study Detail: The following Echo studies were [...] AoV Mean P.0 mmHg (1.7-11.5mmHg) LVOT Max Arron: 1.02 m/s (<1.1m/s) AoV VTI: 36.80 cm (18-25cm) LVOT VTI: 22.60 (more content not included)... Normal [facility] Office Visit (Cardiology)on 04-13-2022 Follow-up visit Diagnoses/Problems [...] Status:Hold For - Scheduling,Retrospec tive Authorization; Requested for:[id number]; SocHx: Former smoker Tobacco Use Screening; Status:Complete; Done: [id number] Patient Instructions Please bring all medicines, vitamins, [...] negative for complaint. Vitals Vital Signs Recorded: 13Apr2022 10:47AM Heart Rate72, L Radial Ggdskjon328, LUE, Sitting Lhisnigma79, LUE, Sitting Height6 ft 2 in Plwovk434 lb BMI Skrpjexxfe95.65 kg/m2 BSA Calculated2.14 Tobacco Useb) No Falls Screening (Age 18+)a) No falls within the last year Physical Exam Constitutio (more content not included)... Normal [facility] Tobacco Screening.on 022 Fall risk assessment a) No falls within the last year [facility] [facility] 250 DO Work Phone: Tobacco use status CP b) No M [facility] 250 DO Work Phone: Tobacco Screening.on 022 Adult depression screening assessment No [facility] [facility] 250 DO Work Phone: Fall risk assessment a) [facility] the [facility] Work Phone: Heart Rate Bounding [facility] y 250 DO Work Phone: Tobacco use status CP b) No M [facility] 250 DO Work Phone: Echocardiogramon 09-29-[address], [place] [address] TRANSTHORACIC ECHOCARDIOGRAM REPORT Patient Name: MELO CUEVAS Reading Physician: [id number] Fabián Tony MD Study Date: 09/29/2021 Referring Physician: [id number] ALEX BECERRA MRN/PID: [id number] PCP: Lisa Mims Accession/Order#: [id number] Department Location: Date of : 1935 Fellow: Gender: M Nurse: Admit Date: [place]: Daniela Veras [facility], T Height: 187.96 cm CC Report to: Weight: 88.45 kg Study Type: Echocardiogram BSA: 2.15 m2 Blood Pressure: 116 /58 mmHg Diagnosis/ICD: I35.0-Nonrheumatic aortic (valve) stenosis; 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 Indication: #29 Luca 3 TAVR-04/2016, Abnormal EKG-Complete Heart Block, Pacemaker-12/2020, Hyperlipidemia, Former Smoker, Mitral Stenosis, Aortic Regurgiation, CVA Procedure/CPT: Echo Complete w Full Doppler-[id number] Study Detail: The following Echo studies were [...] AoV Mean P.0 mmHg (1.7-11.5mmHg) LVOT Max Arron: 0.86 m/s (<1.1m/s) AoV VTI: 42.70 cm (18-25cm) LVOT VTI: 19.70 cm LVOT Diameter: 2.40 cm (1.8-2.4cm) AoV Area, VTI: 2.09 cm2 (2.5-5.5cm2) AoV Area,Vmax: 2.09 cm2 (2.5-4.5cm2) AoV Dimensionless Index: 0.46 AORTIC INSUFFICIENCY: AI Vmax: 3.10 m/s AI Half-time: 524 msec AI Decel Rate: 162.00 cm/s2 TRICU (more content not included)... Normal [facility] PROGRESSon 12-06-2017 [facility] NOTES Normal [facility] BRIEF OP NOTon 11-21-2017 [facility] NOTES Normal [facility] HISTORY AND PHYSICALon 11-21 [facility] NOTES Normal [facility] OR NURSINGon 11-21-2017 [facility] NOTES Normal [facility] PROGRESSon 11-01-2017 [facility] NOTES Normal [facility] Vital Signs Date Time Vital Sign Value Performing Clinician Facility 08-07-2024 09:28-0500 Body height 188 cm Alex Becerra DO Work Phone: [facility] 08-07-2024 09:28-0500 Body mass index (BMI) [Ratio] 25.42 kg/m2 Alex Becerra DO Work Phone: [facility] 08-07-2024 09:28-0500 Body weight 89.81 kg Alex Becerra DO Work Phone: [facility] 08-07-2024 09:28-0500 Diastolic blood pressure 60 mm[Hg] Alex Becerra DO Work Phone: [facility] 08-07-2024 09:28-0500 Heart rate 72 /min Alex Becerra DO Work Phone: [facility] 08-07-2024 09:28-0500 Systolic blood pressure 126 mm[Hg] Alex Becerra DO Work Phone: [facility] 07-30-2024 10:20-0500 Body height 182.9 cm Brianna Doty DO Work Phone: [facility] 07-30-2024 10:20-0500 Body mass index (BMI) [Ratio] 26.45 kg/m2 Brianna Doty DO Work Phone: [facility] 07-30-2024 10:20-0500 Body weight 88.45 kg Brianna Doty DO Work Phone: [facility] 07-24-2024 09:38-0500 Body height [address] 07-24-2024 09:38-0500 Body mass index (BMI) [Ratio] 25.42 kg/m2 [address] 07-24-2024 09:38-0500 Body weight 89.[address] 07-24-2024 09:38-0500 Diastolic blood pressure 62 mm[Hg] [address] 07-24-2024 09:38-0500 Systolic blood pressure 124 mm[Hg] [address] 07-12-2024 09:59-0500 Body height 182.9 cm Brianna Pocos DO Work Phone: [facility] 07-12-2024 09:59-0500 Body mass index (BMI) [Ratio] 26.45 kg/m2 Brianna Pocos DO Work Phone: [facility] 07-12-2024 09:59-0500 Body weight 88.45 kg Brianna Pocos DO Work Phone: [facility] 06-27-2024 13:46-0500 Body height 182.9 cm Brianna Pocos DO Work Phone: [facility] 06-27-2024 13:46-0500 Body mass index (BMI) [Ratio] 26.45 kg/m2 Brianna Pocos DO Work Phone: [facility] 06-27-2024 13:46-0500 Body weight 88.45 kg Brianna Pocos DO Work Phone: [facility] 01-31-2024 13:10-0400 Blood Pressure Location Guy NILL [facility] 01-31-2024 13:10-0400 Diastolic blood pressure 76 mm[Hg] Guy LARIOSL [facility] 01-31-2024 13:10-0400 Heart rate 72 /min Guy LARIOSL [facility] 01-31-2024 13:10-0400 Respiratory rate 16 /min Guy LARIOSL [facility] 01-31-2024 13:10-0400 Systolic blood pressure 116 mm[Hg] Guy LARIOSRosina [facility] 10-26-2023 09:30-0400 Body height 188 cm Alex Becerra DO Work Phone: [facility] 10-26-2023 09:30-0400 Body mass index (BMI) [Ratio] 25.42 kg/m2 Alex Becerra Work Phone: [facility] 10-26-2023 09:30-0400 Body weight 89.81 kg Alex Becerra DO Work Phone: [facility] 10-26-2023 09:30-0400 Diastolic blood pressure 60 mm[Hg] Alex Becerra Work Phone: [facility] 10-26-2023 09:30-0400 Heart rate 60 /min Alex Becerra Work Phone: [facility] 10-26-2023 09:30-0400 Systolic blood pressure 118 mm[Hg] Alex Becerra DO Work Phone: [facility] 10-18-2023 09:41-0400 Body height [address] 10-18-2023 09:41-0400 Body mass index (BMI) [Ratio] 25.42 kg/m2 [address] 10-18-2023 09:41-0400 Body weight 89.[address] 10-18-2023 09:41-0400 Diastolic blood pressure 72 mm[Hg] [address] 10-18-2023 09:41-0400 Systolic blood pressure 134 mm[Hg] [address] 08-17-2023 11:27-0500 Body height 188 cm Liza Bledsoe [employer] Work Phone: [facility] 08-17-2023 11:27-0500 Body mass index (BMI) [Ratio] 25.42 kg/m2 Liza Bledsoe [employer] Work Phone: [facility] 08-17-2023 11:27-0500 Body weight 89.81 kg Liza Bledsoe [employer] Work Phone: [facility] 08-17-2023 11:27-0500 Diastolic blood pressure 64 mm[Hg] Liza Bledsoe [employer] Work Phone: [facility] 08-17-2023 11:27-0500 Heart rate 60 /min Liza Bledsoe [employer] Work Phone: [facility] 08-17-2023 11:27-0500 Systolic blood pressure 138 mm[Hg] Liza Bledsoe [employer] Work Phone: [facility] 10-14-2022 10:03-0400 Body height 187.96 cm Lisa M Hoy Work Phone: [facility] 250 DO Work Phone: 10-14-2022 10:03-0400 Body mass index (BMI) [Ratio] 25.29 kg/m2 Lisa M Hoy Work Phone: [facility] [address] DO Work Phone: 10-14-2022 10:03-0400 Body surface area Derived from formula 2.16 m2 Lisa M Hoy Work Phone: [facility] [address] DO Work Phone: 10-14-2022 10:03-0400 Body weight 89.36 kg Lisa M Hoy Work Phone: [facility] [address] DO Work Phone: 10-14-2022 10:03-0400 Diastolic blood pressure 52 mm[Hg] Lisa M Hoy Work Phone: [facility] [address] DO Work Phone: 10-14-2022 10:03-0400 Heart rate 64 /min Lisa M Hoy Work Phone: [facility] [address] DO Work Phone: 10-14-2022 10:03-0400 Systolic blood pressure 112 mm[Hg] Lisa M Hoy Work Phone: [facility] [address] DO Work Phone: 04-15-2022 09:45-0400 70 1 Lisa M Hoy Work Phone: [facility] [address] [place] Work Phone: Comment on above: [id number] 04-13-2022 10:47-0400 Body height 187.96 cm Lisa M Hoy Work Phone: [facility] 250 DO Work Phone: 04-13-2022 10:47-0400 Body mass index (BMI) [Ratio] 24.65 kg/m2 Lisa M Hoy Work Phone: [facility] [address] DO Work Phone: 04-13-2022 10:47-0400 Body surface area Derived from formula 2.14 m2 Lisa M Hoy Work Phone: [facility] [address] DO Work Phone: 04-13-2022 10:47-0400 Body weight 87.09 kg Lisa Kameron Hoy Work Phone: [facility] [address] DO Work Phone: 04-13-2022 10:47-0400 Diastolic blood pressure 74 mm[Hg] Lisa M Hoy Work Phone: [facility] [address] DO Work Phone: 04-13-2022 10:47-0400 Heart rate 72 /min Lisa M Hoy Work Phone: [facility] [address] DO Work Phone: 04-13-2022 10:47-0400 Systolic blood pressure 122 mm[Hg] Lisa M Hoy Work Phone: [facility] [address] DO Work Phone: 10-07-2021 10:50-0400 Body height 185.42 cm Lisa M Hoy Work Phone: [facility] [address] DO Work Phone: 10-07-2021 10:50-0400 Body mass index (BMI) [Ratio] 26.25 kg/m2 Lisa M Hoy Work Phone: [facility] [address] DO Work Phone: 10-07-2021 10:50-0400 Body surface area Derived from formula 2.15 m2 Lisa M Hoy Work Phone: [facility] [address] DO Work Phone: 10-07-2021 10:50-0400 Body weight 90.27 kg Lisa M Hoy Work Phone: [facility] [address] DO Work Phone: 10-07-2021 10:50-0400 Diastolic blood pressure 60 mm[Hg] Lisa M Hoy Work Phone: [facility] [address] DO Work Phone: 10-07-2021 10:50-0400 Heart rate 61 /min Lisa M Hoy Work Phone: [facility] [address] DO Work Phone: 10-07-2021 10:50-0400 Systolic blood pressure 136 mm[Hg] Lisa M Hoy Work Phone: [facility] [address] DO Work Phone: 09-29-2021 10:45-0400 70 1 Lisa M Hoy Work Phone: [facility] [address] [place] Work Phone: Comment on above: [id number] Encounters Encounter Date Encounter Type Care Provider Facility Start: 08-07-2024 End: 08-07-2024 Telephone encounter Shayy Trotter PT Work Phone: [facility] Comment on above: re: PT and fu w/ Dr. Doty Start: 08-07-2024 End: 08-07-2024 Office outpatient visit 25 minutes Alex Niharika JaffeHernan DO Work Phone: [facility] Comment on above: Mitral valve stenosi s, unspecified etiology; Mitral valve insufficiency, unspecified etiology; Aortic valve stenosis, etiology of cardiac valve disease unspecified; S/P TAVR (transcatheter aortic valve replacement); Paroxysmal atrial fibrillation (Multi); Status post CVA; assisted current use of anticoagulant therapy; SSS (sick sinus syndrome) (Multi); Pacemaker; Primary hypertension; Mixed hyperlipidemia; BMI 25.0-25.9,adult; Former smoker; 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 Start: 08-07-2024 End: 08-07-2024 ambulatory [facility] Start: 07-30-2024 End: 07-30-2024 Bamboo flowsheet Brianna Doty DO Work Phone: [facility] Start: 07-30-2024 End: 07-30-2024 Bamboo flowsheet Brianna Doty DO Work Phone: [facility] Start: 07-30-2024 End: 07-30-2024 Patient encounter procedure Brianna Main Pocbuddy DO Work Phone: [facility] Comment on above: Strain of right shou lder, subsequent encounter (Primary Dx); Arthritis of right shoulder region; 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 Start: 07-30-2024 End: 07-30-2024 ambulatory BRIANNA DOTY Not Available Start: 07-27-2024 End: 07-27-2024 Bamboo flowsheet Jim Murillo 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ER [facility] Start: 07-27-2024 End: 07-27-2024 Bamboo flowsheet Jim Murillo 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[employer] [facility] Start: 07-27-2024 End: 07-27-2024 ambulatory Jim Murillo 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[employer] [facility] Comment on above: Acute pain of right shoulder (Primary Dx); Arthritis of right shoulder region Start: 07-24-2024 End: 07-24-2024 Bamboo flowsheet Jim Murillo 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[employer] [facility] Start: 07-24-2024 End: 07-24-2024 Bamboo flowsheet Jim Murillo 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[employer] [facility] Start: 07-24-2024 End: 07-24-2024 Subsequent hospital visit by physician Janet Wu Echo/Vasc Room [facility] Comment on above: Mitral valve stenosi s, unspecified etiology Start: 07-24-2024 End: 07-24-2024 ambulatory Jim Murillo 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[employer] [facility] Comment on above: Acute pain of right shoulder (Primary Dx); Arthritis of right shoulder region Start: 07-20-2024 End: 07-20-2024 Bamboo flowsheet Roxana Manley PT Work Phone: [facility] Start: 07-20-2024 End: 07-20-2024 Bamboo flowsheet Roxana Manley PT Work Phone: [facility] Start: 07-20-2024 End: 07-20-2024 ambulatory Roxana Manley PT Work Phone: [facility] Comment on above: Acute pain of right shoulder (Primary Dx); Arthritis of right shoulder region Start: 07-17-2024 End: 07-17-2024 ambulatory Shayy Trotter PT Work Phone: [facility] Comment on above: Acute pain of right shoulder (Primary Dx); Arthritis of right shoulder region Start: 07-12-2024 End: 07-12-2024 Patient encounter procedure Brianna Doty DO Work Phone: [facility] Comment on above: Right hip pain (Prim jarad Dx); Right knee pain, unspecified chronicity; Contusion of right knee, initial encounter; Primary osteoarthritis of right knee; Abrasion of left lower leg, initial encounter Start: 07-12-2024 End: 07-12-2024 ambulatory ROYCE POCOS Not Available Start: 07-12-2024 End: 07-12-2024 ambulatory ROYCE POCOS Not Available Start: 07-06-2024 End: 07-06-2024 Bamboo flowsheet Mary Arriaga 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[employer] [facility] Start: 07-06-2024 End: 07-06-2024 Bamboo flowsheet Mary Arriaga 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ER [facility] Start: 07-06-2024 End: 07-06-2024 ambulatory Mary Arriaga 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[employer] [facility] Comment on above: Acute pain of right shoulder (Primary Dx); Arthritis of right shoulder region Start: 07-04-2024 End: 07-04-2024 Bamboo flowsheet Shayy Trotter PT Work Phone: [facility] Start: 07-04-2024 End: 07-04-2024 Bamboo flowsheet Shayy Trotter PT Work Phone: [facility] Start: 07-04-2024 End: 07-04-2024 ambulatory Shayy Trotter PT Work Phone: [facility] Comment on above: Acute pain of right shoulder (Primary Dx); Arthritis of right shoulder region Start: 07-03-2024 End: 07-03-2024 ambulatory Alex Cerda Facility:[facility] Start: 06-27-2024 End: 06-27-2024 Patient encounter procedure Brianna Main Pocos DO Work Phone: [facility] Comment on above: Right shoulder pain, unspecified chronicity; Right shoulder strain, initial encounter; Arthritis of shoulder region, right Start: 06-27-2024 End: 06-27-2024 ambulatory ROYEC POCOS Not Available Start: 06-27-2024 End: 06-27-2024 ambulatory ROYCE POCOS Not Available Start: 04-03-2024 End: 04-03-2024 Patient encounter procedure MD Lisa Mims Work Phone: [facility] Start: 04-03-2024 End: 04-03-2024 ambulatory MD Lisa Mims Work Phone: [facility] Work Phone: Start: 03-21-2024 End: 03-21-2024 ambulatory Guy Potter HARRIETRosina Facility: [place] Start: 03-21-2024 End: 03-21-2024 Patient encounter procedure Guy Potter BRIDGETTE [facility] [place] Start: 03-07-2024 End: 03-07-2024 ambulatory MD Lisa Mims Work Phone: [facility] Work Phone: Start: 03-07-2024 End: 03-07-2024 Departed Referred MD Lisa Mims Work Phone: [facility] Start: 03-07-2024 End: 03-07-2024 ambulatory Guy ANGELES Facility:[id number] Start: 01-31-2024 End: 01-31-2024 ambulatory Lisa Mims Facility: [facility] Start: 01-31-2024 End: 01-31-2024 Patient encounter [facility] Start: 01-03-2024 End: 01-03-2024 Patient encounter procedure MD Lisa Mims Work Phone: [facility] Start: 01-03-2024 End: 01-03-2024 ambulatory MD Lisa Mims Work Phone: [facility] Work Phone: Start: 12-26-2023 ambulatory Guy ANGELES Facility:[facility] [place] Start: 10-26-2023 End: 10-26-2023 Office outpatient visit 25 minutes Alex Becerra DO Work Phone: [facility] Comment on above: Paroxysmal atrial fi brillation (CMS/HCC); 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; Fatigue, unspecified type; SSS (sick sinus syndrome) (CMS/HCC); Pacemaker; Mitral valve stenosis, unspecified etiology; Primary hypertension; Mixed hyperlipidemia; BMI 25.0-25.9,adult; Former smoker Start: 10-26-2023 End: 10-26-2023 ambulatory [facility] Ambulatory Start: 10-18-2023 End: 10-18-2023 Subsequent hospital visit by physician Janet Wu Echo/Vasc Room 2 [facility] Comment on above: Aortic valve stenosi s, etiology of cardiac valve disease unspecified Start: 10-18-2023 End: 10-18-2023 ambulatory LISA BYERS [facility] Start: 10-04-2023 End: 10-04-2023 Patient encounter procedure MD Lisa Mims Work Phone: [facility] Start: 10-04-2023 End: 10-04-2023 ambulatory MD Lisa Mims Work Phone: [facility] Work Phone: Start: 08-17-2023 End: 08-17-2023 Office outpatient visit 25 minutes Liza Peralta [employer] Work Phone: [facility] Comment on above: S/P TAVR (transcathe ter aortic valve replacement) (Primary Dx); Paroxysmal atrial fibrillation (CMS/HCC); 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; Mitral valve stenosis, unspecified etiology; Mixed hyperlipidemia; Primary hypertension; Pacemaker; BMI 25.0-25.9,adult Start: 08-17-2023 End: 08-17-2023 ambulatory LIZA Peralta [facility] Ambulatory Start: 07-04-2023 End: 07-04-2023 ambulatory MD Lisa Mims Work Phone: [facility] Work Phone: Start: 07-04-2023 End: 07-04-2023 Patient encounter procedure MD Lisa Mims Work Phone: [facility] Start: 04-04-2023 End: 04-04-2023 Patient encounter procedure MD Lisa Mims Work Phone: [facility] Start: 04-04-2023 End: 04-04-2023 ambulatory MD Lisa Mims Work Phone: [facility] Work Phone: Start: 01-03-2023 End: 01-03-2023 ambulatory MD Lisa Mims Work Phone: [facility] Work Phone: Start: 01-03-2023 End: 01-03-2023 Patient encounter procedure MD Lisa Mims Work Phone: [facility] Start: 01-03-[address] Lisa Mims Facility:[id number] Start: 10-14-2022 Office outpatient vi sit 15 minutes Lisa Mims Work Phone: [facility] [address] DO Work Phone: Start: 10-14-[address] Lisa Mims Facility: Start: 10-04-2022 End: 10-04-2022 Patient encounter procedure MD Lisa Mims Work Phone: [facility] Start: 10-04-2022 End: 10-04-2022 ambulatory MD Lisa Mims Work Phone: [facility] Work Phone: Start: 08-30-2022 End: 08-30-[address] LISA MIMS Facility:[id number] Start: 07-05-[address] Lisa Mims Facility:[id number] Start: 07-05-2022 End: 07-05-2022 ambulatory MD Lisa Mims Work Phone: [facility] Work Phone: Start: 07-05-2022 End: 07-05-2022 Patient encounter procedure MD Lisa Mims Work Phone: [facility] Start: 06-28-2022 End: 06-29-[address] LISA MIMS Facility:[id number] Start: 04-21-2022 Chart Update Lisa M Hoy Work Phone: [facility] [address] DO Work Phone: Start: 04-15-2022 ECHO, Provider: MARIELLE EVANS ULTRASOUND 01,[id number], Status: Pen, Time: 9:45 AM Lisa Mims Work Phone: [facility] [address] DO Work Phone: Start: 04-15-2022 Patient encounter procedure Lisa Melo Hoy Work Phone: [facility] [address] [place] Work Phone: Start: 04-15-[address] Alex Berman ility:[id number] Start: 04-13-2022 Office outpatient vi sit 25 minutes Lisa Mims Work Phone: [facility] [address] DO Work Phone: Start: 04-02-2022 End: 04-02-2022 Patient encounter procedure MD Lisa Mims Work Phone: [facility] Start: 01-01-2022 End: 01-01-2022 Patient encounter procedure MD Lisa Mims Work Phone: [facility] Start: 10-07-2021 Office outpatient vi sit 25 minutes Lisa Rothmany Work Phone: [facility] [address] DO Work Phone: Start: 09-29-2021 Patient encounter procedure Lisa Melo Hoy Work Phone: [facility] [address] [place] Work Phone: Start: 09-29-[address] Alex Berman ility:[id number] Start: 05-10-2018 Patient encounter procedure PROVIDER UNKNOWN Facility:[id number] Start: 12-06-2017 Ambulatory [facility]BE [facility] Start: 11-21-2017 Ambulatory BEBE Row[facility] Start: 11-21-2017 End: 11-21-2017 Ambulatory [facility] Start: 11-01-2017 Ambulatory [facility] Procedures Date Procedure Procedure Detail Performing Clinician Start: 07-24-2024 Echo tthrc r-t 2d w/wom-mode compl spec&colr d Alex Becerra DO Work Phone: Start: 07-12-2024 Radiologic examinati on knee 3 views Brianna Main Pocos DO Work Phone: Start: 06-27-2024 Arthrocentesis aspir &/inj major jt/bursa w/o us Brianna Main Pocos DO Work Phone: Start: 06-27-2024 Radex shoulder compl ete minimum 2 views Brianna Main Pocos DO Work Phone: Start: 03-07-2024 Excision of cyst Damianae rosina ANGELES Comment on above: mid back Start: 10-18-2023 TRANSTHORACIC ECHO ( TTE) COMPLETE LISA MIMS Start: 10-18-2023 Echo tthrc r-t 2d w/wom-mode compl spec&colr d Alex Becerra DO Work Phone: Start: 08-17-2023 FOLLOW UP IN CARDIOLOGY LIZA BLEDSOE Start: 06-28-[address] MELO MIMS Comment on above: Performed By: #### V ITAD, PSASC ####[facility] [id number] [place] [place] [id number]. Ekaterina Alcocer Start: 04-15-2022 Echocardiography eMlo Mims Work Phone: Start: 09-29-2021 Echocardiography Melo Mims Work Phone: Start: 10-21-2016 Cataract Extraction with IOL placement / iStent - OS. Guy ANGELES Start: 10-05-2016 Cataract extraction and insertion of intraocular lens Guy ANGELES Comment on above: right Aortic valve repair Lisa Mims Work Phone: Comment on above: 20Apr2016; Cardiac pacemaker, nadiya dumas (physical object) Guy ANGELES Cataract surgery Lisa Siddiqui ocurtis Work Phone: Excision of lesion of skin Nadiya ouglas Kameron Mims Work Phone: Comment on above: Nose; Inguinal Hernia Repair Adalid Mims Work Phone: Insertion of pacemak er pulse generator Lisa Mims Work Phone: Comment on above: 12/16/2020; Operation on lip Lisa fish Work Phone: Comment on above: blood blister remova l; Repair of umbilical hernia Kameron ANGELES Replacement of aorti c valve Guy ANGELES Surgical procedure Lisa Mims Work Phone: Comment on above: Basal cell removal; Tonsillectomy Lisa Mims Work Phone: Total colonoscopy Lisa Mims Work Phone: Umbilical Hernia Repair Osvaldo Mims Work Phone: Valvuloplasty of aor tic valve Lisa Mims Work Phone: Comment on above: 20Apr2016; NEGATED: Highlighted row has not occurred! Colonoscopy Lisa Mims Work Phone: Plan of Treatment Date Care Activity Detail Author Start: 07-24-2025 Echocardiography Echocardiogram [facility] Start: 05-09-2025 DTaP/Tdap/Td Vaccines (2 - Td or Tdap) DTaP/Tdap/Td Vaccines (2 - Td or Tdap) [facility] Start: 08-27-2024 End: 10-25-2025 US Heart Transthoracic Transthoracic Echo Complete Echocardiography Routine Mitral valve stenosis, unspecified etiology Expected: 08/27/2024 (Approximate), Expires: 10/25/2025 [facility] Service Area Work Phone: Comment on above: Expected: 08/27/2024 (Approximate), Expi res: 10/25/2025 Start: 08-07-2024 End: 08-07-2025 Alanine aminotransferase [Enzymatic activity/volume] in Serum or Plasma by With P-5'-P Alanine Aminotransferase Lab Routine Mixed hyperlipidemia Expected: 08/07/2024 (Approximate), Expires: 08/07/2025 [facility] Work Phone: Comment on above: Expected: 08/07/2024 (Approximate), Expi res: 08/07/2025 Start: 08-07-2024 End: 08-07-2025 Aspartate aminotransferase [Enzymatic activity/volume] in Serum or Plasma by With P-5'-P Aspartate Aminotransferase Lab Routine Mixed hyperlipidemia Expected: 08/07/2024 (Approximate), Expires: 08/07/2025 [facility] Work Phone: Comment on above: Expected: 08/07/2024 (Approximate), Expi res: 08/07/2025 Start: 08-07-2024 End: 08-07-2025 Basic metabolic 2000 panel - Serum or Plasma Basic Metabolic Panel Lab Routine Primary hypertension Expected: 08/07/2024 (Approximate), Expires: 08/07/2025 [facility] Work Phone: Comment on above: Expected: 08/07/2024 (Approximate), Expi res: 08/07/2025 Start: 08-07-2024 End: 08-07-2025 Lipid 1996 panel - Serum or Plasma Lipid Panel Lab Routine Mixed hyperlipidemia Expected: 08/07/2024 (Approximate), Expires: 08/07/2025 [facility] Work Phone: Comment on above: Expected: 08/07/2024 (Approximate), Expi res: 08/07/2025 Start: 08-07-2024 End: 08-07-2025 Natriuretic peptide B [Mass/volume] in Blood B-Type Natriuretic Peptide Lab Routine Mitral valve stenosis, unspecified etiology Mitral valve insufficiency, unspecified etiology Aortic valve stenosis, etiology of cardiac valve disease unspecified S/P TAVR (transcatheter aortic valve replacement) Paroxysmal atrial fibrillation (Multi) 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 SSS (sick sinus syndrome) (Multi) Primary hypertension Mixed hyperlipidemia BMI 25.0-25.9,adult Former smoker 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 (Multi) Expected: 08/07/2024 (Approximate), Expires: 08/07/2025 [facility] Work Phone: Comment on above: Expected: 08/07/2024 (Approximate), Expi res: 08/07/2025 Start: 08-07-2024 End: 08-07-2026 Heart Transthoracic Transthoracic Echo Complete Echocardiography Routine Mitral valve stenosis, unspecified etiology Mitral valve insufficiency, unspecified etiology Aortic valve stenosis, etiology of cardiac valve disease unspecified S/P TAVR (transcatheter aortic valve replacement) Expected: 08/07/2024 (Approximate), Expires: 08/07/2026 [facility] Service Area Work Phone: Comment on above: Expected: 08/07/2024 (Approximate), Expi res: 08/07/2026 Start: 08-07-2024 End: 08-07-2024 Patient encounter procedure 08/07/2024 9:30 AM EST Office Visit [facility] [address] [facility] [address] [place] [id number] Alex Becerra DO [address] [facility] [address] [place], [place] [id number] [facility] Start: 08-02-2024 End: 08-02-2024 ambulatory 08/02/2024 10:00 AM EST Treatment [facility] [address] [facility] [address] [place] [address] Jim Murillo, 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ER [facility] Start: 07-31-2024 End: 07-31-2024 ambulatory 07/31/2024 1:00 PM EST Treatment [facility] [address] [facility] [address] [place] [address] Jim Murillo, 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ER [facility] Start: 07-30-2024 End: 07-30-2024 Patient encounter procedure [facility] Comment on above: Arrived Start: 07-27-2024 End: 07-27-2024 ambulatory [facility] Comment on above: Arrived Start: 07-24-2024 End: 07-24-2024 ambulatory [facility] Comment on above: Arrived Start: 07-24-2024 End: 07-24-2024 Patient encounter procedure 07/24/2024 9:45 AM EST [facility] [address] [facility] [place] [address] Milad [facility] Start: 07-20-2024 End: 07-20-2024 ambulatory [facility] Comment on above: Acute pain of right shoulder (Primary Dx ); Arthritis of right shoulder region Start: 07-17-2024 End: 07-17-2024 ambulatory 07/17/2024 10:00 AM EST Treatment [facility] [address] [facility] [address] [place] [address] Shayy Trotter, PT [address] [facility] [address] [place] [address] [facility] Start: 07-12-2024 End: 07-12-2024 ambulatory 07/12/2024 3:30 PM EST Treatment [facility] [address] [facility] [address] [place] [address] Mary Arriaga, 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ER [facility] Start: 07-10-2024 End: 07-10-2024 ambulatory 07/10/2024 1:00 PM EST Treatment [facility] [address] [facility] [address] [place] [address] Jim Murillo, 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ER [facility] Start: 07-06-2024 End: 07-06-2024 ambulatory [facility] Comment on above: Acute pain of right shoulder (Primary Dx ); Arthritis of right shoulder region Start: 07-04-2024 End: 07-04-2024 ambulatory [facility] Comment on above: Arrived Start: 03-18-2024 COVID-19 Vaccine () COVID-19 Vaccine () [facility] Start: 03-18-2024 Influenza vaccination [facility] Start: 10-26-2023 FUV, Provider: Alex Becerra, Status: Pen, Time: 9:30 AM FUV, Provider: Alex Becerra, Status: Pen, Time: 9:30 AM [facility] Work Phone: Start: 10-26-2023 End: 10-26-2023 Patient encounter procedure 10/26/2023 9:30 AM EDT Office Visit [facility] [address] [facility] [address] [place] [address] Alex Becerra S, DO [address] [facility] [place] [address] [facility] Start: 10-18-2023 ECHO, Provider: [facility] ULTRASOUND 01,[id number], Status: Pen, Time: 9:45 AM ECHO, Provider: [facility] ULTRASOUND 01,[id number], Status: Pen, Time: 9:45 AM [facility] Work Phone: Start: 10-18-2023 End: 10-18-2023 Patient encounter procedure 10/18/2023 9:45 AM EDT Appointment [address] [place] [address] [facility] Start: 03-18-2023 COVID-19 Vaccine ( season) COVID-19 Vaccine ( season) [facility] Start: 03-18-2023 Influenza vaccination Influenza Vaccine (#1) [facility] Start: 10-14-2022 FUV, Provider: Alex Becerra, Status: Pen, Time: 10:00 AM FUV, Provider: Alex Becerra, Status: Pen, Time: 10:00 AM [facility] Work Phone: Start: 04-13-2022 FUV, Provider: Alex Becerra, Status: Pen, Time: 10:40 AM FUV, Provider: Alex Becerra, Status: Pen, Time: 10:40 AM [facility] [address] DO Work Phone: Start: 10-07-2021 FUV, Provider: Alex Becerra, Status: Pen, Time: 10:30 AM FUV, Provider: Alex Becerra, Status: Javier, Time: 10:30 AM [facility] [address] [place] Work Phone: Start: 06-28-2018 Pneumococcal Vaccine: 65+ Years (2 - PPSV23 or PCV20) Pneumococcal Vaccine: 65+ Years (2 - PPSV23 or PCV20) [facility] Start: 06-28-2018 Pneumococcal Vaccine: 65+ Years (2 of 2 - PPSV23 or PCV20) Pneumococcal Vaccine: 65+ Years (2 of 2 - PPSV23 or PCV20) [facility] Start: 07-13-2016 Pneumococcal vaccination Pneumococcal Vaccine (2 of 2 - PPSV23) [facility] Start: 02-17-2012 RSV High Risk: (Elderly (60+) or Population) (1 - 1-dose 75+ series) RSV High Risk: (Elderly (60+) or Population) (1 - 1-dose 75+ series) [facility] Start: 1987 Zoster Vaccines (1 of 2) Zoster Vaccines (1 of 2) [facility] Start: 1959 DTaP/Tdap/Td Vaccines (1 - Tdap) DTaP/Tdap/Td Vaccines (1 - Tdap) [facility] Start: 1955 Diabetes mellitus screening Diabetes Screening [facility] Start: 1937 Creatinine measurement Creatinine Level [facility] Start: 1937 Lipid panel Lipid Panel [facility] Start: 1937 Medicare Annual Wellness Visit Medicare Annual Wellness Visit (AWV) [facility] Start: 1937 Potassium measurement Potassium Level [facility] End: 10-18-2023 [facility] Service Area Work Phone: Comment on above: Once for 1 Occurrences starting 10/18/19 24 until 10/18/2023 XR Knee - right 3 Views XR knee 3 views right Imaging Routine Right knee pain, unspecified chronicity 07/12/2024 10:05 AM EST [employer] Work Phone: XR Shoulder - right 2 Views XR shoulder 2+ views right Imaging Routine Right shoulder pain, unspecified chronicity 06/27/2024 11:17 AM [employer] Work Phone: Immunizations Immunization Date Immunization Notes Care Provider Pricila smith 06-25-2021 Influenza, injectabl e, Madin [place] Canine Kidney, preservative free, quadrivalent Lisa M Hoy Work Phone: [facility] [address] [place] Work Phone: 06-25-2021 influenza virus vacc ine, unspecified formulation Brianna Doty DO Work Phone: [facility] [employer] 10-07-2020 Pfizer-BioNTech COVI D-19 Vacc 30 MCG/0.3ML Intramuscular Suspension Lisa M Hoy Work Phone: [facility] 09-15-2020 Pfizer-BioNTech COVI D-19 Vacc 30 MCG/0.3ML Intramuscular Suspension Lisa M Hoy Work Phone: [facility] 04-29-2020 Seasonal trivalent influenza vaccine, adjuvanted, preservative free Lisa M Hoy Work Phone: [facility] [address] [place] Work Phone: 04-17-2020 influenza virus vacc ine, unspecified formulation Lisa M Hoy Work Phone: [facility] [address] [place] Work Phone: 04-25-2019 Seasonal trivalent influenza vaccine, adjuvanted, preservative free Lisa M Hoy Work Phone: [facility] [address] [place] Work Phone: 03-18-2019 influenza virus vacc ine, unspecified formulation Lisa M Hoy Work Phone: [facility] [address] [place] Work Phone: 05-03-2018 pneumococcal vaccine , unspecified formulation Lisa M Hoy Work Phone: [facility] [address] [place] Work Phone: 05-02-2018 pneumococcal polysaccharide vaccine, 23 valent Lisa Melo Hoy Work Phone: [facility] [address] [place] Work Phone: 04-26-2018 influenza virus vacc ine, unspecified formulation Lisa Melo Hoy Work Phone: [facility] [address] [place] Work Phone: 04-18-2018 Seasonal trivalent influenza vaccine, adjuvanted, preservative free Lisa Melo Solutoy Work Phone: [facility] [address] [place] Work Phone: 06-15-2017 pneumococcal polysaccharide vaccine, 23 valent Lisa Melo Hoy Work Phone: [facility] [address] [place] Work Phone: 05-05-2017 influenza, injectabl e, quadrivalent, preservative free Lisa Melo Solutoy Work Phone: [facility] [address] [place] Work Phone: 04-17-2017 influenza virus vacc ine, unspecified formulation Lisa Melo Solutoy Work Phone: [facility] [address] [place] Work Phone: 06-14-2016 pneumococcal conjuga te vaccine, 13 valent Lisa Kameron Hoy Work Phone: [facility] [address] [place] Work Phone: 05-18-2016 pneumococcal conjuga te vaccine, 13 valent Lisa Melo Hoy Work Phone: [facility] [address] [place] Work Phone: 04-17-2016 influenza virus vacc ine, unspecified formulation Lisa Kameron Solutoy Work Phone: [facility] [address] [place] Work Phone: 05-09-2015 tetanus toxoid, redu alexandra diphtheria toxoid, and acellular pertussis vaccine, adsorbed Lisa Mims Work Phone: [facility] [address] [place] Work Phone: 05-01-2015 influenza, high dose seasonal, preservative-free Lisa Mims Work Phone: [facility] [address] [place] Work Phone: 04-17-2015 influenza virus vacc ine, unspecified formulation Lisa Mims Work Phone: [facility] [place] Work Phone: 07-30-2005 hepatitis A vaccine, unspecified formulation Lisa Mims Work Phone: [facility] [employer] [address] Work Phone: Comment on above: Series: Payers Date Payer Category Payer Self-pay [id number] 2023 Private Health Insurance 2015 Medicare supplementa l policy (as second payer) [id number] 2002 Medicare [id number] 2002 Medicare [id number] 1959 Medicare [id number] 1959 Unknown [id number] 1937 Unknown [id number] 2..840.1.630615.3.579.2.355 1937 Unknown [id number] 2.16.840.1.895183.3.579.2.1068 1937 Unknown [id number] 2.16.840.1.570183.3.579.2.1068 1937 Unknown [id number] 2.16.840.1.846249.3.579.2.593 1937 Unknown [id number] 2.16.840.1.393573.3.579.2.593 1937 Unknown [id number] 2.16.840.1.939462.3.579.2.356 1937 Unknown [id number] 2.840.1.028786.3.579.2.356 1937 Unknown [id number] 2.840.1.432013.3.579.2.356 1937 Unknown [id number] 2.840.1.855482.3.579.2.356 1937 Unknown [id number] 2.840.1.110615.3.579.2.356 1937 Unknown [id number] 2.840.1.129023.3.579.2.727 1937 Unknown [id number] 2.840.1.682802.3.579.2.727 1937 Unknown [id number] 2.840.1.695587.3.579.2.727 1937 Unknown [id number] 2.16840.1.888777.3.579.2.727 1937 Unknown [id number] 2.840.1.553078.3.579.2.1246 1937 Unknown [id number] 2.16840.1.881528.3.579.2.1246 1937 Unknown [id number] 2.840.1.457707.3.579.2.125 1937 Unknown [id number] 2.840.1.247273.3.579.2.1258 1937 Unknown [id number] 2.840.1.412260.3.579.2.1258 1937 Unknown [id number] 2.840.1.820012.3.579.2.1258 1937 Unknown [id number] 2.840.1.573145.3.579.2.1258 1937 Unknown [id number] 2.840.1.313849.3.579.2.1258 1937 Unknown [id number] .0.1.134094.3.579.2.1258 1937 Unknown [id number] 2..1.507896.3.579.2.1258 1937 Unknown [id number] 2.0.1.897257.3.579.2.1258 1937 Unknown [id number] .0.1.530509.3.579.2.1258 1937 Unknown [id number] .0.1.307958.3.579.2.1258 1937 Unknown [id number] .1.341702.3.579.2.1258 1937 Unknown [id number] 2.840.1.840082.3.579.2.1258 1937 Unknown [id number] .840.1.900818.3.579.2.1243 1937 Unknown [id number] 2.840.1.268008.3.579.2.4 1937 Unknown [id number] 2.840.1.657340.3.579.2.1244 Medicare [id number] Unknown Unknown [id number] 2.16.840.1.703978.3.579.2.531 Unknown [id number] 2.16.840.1.782188.3.579.2.531 Unknown [id number] 2.16.840.1.387161.3.579.2.531 Unknown [id number] 2.16.840.1.114863.3.579.2.531 Unknown [id number] 2.16.840.1.470504.3.579.2.531 Social History Date Type Detail Facility Start: 08-17-2023 End: 07-30-2024 Retired Retired [place] [id number] Work Phone: Comment on above: Quit at 37. 2 ppd; Coffee - 1/2 cup michael ly; Rarely; Quit at age 37. 2 pp d; Start: 12-16-2020 End: 06-23-2023 Tobacco smoking status NHIS Ex-smoker (finding) [facility] Start: 08-17-2023 End: 07-30-2024 History of tobacco use [facility] Start: 1935 Sex Assigned At Male F [facility] History of tobacco use Current smoker [facility] Work Phone: History of tobacco use Cigarette Smoker [facility] Work Phone: Start: 06-23-2023 End: 08-17-2023 Tobacco use and exposure Smokeless tobacco non-user [facility] Work Phone: Start: 08-17-2023 End: 07-30-2024 Alcohol intake Current drinker of alcohol (finding) [facility] Work Phone: Start: 08-17-2023 Alcohol Comment beer nightly [facility] Work Phone: Start: 1935 Sex Assigned At Not on file [facility] Work Phone: Start: 08-07-2023 End: 08-07-2024 Exposure to SARS-CoV-2 (event) Not sure [facility] Start: 10-18-2023 Gender identity Identifies as male gender (finding) [facility] Work Phone: Start: 10-18-2023 Sexual orientation Heterosexual (fracisco rouse) [facility] Work Phone: Tobacco [facility] How often to you hav e a drink containing alcohol? 4 or more times a week [facility] How many standard drinks containing alcohol do you have on a typical day? 1 or 2 [facility] How often do you hav e 6 or more drinks on 1 occasion? Less than monthly [facility] Start: 06-23-2023 Alcohol Comment caffeine intak e: 1-2 cups per day [facility] Medical Equipment Procedure Code Equipment Code Equipment Origin al Text Equipment Identifier Dates Insertion, pacemaker Endocardial pacing lead [id number] FDA Start: 12-16-2020 Insertion, pacemaker Endocardial pacing lead [id number] FDA Start: 12-16-2020 Insertion, pacemaker Dual-chamber implantable pacemaker, rate-responsive [id number] FDA Start: 12-16-2020 Functional Status Date Assessment Result Facility 01-31-2024 Functional Status N[facility] 08-17-2023 to 08-07-2024 Telephone Encounter - Loretta Bishop - 08/07/2024 1:01 PM ESTTelephone Encounter - Loretta Bishop - 08/07/2024 1:01 PM Starla Becerra DO - 08/07/2024 9:30 AM ESTPatient InstructionsAttachments Note Date & Type Note Facility 08-07-2024 Telephone encounter Note Called to request status and to check on fu w/ Dr. Doty. He said he's feeling better and happy w/ status. His fu went very well and per Michelle he can cont on if he feels needed; he said he is happy as of now. I reminded not to hesitate and contact if needed. [facility] 08-07-2024 Miscellaneous Notes Called to request status and to check on fu w/ Dr. Doty. He said he's feeling better and happy w/ status. His fu went very well and per Michelle he can cont on if he feels needed; he said he is happy as of now. I reminded not to hesitate and contact if needed. documented in this encounter [facility] 08-07-2024 History of Present illness Narrative Subjective Melo Cuevas is a 89 y.o. male Chief Complaint Follow-up 89-year-old gentleman returns for annual follow-up he is doing well he denies any cardiovascular events or complaints or nitrate usage or hospitalizations. Does admit to a couple falls with injury to his left tibia but he is ambulatory without assistance, continuing doing yard work and daily activities without any problems. He remains anticoagulated with warfarin for paroxysmal atrial fibrillation/sick sinus syndrome He has history of TAVR in 2016 [...] syndrome, paroxysmal atrial fibrillation currently on warfarin Recent echo from July reveals unchanged aortic valvular gradients reportedly no aortic insufficiency on the report, stable mitral valve with degenerative disease, moderate mitral stenosis and moderate mitral regurgitation On exam he clearly has a aortic insufficiency murmur (the echo report may be discordant with the clinical findings) We did discuss indications for mitral repair as well as continued medical therapy which she is currently a candidate for continued medical therapy. Will otherwise follow-up in 1 year repeat echocardiogram at that point in time to assess aortic and mitral valve and LV functional assessment; obtain chemistry and BMP panels currently. Review of Systems All other systems reviewed and are negative. Vitals: 08/07/24 0928 BP: 126/60 BP Location: Right arm Patient Position: Sitting Pulse: 72 Weight: 89.8 kg (198 lb) Height: 1.88 m (6' 2 ) Objective Physical Exam Constitutional: Appearance: Normal appearance. HENT: Nose: Nose normal. Neck: Vascular: No carotid bruit. Cardiovascular: Rate and Rhythm: Normal rate. Pulses: Normal pulses. Heart sounds: Murmur heard. Diastolic murmur is present with a grade of 2/4. Pulmonary: Effort: Pulmonary effort is normal. Abdominal: [...] by mouth once daily at bedtime., Disp: 90 tablet, Rfl: 3 carvedilol (Coreg) 6.25 mg tablet, Take 1 tablet (6.25 mg) by mouth 2 times a day., Disp: 180 tablet, Rfl: 3 lisinopril 10 mg tablet, Take 1 tablet (10 mg) by mouth once daily., Disp: 90 tablet, Rfl: 3 warfarin (Coumadin) 5 mg tablet, Take 1 tablet (5 mg) by mouth see administration instructions. Start with one tablet daily. Take as directed per [place] [facility], Disp: 90 tablet, Rfl: 0 Assessment/Plan 1. Mitral valve stenosis, unspecified etiology Follow Up In Cardiology 2. Mitral valve insufficiency, unspecified etiology 3. Aortic valve stenosis, etiology of cardiac valve disease unspecified 4. S/P TAVR (transcatheter aortic valve replacement) 5. Paroxysmal atrial fibrillation (Multi) 6. 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 SSS (sick sinus syndrome) (Multi) 9. Pacemaker 10. Primary hypertension 11. Mixed hyperlipidemia 12. BMI 25.0-25.9,adult 13. Former smoker Scribe Attestation By signing my name below, I, Bebe MeloShayne GUY , Scribe attest that this documentation has been prepared under the direction and in the presence of Alex Becerra DO. Provider Attestation - Scribe documentation All medical record entries made by the Scribe were at my direction and personally dictated by me. I have reviewed the chart and agree that the record accurately reflects my personal performance of the history, physical exam, discussion and plan. documented in this encounter [facility] Work Phone: 08-07-2024 Instructions Bebe Pop LPN - 08/07/2024 9:30 AM EST Please bring all medicines, vitamins, and herbal supplements with you when you come to the office. Prescriptions will not be filled unless you are compliant with your follow up appointments or have a follow up appointment scheduled as per instruction of your physician. Refills should be requested at the time of your visit. BMI was above normal measurement. Current weight: 89.8 kg (198 lb) Weight change since last visit (-) denotes wt loss 0 lbs Weight loss needed to achieve BMI 25: 3.7 Lbs Weight loss needed to achieve BMI 30: -35.2 Lbs Provided instructions on dietary changes Provided instructions on exercise. Pacemaker/Defibrillator follow up per routine The following attachments cannot be sent through Care Everywhere.Heart Healthy Diet ([place])documented in this encounter [facility] Work Phone: 07-30-2024 History of Present illness Narrative Images from the original note were not included. Melo Cuevas is a 89 y.o. male presents with chief complaint of right shoulder strain with acromioclavicular joint osteoarthritis. HPI: Melo returns here today for repeat evaluation of all the above. He is doing fairly well. He denies any numbness or tingling. No new or interval symptoms. He has been advancing his activities. He is pleased with his result thus far. He is still doing the therapy. He states that the therapists have scheduled him a couple of visits tentatively. He is unsure exactly what that means. He does question whether further therapy should be done. The hip, leg and lower extremity area has quieted down with the Neosporin cream. SUBJECTIVE: MEDICATIONS: Current Outpatient Medications Medication Instructions aspirin 81 mg atorvastatin (LIPITOR) 40 mg, Nightly carvedilol (COREG) 6.25 mg, 2 times daily lisinopril 10 mg, Daily warfarin (Coumadin) 5 MG tablet TAKE ONE TABLET BY MOUTH ONCE DAILY DIRECTED PER [facility] CL[facility] ALLERGIES: No Known Allergies SURGICAL HISTORY: Past Surgical History: Procedure Laterality Date BASAL CELL CARCINOMA EXCISION nose CARDIAC VALVE REPLACEMENT 2016 CATARACT EXTRACTION 2016 HERNIA REPAIR Left inguinal hernia x2 INSERT / REPLACE / REMOVE PACEMAKER 2020 TONSILLECTOMY FAMILY HISTORY: Family History Problem Relation Name Age of Onset Alzheimer's disease Mother Heart disease Father SOCIAL HISTORY: Social History Tobacco Use Smoking status: Former Types: Cigarettes Smokeless tobacco: Never Vaping Use Vaping status: Unknown Substance Use Topics Alcohol use: Yes Comment: caffeine intake: 1-2 cups per day Drug use: Never Depression: Not on file REVIEW OF SYMPTOMS: The review of systems, history and current medications list are all reviewed today. OBJECTIVE: Visit Vitals Ht 6' Wt 195 lb BMI 26.45 kg/m Smoking Status Former BSA 2.12 m Physical Exam His orthopedic exam here today reveals gentle arc of motion without difficulty. Cuff strength is excellent. His neurocirculatory status is overall grossly intact to all distributions. His pulses are otherwise brisk. Examination of the contralateral left shoulder reveals arc of motion without difficulty. Cuff strength is excellent. Examination of the x-ray AP bilateral weight bearing, bilateral sunrise and right lateral knee total of five views with permanent images are saved to the record does show some minimal osteoarthritic change. She does have calcification of the posterior vasculature seen on both knees. No evidence of fracture noted. 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 The findings are discussed. At [id number], we would recommend strength and optimization as best we can have for this individual. He does voice understanding of this. We would recommend the therapists take this to that level as best they can. We will give him the autonomy on the decision making for this. He will follow up with them and have that discussion. We will leave his return here with myself only as needed. He states that things are very tolerable and doing well. He is not in search of or wanting anything further from a work up, diagnostics or treatment standpoint. He does voice understanding. All of his questions are otherwise answered this day. He is discharged in stable condition. Cosigned by Brianna Doty DO at 08/01/2024 7:53 AM EST documented in this encounter [facility] 07-20-2024 History of Present illness Narrative Physical Therapy Treatment Visit Patient Name: Melo Cuevas Today's Date: 07/20/2024 Encounter Diagnoses Name Primary? Acute pain of right shoulder Yes Arthritis of right shoulder region Visit number: 4 Timed Code Treatment: 45 minutes Total Treatment Time: 59 minutes Time In: 1101 AM Time Out: 1200 PM History: Pt. Presents to PT with c/c right shoulder pain. Pt. Injury right shoulder by pushing a screen, lost his balance came down on [place] door. 2 days later he started having shoulder pain. Pt. had injection last week which helped to decrease his pain by 50%. Reports of improved shoulder ROM and is able to dress himself now. Pt. Continues to have shoulder pain while reaching overhead and lifting objects. Pt. Also reports of right lower abdominal pain which started after racking leaves and pulling wheel [place]. Precautions: PACEMAKER Subjective Pt. Reports shoulder is feeling 60-70% better. Shoulder still feels stiff. He relates that he has had 2 falls this past month. Pain: 0/10 rest; 2/10 Objective: PT Evaluation (07/04/24) Right shoulder AROM: flexion 150 degrees, abduction 145 deg, ER C5, IR L5 Right shoulder PROM: flexion 155 deg, abduction 150 deg Right shoulder joint: hypomobility in right shoulder Flexibility: pectoralis minor muscle tightness Strength: right shoulder flexion 4/5, abduction 4/5, ER 4+/5 IR +/5 Palpation: TTP anterior shoulder Treatment: Manual Therapy: ( 15 minutes) Delivered manual ther to R UE /shoulder PROM in all planes, STM to anterior shoulder to improve mobility and decrease pain, manual stretch lateral scapular muscles, STM levator Therapeutic Exercise: (30 minutes) Guided pt through ther and flex exercises per grid to improve right UE/Shoulder Strength, Endurance, Flexibility, ROM, HEP, Neural Mobilization, Power, and Core Stability Pulleys (4 minutes unsupervised) Therapeutic Activity: Exercises to improve dynamic activities, functional tasks, functional mobility to return to prior activity level Neuromuscular re-education: Balance Training, Muscle Facilitation, Dynamic Stability, Core Stabilization, and Blood Flow Restriction Training (BFRT) Modalities: Don't recommend due to PACEMAKER. 10 min ice Assessment: Pt. Has participated in 4 PT session with start of POC on 07/04 for right shoulder pain. Reports improved pain level since initial evaluation. States performing HEP as instructed. Continued resistance band exercises today. Scapular dyskinesis addressed with soft tissue mobes and stretching. Pt. Demonstrates good improvement in his shoulder ROM. He stated today he has fallen twice in past month. Outcome Measure: 56/80 Short Term Goal: To be met in 2 weeks Goal 1: Pt to be instructed in home exercise program. [employer] Goals: To be met in 10 weeks Goal 1: Pt to report independence and compliance with home program. Goal 2: Pt. Will report of 0/10 right shoulder pain while reaching/lifting objects overhead to help improve his quality of life. Goal 3: Pt. Will demonstrate 170 degrees or greater right shoulder flexion/abduction to help improve his functional mobility to return to PLOF. Goal 4: Pt. Will demonstrate 5/5 right shoulder strength grossly in all planes to allow him to lift/carry objects to help improve his quality of life and return to PLOF. Pt will benefit from skilled PT for 2x/week from 07/04/24 to 09/12/24 to address the above impairments. I hereby deem this POC medically necessary. Please sign below. Date: documented in this encounter [facility] 07-17-2024 History of Present illness Narrative Images from the original note were not included. Physical Therapy Treatment Visit Patient Name: Melo Cuevas Today's Date: 07/17/2024 Encounter Diagnoses Name Primary? Acute pain of right shoulder Yes Arthritis of right shoulder region Visit number: 3 Timed Code Treatment: 53 minutes Total Treatment Time: 59 minutes Time In: 1000 PM Time Out: 1059 PM History: Pt. Presents to PT with c/c right shoulder pain. Pt. Injury right shoulder by pushing a screen, lost his balance came down on [place] door. 2 days later he started having shoulder pain. Pt. Has injection last week which helped to decrease his pain by 50%. Reports of improved shoulder ROM and is able to dress himself now. Pt. Continues to have shoulder pain while reaching overhead and lifting objects. Pt. Also reports of right lower abdominal pain which started after racking leaves and pulling wheel [place]. Precautions: PACEMAKER Subjective Pt. Reports shoulder is feeling 60-70% better. Shoulder still feels stiff. Pain: 0/10 rest; 2/10 Objective: PT Evaluation (07/04/24) Right shoulder AROM: flexion 150 degrees, abduction 145 deg, ER C5, IR L5 Right shoulder PROM: flexion 155 deg, abduction 150 deg Right shoulder joint: hypomobility in right shoulder Flexibility: pectoralis minor muscle tightness Strength: right shoulder flexion 4/5, abduction 4/5, ER 4+/5 IR 4+/5 Palpation: TTP anterior shoulder Treatment: Manual Therapy: (12 minutes) Delivered manual ther to R UE /shoulder PROM in all planes, STM to anterior shoulder to improve mobility and decrease pain Therapeutic Exercise: (27 minutes) Guided pt through ther and flex exercises per grid to improve right UE/Shoulder Strength, Endurance, Flexibility, ROM, HEP, Neural Mobilization, Power, and Core Stability Pulleys ( 5 minutes unsupervised) Therapeutic Activity: Exercises to improve dynamic activities, functional tasks, functional mobility to return to prior activity level Neuromuscular re-education: (14 minutes) Balance Training, Muscle Facilitation, Dynamic Stability, Core Stabilization, and Blood Flow Restriction Training (BFRT) Modalities: Don't recommend due to PACEMAKER Assessment: Pt. Has participated in 3 PT session with start of POC on 07/04 for right shoulder pain. Reports mild muscle soreness post I.E States performing HEP as instructed. Added resistance band exercises today and pt. Tolerated well. Pt. Demonstrates good improvement in his shoulder ROM. Outcome Measure: 56/80 Short Term Goal: To be met in 2 weeks Goal 1: Pt to be instructed in home exercise program. [facility] Goals: To be met in 10 weeks Goal 1: Pt to report independence and compliance with home program. Goal 2: Pt. Will report of 0/10 right shoulder pain while reaching/lifting objects overhead to help improve his quality of life. Goal 3: Pt. Will demonstrate 170 degrees or greater right shoulder flexion/abduction to help improve his functional mobility to return to PLOF. Goal 4: Pt. Will demonstrate 5/5 right shoulder strength grossly in all planes to allow him to lift/carry objects to help improve his quality of life and return to PLOF. Pt will benefit from skilled PT for 2x/week from 07/04/24 to 09/12/24 to address the above impairments. I hereby deem this POC medically necessary. Please sign below. Date: documented in this encounter [facility] 07-12-2024 History of Present illness Narrative Images from the original note were not included. Melo Cuevas is a 89 y.o. male presents with chief complaint of right knee pain. Left leg abrasion, status post fall. HPI: Melo is an 89-year-old white male who did sustain a mechanical fall on a sidewalk with a step. This happened on 07-08-2024. He did well over that day. The next day, he was having significant pain, much worse. Since then, it has gotten a little bit better. He is using Neosporin ointment. He has had no other treatment or evaluation. He has had no further care to the area. SUBJECTIVE: MEDICATIONS: Current Outpatient Medications Medication Instructions aspirin 81 mg atorvastatin (LIPITOR) 40 mg, Nightly carvedilol (COREG) 6.25 mg, 2 times daily lisinopril 10 mg, Daily warfarin (Coumadin) 5 MG tablet TAKE ONE TABLET BY MOUTH ONCE DAILY DIRECTED PER [facility] ALLERGIES: No Known Allergies SURGICAL HISTORY: Past Surgical History: Procedure Laterality Date BASAL CELL CARCINOMA EXCISION nose CARDIAC VALVE REPLACEMENT 2015 CATARACT EXTRACTION 2015 HERNIA REPAIR Left inguinal hernia x2 INSERT / REPLACE / REMOVE PACEMAKER 2020 TONSILLECTOMY FAMILY HISTORY: Family History Problem Relation Name Age of Onset Alzheimer's disease Mother Heart disease Father SOCIAL HISTORY: Social History Tobacco Use Smoking status: Former Types: Cigarettes Smokeless tobacco: Never Vaping Use Vaping status: Unknown Substance Use Topics Alcohol use: Yes Comment: caffeine intake: 1-2 cups per day Drug use: Never Depression: Not on file REVIEW OF SYMPTOMS: The review of systems, history and current medications list are all reviewed today. OBJECTIVE: Visit Vitals Ht 6' Wt 195 lb BMI 26.45 kg/m Smoking Status Former BSA 2.12 m Physical Exam His orthopedic exam shows no gross malalignment or deformity. He does have an abrasion over the anterior knee area on the right. This is right over the patella. It does appear to be healing in nicely. There is no evidence of deformity, no swelling. No effusion. No ecchymosis. Examination of the left knee and leg reveals an abrasion pretty much along the entire pretibial area. This is also scabbed over, a little bit of rubor. No drainage. There is Neosporin ointment clearly present. His neurocirculatory status is intact. The knee is benign. Examination of the x-ray AP bilateral weight bearing, bilateral sunrise and right lateral knee total of five views with permanent images are saved to the record does show some minimal osteoarthritic change. She does have calcification of the posterior vasculature seen on both knees. No evidence of fracture noted. ASSESSMENT AND PLAN: Assessment/Plan Right knee contusion with osteoarthritis. Left leg abrasion. The findings are discussed. The treatment alternatives are outlined. We did recommend supportive care for him. We did recommend Neosporin cream. He will use watchful observation. We discussed peroxide to the area. We will check him back here in another two weeks for recheck as previously scheduled for the shoulder. All of his questions are otherwise answered this day. He is discharged in stable condition. He will call or return sooner should he have any increasing pain or difficulty whatsoever. Follow up letter sent to his primary care physician. Cosigned by Brianna Doty DO at 07/16/2024 7:33 AM EST documented in this encounter [facility] 07-04-2024 History of Present illness Narrative Physical Therapy Evaluation Visit Patient Name: Melo Cuevas Today's Date: 07/04/2024 Encounter Diagnoses Name Primary? Acute pain of right shoulder Yes Arthritis of right shoulder region Visit number: 1 Timed Code Treatment Minutes: 60 minutes Total Treatment Time: 60 minutes Time In: 1100 Time Out: 1200 History: Pt. Presents to PT with c/c right shoulder pain. Pt. Injury right shoulder by pushing a screen, lost his balance came down on [place] door. 2 days later he started having shoulder pain. Pt. Has injection last week which helped to decrease his pain by 50%. Reports of improved shoulder ROM and is able to dress himself now. Pt. Continues to have shoulder pain while reaching overhead and lifting objects. Pt. Also reports of right lower abdominal pain which started after racking leaves and pulling wheel [place]. Precautions: PACEMAKER Subjective Pain: 0/10 rest; 2/10 Objective: PT Evaluation (07/04/24) Right shoulder AROM: flexion 150 degrees, abduction 145 deg, ER C5, IR L5 Right shoulder PROM: flexion 155 deg, abduction 150 deg Right shoulder joint: hypomobility in right shoulder Flexibility: pectoralis minor muscle tightness Strength: right shoulder flexion 4/5, abduction 4/5, ER 4+/5 IR 4+/5 Palpation: TTP anterior shoulder Treatment: PT evaluation (20 minutes) Education: HEP education with demonstration, Educated on Eval Findings and POC Manual Therapy: (12 minutes) shoulder MFR, Passive ROM, Joint mobilization, Soft Tissue Mobilization, Myofascial Release, Muscle Energy Technique, Neural Mobilization, Myofascial Cupping, Dry Needling, IASTM, and Scar mobilization Therapeutic Exercise: (16 minutes) exercises in grid; Strength, Endurance, Flexibility, ROM, HEP, Neural Mobilization, Power, and Core Stability Therapeutic Activity: Exercises to improve dynamic activities, functional tasks, functional mobility to return to prior activity level Neuromuscular re-education: Balance Training, Muscle Facilitation, Dynamic Stability, Core Stabilization, and Blood Flow Restriction Training (BFRT) Modalities: Don't recommend due to PACEMAKER Assessment: Pt. Has participated in 1 PT session with start of POC on 07/04 for right shoulder pain. Pt. Will benefit from skilled PT services. PT treatment to focus on improve shoulder ROM/strength. Outcome Measure: 56/80 Short Term Goal: To be met in 2 weeks Goal 1: Pt to be instructed in home exercise program. [facility] Goals: To be met in 10 weeks Goal 1: Pt to report independence and compliance with home program. Goal 2: Pt. Will report of 0/10 right shoulder pain while reaching/lifting objects overhead to help improve his quality of life. Goal 3: Pt. Will demonstrate 170 degrees or greater right shoulder flexion/abduction to help improve his functional mobility to return to PLOF. Goal 4: Pt. Will demonstrate 5/5 right shoulder strength grossly in all planes to allow him to lift/carry objects to help improve his quality of life and return to PLOF. Pt will benefit from skilled PT for 2x/week from 07/04/24 to 09/12/24 to address the above impairments. I hereby deem this POC medically necessary. Please sign below. Date: documented in this encounter [facility] 06-27-2024 History of Present illness Narrative Associated Order(s): L Inj/Asp: R glenohumeral Post-Procedure Diagnose(s): Right shoulder pain, unspecified chronicity L Inj/Asp: R glenohumeral on 06/27/2024 2:30 PM Indications: pain Details: 22 G needle Medications: 1 mg betamethasone acetate-betamethasone sodium phosphate 6 (3-3) MG/ML Images from the original note were not included. Melo Cuevas is a 89 y.o. male presents with chief complaint of right shoulder pain. HPI: Melo is an 89-year-old right hand dominant white male who presents complaining of right shoulder pain and difficulty. This has been going on since early May of 2024. He was pushing a screen, lost his balance, came down a [place] door, essentially pushed himself off on a gas grill. Two days later, he started having pain. He did see his family doctor, had prednisone, muscle relaxer for a week, did feel a little bit better. He is on Coumadin. He has had no other care or treatment. He is frustrated by this. He does report some pain in his abdominal area from blowing leaves, question whether he may have a hernia. This is down in his right lower lateral aspect. SUBJECTIVE: MEDICATIONS: Current Outpatient Medications Medication Instructions aspirin 81 mg atorvastatin (LIPITOR) 40 mg, Nightly carvedilol (COREG) 6.25 mg, 2 times daily lisinopril 10 mg, Daily warfarin (Coumadin) 5 MG tablet TAKE ONE TABLET BY MOUTH ONCE DAILY DIRECTED PER COUMADIN CLINIC ALLERGIES: No Known Allergies SURGICAL HISTORY: Past Surgical History: Procedure Laterality Date BASAL CELL CARCINOMA EXCISION nose CARDIAC VALVE REPLACEMENT 2016 CATARACT EXTRACTION 2016 HERNIA REPAIR Left inguinal hernia x2 INSERT / REPLACE / REMOVE PACEMAKER 2020 TONSILLECTOMY FAMILY HISTORY: Family History Problem Relation Name Age of Onset Alzheimer's disease Mother Heart disease Father SOCIAL HISTORY: Social History Tobacco Use Smoking status: Former Types: Cigarettes Smokeless tobacco: Never Vaping Use Vaping status: Unknown Substance Use Topics Alcohol use: Yes Comment: caffeine intake: 1-2 cups per day Drug use: Never Depression: Not on file REVIEW OF SYMPTOMS: The review of systems, history and current medications list are all reviewed today. OBJECTIVE: Visit Vitals Ht 6' Wt 195 lb BMI 26.45 kg/m Smoking Status Former BSA 2.12 m Physical Exam His orthopedic exam here today reveals positive impingement at roughly 120 degrees of flexion abduction. Cuff strength is grossly intact. He does have some tenderness to palpation over the coracoacromial arch. Some tenderness at the acromioclavicular joint. Some pain with cross over adduction testing. The left side reveals arc of motion without difficulty. No tenderness to palpation. Neurocirculatory status is overall grossly intact. Pulses are brisk. X-rays done here today AP and lateral views of the right shoulder total of two views with permanent images are saved to the record and does show evidence of some acromioclavicular joint osteoarthritis, moderate in nature with subclavicular spurring. The acromiohumeral interval is fairly well maintained. No significant arthritic change otherwise. 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 Chronic anticoagulation in the form of Coumadin. The findings are discussed. We did recommend corticosteroid injection. He does opt for that here today. He is injected with 1 cc of Betamethasone and 3 cc of 1% Lidocaine plain (6 mg of Betamethasone with 3 ml of 1% Lidocaine plain). This is given per the office protocol under sterile technique. He did tolerate the injection well. We will couple this with physical therapy through [facility]. We did discuss Tylenol and its dosing and how this may effect his Coumadin. We will see him back here in one month for a recheck and review. All questions are otherwise answered. We did discuss likely his abdominal injury as being an oblique strain. We did explain that if it does persist, he would get with his primary care physician for an evaluation for possible inguinal hernia. All questions are otherwise answered. Follow up letter sent to Dr. Mims. Cosigned by Brianna Doty DO at 06/28/2024 4:36 PM EST documented in this encounter [facility] 01-31-2024 Note General Surgery Offi ce/Clinic Note Chief Complaint consultation for cyst HPI Staff 88 year old male presents on consultation from Dr. Mims for sebaceous cyst. Reports noting nodule to [...] plan excisional biopsy under local anesthesia at [facility]; informed consent obtained; hold Coumadin 4 days [...] SARS-CoV-2 (COVID-19) mRNA BNT-162b2 vax 09/15/2020 Recorded [facility] Comment on above: Result Comment: Elec tronically Signed By: BRIDGETTE SCOTT, Guy Min\Date and Time Signed: 01/31/24 14:00 EDT 10-26-2023 History of Present illness Narrative Subjective Melo Cuevas is a 88 y.o. male Chief Complaint Annual Exam 88-year-old healthy gentleman returns for 3-month follow-up following recent HEMATOLOGY NURSE EDUCATOR evaluation and echo from 07/09. He is doing well other than exertional [...] one tablet daily. Take as directed per [place] coumadin [facility], Disp: 90 tablet, Rfl: 0 Assessment/Plan 1. 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 Fatigue, unspecified type 4. SSS (sick sinus syndrome) (CMS/HCC) 5. Pacemaker 6. Mitral valve stenosis, unspecified etiology 7. Primary hypertension 8. Mixed hyperlipidemia 9. BMI 25.0-25.9,adult 10. Former smoker Scribe Attestation By signing my name below, IBebe LPN, Scribe attest that this documentation has been prepared under the direction and in the presence of Alex Becerra DO. Provider Attestation - Scribe documentation All medical record entries made by the Scribe were at my direction and personally dictated by me. I have reviewed the chart and agree that the record accurately reflects my personal performance of the history, physical exam, discussion and plan. documented in this encounter [facility] Work Phone: 10-26-2023 Instructions Bebe Pop LPN - 10/26/2023 9:30 AM EDT [...] instructions on exercise. documented in this encounter [facility] Work Phone: 08-18-2023 Evaluation + Plan note Associated Problem(s): Cardiac and Vasculature February 2016 cardiac cath minimal CAD March 2022 TTE LVEF 70% [facility] Work Phone: 08-18-2023 Miscellaneous Notes Associated Problem(s): Cardiac and Vasculature February 2016 cardiac cath minimal CAD March 2022 TTE LVEF 70% Associated Problem(s): BMI 25.0-25.9,adult Reviewed the merits of healthy lifestyle choices on overall cardiovascular health. 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 Last evaluated March 2022 TTE Peak 12, mean 6 Associated Problem(s): Pacemaker M Assurity 2272 dual-chamber permanent pacemaker June 2023 device interrogation Associated Problem(s): Mitral stenosis March 2022 TTE Mild mitral stenosis peak 17, mean 6 Valve area 1.5 Associated Problem(s): HTN (hypertension) Optimal in office Associated Problem(s): HLD (hyperlipidemia) Moderate intensity statin Reports had lab completed earlier this month at [facility] documented in this encounter [facility] Work Phone: 08-18-2023 Evaluation + Plan note Associated Problem(s): BMI 25.0-25.9,adult Reviewed the merits of healthy lifestyle choices on overall cardiovascular health. 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 Last evaluated March 2022 TTE Peak 12, mean 6 [facility] Work Phone: 08-18-2023 Evaluation + Plan note Associated Problem(s): Pacemaker SJM Assurity 2272 dual-chamber permanent pacemaker June 2023 device interrogation [facility] Work Phone: 08-18-2023 Evaluation + Plan note Associated Problem(s): Mitral stenosis March 2022 TTE Mild mitral stenosis peak 17, mean 6 Valve area 1.5 [facility] Work Phone: 08-18-2023 Evaluation + Plan note Associated Problem(s): HTN (hypertension) Optimal in office [facility] Work Phone: 08-18-2023 Evaluation + Plan note Associated Problem(s): HLD (hyperlipidemia) Moderate intensity statin Reports had lab completed earlier this month at [facility] Work Phone: 08-17-2023 History of Present illness Narrative Chief Complaint Doing pretty good Reason for Visit 9-month follow-up Patient presents to the office today for outpatient follow-up for valvular heart disease, newly diagnosed atrial fibrillation initiation of anticoagulation. Last evaluated in clinic by Dr. Becerra September 2022 Presents today ambulatory with steady [...] echocardiogram earlier than scheduled. He prefers to [id number] and will notify me if symptoms do not completely tali. Otherwise, last week he was out picking [...] one tablet daily. 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 Dr. Becerra as scheduled Liza Bledsoe MSN, BUCK, PMHNP-[facility] Please excuse any errors in grammar or translation related to this dictation. Voice recognition software was utilized to prepare this document. documented in this encounter [facility] Work Phone: 08-17-2023 Instructions BUCK Stoner - [...] the office if new symptoms arise. Dr. Becerra as scheduled documented in this encounter [facility] Work Phone: Evaluation + Plan note No data available for this section [facility] General Surgery [place] Evaluation note No assessment inform ation available [facility] Work Phone: Evaluation note Diagnosis S/P TAVR (transcatheter aortic valve replacement)- Primary Paroxysmal atrial fibrillation (CMS/HCC) Atrial fibrillation assisted current use of anticoagulant therapy Mitral valve stenosis, unspecified etiology Mixed hyperlipidemia Primary hypertension Unspecified essential hypertension Pacemaker Cardiac pacemaker in situ BMI 25.0-25.9,adult documented in this encounter [facility] Work Phone: Evaluation note* Diagnosis Aortic valve stenosis, etiology of cardiac valve disease unspecified documented in this encounter [facility] Work Phone: Evaluation note* Diagnosis Aortic valve stenosis, etiology of cardiac valve disease unspecified documented in this encounter [facility] Work Phone: Evaluation note* Diagnosis Paroxysmal atrial fibrillation (CMS/HCC) Atrial fibrillation assisted current use of anticoagulant therapy Fatigue, unspecified type SSS (sick sinus syndrome) (CMS/HCC) Sinoatrial node dysfunction Pacemaker Cardiac pacemaker in situ Mitral valve stenosis, unspecified etiology Primary hypertension Unspecified essential hypertension Mixed hyperlipidemia BMI 25.0-25.9,adult Former smoker Personal history of tobacco use, presenting hazards to health documented in this encounter [facility] Work Phone: Evaluation note* Diagnosis Right shoulder pain, unspecified chronicity Right shoulder strain, initial encounter Arthritis of shoulder region, right documented in this encounter [facility] HealthcareEvaluation note* Diagnosis Acute pain of right shoulder- Primary Arthritis of right shoulder region documented in this encounter [facility]* Diagnosis Acute pain of right shoulder- Primary Arthritis of right shoulder region documented in this encounter [facility]* Diagnosis Right hip pain- Primary Pain in joint, pelvic region and thigh Right knee pain, unspecified chronicity Contusion of right knee, initial encounter Primary osteoarthritis of right knee Abrasion of left lower leg, initial encounter documented in this encounter [facility] HealthcareEvaluation note* Diagnosis Acute pain of right shoulder- Primary Arthritis of right shoulder region documented in this encounter [facility] HealthcareEvaluation note* Diagnosis Acute pain of right shoulder- Primary Arthritis of right shoulder region documented in this encounter [facility] HealthcareEvaluation note* Diagnosis Acute pain of right shoulder- Primary Arthritis of right shoulder region documented in this encounter [facility] HealthcareEvaluation note* Diagnosis S/P TAVR (transcatheter aortic valve replacement)- Primary Paroxysmal atrial fibrillation (Multi) Atrial fibrillation assisted current use of anticoagulant therapy Mitral valve stenosis, unspecified etiology Mixed hyperlipidemia Primary hypertension Unspecified essential hypertension Pacemaker Cardiac pacemaker in situ BMI 25.0-25.9,adult Mitral valve stenosis, unspecified etiology documented in this encounter [facility] Work Phone: Evaluation note* Diagnosis Acute pain of right shoulder- Primary Arthritis of right shoulder region documented in this encounter [facility] HealthcareEvaluation note* Diagnosis Strain of right shoulder, subsequent encounter- Primary Arthritis of right shoulder region assisted (current) use of anticoagulants Long-term (current) use of anticoagulants documented in this encounter [facility] HealthcareEvaluation note* Diagnosis S/P TAVR (transcatheter aortic valve replacement)- Primary Paroxysmal atrial fibrillation (Multi) Atrial fibrillation assisted current use of anticoagulant therapy Mitral valve stenosis, unspecified etiology Mixed hyperlipidemia Primary hypertension Unspecified essential hypertension Pacemaker Cardiac pacemaker in situ BMI 25.0-25.9,adult Mitral valve stenosis, unspecified etiology Mitral valve insufficiency, unspecified etiology Aortic valve stenosis, etiology of cardiac valve disease unspecified S/P TAVR (transcatheter aortic valve replacement) Paroxysmal atrial fibrillation (Multi) Atrial fibrillation 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 SSS (sick sinus syndrome) (Multi) Sinoatrial node dysfunction Pacemaker Cardiac pacemaker in situ Primary hypertension Unspecified essential hypertension Mixed hyperlipidemia BMI 25.0-25.9,adult Former smoker Personal history of tobacco use, presenting hazards to [facility] 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 documented in this encounter [facility] Work Phone: Hospital Discharge instructions No data available for this section [facility] Surgery [place] Progress note No data available for this section [facility] Surgery [place] Reason for visit Narrative* Consultation (Routine) - Authorized Specialty Diagnoses / Procedures Referred By Julius campbell Referred To Contact Physical Therapy Diagnoses Right shoulder pain, unspecified chronicity Right shoulder strain, initial encounter Arthritis of shoulder region, right Procedures [place] OFFICE[facility]OUTPATIENT [facility] Brianna Doty, DO [address] [place] [address] Phone: tel: fax: Shayy Trotter, PT [address] [address] Phone: tel: fax: Referral ID Status Reason Start Date Expiration Date Visits Requested Visits Authorized [id number] Authorized Consult and Treat 06/27/2024 12/24/2024 10 10 [facility] Narrative* Consultation (Routine) - Authorized Specialty Diagnoses / Procedures Referred By Julius campbell Referred To Contact Physical Therapy Diagnoses Right shoulder pain, unspecified chronicity Right shoulder strain, initial encounter Arthritis of shoulder region, right Procedures [place] OFFICE/OUTPATIENT [facility] Brianna Doty, DO [address] [place] [address] Phone: tel: fax: Shayy Trotter, PT [address] [address] Phone: tel: fax: Referral ID Status Reason Start Date Expiration Date Visits Requested Visits Authorized [id number] Authorized Consult and Treat 06/27/2024 07/17/2024 30 30 [facility] Narrative* Consultation (Routine) - Closed Specialty Diagnoses / Procedures Referred By Julius t Referred To Contact Physical Therapy Diagnoses Right shoulder pain, unspecified chronicity Right shoulder strain, initial encounter Arthritis of shoulder region, right Procedures [place] OFFICE[facility]OUTPATIENT [facility] Brianna Doty, DO [address] [place] [address] Phone: tel: fax: Shayy Trotter, PT [address] [address] Phone: tel: fax: Referral ID Status Reason Start Date Expiration Date V isits Requested Visits Authorized [id number] Closed Consult and Treat 06/27/2024 07/17/2024 30 30 [facility] Narrative* Consultation (Routine) - Authorized Specialty Diagnoses / Procedures Referred By Julius campbell Referred To Contact Physical Therapy Diagnoses Right shoulder pain, unspecified chronicity Right shoulder strain, initial encounter Arthritis of shoulder region, right Procedures PHYS/OCC THERAPY SS MI MANUAL THERAPY TQS 1/> REGIONS EACH 15 MINUTES MI THERAPEUTIC PX 1/> AREAS EACH 15 MIN EXERCISES MI THER PX 1/> AREAS EACH 15 MIN NEUROMUSC REEDUCA Brianna Doty, DO [address] [place] [address] Phone: tel: fax: Shayy Trotter, PT [address] [address] Phone: tel: fax: Referral ID Status Reason Start Date Expiration Date Visits Requested Visits Authorized [id number] Authorized Consult and Treat 07/18/2024 08/07/2024 20 20 [facility] Narrative* Consultation (Routine) - Authorized Specialty Diagnoses / Procedures Referred By Julius campbell Referred To Contact Physical Therapy Diagnoses Right shoulder pain, unspecified chronicity Right shoulder strain, initial encounter Arthritis of shoulder region, right Procedures PHYS/OCC THERAPY SS MI MANUAL THERAPY TQS 1/> REGIONS EACH 15 MINUTES MI THERAPEUTIC PX 1/> AREAS EACH 15 MIN EXERCISES MI THER PX 1/> AREAS EACH 15 MIN NEUROMUSC REEDUCA Brianna Doty, DO [address] [place] [address] Phone: tel: fax: Shayy Trotter, PT [address] [address] Phone: tel: fax: Referral ID Status Reason Start Date Expiration Date Visits Requested Visits Authorized [id number] Authorized Consult and Treat 07/18/2024 08/07/2024 20 30 [facility] Narrative* CV Imaging (Routine) - Authorized Specialty Diagnoses / Procedures Referred By Julius campbell Referred To Contact Cardiology Diagnoses Mitral valve stenosis, unspecified etiology Procedures Transthoracic Echo Complete [place] ECHO TTHRC R-T 2D W/WOM-MODE COMPL SPEC&COLR D Alex Becerra, DO [address] [facility] [address] [place] [address] Phone: tel: fax: Referral ID Status Reason Start Date Expiration Date Visits Requested Visits Authorized [id number] Authorized Perform Procedure 10/26/2023 10/25/2024 1 1 [facility] Work Phone: Reason for visit Narrative* Consultation (Routine) - Authorized Specialty Diagnoses / Procedures Referred By Julius campbell Referred To Contact Physical Therapy Diagnoses Right shoulder pain, unspecified chronicity Right shoulder strain, initial encounter Arthritis of shoulder region, right Procedures PHYS/OCC THERAPY SS MI MANUAL THERAPY TQS 1/> REGIONS EACH 15 MINUTES MI THERAPEUTIC PX 1/> AREAS EACH 15 MIN EXERCISES MI THER PX 1/> AREAS EACH 15 MIN NEUROMUSC REEDUCA Brianna Doty, DO [address] [facility] [place] [address] Phone: tel: fax: Shayy Trotter, PT [address] [facility] [address] [place] [address] Phone: tel: fax: Referral ID Status Reason Start Date Expiration Date Visits Requested Visits Authorized [id number] Authorized Consult and Treat 07/18/2024 07/17/2025 20 30 [facility] Summary Purpose Family History No Family History Records FoundUnknown Family Member Name Dates Details Family history [...] Comments: - age 85; Status:Active Advance Directives No Advanced Directives Records Found Advance Directive Response Recorded Date/ Time Advance Directives No December 14 1:49pm Advance Directive Response Recorded Date/ Time Advance Directives No December 14 1 12:49pm Chief Complaint * Echo results. * [...] * He has history of TAVR in 2015, [...] * He has history of TAVR in 2015, [...] for Visit Chief Complaint complete heart block Chief Complaint complete heart block Unknown Chief Complaint Unknown complete heart block Reason for Referral [facility]ty Diagnoses / [facility] To Contact Cardiology Diagnoses Aortic valve stenosis, etiology of cardiac valve disease unspecified Procedures Transthoracic Echo (TTE) Complete MI ECHO TRANSTHORC R-T 2D W/WO M-MODE REC F-UP/LMTD MI DOP ECHOCARD COLOR FLOW VELOCITY MAPPING MI DOP ECHOCARD PULSE WAVE W/SPECTRAL F-UP/LMTD STD Alex Becerra, DO [address] [place] [address] 2, [place] [address] [place], [place] [id number] Referral ID Status Reason Start Date Expiration Date Visits Requested Visits Authorized [id number] Authorized Perform Procedure 3 06/28/2024 1 1 Specialty Diagnoses / Procedures [facility]erred To Contact Cardiology Diagnoses Mitral valve stenosis, unspecified etiology Procedures Transthoracic Echo Complete MI ECHO TTHRC R-T 2D W/WOM-MODE COMPL SPEC&COLR D Alex Becerra, [address], [place] [id number] Referral ID Status Reason Start Date Expiration Date Visits Requested Visits Authorized [id number] Pending Review Perform Procedure 10/26/2023 10/25/2024 1 1 Specialty Diagnoses / Procedures [facility]erred To Contact Cardiology Diagnoses Mitral valve stenosis, unspecified etiology Procedures Follow Up In Cardiology Alex Becerra, [address], [place] [id number] Alex Becerra, [address], [place] [id number] Referral ID Status Reason Start Date Expiration Date V isits Requested Visits Authorized [id number] Authorized 10/26/2023 10/25/2024 1 1 Additional Source [...] and content) DATE CREATED AUTHOR 01/04/2018 [facility] DATE CREATED AUTHOR AUTHOR'S ORGANIZ ATION 01/05/2018 [facility] DATE CREATED AUTHOR AUTHOR'S ORGANIZ ATION 01/05/2018 [facility] DATE CREATED AUTHOR AUTHOR'S ORGANIZ ATION 06/16/2018 [facility] DATE CREATED AUTHOR AUTHOR'S ORGANIZ ATION 04/19/2022 [facility] DATE CREATED AUTHOR AUTHOR'S ORGANIZ ATION 09/04/2022 [facility] DATE CREATED AUTHOR AUTHOR'S ORGANIZ ATION 10/19/2022 [facility] DATE CREATED AUTHOR AUTHOR'S ORGANIZ ATION 05/14/2023 [facility] Center DATE CREATED AUTHOR AUTHOR'S ORGANIZ ATION 03/23/2024 [facility] ical Center DATE CREATED AUTHOR AUTHOR'S ORGANIZ ATION 07/06/2024 [facility] DATE CREATED AUTHOR AUTHOR'S ORGANIZ ATION 07/30/2024 [facility] DATE CREATED AUTHOR AUTHOR'S ORGANIZ ATION 08/02/2024 [facility] Special[facility] DATE CREATED AUTHOR AUTHOR'S ORGANIZ ATION 08/08/2024 [facility] Health Safety Engineer Teams (unrecognized sec tion and content) Team Status: Active Member Role Status Dates Lisa Mims MD Primary Care Provider Active Team Status: Inactive Member Role Status Dates Lisa Mims MD Primary Care Provider Active Alex Cerda MD Attending Provider Active Women'S Swim Coach Relationship Specialty Start Date End Date Lisa Mims MD [address] [facility] [place] [address] PCP - General 05/13/20 Team Status: Inactive Member Role Status Dates Lisa Mims MD Primary Care Provider Active Start: October 04, 2023 End: October 04, 2023 Alex Cerda MD Attending Provider Active Start: October 04, 2023 End: October 04, 2023 Women'S Swim Coach Relationship Specialty Start Date End Date Lisa Mims MD [address] [place] [address] PCP - General 05/13/20 Women'S Swim Coach Relationship Specialty Start Date End Date Lisa Mims MD [address] [place] [address] PCP - General 05/13/20 Women'S Swim Coach Relationship Specialty Start Date End Date Lisa Mims MD [address] [place] [address] PCP - General 05/13/20 Team Status: Inactive Member Role Status Dates Lisa Mims MD Primary Care Provider Active Start: January 03, 2024 End: January 03, 2024 Alex Cerda MD Attending Provider Active Start: January 03, 2024 End: January 03, 2024 Team Status: Inactive Member Role Status Dates Lisa Mims MD Primary Care Provider Active Start: March 07, 2024 End: March 07, 2024 Guy Angeles MD [facility] Attending Provider Active Start: March 07, 2024 End: March 07, 2024 Team Status: Inactive Member Role Status Dates Lisa Mims MD Primary Care Provider Active Start: April 03, 2024 End: April 03, 2024 Alex Cerda MD Attending Provider Active Start: April 03, 2024 End: April 03, 2024 Women'S Swim Coach Relationship Specialty Start Date End Date Lisa Mims MD [address] [place] [address] PCP - General Family Medicine 06/23/23 Women'S Swim Coach Relationship Specialty Start Date End Date Lisa Mims MD [address] [place] [address] PCP - General Family Medicine 06/23/23 Women'S Swim Coach Relationship Specialty Start Date End Date Lisa Mims MD [address] [place] [facility] [place] [address] PCP - General Family Medicine 06/23/23 Women'S Swim Coach Relationship Specialty Start Date End Date Lisa Mims MD [address] [place] [facility] [place] [address] PCP - General Family Medicine 06/23/23 Women'S Swim Coach Relationship Specialty Start Date End Date Lisa Mims MD [address] [place] [facility] [place] [address] PCP - General Family Medicine 06/23/23 Women'S Swim Coach Relationship Specialty Start Date End Date Lisa Mims MD [address] [place] [facility] [place] [address] PCP - General Family Medicine 06/23/23 Women'S Swim Coach Relationship Specialty Start Date End Date Lisa Mims MD [address] [place] [facility] [place] [address] PCP - General Family Medicine 06/23/23 Women'S Swim Coach Relationship Specialty Start Date End Date Lisa Mims MD [address] [place] [facility] [place] [address] PCP - General Family Medicine 06/23/23 Women'S Swim Coach Relationship Specialty Start Date End Date Lisa Mims MD [address] [place] [facility] [place] [address] PCP - General Family Medicine 06/23/23 Women'S Swim Coach Relationship Specialty Start Date End Date Lisa Mims MD [address] [place] [facility] [place] [address] PCP - General Family Medicine 06/23/23 Women'S Swim Coach Relationship Specialty Start Date End Date Lisa Mims MD [address] [place] [facility] [place] [address] PCP - General Family Medicine 06/23/23 Women'S Swim Coach Relationship Specialty Start Date End Date Lisa Mims MD [address] [facility], [id number] PCP - General 05/13/20 Women'S Swim Coach Relationship Specialty Start Date End Date Lisa Mims MD [address] [place] [address] PCP - General Family Medicine 06/23/23 Women'S Swim Coach Relationship Specialty Start Date End Date Lisa Mims MD [address] [place] [address] PCP - General Family Medicine 06/23/23 Women'S Swim Coach Relationship Specialty Start Date End Date Lisa Mims MD [address] [place] [facility] [address] PCP - General 05/13/20 Goals (unrecognized section and content) Goals may [...] alternate section No data available for this sectionGoals may be documented in an alternate section No data available for this sectionGoals may be documented in an alternate section Reason for Visit (unrecogniz ed section and content) Reason Comments Follow-up 6-8 week, Afib Specialty Diagnoses / Procedures Referred By [facility] t Referred To Contact Cardiology Diagnoses Paroxysmal atrial fibrillation (CMS/HCC) Procedures Follow Up In Cardiology Alex Becerra, DO [address] [facility] [address], [address] [address] Liza Bledsoe, [employer]ATION CHIE[employer] [address] [facility] [address], [address] [address] Referral ID Status Reason Start Date Expiration Date V isits Requested Visits Authorized [id number] Authorized 07/08/2023 07/07/2024 1 1 Specialty Diagnoses / Procedures Referred By [facility] t Referred To Contact Cardiology Diagnoses Aortic valve stenosis, etiology of cardiac valve disease unspecified Procedures Transthoracic Echo (TTE) Complete MI ECHO TRANSTHORC R-T 2D W/WO M-MODE REC F-UP/LMTD MI DOP ECHOCARD COLOR FLOW VELOCITY MAPPING MI DOP ECHOCARD PULSE WAVE W/SPECTRAL F-UP/LMTD STD Alex Becerra, DO [address] [place] [address] 2, [address] [address] Referral ID Status Reason Start Date Expiration Date Visits Requested Visits Authorized [id number] Authorized Perform Procedure 3 06/28/2024 1 1 Reason Comments Annual Exam 1yr Reason Comments Pain Reason Comments Pain Fall DOI 07/08/24 Reason Comments Follow-up Reason Comments Follow-up 9 month/echo results Specialty Diagnoses / Procedures Referred By Cont[facility] t Referred To Contact Cardiology Diagnoses Mitral valve stenosis, unspecified etiology Procedures Follow Up In Cardiology Alex Becerra, DO [address] [facility] [address], [address] [address] Phone: tel: fax: Alex Becerra, DO [address] [facility] [address], [address] [address] Phone: tel: fax: Referral ID Status Reason Start Date Expiration Date V isits Requested Visits Authorized [id number] Pending Review 10/26/2023 10/25/2024 1 1 Reason Onset Date Comments re: PT and tanya w/ Dr. Doty 08/07/2024 FOR RECORDS PERTAINING TO PATIENTS WHO ARE [...] BE BASED ON THE PRIMARY CLINICAL RECORDS. [employer] [facility]. provides no warranty or guarantee of the accuracy or completeness of information in this document.
[2024-08-09 10:43] LABS: Alanine Aminotransferase 22 U/L (16-63); Anion Gap 9.7; Aspartate Amino Transferase 13 U/L (15-37); BUN Creatinine Ratio 13.9; Carbon Dioxide 31.6 mmol/L (21.0-32.0); Chloride 107 mmol/L (98-107); Cholesterol 164 mg/dL (<=200); Estimated GFR (African America 53 (>=60 mL/min/1.73m^2); Estimated GFR (Non-African Ame 44 (>=60 mL/min/1.73m^2); Glucose 119 mg/dL (74-106); HDL Cholesterol 41 mg/dL (40-60); Potassium 5.3 mmol/L (3.5-5.1); Sodium 143 mmol/L (136-145); Triglycerides 189 mg/dL (<=150); VLDL CHOLESTEROL 37.8 mg/dL
== END 2024-08-09 08:49 | disposition home or self-care (01) ==
LOC: LAB 08:48
PROVIDERS: PCP Family Medicine; Visit Provider Internal Medicine Cardiovascular Disease
DX: I05.0 Rheumatic mitral stenosis (principal); I35.0 Nonrheumatic aortic (valve) stenosis; Z95.2 Presence of prosthetic heart valve; I48.0 Paroxysmal atrial fibrillation; Z86.73 Personal history of transient ischemic attack (TIA), and cerebral infarction without residual deficits; Z79.01 Long term (current) use of anticoagulants; I49.5 Sick sinus syndrome; E78.2 Mixed hyperlipidemia; Z68.25 Body mass index [BMI] 25.0-25.9, adult; Z87.891 Personal history of nicotine dependence; I25.5 Ischemic cardiomyopathy; I11.0 Hypertensive heart disease with heart failure; I50.9 Heart failure, unspecified
CPT/HCPCS: 36415; 80048; 80061; 83880; 84450; 84460

== ENCOUNTER 2024-08-20 00:41 | Outpatient (RCR) | payer MEDICARE, SELFPAY | END 2024-09-14 10:26 | disposition home or self-care (01) | LOC: MM 00:41 | PROVIDERS: PCP Family Medicine; Visit Provider Internal Medicine | DX: Z51.81 Encounter for therapeutic drug level monitoring (principal); Z79.01 Long term (current) use of anticoagulants; I48.0 Paroxysmal atrial fibrillation | CPT/HCPCS: 85610; G0463 ==

== ENCOUNTER 2024-08-23 08:43 | Outpatient (OUT) | payer MEDICARE, SELFPAY ==
--- OUTSIDE RECORDS SUMMARY | 2024-08-23 09:10 | XMS_ITS | CCD ---
Author Organization [facility] CliniSywa Care Team Providers Care Telephone Operator Receptionist Name Role Phone GHAZOUL, BEBE Unavailable Unavailable [...] Care Unavailable Nill, Guy R Admitting Unavailable NilGuy almaguer Attending Unavailable Alex Cerda Attending Unavail able Lisa Mims Primary Care Unavailable Alex Cerda Admitting Unavail able POCOS, BRIANNA Main Referring Unavailable POCOS, BRIANNA Main Attending Unavailable LISA MIMS Referring Unavailable SHAYY TROTTER Attending Unavailable POCOS, BRIANNA Main Referring Unavailable MARY LEON Attending Unavailable POCOS, BRIANNA Main Referring Unavailable POCOS, BRIANNA Main Referring Unavailable POCOS, BRIANNA Main Attending Unavailable POCOS, BRIANNA Main Referring Unavailable POCOS, BRIANNA Main Referring Unavailable BLACKSTONSHAYY Attending Unavailable POCOS, BRIANNA Main Referring Unavailable ROXANA MANLEY Attending Unavailable POCOS, BRIANNA Main Referring Unavailable JIM MURILLO Attending Unavailable POCOS, BRIANNA Main Referring Unavailable JIM MURILLO Attending Unavailable POCOS, BRIANNA Main Referring Unavailable POCFLOR, BRIANNA Main Attending Unavailable LISA MIMS Primary Care Unavailable ALEX BECERRA Referring Unavailable ALEX BECERRA Referring Unavailable LISA MIMS Primary Care Unavailable ALEX BECERRA Attending Unavailable LISA MIMS Primary Care Unavailable HERNAN, ALEX Bonilla Attending Unavailable ALEX BECERRA Referring Unavailable LISA MIMS [facility] Care Unavailable Allergies Allergy Classification Reported Allergen(s) Allergy Type Date of Onset Reaction(s) Facility (1 source) meloxicam; Translations: [Mobic] Drug Allergy [facility] Repository (1 source) Naproxen; Translations: [Naprosyn] Drug Allergy [facility] Repository Medications Current Medications Medication Drug [...] one tablet daily. Take as directed per [facility] coumadin [facility] 90 tablet 07/25/2023 Active Completed/Discontinued Medications Medication [...] sources) Long-term current use of anticoagulant; Translations: [long term (current) use of anticoagulants] Onset: 08-17-2023 08-17-2023 [...] 07-07-2023 07-07-2023 Episodic Other aftercare (2 sources) longterm (current) use of anticoagulants; Translations: [long term (current) use of anticoagulants] Onset: 08-17-2023 Episodic [...] COM PLETEon 07-24-2024 TRANSTHORACIC ECHO (TTE) COMPLETE [address], [address] [place] [address] TRANSTHORACIC ECHOCARDIOGRAM REPORT Patient Name: MELO CUEVAS Reading Physician: [id number] Fabián Tony MD Study Date: 07/24/2024 Ordering Provider: [id number] ALEX BECERRA MRN/PID: [id number] Fellow: Nurse: Date of /Age: 8 1935 / 89 years 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 Personnel Selection: Daniela Veras RDCS, RVT Gender Assigned at Additional Staff: : Height: 187.96 cm Admit Date: Weight: 89.81 kg Admission Status: BSA / BMI: 2.16 m2 / 25.42 Department Location: [address] Blood Pressure: 124 /62 mmHg Study Type: TRANSTHORACIC ECHO (TTE) COMPLETE 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 Normal [facility] US Heart TransthoracicOrdere d By: Fabián Tony on 07-24-2024 Aortic Valve Area by Continuity of Peak Velocity 2.74 cm2 [facility] Work Phone: Aortic Valve Area by Continuity of VTI 2.8 cm2 [facility] Work Phone: [phone] AV mn grad 5 mmHg [facility] Work Phone: [phone] AV pk grad 11 mmHg [facility] Work Phone: [phone] AV pk arron 1.65 m/s [facility] Work Phone: [phone] LV A4C EF 65.7 [facility] Work Phone: LV Biplane EF 62 % [facility] Work Phone: LV EF 65 % [facility] Work Phone: LVIDd 4.98 cm [facility] Work Phone: LVOT diam 2.6 cm [facility] Work Phone: MV avg E/e' ratio 16.4 [facility] Work Phone: MV E/A ratio 0.58 [facility] Work Phone: RVSP 20.5 mmHg [facility] Work Phone: [facility] Work Phone: Heart Transthoracicon [address], [address] [place] [address] TRANSTHORACIC ECHOCARDIOGRAM REPORT Patient Name: MELO Stalin CUEVAS Reading Physician: [id number] Fabián Tony MD Study Date: 07/24/2024 Ordering Provider: [id number] ALEX BECERRA MRN/PID: [id number] Fellow: Nurse: Date of /Age: 8 1935 / 89 years 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 Personnel Selection: Daniela Veras RDCS, RVT Gender Assigned at Additional Staff: : Height: 187.96 cm Admit Date: Weight: 89.81 kg Admission Status: BSA / BMI: 2.16 m2 / 25.42 Department Location: [facility] kg/m2 [facility] Blood Pressure: 124 /62 mmHg Study Type: TRANSTHORACIC ECHO (TTE) COMPLETE 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 Fabián Beverly MD - 07/24/[address], [address], [place] [address] TRANSTHORACIC ECHOCARDIOGRAM REPORT Patient Name: MELO CUEVAS Reading Physician: [id number] Fabián Tony MD Study Date: 07/24/2024 Ordering Provider: [id number] ALEX BECERRA MRN/PID: [id number] Fellow: Nurse: Date of /Age: 8 1935 / 89 years Manager Personnel Selection: Daniela Veras RD, RVT Gender Assigned at M Additional Staff: : Height: 187.96 cm Admit Date: Weight: 89.81 kg Admission Status: BSA / BMI: 2.16 m2 / 25.42 Department Location: [facility]/[address] Blood Pressure: 124 /62 mmHg Study Type: TRANSTHORACIC ECHO (TTE) COMPLETE 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 [facility] Work Phone: No Panel Informationon 06-27 Mini Joya MA 07/02/2024 4:42 PM L Inj/Asp: R glenohumeral on 06/27/2024 2:30 PM Indications: pain Details: 22 G needle Medications: 1 mg betamethasone acetate-betamethason e sodium phosphate 6 (3-3) MG/ML [facility] General Surgery Office/Clini c Noteon 03-21-2024 General [...] mRNA BNT-162b2 vax 09/15/2020 Recorded Normal [facility] Comment on above: Result Comment: Elec tronically Signed By: BRIDGETTE SCOTT, Guy Min\Date and Time Signed: 03/21/24 14:07 EDT Pepe 03-07-2024 L Specimen: [id number] Received: 03/08/24 Status: GAYLE Cole Num: [id number] Spec Type: Surgical Subm Dr: Guy Angeles MD FACS Tissues: A Skin Cyst Procedures: HE, Gross/Micro L3 Age/ Patient Sex Location Account Attending Physician Melo Cuevas 89/M LABELL [id number] Guy Angeles MD FACS SPEC NUM: [id number] RECD: 03/08/24 STATUS: GAYLE COLE NUM: [id number] AALIYAH: 03/07/[address]: Guy Angeles MD FACS ENTERED: 03/08/[address] [facility] DR: SPEC TYPE: Surgical DEPT: AHMET NICHOLSON ENTERED BY: [id number] RECV BY: [id number] ORDERED: HE, Gross/Micro L3 ORDERED: HE, Gross/Micro [...] cavity filled with white cystic debris. 1 account services representative section is submitted in cassette A1. CPT Codes 99060 Specimen: [id number] Received: 03/08/24-1608 Status: GAYLE Cole Num: [id number] Spec Type: Surgical Subm Dr: Guy Angeles MD FACS Tissues: A Skin Cyst Procedures: Brian HAIR/Paige L3 Patient: Melo Cuevas [id number] (Continued) Signed (signature on file) Mahesh Ortiz MD 03/13/24 3918 Normal [facility] Ambulatory Visit Summaryon 0 01-31-2024 Ambulatory Visit Summary Ambulatory Visi t Summary MELO CUEVAS :1935 Visit Date:01/31/2024 Ambulatory Visit Instructions Your Care Team Attending Physician - BRIDGETTE SCOTT, Guy Potter Primary Care Physician - Lisa Mims MD Referring Physician - Lisa Mims MD This [...] you for choosing us for your care. [facility] Physician Referralon 024 Physician Referral [id number] 23#1.00TIFF Normal [facility] Physician Referralon 024 Physician Referral [id number]# 1.00TIFF Normal [facility] Physician Referral [id number]# 1.00TIFF Normal [facility] Comment on above: Other Comment: MINDY KAM Physician Referral [id number]# 1.00TIFF Normal [facility] Heart TransthoracicOrdere d By: Moody Teixeira on 10-19-2023 Aortic Valve Area by Continuity of Peak Velocity 2.59 cm2 [facility] Work Phone: [phone] Aortic Valve Area by Continuity of VTI 2.73 cm2 [facility] Work Phone: [phone] AV mn grad 6.0 mmHg [facility] Work Phone: [phone] AV pk grad 12.0 mmHg [facility] Work Phone: [phone] AV pk arron 1.73 m/s [facility] Work Phone: [phone] LV A4C EF 56.3 [facility] Work Phone: [phone] LVIDd 3.57 cm [facility] Work Phone: [phone] LVOT diam 2.40 cm [facility] Work Phone: [phone] MV avg E/e' ratio 22.20 [facility] Work Phone: [phone] MV E/A ratio 0.61 [facility] Work Phone: [phone] RVSP 23.3 mmHg [facility] Work Phone: [phone] [facility] Work Phone: Heart Transthoracicon [address], [address] [place] [address] TRANSTHORACIC ECHOCARDIOGRAM REPORT Patient Name: MELO Pugh Physician: [id number] Moody Teixeira MD, [facility] Study Date: 10/18/2023 Ordering Provider: [id number] ALEX BECERRA MRN/PID: [id number] Fellow: Nurse: Date of /Age: 8 1935 / 88 years Manager Personnel Selection: Daniela Veras RDCS, RVT Gender: M Additional Staff: Height: 187.96 cm Admit Date: Weight: 89.81 kg Admission Status: BSA / BMI: 2.16 m2 / 25.42 kg/m2 Department Location: [facility] Blood Pressure: 134 /72 mmHg Study Type: [...] not included)... Moody Aguilar MD - 10/19/2023 [facility] [address], [address], [place] [address] TRANSTHORACIC ECHOCARDIOGRAM REPORT Patient Name: MELO CUEVAS Reading Physician: [id number] Moody Teixeira MD, [facility] Study Date: 10/18/2023 Ordering Provider: [id number] ALEX BECERRA MRN/PID: [id number] Fellow: Nurse: Date of /Age: 8 1935 / 88 years Manager Personnel Selection: Daniela Veras RDCS, RVT Gender: M Additional Staff: Height: 187.96 cm Admit Date: Weight: 89.81 kg Admission Status: BSA / BMI: 2.16 m2 / 25.42 kg/m2 Department Location: [facility] Blood Pressure: 134 /72 mmHg Study Type: [...] 0.60 AORTIC INSUF (more content not included)... [facility] Work Phone: TRANSTHORACIC ECHO (TTE) COM [facility] 10-18-2023 TRANSTHORACIC ECHO (TTE) COMPLETE [address], [address] [place] [address] TRANSTHORACIC ECHOCARDIOGRAM REPORT Patient Name: MELO Gant MASON Pugh Physician: [id number] Moody Teixeira MD, [facility] Study Date: 10/18/2023 Ordering Provider: [id number] ALEX BECERRA MRN/PID: [id number] Fellow: Nurse: Date of /Age: 8 1935 / 88 years Manager Personnel Selection: Daniela Veras RDCS, RVT Gender: M Additional Staff: Height: 187.96 cm Admit Date: Weight: 89.81 kg Admission Status: BSA / BMI: 2.16 m2 / 25.42 kg/m2 Department Location: [facility] Blood Pressure: 134 /72 mmHg Study Type: [...] VALVE/RVSP: No (more content not included)... [facility] Office Visit (Cardiology)on 10-14-2022 Follow-up visit [...] Recorded: 14Oct2022 10:03AM Heart Rate64, L Radial Txushrrs131, LUE, Sitting Lhrksxqzw46, LUE, Sitting Height6 ft 2 in Tsekfl449 lb BMI Tlwybpxpmf68.29 kg/m2 BSA Calculated2.16 Tobacco Useb) No Falls Screening (Age 18+)a) No falls within the last year Physical Exam Constitutional: alert and in no acute distress. Neck: neck is supple, symmetric, trachea midline, no masses and no thyromegaly . Pulmonary: no increased work of breathing or signs of respiratory distress and lungs clear to auscultation. (more content not included)... Normal [employer] Tobacco Screening.on 023 Fall risk assessment a) No falls within the last year [facility] [employer] y 250 DO Work Phone: Tobacco use status [facility] b) [facility] Work Phone: Covid-19 PCR (CVDTBH)on 08-18 SARS-CoV-2 (COVID-19) RNA SVETLANA+probe Ql (Unsp spec) Detected Abnormal NOT DETECTED The Comment on above: Result Comment: This test is not yet approved or cleared by the [place] FDA. When there are no FDA-approved or cleared tests available, and other criteria are met, FDA can make tests available under an emergency access mechanism called an Emergency Use Authorization (EUA). The EUA for this test is supported by the [employer] Manager of Health and Human Service's (HHS's) declaration [...] used). Performed By: #### C VDTBH #### Laboratory [address] [place] [address] Dr. Ekaterina Alcocer INFLUENZA A AND B AGon 08-30 [facility] SEE BELOW Normal [facility] Comment on above: Result Comment: Nega tive for Flu A protein angiten. Infection due to Flu A cannot be ruled out. Flu A angiten in the sample may be below the detection limit of the test. Performed By: #### I NFLUAB #### Laboratory [address] [place] [address] Dr. Ekaterina Alcocer [facility] SEE BELOW Normal [facility] Comment on above: Result Comment: Nega tive for Flu B protein antigen. Infection due to Flu B cannot be ruled out. Flu B antigen in the sample may be below the detection limit of the test. Performed By: #### I NFLUAB #### Laboratory [address] [place] [address] Dr. Ekaterina Alcocer INFLUENZA A AG Negative Normal NEGATIVE SEE COMMENT The Comment on above: Performed By: #### I NFLUAB #### Laboratory [address] [place] [address] Dr. Ekaterina Alcocer INFLUENZA B AG Negative Normal NEGATIVE SEE COMMENT The Comment on above: Performed By: #### I NFLUAB #### Laboratory [address] [place] [address] Dr. Ekaterina Alcocer PSA, FREE AND TOTAL RATIOon 06-30-2022 % Free PSA 26.8 % Normal [facility] Comment on above: Result Comment: The [...] of men. Performed By: #### P SAFREE #### [id number] [place] [id number]. Ekaterina Alcocer Prostate specific Ag [Mass/Vol] 4.4 ng/mL Critically high 0.0-4.0 [facility] Comment on above: Result Comment: Antonio WHITE methodology. . According to the [place] [employer], Serum PSA should decrease and [...] malignant disease. Performed By: #### P SAFREE #### [id number] [place] [id number]. Ekaterina Alcocer PSA, Free 1.18 ng/mL Normal N/A [facility] Comment on above: Result Comment: Antonio WHITE methodology. Performed By: #### P SAFREE #### [id number] [place] [id number]. Ekaterina Alcocer INSULINon 06-29-2022 Insulin 7.5 uIU/mL Normal 2.6-24.9 [facility] Comment on above: Performed By: #### I NSULIN #### [id number] [place] [id number]. Ekaterina Alcocer CBC AUTO DIFFon 06-28-2022 BASO # 0.1 103/ul Normal 0.0-0.1 [facility] Comment on above: Performed By: #### C BC #### Laboratory [address] [place] [address] [address] Ekaterina Alcocer Basophils/100 WBC (Bld) 1.5 % Normal 0.2-2.0 [facility] Comment on above: Performed By: #### C BC #### Laboratory [address] [place] [address] Dr. Ekaterina Alcocer EO # 0.2 103/ul Normal 0.0-0.7 [facility] Comment on above: Performed By: #### C BC #### Laboratory [address] [place] [address] Dr. Ekaterina Alcocer Eosinophils/100 WBC (Bld) 2.4 % Normal 0.9-7.0 [facility] Comment on above: Performed By: #### C BC #### Laboratory [address] [place] [address] Dr. Ekaterina Alcocer Erythrocyte distribution width (RBC) [Ratio] 13.6 % Normal 11.0-15.0 [facility] Comment on above: Performed By: #### C BC #### Laboratory [address] [place] [address] Dr. Ekaterina Alcocer Hematocrit (Bld) [Volume fraction] 46.3 % Normal 42.0-54.0 [facility] Comment on above: Performed By: #### C BC #### Laboratory [address] [place] [address] Dr. Ekaterina Alcocer Hemoglobin (Bld) [Mass/Vol] 15.5 g/dL Normal 14.0-18.0 [facility] Comment on above: Performed By: #### C BC #### Laboratory [address] [place] [address] Dr. Ekaterina Alcocer IG # 0.03 10e3/ul Normal 0.00-0.03 [facility] Comment on above: Performed By: #### C BC #### Laboratory [address] [place] [address] Dr. Ekaterina Alcocer IG % 0.3 % Normal 0.0-0.5 [facility] Comment on above: Performed By: #### C BC #### Laboratory [address] [place] [address] Dr. Ekaterina Alcocer LYMPH # 2.6 103/ul Normal 1.2-3.8 [facility] Comment on above: Performed By: #### C BC #### Laboratory [address] [place] [address] Dr. Ekaterina Alcocer Lymphocytes/100 WBC (Bld) 28.8 % Normal 20.5-60.0 [facility] Comment on above: Performed By: #### C BC #### Laboratory [address] [place] [address] Dr. Ekaterina Alcocer MANUAL DIFF REQ NO Normal [facility] Comment on above: Performed By: #### C BC #### Laboratory [address] [place] [address] Dr. Ekaterina Alcocer MCH (RBC) [Entitic mass] 30.7 pg Normal 25.9-34.0 [facility] Comment on above: Performed By: #### C BC #### Laboratory [address] [place] [address] Dr. Ekaterina Alcocer MCHC (RBC) [Mass/Vol] 33.5 g/dL Normal 29.9-35.2 [facility] Comment on above: Performed By: #### C BC #### Laboratory [address] [place] [address] Dr. Ekaterina Alcocer MCV (RBC) [Entitic vol] 91.7 fL Normal 80.0-94.0 [facility] Comment on above: Performed By: #### C BC #### Laboratory [address] [place] [address] Dr. Ekaterina Alcocer MONO # 0.7 103/ul Normal 0.3-0.8 [facility] Comment on above: Performed By: #### C BC #### Laboratory [address] [place] [address] Dr. Ekaterina Alcocer Monocytes/100 WBC (Bld) 8.3 % Normal 1.7-12.0 [facility] Comment on above: Performed By: #### C BC #### Laboratory [address] [place] [address] Dr. Ekaterina Alcocer NEUT # 5.2 103/ul Normal 1.4-6.5 [facility] Comment on above: Performed By: #### C BC #### Laboratory [address] [place] [address] [address] Ekaterina Alcocer Neutrophils/100 WBC (Bld) 58.7 % Normal 43.0-75.0 [facility] Comment on above: Performed By: #### C BC #### Laboratory [address] [place] [address] [address] Ekaterina Alcocer Platelet mean volume (Bld) [Entitic vol] 9.8 fL Normal 9.5-13.5 [facility] Comment on above: Performed By: #### C BC #### Laboratory [address] [place] [address] [address] Ekaterina Alcocer PLT 230 103/ul Normal 150-450 [facility] Comment on above: Performed By: #### C BC #### Laboratory [address] [place] [address] [address] Ekaterina Alcocer RBC 5.05 106/ul Normal 4.70-6.10 The Comment on above: Performed By: #### C BC #### Laboratory [address] [place] [address] [address] Ekaterina Alcocer WBC 8.9 103/ul Normal 4.0-11.0 The Comment on above: Performed By: #### C BC #### Laboratory [address] [place] [address] [address] Ekaterina Alcocer FREE THYROXINE INDEX T7on FTI 2.02 Normal 1.30-4.50 The Comment on above: Performed By: #### T 7, TSH, LIPID, URIC, CMP #### Laboratory [address] [place] [address] [address] Ekaterina Alcocer T3U 32.0 % Critically low 33.0-40.0 [facility] Comment on above: Performed By: #### T 7, TSH, LIPID, URIC, CMP #### Laboratory [address] [place] [address] [address] Ekaterina Alcocer T4 [Mass/Vol] 6.30 ug/dL Normal 4.50-12.10 [facility] Comment on above: Performed By: #### T 7, TSH, LIPID, URIC, CMP #### Laboratory [address] [place] [address] [address] Ekaterina Alcocer GLYCOHEMOGLOBIN A1Con 2021 ADA RECOMMENDATION SEE BELOW Normal [facility] Comment on above: Result Comment: ADA RECOMMENDED LIMIT 4.0 - 6.0 ADA THERAPEUTIC TARGET < 7.0 ACTION SUGGESTED > 7.0 Performed By: #### A 1C #### Laboratory [address] [place] [address] Dr. Ekaterina lAcocer Glucose [Mass/Vol] 134 mg/dL Normal [facility] Comment on above: Performed By: #### A 1C #### Laboratory [address] [place] [address] Dr. Ekaterina Alcocer HbA1c (Bld) [Mass fraction] 6.3 % Critically high 4.5-6.2 [facility] Comment on above: Performed By: #### A 1C #### Laboratory [address] [place] [address] Dr. Ekaterina Alcocer LIPID PROFILEon 06-28-2022 CHOL-HDL RATIO NORM SEE BELOW Normal [facility] Comment on above: Result Comment: 3.3 - 4.4 LOW RISK 4.4 - 7.1 AVERAGE RISK 7.1 - 11.0 MODERATE RISK >11.0 HIGH RISK Performed By: #### T 7, TSH, LIPID, URIC, CMP #### Laboratory [address] [place] [address] Dr. Ekaterina Alcocer Cholesterol [Mass/Vol] 142 mg/dL Normal <=200 Th [facility] Comment on above: Performed By: #### T 7, TSH, LIPID, URIC, CMP #### Laboratory [address] [place] [address] Dr. Ekaterina Alcocer Cholesterol in HDL [Mass/Vol] 43 mg/dL Normal 40-60 [facility] Comment on above: Performed By: #### T 7, TSH, LIPID, URIC, CMP #### Laboratory [address] [place] [address] Dr. Ekaterina Alcocer Cholesterol in LDL [Mass/Vol] 78.8 mg/dL Normal [facility] Comment on above: Performed By: #### T 7, TSH, LIPID, URIC, CMP #### Laboratory [address] [place] [address] [address] Ekaterina Alcocer Cholesterol.total/Choles terol in HDL [Mass ratio] 3.3 {ratio} Normal The Comment on above: Performed By: #### T 7, TSH, LIPID, URIC, CMP #### Laboratory [address] [place] [address] [address] Ekaterina Alcocer HDL NORMAL > or = 60 mg/dl - LOW CARDIOVASCULAR RISK <40 mg/dl - HIGH CARDIOVASCULAR RISK Normal [facility] Comment on above: Performed By: #### T 7, TSH, LIPID, URIC, CMP #### Laboratory [address] [place] [address] [address] Ekaterina Alcocer LDL CALC NORMAL SEE BELOW Normal [facility] Comment on above: Result Comment: <100 mg/dl OPTIMAL 100 - 129 mg/dl NEAR OR ABOVE OPTIMAL 130 - 159 mg/dl BORDERLINE HIGH 160 - 189 mg/dl HIGH >190 mg/dl VERY HIGH Performed By: #### T 7, TSH, LIPID, URIC, CMP #### Laboratory [address] [place] [address] [address] Ekaterina Alcocer Triglyceride [Mass/Vol] 101 mg/dL Normal <=150 [facility] Comment on above: Performed By: #### T 7, TSH, LIPID, URIC, CMP #### [address] [place] [address] [address] Ekaterina Alcocer VLDL CALC 20.2 mg/dL Normal [facility] Comment on above: Performed By: #### T 7, TSH, LIPID, URIC, CMP #### Laboratory [address] [place] [address] [address] Ekateirna Alcocer PROF 14(COMP METB)on 022 Albumin [Mass/Vol] 3.5 g/dL Normal 3.4-5.0 [facility] Comment on above: Performed By: #### T 7, TSH, LIPID, URIC, CMP #### Laboratory [address] [place] [address] [address] Ekaterina Alcocer Albumin/Globulin [Mass ratio] 0.9 {ratio} Normal [facility] Comment on above: Performed By: #### T 7, TSH, LIPID, URIC, CMP #### Laboratory [address] [address] [address] Ekaterina Alcocer ALP [Catalytic activity/Vol] 82 U/L Normal 46-116 [facility] Comment on above: Performed By: #### T 7, TSH, LIPID, URIC, CMP #### Laboratory [address] [address] [address] Ekaterina Alcocer ALT [Catalytic activity/Vol] 26 U/L Normal 16-63 [facility] Comment on above: Performed By: #### T 7, TSH, LIPID, URIC, CMP #### Laboratory [address] [place] [address] Dr. Ekaterina Alcocer Anion gap [Moles/Vol] 8.4 mmol/L Normal [facility] Comment on above: Performed By: #### T 7, TSH, LIPID, URIC, CMP #### Laboratory [address] [place] [address] Dr. Ekaterina Alcocer AST [Catalytic activity/Vol] 17 U/L Normal 15-37 [facility] Comment on above: Performed By: #### T 7, TSH, LIPID, URIC, CMP #### Laboratory [address] [place] [address] Dr. Ekaterina Alcocer Bilirubin [Mass/Vol] 0.6 mg/dL Normal 0.2-1.0 [facility] Comment on above: Performed By: #### T 7, TSH, LIPID, URIC, CMP #### Laboratory [address] [address] [address] Ekaterina Alcocer Calcium [Mass/Vol] 8.8 mg/dL Normal 8.5-10.1 [facility] Comment on above: Performed By: #### T 7, TSH, LIPID, URIC, CMP #### Laboratory [address] [place] [address] Dr. Ekaterina Alcocer Chloride [Moles/Vol] 105 mmol/L Normal 98-107 [facility] Comment on above: Performed By: #### T 7, TSH, LIPID, URIC, CMP #### Laboratory [address] [place] [address] Dr. Ekaterina Alcocer CO2 [Moles/Vol] 32.6 mmol/L Critically high 21.0-32.0 [facility] Comment on above: Performed By: #### T 7, TSH, LIPID, URIC, CMP #### Laboratory [address] [address] [address] Ekaterina Alcocer Creatinine [Mass/Vol] 1.48 mg/dL Critically high 0.70-1.30 [facility] Comment on above: Performed By: #### T 7, TSH, LIPID, URIC, CMP #### Laboratory [address] [place] [address] Dr. Ekaterina Alcocer EGFR-AF SAO TOMEAN 55 mL/min/1.73m2 Critically low >=60 [facility] Comment on above: Performed By: #### T 7, TSH, LIPID, URIC, CMP #### Laboratory [address] [place] [address] Dr. Ekaterina Alcocer EGFR-NON AF SAO TOMEAN 45 mL/min/1.73m2 Critically low >=60 [facility] Comment on above: Performed By: #### T 7, TSH, LIPID, URIC, CMP #### Laboratory [address] [place] [address] Dr. Ekaterina Alcocer Globulin (S) [Mass/Vol] 3.9 g/dL Normal [facility] Comment on above: Performed By: #### T 7, TSH, LIPID, URIC, CMP #### Laboratory [address] [place] [address] Dr. Ekaterina Alcocer Glucose [Mass/Vol] 118 mg/dL Critically high 74-106 [facility] Comment on above: Performed By: #### T 7, TSH, LIPID, URIC, CMP #### Laboratory [address] [place] [address] Dr. Ekaterina Alcocer Potassium [Moles/Vol] 5.0 mmol/L Normal 3.5-5.1 [facility] Comment on above: Performed By: #### T 7, TSH, LIPID, URIC, CMP #### Laboratory [address] [place] [address] Dr. Ekaterina Alcocer Protein [Mass/Vol] 7.4 g/dL Normal 6.4-8.2 [facility] Comment on above: Performed By: #### T 7, TSH, LIPID, URIC, CMP #### Laboratory [address] [place] [address] Dr. Ekaterina Alcocer Sodium [Moles/Vol] 141 mmol/L Normal 136-145 [facility] Comment on above: Performed By: #### T 7, TSH, LIPID, URIC, CMP #### Laboratory [address] [place] [address] Dr. Ekaterina Alcocer Urea nitrogen [Mass/Vol] 23.0 mg/dL Critically high 7.0-18 .0 [facility] Comment on above: Performed By: #### T 7, TSH, LIPID, URIC, CMP #### Laboratory [address] [place] [address] Dr. Ekaterina Alcocer Urea nitrogen/Creatinine [Mass ratio] 15.5 mg/mg Normal The Comment on above: Performed By: #### T 7, TSH, LIPID, URIC, CMP #### Laboratory [address] [place] [address] Dr. Ekaterina Alcocer TSHon 06-28-2022 TSH 3.329 uIU/mL Normal 0.358-3.740 [facility] Comment on above: Performed By: #### T 7, TSH, LIPID, URIC, CMP #### Laboratory [address] [place] [address] Dr. Ekaterina Alcocer URIC ACID SERUMon 06-28-2022 Urate [Mass/Vol] 8.1 mg/dL Critically high 3.5-7.2 The Comment on above: Performed By: #### T 7, TSH, LIPID, URIC, CMP #### Laboratory [address] [place] [address] Dr. Eakterina Alcocer US CAROTID ART BILon 022 US [...] BRIANNA SMITH Date: 2022-06-28 17:35 Normal The VITAMIN D 25 OHon 06-28-2022 VIT D 25-OH 53.8 ng/mL Normal The Comment on above: Performed By: #### Jocelyn SANTIAGOAD, PSASC #### [id number] [address]DrShayne Alcocer VIT D RANGES SEE BELOW Normal [facility] Comment on above: Result Comment: <20 ng/mL Vit D deficient 20 - <30 ng/mL Vit D insufficient 30 - 100 ng/mL Vit D sufficient >100 ng/mL Potential Toxicity Performed By: #### V GIOVANNI, PSASC #### [id number] [id number]. Ekaterina Alcocer Echocardiogramon 04-15-[address], [address], [place] [address] TRANSTHORACIC ECHOCARDIOGRAM REPORT Patient Name: MELO CUEVAS Reading Physician: [id number] Fabián Tony MD Study Date: 04/15/2022 Referring Physician: ALEX BECERRA MRN/PID: [id number] PCP: Lisa Mims Accession/Order#: [id number] Department Location: [facility] Date of : 1935 Fellow: Gender: M Nurse: Admit Date: Manager Personnel Selection: Daniela Veras RDCS, RVT Height: 187.96 cm [...] 3 TAVR-04/2016 Procedure/CPT: Echo Complete w Full Doppler-[id number] Study Detail: The following Echo studies were [...] VTI: 22.60 (more content not included)... Normal [facility] Office Visit (Cardiology)on 04-13-2022 Follow-up visit Diagnoses/Problems [...] Status:Hold For - Scheduling,Retrospec tive Authorization; Requested for:[id number]; SocHx: Former smoker Tobacco Use Screening; Status:Complete; Done: [id number] Patient Instructions Please bring all medicines, vitamins, [...] Recorded: 13Apr2022 10:47AM Heart Rate72, L Radial Hkuwhhhr884, LUE, Sitting Gjwpinkdx38, LUE, Sitting Height6 ft 2 in Mnqmlw892 lb BMI Trvgzqiwhx10.65 kg/m2 BSA Calculated2.14 Tobacco Useb) No Falls Screening (Age 18+)a) No falls within the last year Physical Exam Constitutio (more content not included)... Normal [employer] Tobacco Screening.on 022 Fall risk assessment a) No falls within the last year -[facility] y 250 DO Work Phone: Tobacco use status [facility] b) No M -[facility] y 250 DO Work Phone: Tobacco Screening.on 022 Adult depression screening assessment No [facility] y 250 DO Work Phone: Fall risk assessment a) No falls within the last year [facility] y 250 DO Work Phone: Heart Rate Bounding [facility] Tata sAkew DO Work Phone: Tobacco use status [facility] b) No M [facility] y 250 DO Work Phone: Echocardiogramon 09-29-[address] [facility] [address] [place] [address], [place] [address] TRANSTHORACIC ECHOCARDIOGRAM REPORT Patient Name: MELO CUEVAS Reading Physician: [id number] Fabián Tony MD Study Date: 09/29/2021 Referring Physician: [id number] BECERRA MRN/PID: [id number] PCP: Lisa Mims Accession/Order#: [id number] Department Location: Date of : 1935 Fellow: Gender: M Nurse: Admit Date: Manager Personnel Selection: Daniela Veras [facility], T Height: 187.96 cm CC Report to: Weight: 88.45 kg Study Type: Echocardiogram BSA: 2.15 m2 Blood Pressure: 116 /58 mmHg Diagnosis/ICD: I35.0-Nonrheumatic aortic (valve) stenosis; 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 Normal [facility] PROGRESSon 12-06-2017 [facility] NOTES Normal [facility] BRIEF OP NOTon 11-21-2017 [facility] HIM CAC NOTES Normal [facility] HISTORY AND PHYSICALon 11-21 [facility] NOTES Normal [facility] OR NURSINGon 11-21-2017 [facility] CAC NOTES Normal [facility] PROGRESSon 11-01-2017 [facility] NOTES Normal [facility] Vital Signs Date Time Vital Sign Value Performing Clinician Facility 08-07-2024 09:28-0500 Body height 188 cm Alex Becerra DO Work Phone: [facility] 08-07-2024 09:28-0500 Body mass index (BMI) [Ratio] 25.42 kg/m2 Alex Becerra DO Work Phone: [facility] 08-07-2024 09:28-0500 Body weight 89.81 kg Alex Becerra DO Work Phone: [facility] 08-07-2024 09:28-0500 Diastolic blood pressure 60 mm[Hg] Alex Becerra DO Work Phone: [facility] 08-07-2024 09:28-0500 Heart rate 72 /min Alex Becerra DO Work Phone: [facility] 08-07-2024 09:28-0500 Systolic blood pressure 126 mm[Hg] Alex Becerra DO Work Phone: [facility] 07-30-2024 10:20-0500 Body height 182.9 cm Brianna Martinez DO Work Phone: [facility] 07-30-2024 10:20-0500 Body mass index (BMI) [Ratio] 26.45 kg/m2 Brianna Martinez DO Work Phone: [facility] 07-30-2024 10:20-0500 Body weight 88.45 kg Brianna Martinez DO Work Phone: [facility] 07-24-2024 09:38-0500 Body height [address] 07-24-2024 09:38-0500 Body mass index (BMI) [Ratio] 25.42 kg/m2 [address] 07-24-2024 09:38-0500 Body weight 89.[address] 07-24-2024 09:38-0500 Diastolic blood pressure 62 mm[Hg] [address] 07-24-2024 09:38-0500 Systolic blood pressure 124 mm[Hg] [address] 07-12-2024 09:59-0500 Body height 182.9 cm Brianna Pocos DO Work Phone: [facility] 07-12-2024 09:59-0500 Body mass index (BMI) [Ratio] 26.45 kg/m2 Brianna Pocos DO Work Phone: [facility] 07-12-2024 09:59-0500 Body weight 88.45 kg Brianna Pocos DO Work Phone: [facility] 06-27-2024 13:46-0500 Body height 182.9 cm Brianna Pocos DO Work Phone: [facility] 06-27-2024 13:46-0500 Body mass index (BMI) [Ratio] 26.45 kg/m2 Brianna Pocos DO Work Phone: [facility] 06-27-2024 13:46-0500 Body weight 88.45 kg Brianna Pocos DO Work Phone: [facility] 01-31-2024 13:10-0400 Blood Pressure Location Guy NILL [facility] 01-31-2024 13:10-0400 Diastolic blood pressure 76 mm[Hg] Guy NILL [facility] 01-31-2024 13:10-0400 Heart rate 72 /min Guy NILL [facility] 01-31-2024 13:10-0400 Respiratory rate 16 /min Guy NILL [facility] 01-31-2024 13:10-0400 Systolic blood pressure 116 mm[Hg] Guy BRIDGETTE [facility] 10-26-2023 09:30-0400 Body height 188 cm Alex Becerra DO Work Phone: [facility] 10-26-2023 09:30-0400 Body mass index (BMI) [Ratio] 25.42 kg/m2 Alex Becerra DO Work Phone: [facility] 10-26-2023 09:30-0400 Body weight 89.81 kg Alex Becerra DO Work Phone: [facility] 10-26-2023 09:30-0400 Diastolic blood pressure 60 mm[Hg] Alex Becerra DO Work Phone: [facility] 10-26-2023 09:30-0400 Heart rate 60 /min Alex Becerra DO Work Phone: [facility] 10-26-2023 09:30-0400 Systolic blood pressure 118 mm[Hg] Alex Becerra DO Work Phone: [facility] 10-18-2023 09:41-0400 Body height [address] 10-18-2023 09:41-0400 Body mass index (BMI) [Ratio] 25.42 kg/m2 [address] 10-18-2023 09:41-0400 Body weight 89.[address] 10-18-2023 09:41-0400 Diastolic blood pressure 72 mm[Hg] [address] 10-18-2023 09:41-0400 Systolic blood pressure 134 mm[Hg] [address] 08-17-2023 11:27-0500 Body height 188 cm Dasia Bledsoe APRN-[employer] SALES [employer]ENT Work Phone: [facility] 08-17-2023 11:27-0500 Body mass index (BMI) [Ratio] 25.42 kg/m2 Dasia Bledsoe APRN-[employer] SAL[employer] Work Phone: [facility] 08-17-2023 11:27-0500 Body weight 89.81 kg Dasia Bledsoe CLINICAL PHLEBOTOMIST-[employer] SALES [employer]ENT Work Phone: [facility] 08-17-2023 11:27-0500 Diastolic blood pressure 64 mm[Hg] Dasia Bledsoe CLINICAL PHLEBOTOMIST-[employer] SALES [employer]ENT Work Phone: [facility] 08-17-2023 11:27-0500 Heart rate 60 /min Dasia Bledsoe CLINICAL PHLEBOTOMIST-[employer] SALES [employer]ENT Work Phone: [facility] 08-17-2023 11:27-0500 Systolic blood pressure 138 mm[Hg] Dasia Bledsoe CLINICAL PHLEBOTOMIST-[employer] SALES AGENT Work Phone: [facility] 10-14-2022 10:03-0400 Body height 187.96 cm Lisa Kameron [address] Work Phone: [facility] DO Work Phone: 10-14-2022 10:03-0400 Body mass index (BMI) [Ratio] 25.29 kg/m2 Lisa Kameron [address] Work Phone: [facility] 250 DO Work Phone: 10-14-2022 10:03-0400 Body surface area Derived from formula 2.16 m2 Lisa Kameron [place] Work Phone: [facility] 250 DO Work Phone: 10-14-2022 10:03-0400 Body weight 89.36 kg Lisa M [place] Work Phone: [facility] 250 DO Work Phone: 10-14-2022 10:03-0400 Diastolic blood pressure 52 mm[Hg] Lisa M Hoy Work Phone: [facility] 250 DO Work Phone: 10-14-2022 10:03-0400 Heart rate 64 /min Lisa M Hoy Work Phone: [facility] 250 DO Work Phone: 10-14-2022 10:03-0400 Systolic blood pressure 112 mm[Hg] Lisa M Hoy Work Phone: [facility] 250 DO Work Phone: 04-15-2022 09:45-0400 70 1 Lisa M Hoy Work Phone: [facility] [address] [place] Work Phone: Comment on above: [id number] 04-13-2022 10:47-0400 Body height 187.96 cm Lisa M [address] Work Phone: [facility] 250 DO Work Phone: 04-13-2022 10:47-0400 Body mass index (BMI) [Ratio] 24.65 kg/m2 Lisa M [address] Work Phone: [facility] 250 DO Work Phone: 04-13-2022 10:47-0400 Body surface area Derived from formula 2.14 m2 Lisa M [address] Work Phone: [facility] 250 DO Work Phone: 04-13-2022 10:47-0400 Body weight 87.09 kg Lisa M Hoy Work Phone: [facility] DO Work Phone: 04-13-2022 10:47-0400 Diastolic blood pressure 74 mm[Hg] Lisa M Hoy Work Phone: [facility] 250 DO Work Phone: 04-13-2022 10:47-0400 Heart rate 72 /min Lisa M Hoy Work Phone: [facility] DO Work Phone: 04-13-2022 10:47-0400 Systolic blood pressure 122 mm[Hg] Lisa M Hoy Work Phone: [facility] DO Work Phone: 10-07-2021 10:50-0400 Body height 185.42 cm Lisa Kameron Hoy Work Phone: [facility] 250 DO Work Phone: 10-07-2021 10:50-0400 Body mass index (BMI) [Ratio] 26.25 kg/m2 Lisa Kmaeron Hoy Work Phone: [facility] DO Work Phone: 10-07-2021 10:50-0400 Body surface area Derived from formula 2.15 m2 Lisa Kameron Hoy Work Phone: [facility] DO Work Phone: 10-07-2021 10:50-0400 Body weight 90.27 kg Lisa Melo [address] Work Phone: [facility] DO Work Phone: 10-07-2021 10:50-0400 Diastolic blood pressure 60 mm[Hg] Lisa Kameron Hoy Work Phone: [facility] 250 DO Work Phone: 10-07-2021 10:50-0400 Heart rate 61 /min Lisa Kameron Hoy Work Phone: [facility] DO Work Phone: 10-07-2021 10:50-0400 Systolic blood pressure 136 mm[Hg] Lisa Kameron Hoy Work Phone: [facility] DO Work Phone: 09-29-2021 10:45-0400 70 1 Lisa M Hoy Work Phone: [facility] [place] Work Phone: Comment on above: [id number] Encounters Encounter Date Encounter Type Care Provider Facility Start: 08-07-2024 End: 08-07-2024 Telephone encounter Shayy Trotter PT Work Phone: [facility] Comment on above: re: PT and fu w/ Dr. Martinez Start: 08-07-2024 End: 08-07-2024 Office outpatient visit 25 minutes Alex Yorkdon DO Work Phone: [facility] Comment on above: Mitral valve stenosi s, unspecified etiology; Mitral valve insufficiency, unspecified etiology; Aortic valve stenosis, etiology of cardiac valve disease unspecified; S/P TAVR (transcatheter aortic valve replacement); Paroxysmal atrial fibrillation (Multi); Status post CVA; longterm current use of anticoagulant therapy; SSS (sick sinus syndrome) (Multi); Pacemaker; Primary hypertension; Mixed hyperlipidemia; BMI 25.0-25.9,adult; Former smoker; 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 Start: 08-07-2024 End: 08-07-2024 ambulatory [facility] Start: 07-30-2024 End: 07-30-2024 Bamboo flowsheet Brianna Martinez DO Work Phone: [facility] Start: 07-30-2024 End: 07-30-2024 Bamboo flowsheet Brianna Main Pocos DO Work Phone: [facility] Start: 07-30-2024 End: 07-30-2024 Patient encounter procedure Brianna Main Pocflor DO Work Phone: [facility] Comment on above: Strain of right shou lder, subsequent encounter (Primary Dx); Arthritis of right shoulder region; long term (current) use of anticoagulants Start: 07-30-2024 End: 07-30-2024 ambulatory BRIANNA DOMINGOOS Not Available Start: 07-27-2024 End: 07-27-2024 Bamboo flowsheet Jim Murillo [facility] Start: 07-27-2024 End: 07-27-2024 Bamboo flowsheet Jim Murillo [facility] Start: 07-27-2024 End: 07-27-2024 ambulatory Jim Murillo [facility] Comment on above: Acute pain of right shoulder (Primary Dx); Arthritis of right shoulder region Start: 07-24-2024 End: 07-24-2024 Bamboo flowsheet Jim Murillo [facility] Start: 07-24-2024 End: 07-24-2024 Bamboo flowsheet Jim Murillo [facility] Start: 07-24-2024 End: 07-24-2024 Subsequent hospital visit by physician Janet Wu Echo/Vasc Room 2 [facility] Comment on above: Mitral valve stenosi s, unspecified etiology Start: 07-24-2024 End: 07-24-2024 ambulatory Jim Murillo [facility] Comment on above: Acute [...] 07-12-2024 End: 07-12-2024 Patient encounter procedure Brianna Martinez DO Work Phone: [facility] Comment on above: Right hip pain (Prim jarad Dx); Right knee pain, unspecified chronicity; Contusion of right knee, initial encounter; Primary osteoarthritis of right knee; Abrasion of left lower leg, initial encounter Start: 07-12-2024 End: 07-12-2024 ambulatory BRIANNA Main POCOS Not Available Start: 07-12-2024 End: 07-12-2024 ambulatory BRIANNA Main POCOS Not Available Start: 07-06-2024 End: 07-06-2024 Bamboo flowsheet Mary Leon [facility] Start: 07-06-2024 End: 07-06-2024 Bamboo flowsheet Mary Leon [facility] Start: 07-06-2024 End: 07-06-2024 ambulatory Mary Leon [facility] Comment on above: Acute [...] Start: 07-03-2024 End: 07-03-2024 ambulatory Alex Cerda Facility:[facility] Start: 06-27-2024 End: 06-27-2024 Patient encounter procedure Brianna Main Pocos DO Work Phone: [facility] Comment on above: Right shoulder pain, unspecified chronicity; Right shoulder strain, initial encounter; Arthritis of shoulder region, right Start: 06-27-2024 End: 06-27-2024 ambulatory ROYCE POCOS Not Available Start: 06-27-2024 End: 06-27-2024 ambulatory ROYCE POCOS Not Available Start: 04-03-2024 End: 04-03-2024 Patient encounter procedure MD Lisa Mims Work Phone: [facility] Start: 04-03-2024 End: 04-03-2024 ambulatory MD Lisa Mims Work Phone: [facility] Work Phone: Start: 03-21-2024 End: 03-21-2024 ambulatory Guy ANGELES Facility:[facility] Start: 03-21-2024 End: 03-21-2024 Patient encounter procedure Guy Potter NILL [facility] Start: 03-07-2024 End: 03-07-2024 ambulatory MD Lisa Mims Work Phone: [facility] Work Phone: Start: 03-07-2024 End: 03-07-2024 Departed Referred MD Lisa Mims Work Phone: [facility] Start: 03-07-2024 End: 03-07-2024 ambulatory Guy LARIOSL Facility:CD:[id number] Start: 01-31-2024 End: 01-31-2024 ambulatory Lisa Mims Facility: [facility] Start: 01-31-2024 End: 01-31-2024 Patient encounter procedure Guy Potter BRIDGETTE [facility] Start: 01-03-2024 End: 01-03-2024 Patient encounter procedure MD Lisa Mims Work Phone: [facility] Start: 01-03-2024 End: 01-03-2024 ambulatory MD Lisa Mims Work Phone: [facility] Work Phone: Start: 12-26-2023 ambulatory Guy ANGELES Facility:[facility] Start: 10-26-2023 End: 10-26-2023 Office outpatient visit 25 minutes Alex Becerra DO Work Phone: [facility] Comment on above: Paroxysmal atrial fi brillation (CMS/HCC); long term current use of anticoagulant therapy; Fatigue, unspecified type; SSS (sick sinus syndrome) (CMS/HCC); Pacemaker; Mitral valve stenosis, unspecified etiology; Primary hypertension; Mixed hyperlipidemia; BMI 25.0-25.9,adult; Former smoker Start: 10-26-2023 End: 10-26-2023 ambulatory [facility] Start: 10-18-2023 End: 10-18-2023 Subsequent hospital visit by physician Janet Wu Echo/Vasc Room 2 [facility] Comment on above: Aortic valve stenosi s, etiology of cardiac valve disease unspecified Start: 10-18-2023 End: 10-18-2023 ambulatory LISA BYERS Curtis [facility] Start: 10-04-2023 End: 10-04-2023 Patient encounter procedure MD Lisa Mims Work Phone: [facility] Start: 10-04-2023 End: 10-04-2023 ambulatory MD Lisa Mims Work Phone: [facility] Work Phone: Start: 08-17-2023 End: 08-17-2023 Office outpatient visit 25 minutes Dasia Bledsoe APRN-[employer]ENT Work Phone: [facility] Comment on above: S/P TAVR (transcathe ter aortic valve replacement) (Primary Dx); Paroxysmal atrial fibrillation (CMS/HCC); long term current use of anticoagulant therapy; Mitral valve stenosis, unspecified etiology; Mixed hyperlipidemia; Primary hypertension; Pacemaker; BMI 25.0-25.9,adult Start: 07-04-2023 End: 07-04-2023 ambulatory MD Lisa Mims Work Phone: [facility] Work Phone: Start: 07-04-2023 End: 07-04-2023 Patient encounter procedure MD Lisa Mims Work Phone: [facility] Start: 04-04-2023 End: 04-04-2023 Patient encounter procedure MD Lisa Mims Work Phone: [facility] Start: 04-04-2023 End: 04-04-2023 ambulatory MD Lias Mims Work Phone: [facility] Work Phone: Start: 01-03-2023 End: 01-03-2023 ambulatory MD Lisa Mims Work Phone: [facility] Work Phone: Start: 01-03-2023 End: 01-03-2023 Patient encounter procedure MD Lisa Mims Work Phone: [facility] Start: 01-03-[address] Lisa Mims Facility:[id number] Start: 10-14-2022 Office outpatient vi sit 15 minutes Lisa Mims Work Phone: [facility] DO Work Phone: Start: 10-14-[address] Lisa Mims Facility: Start: 10-04-2022 End: 10-04-2022 Patient encounter procedure MD Lisa Mims Work Phone: [facility] Start: 10-04-2022 End: 10-04-2022 ambulatory MD Lisa Mims Work Phone: [facility] Work Phone: Start: 08-30-2022 End: 08-30-[address] LISA MIMS Facility:H1 Start: 07-05-[address] Lisa Mims Facility:[id number] Start: 07-05-2022 End: 07-05-2022 ambulatory MD Lisa Mims Work Phone: [facility] Work Phone: Start: 07-05-2022 End: 07-05-2022 Patient encounter procedure MD Lisa Mims Work Phone: [facility]-Pac[facility] Check Start: 06-28-2022 End: 06-29-[address] LISA MIMS Facility:H1 Start: 04-21-2022 Chart Update Lisa Mims Work Phone: [facility] [address] DO Work Phone: Start: 04-15-2022 ECHO, Provider: MARIELLE EVANS ULTRASOUND 01,[id number], Status: Pen, Time: 9:45 AM Lisa Kameron Hoy Work Phone: [facility] [address] DO Work Phone: Start: 04-15-2022 Patient encounter procedure Lisa M Hoy Work Phone: [facility] [address] [place] Work Phone: Start: 04-15-[address] Alex Berman ility:[id number] Start: 04-13-2022 Office outpatient vi sit 25 minutes Lisa M Hoy Work Phone: [facility] [address] DO Work Phone: Start: 04-02-2022 End: 04-02-2022 Patient encounter procedure MD Lisa Mims Work Phone: [facility] Check Start: 01-01-2022 End: 01-01-2022 Patient encounter procedure MD Lisa Mims Work Phone: [facility] Start: 10-07-2021 Office outpatient vi sit 25 minutes Lisa M Hoy Work Phone: [facility] [address] DO Work Phone: Start: 09-29-2021 Patient encounter procedure Lisa M Hoy Work Phone: [facility] [address] [place] Work Phone: Start: 09-29-[address] Alex Berman ility:[id number] Start: 05-10-2018 Patient encounter procedure PROVIDER UNKNOWN Facility:[id number] Start: 12-06-2017 Ambulatory [facility] Start: 11-21-[address] [facility] Start: 11-21-2017 End: 11-21-2017 Ambulatory [facility] Start: 11-01-2017 Ambulatory [facility] Procedures Date Procedure Procedure Detail Performing Clinician [...] Work Phone: Start: 03-07-2024 Excision of cyst Michae rosina ANGELES Comment on above: mid back Start: 10-18-2023 TRANSTHORACIC ECHO ( TTE) COMPLETE LISA MIMS Start: 10-18-2023 Echo tthrc r-t 2d w/wom-mode compl spec&colr d Alex Yorkdon DO Work Phone: Start: 06-28-[address] MELO MIMS Comment on above: Performed By: #### V ITAD, PSASC #### [id number] [place], [place] [address]Dr. Ekaterina Alcocer Start: 04-15-2022 Echocardiography Melo Mims Work Phone: Start: 09-29-2021 Echocardiography Melo bonilla Kameron Mims Work Phone: Start: 10-21-2016 Cataract Extraction with IOL placement / iStent - OS. Guy ANGELES Start: 10-05-2016 Cataract extraction and insertion of intraocular lens Guy ANGELES Comment on above: right Aortic valve repair Lisa Mims Work Phone: Comment on above: 20Apr2016; Cardiac pacemaker, nadiya dumas (physical object) Guy ANGELES Cataract surgery Lisa fish Work Phone: Excision of lesion of skin Nadiya Mims Work Phone: Comment on above: Nose; [...] Activity Detail Author Start: 07-24-2025 Echocardiography Echocardiogram [facility] Start: 05-09-2025 DTaP/Tdap/Td Vaccines (2 - Td or Tdap) DTaP/Tdap/Td Vaccines (2 - Td or Tdap) [facility] Start: 08-27-2024 End: 10-25-2025 US Heart Transthoracic Transthoracic Echo Complete Echocardiography Routine Mitral valve stenosis, unspecified etiology Expected: 08/27/2024 (Approximate), Expires: 10/25/2025 [facility] Service Area Work Phone: Comment on above: Expected: 08/27/2024 (Approximate), Expi res: 10/25/2025 Start: 08-07-2024 End: 08-07-2025 Alanine aminotransferase [Enzymatic activity/volume] in Serum or Plasma by With P-5'-P Alanine Aminotransferase Lab Routine Mixed hyperlipidemia Expected: 08/07/2024 (Approximate), Expires: 08/07/2025 [facility] Work Phone: Comment on above: Expected: 08/07/2024 (Approximate), Expi res: 08/07/2025 Start: 08-07-2024 End: 08-07-2025 Aspartate aminotransferase [Enzymatic activity/volume] in Serum or Plasma by With P-5'-P Aspartate Aminotransferase Lab Routine Mixed hyperlipidemia Expected: 08/07/2024 (Approximate), Expires: 08/07/2025 [facility] Work Phone: Comment on above: Expected: 08/07/2024 (Approximate), Expi res: 08/07/2025 Start: 08-07-2024 End: 08-07-2025 Basic metabolic 2000 panel - Serum or Plasma Basic Metabolic Panel Lab Routine Primary hypertension Expected: 08/07/2024 (Approximate), Expires: 08/07/2025 [facility] Work Phone: Comment on above: Expected: 08/07/2024 (Approximate), Expi res: 08/07/2025 Start: 08-07-2024 End: 08-07-2025 Lipid 1996 panel - Serum or Plasma Lipid Panel Lab Routine Mixed hyperlipidemia Expected: 08/07/2024 (Approximate), Expires: 08/07/2025 [facility] Work Phone: Comment on above: Expected: 08/07/2024 (Approximate), Expi res: 08/07/2025 Start: 08-07-2024 End: 08-07-2025 Natriuretic peptide B [Mass/volume] in Blood B-Type Natriuretic Peptide Lab Routine Mitral valve stenosis, unspecified etiology Mitral valve insufficiency, unspecified etiology Aortic valve stenosis, etiology of cardiac valve disease unspecified S/P TAVR (transcatheter aortic valve replacement) Paroxysmal atrial fibrillation (Multi) Status post CVA longterm current use of anticoagulant therapy SSS (sick sinus syndrome) (Multi) Primary hypertension Mixed hyperlipidemia BMI 25.0-25.9,adult Former smoker 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 (Multi) Expected: 08/07/2024 (Approximate), Expires: 08/07/2025 [facility] Work Phone: Comment on above: Expected: 08/07/2024 (Approximate), Expi res: 08/07/2025 Start: 08-07-2024 End: 08-07-2026 Heart Transthoracic Transthoracic Echo Complete Echocardiography Routine Mitral valve stenosis, unspecified etiology Mitral valve insufficiency, unspecified etiology Aortic valve stenosis, etiology of cardiac valve disease unspecified S/P TAVR (transcatheter aortic valve replacement) Expected: 08/07/2024 (Approximate), Expires: 08/07/2026 [facility] Service Area Work Phone: Comment on above: Expected: 08/07/2024 (Approximate), Expi res: 08/07/2026 Start: 08-07-2024 End: 08-07-2024 Patient encounter procedure 08/07/2024 9:30 AM EST Office Visit [facility] [address] [facility] [place] [place] [address] Alex Becerra DO [address] [facility] [address] [place] [address] [facility] Start: 08-02-2024 End: 08-02-2024 ambulatory 08/02/2024 10:00 AM EST Treatment [facility] [address] [place] [address] Jim Murillo TORCH BURNER [facility] Start: 07-31-2024 End: 07-31-2024 ambulatory 07/31/2024 1:00 PM EST Treatment [facility] [address] [place] [address] Jim Murillo TORCH BURNER [facility] Start: 07-30-2024 End: 07-30-2024 Patient encounter procedure [facility] Comment on above: Arrived Start: 07-27-2024 End: 07-27-2024 ambulatory [facility] Comment on above: Arrived Start: 07-24-2024 End: 07-24-2024 ambulatory [facility] Comment on above: Arrived Start: 07-24-2024 End: 07-24-2024 Patient encounter procedure 07/24/2024 9:45 AM EST Appointment [facility] [address] [facility] [address] [place] [address] [facility] Start: 07-20-2024 End: 07-20-2024 ambulatory [facility] Comment on above: Acute pain of right shoulder (Primary Dx ); Arthritis of right shoulder region Start: 07-17-2024 End: 07-17-2024 ambulatory 07/17/2024 10:00 AM EST Treatment [facility] [address] [facility] [address] [place] [address] Shayy Trotter, PT [address] [facility] [address] [place] [address] [facility] Start: 07-12-2024 End: 07-12-2024 ambulatory 07/12/2024 3:30 PM EST Treatment [facility] [address] [facility] [address] [place] [address] Mary Leon, TORCH BURNER [facility] Start: 07-10-2024 End: 07-10-2024 ambulatory 07/10/2024 1:00 PM EST Treatment [facility] [address] [facility] [address] [place] [address] Jim Murillo, TORCH BURNER [facility] Start: 07-06-2024 End: 07-06-2024 ambulatory [facility] Comment on above: Acute pain of right shoulder (Primary Dx ); Arthritis of right shoulder region Start: 07-04-2024 End: 07-04-2024 ambulatory [facility] Comment on above: Arrived Start: 03-18-2024 COVID-19 Vaccine ( season) COVID-19 Vaccine ( season) [facility] Start: 03-18-2024 Influenza vaccination [facility] Start: 10-26-2023 FUV, Provider: Alex Becerra, Status: Pen, Time: 9:30 AM FUV, Provider: Alex Becerra, Status: Pen, Time: 9:30 AM [facility] Work Phone: Start: 10-26-2023 End: 10-26-2023 Patient encounter procedure 10/26/2023 9:30 AM EDT Office Visit [facility] [address] [facility] [address] [place] [address] Alex Becerra S, DO [address] [facility] [place] [place] [address] [facility] Start: 10-18-2023 ECHO, Provider: [facility] ULTRASOUND 01,[id number], Status: Pen, Time: 9:45 AM ECHO, Provider: [facility] ULTRASOUND 01,[id number], Status: Pen, Time: 9:45 AM [facility] Work Phone: Start: 10-18-2023 End: 10-18-2023 Patient encounter procedure 10/18/2023 9:45 AM EDT Appointment [address] [place] [address] [facility] Start: 03-18-2023 COVID-19 Vaccine ( season) COVID-19 Vaccine ( season) [facility] Start: 03-18-2023 Influenza vaccination Influenza Vaccine (#1) [facility] Start: 10-14-2022 FUV, Provider: Alex Becerra, Status: Pen, Time: 10:00 AM FUV, Provider: Alex Becerra, Status: Pen, Time: 10:00 AM [facility] Work Phone: Start: 04-13-2022 FUV, Provider: Alex Becerra, Status: Pen, Time: 10:40 AM FUV, Provider: Alex Becerra, Status: Pen, Time: 10:[address] [facility] [address] DO Work Phone: Start: 10-07-2021 FUV, Provider: Alex Becerra, Status: Pen, Time: 10:30 AM FUV, Provider: Alex Becerra, Status: Pen, Time: 10:30 AM [facility] [address] [place] Work Phone: Start: 06-28-2018 Pneumococcal Vaccine: 65+ Years (2 - PPSV23 or PCV20) Pneumococcal Vaccine: 65+ Years (2 - PPSV23 or PCV20) [facility] Start: 06-28-2018 Pneumococcal Vaccine: 65+ Years (2 of 2 - PPSV23 or PCV20) Pneumococcal Vaccine: 65+ Years (2 of 2 - PPSV23 or PCV20) [facility] Start: 07-13-2016 Pneumococcal vaccination Pneumococcal Vaccine (2 of 2 - PPSV23) [facility] Start: 02-17-2012 RSV High Risk: (Elderly (60+) or Population) (1 - 1-dose 75+ series) RSV High Risk: (Elderly (60+) or Population) (1 - 1-dose 75+ series) [facility] Start: 1987 Zoster Vaccines (1 of 2) Zoster Vaccines (1 of 2) [facility] Start: 1959 DTaP/Tdap/Td Vaccines (1 - Tdap) DTaP/Tdap/Td Vaccines (1 - Tdap) [facility] Start: 1955 Diabetes mellitus screening Diabetes Screening [facility] Start: 1937 Creatinine measurement Creatinine Level [facility] Start: 1937 Lipid panel Lipid Panel [facility] Start: 1937 Medicare Annual Wellness Visit Medicare Annual Wellness Visit (AWV) [facility] Start: 1937 Potassium measurement Potassium Level [facility] End: 10-18-2023 [facility] Service Area Work Phone: Comment on above: Once for 1 Occurrences starting 10/18/19 24 until 10/18/2023 XR Knee - right 3 Views XR knee 3 views right Imaging Routine Right knee pain, unspecified chronicity 07/12/2024 10:05 AM [employer] Work Phone: XR Shoulder - right 2 Views XR shoulder 2+ views right Imaging Routine Right shoulder pain, unspecified chronicity 06/27/2024 11:17 AM EST [facility] Work Phone: Immunizations Immunization Date Immunization Notes Care Provider Pricila smith 06-25-2021 Influenza, injectabl e, Madin [place] Canine Kidney, preservative free, quadrivalent Lisa M Hoy Work Phone: [facility] [address] [place] Work Phone: 06-25-2021 influenza virus vacc ine, unspecified formulation Brianna Martinez DO Work Phone: [employer] 10-07-2020 Pfizer-BioNTech COVI D-19 Vacc 30 MCG/0.3ML Intramuscular Suspension Lisa M Hoy Work Phone: [facility] 09-15-2020 Pfizer-BioNTech COVI D-19 Vacc 30 MCG/0.3ML Intramuscular Suspension Lisa M Hoy Work Phone: [facility] 04-29-2020 Seasonal trivalent influenza vaccine, adjuvanted, preservative free Lisa M Hoy Work Phone: [facility] [address] [place] Work Phone: 04-17-2020 influenza virus vacc ine, unspecified formulation Lisa M Hoy Work Phone: [facility] [address] [place] Work Phone: 04-25-2019 Seasonal trivalent influenza vaccine, adjuvanted, preservative free Lisa M Hoy Work Phone: [facility] [address] [place] Work Phone: 03-18-2019 influenza virus vacc ine, unspecified formulation Lisa M Hoy Work Phone: [facility] [address] [place] Work Phone: 05-03-2018 pneumococcal vaccine , unspecified formulation Lisa M Hoy Work Phone: [facility] [address] [place] Work Phone: 05-02-2018 pneumococcal polysaccharide vaccine, 23 valent Lisa M Hoy Work Phone: [facility] [address] [place] Work Phone: 04-26-2018 influenza virus vacc ine, unspecified formulation Lisa Mims Work Phone: [facility] [address] [place] Work Phone: 04-18-2018 Seasonal trivalent influenza vaccine, adjuvanted, preservative free Lisa Mims Work Phone: [facility] [address] [place] Work Phone: 06-15-2017 pneumococcal polysaccharide vaccine, 23 valent Lisa Melo [employer] Work Phone: [facility] [address] [place] Work Phone: 05-05-2017 influenza, injectabl e, quadrivalent, preservative free Lisa Melo [employer] Work Phone: [facility] [address] [place] Work Phone: 04-17-2017 influenza virus vacc ine, unspecified formulation Lisa Melo [employer] Work Phone: [facility] [address] [place] Work Phone: 06-14-2016 pneumococcal conjuga te vaccine, 13 valent Lisa Melo [employer] Work Phone: [facility] [address] [place] Work Phone: 05-18-2016 pneumococcal conjuga te vaccine, 13 valent Lisa Melo y Work Phone: [facility] [address] [place] Work Phone: 04-17-2016 influenza virus vacc ine, unspecified formulation Lisa Melo [employer] Work Phone: [facility] [address] [place] Work Phone: 05-09-2015 tetanus toxoid, redu alexandra diphtheria toxoid, and acellular pertussis vaccine, adsorbed Lisa Melo [employer] Work Phone: [facility] [address] [place] Work Phone: 05-01-2015 influenza, high dose seasonal, preservative-free Lisa Mims Work Phone: [facility] [address] [place] Work Phone: 04-17-2015 influenza virus vacc ine, unspecified formulation Lisa Mims Work Phone: [facility] [address] [place] Work Phone: 07-30-2005 hepatitis A vaccine, unspecified formulation Lisa Mims Work Phone: [facility] [address] [place] Work Phone: Comment on above: Series: Payers Date Payer Category Payer Self-pay [id number] 2023 Private Health Insurance 2015 Medicare supplementa l policy (as second payer) [id number] 2002 Medicare [id number] 2002 Medicare [id number] 1959 Medicare [id number] 1959 Unknown [id number] 1937 Unknown [id number] 2.16.840.1.715465.3.579.2.355 1937 Unknown [id number] 2.16.840.1.359325.3.579.2.1068 1937 Unknown [id number] 2.16.840.1.410353.3.579.2.1068 1937 Unknown [id number] 2.16.840.1.431682.3.579.2.593 1937 Unknown [id number] 2.840.1.161159.3.579.2.593 1937 Unknown [id number] 2.16.840.1.917419.3.579.2.356 1937 Unknown [id number] 2.840.1.189695.3.579.2.356 1937 Unknown [id number] 2.840.1.005235.3.579.2.356 1937 Unknown [id number] 2.0.1.213301.3.579.2.356 1937 Unknown [id number] 2.0.1.559046.3.579.2.356 1937 Unknown [id number] .0.1.495315.3.579.2.727 1937 Unknown [id number] .0.1.860691.3.579.2.727 1937 Unknown [id number] ..1.122910.3.579.2.727 1937 Unknown [id number] .0.1.441350.3.579.2.727 1937 Unknown [id number] 09.02.830.1.640896.3.579.2.1259 1937 Unknown [id number] .0.1.905855.3.579.2.1259 1937 Unknown [id number] 09.02.830.1.360712.3.579.2.1259 1937 Unknown [id number] .0.1.494945.3.579.2.1259 1937 Unknown [id number] 840.1.902483.3.579.2.1259 1937 Unknown [id number] 2.16.840.1.109180.3.579.2.1258 1937 Unknown [id number] 2.16.840.1.809755.3.579.2.1258 1937 Unknown [id number] 2.16.840.1.808214.3.579.2.1258 1937 Unknown [id number] 2.16.840.1.509248.3.579.2.1258 1937 Unknown [id number] 2.16.840.1.296753.3.579.2.1258 1937 Unknown [id number] 2.16.840.1.350087.3.579.2.1258 1937 Unknown [id number] 2.840.1.637274.3.579.2.1258 1937 Unknown [id number] 2.840.1.678091.3.579.2.1258 1937 Unknown [id number] 2.16840.1.086267.3.579.2.1245 1937 Unknown [id number] 2.16840.1.443229.3.579.2.1245 1937 Unknown [id number] 2.840.1.729920.3.579.2.4 1937 Unknown [id number] 2.16840.1.293882.3.579.2.1244 Medicare [id number] Unknown Unknown [id number] 2.16.840.1.222876.3.579.2.531 Unknown [id number] 2.16.840.1.074947.3.579.2.531 Unknown [id number] 2.16.840.1.989112.3.579.2.531 Unknown [id number] 2.16.840.1.744471.3.579.2.531 Unknown [id number] 2.16.840.1.760050.3.579.2.531 Social History Date Type Detail Facility Start: 08-17-2023 End: 07-30-2024 [facility] [place] Work Phone: Comment on above: Quit at 37. 2 ppd; Coffee - 1/2 cup michael ly; Rarely; Quit at age 37. 2 pp d; Start: 12-16-2020 End: 06-23-2023 Tobacco smoking status NHIS Ex-smoker (finding) [facility] Start: 08-17-2023 End: 07-30-2024 History of tobacco use [facility] Start: 1935 Sex Assigned At Male F [facility] History of tobacco use Current smoker [facility] Work Phone: History of tobacco use Cigarette Smoker [facility] Work Phone: Start: 06-23-2023 End: 08-17-2023 Tobacco use and exposure Smokeless tobacco non-user [facility] Work Phone: Start: 08-17-2023 End: 07-30-2024 Alcohol intake Current drinker of alcohol (finding) [facility] Work Phone: Start: 08-17-2023 Alcohol Comment beer nightly [facility] Work Phone: Start: 1935 Sex Assigned At Not on file [facility] Work Phone: Start: 08-07-2023 End: 08-07-2024 Exposure to SARS-CoV-2 (event) Not sure [facility] Start: 10-18-2023 Gender identity Identifies as male gender (finding) [facility] Work Phone: Start: 10-18-2023 Sexual orientation Heterosexual (fin padma) [facility] Work Phone: [facility] often to you hav e a [...] Identifier Dates Insertion, pacemaker Endocardial pacing lead ()[id number] FDA Start: 12-16-2020 Insertion, pacemaker Endocardial pacing lead ()[id number] FDA Start: 12-16-2020 Insertion, pacemaker Dual-chamber implantable pacemaker, rate-responsive ()[id number] FDA Start: 12-16-2020 Functional Status Date Assessment Result Facility 01-31-2024 Functional Status N/A [facility] Clinical Notes 08-17-2023 to 08-07-2024 Telephone Encounter - Loretta Bishop - 08/07/2024 1:01 PM ESTTelephone Encounter - Loretta Bishop - 08/07/2024 1:01 PM Starla Becerra DO - 08/07/2024 9:30 AM ESTPatient InstructionsAttachments Note Date & Type Note Facility 08-07-2024 Telephone encounter Note Called to request status and to check on fu w/ Dr. Martinez. He said he's feeling better and happy w/ status. His fu went very well and per P[place]os he can cont on if he feels needed; he said he is happy as of now. I reminded not to hesitate and contact if needed. [facility] 08-07-2024 Miscellaneous Notes Called to request status and to check on fu w/ Dr. Martinez. He said he's feeling better and happy w/ status. His fu went very well and per Pocos he can cont on if he feels needed; he said he is happy as of now. I reminded not to hesitate and contact if needed. documented in this encounter [facility] 08-07-2024 History of Present illness [...] one tablet daily. Take as directed per [facility], Disp: 90 tablet, Rfl: 0 Assessment/Plan 1. Mitral valve stenosis, unspecified etiology Follow Up In Cardiology 2. Mitral valve insufficiency, unspecified etiology 3. Aortic valve stenosis, etiology of cardiac valve disease unspecified 4. S/P TAVR (transcatheter aortic valve replacement) 5. Paroxysmal atrial fibrillation (Multi) 6. Status post CVA 7. long term current use of anticoagulant therapy 8. SSS (sick sinus syndrome) (Multi) 9. Pacemaker 10. Primary hypertension 11. Mixed hyperlipidemia 12. BMI 25.0-25.9,adult 13. Former smoker Scribe Attestation By signing my name below, Bebe Hernandez LPN , Scribe attest that this documentation has [...] discussion and plan. documented in this encounter [facility] Work Phone: 08-07-2024 Instructions Bebe Pop LPN [...] be sent through Care Everywhere.Heart Healthy Diet (Puerto Rican)documented in this encounter [facility] Work Phone: 07-30-2024 History of Present illness [...] joint osteoarthritis. The findings are discussed. At [id number], we would recommend strength and optimization as [...] discharged in stable condition. Cosigned by Brianna Martinez DO at 08/01/2024 7:53 AM EST documented in this encounter [facility] 07-20-2024 History of Present illness [...] started after racking leaves and pulling wheel [place]. Precautions: PACEMAKER Subjective Pt. Reports shoulder is [...] to be instructed in home exercise program. [employer] Goals: To be met in 10 weeks [...] sign below. Date: documented in this encounter [facility] 12-31-2024 History of Present illness Narrative Images from [...] started after racking leaves and pulling wheel [place]. Precautions: PACEMAKER Subjective Pt. Reports shoulder is [...] to be instructed in home exercise program. [employer] Goals: To be met in 10 weeks [...] sign below. Date: documented in this encounter [facility] 07-12-2024 History of Present illness [...] his primary care physician. Cosigned by Brianna Martinez DO at 07/16/2024 7:33 AM EST documented in this encounter [facility] 07-04-2024 History of Present illness [...] started after racking leaves and pulling wheel [place]. Precautions: PACEMAKER Subjective Pain: 0/10 rest; 2/10 [...] to be instructed in home exercise program. Half-Way Goals: To be met in 10 weeks [...] sign below. Date: documented in this encounter [facility] 06-27-2024 History of Present illness [...] sent to Dr. Mims. Cosigned by Brianna Martinez DO at 06/28/2024 4:36 PM EST documented in this encounter [facility] 01-31-2024 Note General Surgery Offi [...] plan excisional biopsy under local anesthesia at [facility]; informed consent obtained; hold Coumadin 4 [...] SARS-CoV-2 (COVID-19) mRNA BNT-162b2 vax 09/15/2020 Recorded [facility] Comment on above: Result Comment: Elec tronically Signed By: BRIDGETTE SCOTT, Guy Min\Date and Time Signed: 01/31/24 14:00 EDT 10-26-2023 History of Present illness Narrative Subjective Melo Cuevas is a 88 y.o. male Chief Complaint Annual Exam 88-year-old healthy gentleman returns for 3-month follow-up following recent [employer] evaluation and echo from 07/09. He is [...] one tablet daily. Take as directed per [facility], Disp: 90 tablet, Rfl: 0 Assessment/Plan 1. Paroxysmal atrial fibrillation (CMS/HCC) 2. long term current use of anticoagulant therapy 3. Fatigue, [...] discussion and plan. documented in this encounter [facility] Work Phone: 10-26-2023 Instructions Bebe Pop LPN [...] instructions on exercise. documented in this encounter [facility] Work Phone: 08-18-2023 Evaluation + Plan note Associated Problem(s): Cardiac and Vasculature February 2016 cardiac cath minimal CAD March 2022 TTE LVEF 70% [facility] Work Phone: 08-18-2023 Miscellaneous Notes Associated Problem(s): Cardiac and Vasculature February 2016 cardiac cath minimal CAD March 2022 TTE LVEF 70% Associated Problem(s): BMI 25.0-25.9,adult Reviewed the merits of healthy lifestyle choices on overall cardiovascular health. Associated Problem(s): longterm current use of anticoagulant therapy CHADS VASc [...] had lab completed earlier this month at documented in this encounter [facility] Work Phone: 08-18-2023 Evaluation + Plan note Associated Problem(s): BMI 25.0-25.9,adult Reviewed the merits of healthy lifestyle choices on overall cardiovascular health. [facility] Work Phone: 08-18-2023 Evaluation + Plan note Associated Problem(s): longterm current use of anticoagulant therapy CHADS VASc 5 (prior CVA) recently initiated on Coumadin Denies bleeding diatheses DOACs cost prohibitive [facility] Work Phone: 08-18-2023 Evaluation + Plan note Associated Problem(s): Paroxysmal atrial fibrillation (CMS/HCC) June 2023 device interrogation with 10 seconds atrial fibrillation [facility] Work Phone: 08-18-2023 Evaluation + Plan note Associated Problem(s): S/P TAVR (transcatheter aortic valve replacement) 2016 TAVR Last evaluated March 2022 TTE Peak 12, mean 6 [facility] Work Phone: 08-18-2023 Evaluation + Plan note Associated Problem(s): Pacemaker SJM Assurity 2272 dual-chamber permanent pacemaker June 2023 device interrogation [facility] Work Phone: 08-18-2023 Evaluation + Plan note Associated Problem(s): Mitral stenosis March 2022 TTE Mild mitral stenosis peak 17, mean 6 Valve area 1.5 [facility] Work Phone: 08-18-2023 Evaluation + Plan note Associated Problem(s): HTN (hypertension) Optimal in office [facility] Work Phone: 08-18-2023 Evaluation + Plan note Associated Problem(s): HLD (hyperlipidemia) Moderate intensity statin Reports had lab completed earlier this month at [facility] Work Phone: 08-17-2023 History of Present [...] echocardiogram earlier than scheduled. He prefers to [id number] and will notify me if symptoms do [...] one tablet daily. Take as directed per [facility] Assessment: HLD (hyperlipidemia) Moderate intensity statin Reports had lab completed earlier this month at HTN (hypertension) Optimal in office Mitral stenosis March 2022 TTE Mild mitral stenosis peak 17, mean 6 Valve area 1.5 Pacemaker SJM Assurity 2272 dual-chamber permanent pacemaker June 2023 device interrogation S/P TAVR (transcatheter aortic valve replacement) 2015 TAVR Last evaluated March 2022 TTE Peak 12, mean 6 Paroxysmal atrial fibrillation (CMS/HCC) June 2023 device interrogation with 10 seconds atrial fibrillation longterm current use of anticoagulant therapy CHADS VASc [...] new symptoms arise. Dr. Becerra as scheduled Dasia Bledsoe MSN, CLINICAL PHLEBOTOMIST-FIELD SALES AGENT, PMHNP-BC [facility] Please excuse any errors in grammar or translation related to this dictation. Voice recognition software was utilized to prepare this document. documented in this encounter [facility] Work Phone: 08-17-2023 Instructions BUCK Stoner [...] Becerra as scheduled documented in this encounter [facility] Work Phone: Evaluation + Plan note No data available for this section [facility] Evaluation note No assessment inform ation available [facility] Work Phone: Evaluation note Diagnosis S/P TAVR (transcatheter aortic valve replacement)- Primary Paroxysmal atrial fibrillation (CMS/HCC) Atrial fibrillation long term current use of anticoagulant therapy Mitral valve stenosis, unspecified etiology Mixed hyperlipidemia Primary hypertension Unspecified essential hypertension Pacemaker Cardiac pacemaker in situ BMI 25.0-25.9,adult documented in this encounter [facility] Work Phone: Evaluation note* Diagnosis Aortic valve stenosis, etiology of cardiac valve disease unspecified documented in this encounter [facility] Work Phone: Evaluation note* Diagnosis Aortic valve stenosis, etiology of cardiac valve disease unspecified documented in this encounter [facility] Work Phone: Evaluation note* Diagnosis Paroxysmal atrial fibrillation (CMS/HCC) Atrial fibrillation longterm current use of anticoagulant therapy Fatigue, unspecified type SSS (sick sinus syndrome) (CMS/HCC) Sinoatrial node dysfunction Pacemaker Cardiac pacemaker in situ Mitral valve stenosis, unspecified etiology Primary hypertension Unspecified essential hypertension Mixed hyperlipidemia BMI 25.0-25.9,adult Former smoker Personal history of tobacco use, presenting hazards to health documented in this encounter [facility] Work Phone: Evaluation note* Diagnosis Right shoulder pain, unspecified chronicity Right shoulder strain, initial encounter Arthritis of shoulder region, right [facility] [...] leg, initial encounter [facility] Diagnosis Acute pain of right shoulder- Primary Arthritis of right shoulder region [facility] Diagnosis Acute pain of right shoulder- Primary Arthritis of right shoulder region [facility] Diagnosis Acute pain of right shoulder- Primary Arthritis of right shoulder region documented in this encounter [facility]* Diagnosis S/P TAVR (transcatheter aortic valve replacement)- Primary Paroxysmal atrial fibrillation (Multi) Atrial fibrillation long term current use of anticoagulant therapy Mitral valve stenosis, unspecified etiology Mixed hyperlipidemia Primary hypertension Unspecified essential hypertension Pacemaker Cardiac pacemaker in situ BMI 25.0-25.9,adult Mitral valve stenosis, unspecified etiology documented in this encounter [facility] Work Phone: Evaluation note* Diagnosis Acute pain of right shoulder- Primary Arthritis of right shoulder region documented in this encounter [facility]* Diagnosis Strain of right shoulder, subsequent encounter- Primary Arthritis of right shoulder region longterm (current) use of anticoagulants Long-term (current) use of anticoagulants documented in this encounter [facility]* Diagnosis S/P TAVR (transcatheter aortic valve replacement)- Primary Paroxysmal atrial fibrillation (Multi) Atrial fibrillation long term current use of anticoagulant therapy Mitral valve stenosis, unspecified etiology Mixed hyperlipidemia Primary hypertension Unspecified essential hypertension Pacemaker Cardiac pacemaker in situ BMI 25.0-25.9,adult Mitral valve stenosis, unspecified etiology Mitral valve insufficiency, unspecified etiology Aortic valve stenosis, etiology of cardiac valve disease unspecified S/P TAVR (transcatheter aortic valve replacement) Paroxysmal atrial fibrillation (Multi) Atrial fibrillation Status post CVA longterm current use of anticoagulant therapy SSS (sick sinus syndrome) (Multi) Sinoatrial node dysfunction Pacemaker Cardiac pacemaker in situ Primary hypertension Unspecified essential hypertension Mixed hyperlipidemia BMI 25.0-25.9,adult Former smoker Personal history of tobacco use, presenting hazards to health 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 documented in this encounter [facility] Work Phone: Hospital Discharge instructions No data available for this section [facility] Progress note No data available for this section [facility] Reason for visit Narrative* Consultation (Routine) - Authorized Specialty Diagnoses / Procedures Referred By Contac t Referred To Contact Physical Therapy Diagnoses Right shoulder pain, unspecified chronicity Right shoulder strain, initial encounter Arthritis of shoulder region, right Procedures ME OFFICE/OUTPATIENT [facility] Brianna Martinez, DO [address] [facility] [place] [address] Phone: tel: fax: Shayy Trotter, PT [address] [address] Phone: tel: fax: Referral ID Status Reason Start Date Expiration Date Visits Requested Visits Authorized [id number] Authorized Consult and Treat 06/27/2024 12/24/2024 10 10 [facility] for visit Narrative* Consultation (Routine) - Authorized Specialty Diagnoses / Procedures Referred By Tiaac t Referred To Contact Physical Therapy Diagnoses Right shoulder pain, unspecified chronicity Right shoulder strain, initial encounter Arthritis of shoulder region, right Procedures ME OFFICE/OUTPATIENT [facility] Brianna Martinez, DO [address] [place] [address] Phone: tel: fax: Shayy Trotter, PT [address] [address] Phone: tel: fax: Referral ID Status Reason Start Date Expiration Date Visits Requested Visits Authorized [id number] Authorized Consult and Treat 06/27/2024 07/17/2024 30 30 [facility] for visit Narrative* Consultation (Routine) - Closed Specialty Diagnoses / Procedures Referred By Tiaac t Referred To Contact Physical Therapy Diagnoses Right shoulder pain, unspecified chronicity Right shoulder strain, initial encounter Arthritis of shoulder region, right Procedures ME OFFICE/OUTPATIENT [facility] Brianna Martinez, DO [address] [facility] [place] [address] Phone: tel: fax: Shayy Trotter, PT [address] [address] Phone: tel: fax: Referral ID Status Reason Start Date Expiration Date V isits Requested Visits Authorized [id number] Closed Consult and Treat 06/27/2024 07/17/2024 30 30 [facility] Consultation (Routine) - Authorized Specialty Diagnoses / Procedures Referred By Tiaac t Referred To Contact Physical Therapy Diagnoses Right shoulder pain, unspecified chronicity Right shoulder strain, initial encounter Arthritis of shoulder region, right Procedures PHYS/OCC THERAPY SS ME MANUAL THERAPY TQS 1/> REGIONS EACH 15 MINUTES ME THERAPEUTIC PX 1/> AREAS EACH 15 MIN EXERCISES ME THER PX 1/> AREAS EACH 15 MIN NEUROMUSC REEDBrianna Kasper, DO [address] [place] [address] Phone: tel: fax: Shayy Trotter, PT [address] [address] Phone: tel: fax: Referral ID Status Reason Start Date Expiration Date Visits Requested Visits Authorized [id number] Authorized Consult and Treat 07/18/2024 08/07/2024 20 20 [facility]* Consultation (Routine) - Authorized Specialty Diagnoses / Procedures Referred By Julius t Referred To Contact Physical Therapy Diagnoses Right shoulder pain, unspecified chronicity Right shoulder strain, initial encounter Arthritis of shoulder region, right Procedures PHYS/OCC THERAPY SS ME MANUAL THERAPY TQS 1/> REGIONS EACH 15 MINUTES ME THERAPEUTIC PX 1/> AREAS EACH 15 MIN EXERCISES ME THER PX 1/> AREAS EACH 15 MIN NEUROMUSC REEDUCA Brianna Martinez, DO [address] [place] [address] Phone: tel: fax: Shayy Trotter, PT [address] [address] Phone: tel: fax: Referral ID Status Reason Start Date Expiration Date Visits Requested Visits Authorized [id number] Authorized Consult and Treat 07/18/2024 08/07/2024 20 30 [facility] N[facility]* CV Imaging (Routine) - Authorized Specialty Diagnoses / Procedures Referred By Contac t Referred To Contact Cardiology Diagnoses Mitral valve stenosis, unspecified etiology Procedures Transthoracic Echo Complete ME ECHO TTHRC R-T 2D W/WOM-MODE COMPL SPEC&COLR D Alex Becerra, DO [address] [facility] [address] [place] [address] Phone: tel: fax: Referral ID Status Reason Start Date Expiration Date Visits Requested Visits Authorized [id number] Authorized Perform Procedure 10/26/2023 10/25/2024 1 1 [facility] Work Phone: Reason for visit Narrative* Consultation (Routine) - Authorized Specialty Diagnoses / Procedures Referred By Julius t Referred To Contact Physical Therapy Diagnoses Right shoulder pain, unspecified chronicity Right shoulder strain, initial encounter Arthritis of shoulder region, right Procedures PHYS/OCC THERAPY SS ME MANUAL THERAPY TQS 1/> REGIONS EACH 15 MINUTES ME THERAPEUTIC PX 1/> AREAS EACH 15 MIN EXERCISES ME THER PX 1/> AREAS EACH 15 MIN NEUROMUSC REEDUCA Brianna Martinez, DO [address] [facility] [place] [address] Phone: tel: fax: Shayy Trotter, PT 112 [facility] [address] [place] [address] Phone: tel: fax: Referral ID Status Reason Start Date Expiration Date Visits Requested Visits Authorized [id number] Authorized Consult and Treat 07/18/2024 07/17/2025 20 [...] Time Advance Directives No December 14 1 1:49pm Advance Directive Response Recorded Date/ Time [...] structural heart team if necessary. * MELO CUEVSA is being seen for a 6 month [...] Referred By Julius t Referred To Contact Cardiology Diagnoses Aortic valve stenosis, etiology of cardiac valve disease unspecified Procedures Transthoracic Echo (TTE) Complete ME ECHO TRANSTHORC R-T 2D W/WO M-MODE REC F-UP/LMTD ME DOP ECHOCARD COLOR FLOW VELOCITY MAPPING ME DOP ECHOCARD PULSE WAVE W/SPECTRAL F-UP/LMTD STD Alex Becerra, DO [address] [place] [address] [address], [address] [address] Referral ID Status Reason Start Date Expiration Date Visits Requested Visits Authorized [id number] Authorized Perform Procedure 3 06/28/2024 1 1 Specialty Diagnoses / Procedures Referred By Contac t Referred To Contact Cardiology Diagnoses Mitral valve stenosis, unspecified etiology Procedures Transthoracic Echo Complete ME ECHO TTHRC R-T 2D W/WOM-MODE COMPL SPEC&COLR D Alex Becerra, DO [address] [place] [address] 2, [address] [address] Referral ID Status Reason Start Date Expiration Date Visits Requested Visits Authorized [id number] Pending Review Perform Procedure 10/26/2023 10/25/2024 1 1 Specialty Diagnoses / Procedures Referred By Contac t Referred To Contact Cardiology Diagnoses Mitral valve stenosis, unspecified etiology Procedures Follow Up In Cardiology Alex Becerra, [address] [place] [address] 2, [address] [address] Alex Becerra, [address], [address] [address] Referral ID Status Reason Start Date Expiration Date V isits Requested Visits Authorized [id number] Authorized 10/26/2023 10/25/2024 1 1 Additional Source [...] section and content) DATE CREATED AUTHOR 01/04/2018 [facility] DATE CREATED AUTHOR AUTHOR'S ORGANIZ ATION 01/05/2018 [facility] DATE CREATED AUTHOR AUTHOR'S ORGANIZ ATION 01/05/2018 [facility] DATE CREATED AUTHOR AUTHOR'S ORGANIZ ATION 06/16/2018 [facility] DATE CREATED AUTHOR AUTHOR'S ORGANIZ ATION 04/19/2022 [facility] DATE CREATED AUTHOR AUTHOR'S ORGANIZ ATION 09/04/2022 [facility] DATE CREATED AUTHOR AUTHOR'S ORGANIZ ATION 10/19/2022 [facility] DATE CREATED AUTHOR AUTHOR'S ORGANIZ ATION 05/14/2023 [facility] DATE CREATED AUTHOR AUTHOR'S ORGANIZ ATION 03/23/2024 [facility] DATE CREATED AUTHOR AUTHOR'S ORGANIZ ATION 07/06/2024 [facility] DATE CREATED AUTHOR AUTHOR'S ORGANIZ ATION 08/02/2024 [facility] EPIC DATE CREATED AUTHOR AUTHOR'S ORGANIZ ATION 08/09/[address] [facility] DATE CREATED AUTHOR AUTHOR'S ORGANIZ ATION 08/17/2024 [facility] [employer] Teams (unrecognized sec tion and content) Team Status: Active Member Role Status Dates Lisa Mims MD Primary Care Provider Active Team Status: Inactive Member Role Status Dates Lisa Mims MD Primary Care Provider Active Alex Cerda MD Attending Provider Active Telephone Operator Receptionist Relationship Specialty Start Date End Date Lisa Mims MD [address] [place] [address] PCP - General 05/13/20 Team Status: Inactive Member Role Status Dates Lisa Mims MD Primary Care Provider Active Start: October 04, 2023 End: October 04, 2023 Alex Cerda MD Attending Provider Active Start: October 04, 2023 End: October 04, 2023 Telephone Operator Receptionist Relationship Specialty Start Date End Date Lisa Mims MD [address] [place] [address] PCP - General 05/13/20 Telephone Operator Receptionist Relationship Specialty Start Date End Date Lisa Mims MD [address] [place] [address] PCP - General 05/13/20 Telephone Operator Receptionist Relationship Specialty Start Date End Date Lisa Mims MD [address] [place] [address] PCP - General 05/13/20 Team Status: Inactive [...] End: March 07, 2024 Guy Angeles MD [facility] Attending Provider Active Start: March 07, 2024 End: March 07, 2024 Team Status: Inactive Member Role Status Dates Lisa Mims MD Primary Care Provider Active Start: April 03, 2024 End: April 03, 2024 Alex Cerda MD Attending Provider Active Start: April 03, 2024 End: April 03, 2024 Telephone Operator Receptionist Relationship Specialty Start Date End Date Lisa Mims MD [facility] [place] [address] PCP - General Family Medicine 06/23/23 Telephone Operator Receptionist Relationship Specialty Start Date End Date Lisa Mims MD [address] [place] [address] PCP - General Family Medicine 06/23/23 Telephone Operator Receptionist Relationship Specialty Start Date End Date Lisa Mims MD [address] [place] [address] PCP - General Family Medicine 06/23/23 Telephone Operator Receptionist Relationship Specialty Start Date End Date Lisa Mims MD [address] [place] [address] PCP - General Family Medicine 06/23/23 Telephone Operator Receptionist Relationship Specialty Start Date End Date Lisa Mims MD [address] [place] [address] PCP - General Family Medicine 06/23/23 Telephone Operator Receptionist Relationship Specialty Start Date End Date Lisa Mims MD [address] [place] [address] PCP - General Family Medicine 06/23/23 Telephone Operator Receptionist Relationship Specialty Start Date End Date Lisa Mims MD [address] [facility], [id number] PCP - General Family Medicine 06/23/23 Telephone Operator Receptionist Relationship Specialty Start Date End Date Lisa Mims MD [address] [place] [facility] [address] PCP - General Family Medicine 06/23/23 Telephone Operator Receptionist Relationship Specialty Start Date End Date Lisa Mims MD [address] [place] [address] PCP - General Family Medicine 06/23/23 Telephone Operator Receptionist Relationship Specialty Start Date End Date Lisa Mims MD [address] [place] [address] PCP - General Family Medicine 06/23/23 Telephone Operator Receptionist Relationship Specialty Start Date End Date Lisa Mims MD [address] [place] [address] PCP - General Family Medicine 06/23/23 Telephone Operator Receptionist Relationship Specialty Start Date End Date Lisa Mims MD [address] [place] [facility] [place] [address] PCP - General 05/13/20 Telephone Operator Receptionist Relationship Specialty Start Date End Date Lisa Mims MD [address] [place] [facility] [place] [address] PCP - General Family Medicine 06/23/23 Telephone Operator Receptionist Relationship Specialty Start Date End Date Lisa Mims MD [address] [place] [address] PCP - General Family Medicine 06/23/23 Telephone Operator Receptionist Relationship Specialty Start Date End Date Lisa Mims MD [address] [place] [facility] [place] [address] PCP - General 05/13/20 Goals (unrecognized section [...] Afib Specialty Diagnoses / Procedures Referred By Julius t Referred To Contact Cardiology Diagnoses Paroxysmal atrial fibrillation (CMS/HCC) Procedures Follow Up In Cardiology Alex Becerra, DO [address] [facility] [address] [place] [address] Dasia Bledsoe, CLINICAL PHLEBOTOMIST-FIELD SALES AGENT [address] [facility] [address], [address] [address] Referral ID Status Reason Start Date Expiration Date V isits Requested Visits Authorized [id number] Authorized 07/08/2023 07/07/2024 1 1 Specialty Diagnoses / Procedures Referred By Contac t Referred To Contact Cardiology Diagnoses Aortic valve stenosis, etiology of cardiac valve disease unspecified Procedures Transthoracic Echo (TTE) Complete ME ECHO TRANSTHORC R-T 2D W/WO M-MODE REC F-UP/LMTD ME DOP ECHOCARD COLOR FLOW VELOCITY MAPPING ME DOP ECHOCARD PULSE WAVE W/SPECTRAL F-UP/LMTD STD Alex Becerra, DO [address] [facility] 2, [address] [address] Referral ID Status Reason Start Date Expiration Date Visits Requested Visits Authorized [id number] Authorized Perform Procedure 3 06/28/2024 1 1 Reason Comments Annual Exam 1yr Reason Comments Pain Reason Comments Pain Fall DOI 07/08/24 Reason Comments Follow-up Reason Comments Follow-up 9 month/echo results Specialty Diagnoses / Procedures Referred By Contac t Referred To Contact Cardiology Diagnoses Mitral valve stenosis, unspecified etiology Procedures Follow Up In Cardiology Alex Becerra, [address] [place] [address] [address], [address] [address] Phone: tel: fax: Alex Becerra, [address] [place] [address] [address], [address] [address] Phone: tel: fax: Referral ID Status Reason Start Date Expiration Date V isits Requested Visits Authorized [id number] Pending Review 10/26/2023 10/25/2024 1 1 Reason Onset Date Comments re: PT and fu w/ Dr. Martinez 08/07/2024 FOR RECORDS PERTAINING TO PATIENTS WHO [...] BE BASED ON THE PRIMARY CLINICAL RECORDS. [facility]. provides no warranty or guarantee of the accuracy or completeness of information in this document.
[2024-08-23 09:24] LABS: Estimated Average Glucose 134 mg/dL; Glycohemoglobin A1C 6.3 % (4.5-6.2)
[2024-08-23 09:28] LABS: Basophils Absolute Auto 0.1 10^3/uL (0.0-0.1); Basophils Percent Auto 1.4 % (0.2-2.0); Eosinophils Absolute Auto 0.2 10^3/uL (0.0-0.7); Eosinophils Percent Auto 3.5 % (0.9-7.0); Hemoglobin 14.6 g/dL (14.0-18.0); Immature Granulocytes Abs Auto 0.02 10^3/uL (0.00-0.03); Immature Granulocytes Pct Auto 0.3 % (0.0-0.5); Lymphocytes Absolute Auto 2.1 10^3/uL (1.2-3.8); Lymphocytes Percent Auto 32.3 % (20.5-60.0); Mean Corpuscular Hemoglobin 31.7 pg (25.9-34.0); Mean Corpuscular Volume 93.3 fL (80.0-94.0); Mean Platelet Volume 10.1 fL (9.5-13.5); Monocytes Absolute Auto 0.5 10^3/uL (0.3-0.8); Monocytes Percent Auto 8.2 % (1.7-12.0); Neutrophils Absolute Auto 3.5 10^3/uL (1.4-6.5); Neutrophils Percent Auto 54.3 % (43.0-75.0); Platelet Count 214 10^3/uL (150-450); Red Blood Count 4.61 10^6/uL (4.70-6.10); Red Cell Distribution Width 14.3 % (11.0-15.0); White Blood Count 6.4 10^3/uL (4.0-11.0)
[2024-08-23 09:58] LABS: Prostate Specific Antigen Scrn 4.97 ng/mL (<=4.00)
[2024-08-23 09:59] LABS: Free T3 2.43 pg/mL (2.18-3.98); Thyroid Stimulating Hormone 3.102 uIU/mL (0.358-3.740)
[2024-08-24 04:08] LABS: PSA, Free 1.17 ng/mL; Prostate Specific Ag 3.7 ng/mL (0.0-4.0)
== END 2024-08-23 08:44 | disposition home or self-care (01) ==
LOC: LAB 08:45
PROVIDERS: PCP Family Medicine; Visit Provider Family Medicine
DX: R53.83 Other fatigue (principal); E78.5 Hyperlipidemia, unspecified; R97.20 Elevated prostate specific antigen [PSA]; I50.9 Heart failure, unspecified; R73.09 Other abnormal glucose; E55.9 Vitamin D deficiency, unspecified; Z12.5 Encounter for screening for malignant neoplasm of prostate; E87.5 Hyperkalemia
CPT/HCPCS: 36415; 80048; 82306; 83036; 84153; 84154; 84436; 84443; 84481; 85025; G0103

== ENCOUNTER 2024-08-23 08:49 | Outpatient (OUT) | payer MEDICARE, SELFPAY ==
--- OUTSIDE RECORDS SUMMARY | 2024-08-23 09:11 | XMS_ITS | CCD ---
Author Organization [facility]iniSy[facility] Care Team Providers Care Cell Feed Department Supervisor Name Role Phone GHAZOUL, BEBE Unavailable Unavailable [...] Unavailable ALEX BECERRA Referring Unavailable LISA [facility] Care Unavailable Allergies Allergy Classification Reported Allergen(s) Allergy Type Date of Onset Reaction(s) Facility (1 source) meloxicam; Translations: [Mobic] Drug Allergy [facility] Repository (1 source) Naproxen; Translations: [Naprosyn] Drug Allergy [facility] Repository Medications Current Medications Medication Drug Class(es) [...] one tablet daily. 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] Onset: 08-17-2023 Episodic [...] COM PLETEon 07-24-2024 TRANSTHORACIC ECHO (TTE) COMPLETE [address], [address] [place] [address] TRANSTHORACIC ECHOCARDIOGRAM REPORT Patient Name: MELO CUEVAS Reading Physician: [id number] Fabián Tony MD Study Date: 07/24/2024 Ordering Provider: [id number] ALEX BECERRA MRN/PID: [id number] Fellow: Nurse: Date of /Age: 8 1935 / 89 years Surgical Scrub Technician: Daniela Veras RDCS, RVT Gender Assigned at Additional Staff: : Height: 187.96 cm Admit Date: Weight: 89.81 kg Admission Status: BSA / BMI: 2.16 m2 / 25.42 Department Location: [address] Blood Pressure: 124 /62 mmHg Study Type: TRANSTHORACIC ECHO (TTE) COMPLETE 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 Normal [facility] US Heart TransthoracicOrdere d By: Fabián Tony on 07-24-2024 Aortic Valve Area by Continuity of Peak Velocity 2.74 cm2 [facility] Work Phone: Aortic Valve Area by Continuity of VTI 2.8 cm2 [facility] Work Phone: AV mn grad 5 mmHg [facility] Work Phone: [phone] AV pk grad 11 mmHg [facility] Work Phone: [phone] AV pk arron 1.65 m/s [facility] Work Phone: [phone] LV A4C EF 65.7 [facility] Work Phone: LV Biplane EF 62 % [facility] Work Phone: LV EF 65 % [facility] Work Phone: LVIDd 4.98 cm [facility] Work Phone: LVOT diam 2.6 cm [facility] Work Phone: MV avg E/e' ratio 16.4 [facility] Work Phone: MV E/A ratio 0.58 [facility] Work Phone: RVSP 20.5 mmHg [facility] Work Phone: [facility] Work Phone: Heart Transthoracicon [address], [address] [place] [address] TRANSTHORACIC ECHOCARDIOGRAM REPORT Patient Name: MELO Stalin CUEVAS Reading Physician: [id number] Fabián Tony MD Study Date: 07/24/2024 Ordering Provider: [id number] ALEX BECERRA MRN/PID: [id number] Fellow: Nurse: Date of /Age: 8 1935 / 89 years Surgical Scrub Technician: Daniela Veras RDCS, RVT Gender Assigned at Additional Staff: : Height: 187.96 cm Admit Date: Weight: 89.81 kg Admission Status: BSA / BMI: 2.16 m2 / 25.42 Department Location: [facility] kg/m2 [facility] Blood Pressure: 124 /62 mmHg Study Type: TRANSTHORACIC ECHO (TTE) COMPLETE 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 Fabián Beverly MD - 07/24/[address], [address], [place] [address] TRANSTHORACIC ECHOCARDIOGRAM REPORT Patient Name: MELO CUEVAS Reading Physician: [id number] Fabián Tony MD Study Date: 07/24/2024 Ordering Provider: [id number] ALEX BECERRA MRN/PID: [id number] Fellow: Nurse: Date of /Age: 8 1935 / 89 years Surgical Scrub Technician: Daniela Veras RD, RVT Gender Assigned at M Additional Staff: : Height: 187.96 cm Admit Date: Weight: 89.81 kg Admission Status: BSA / BMI: 2.16 m2 / 25.42 Department Location: [facility] Blood Pressure: 124 /62 mmHg Study Type: TRANSTHORACIC ECHO (TTE) COMPLETE 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 [facility] Work Phone: No Panel Informationon 06-27 Mini Joya MA 07/02/2024 4:42 PM L Inj/Asp: R glenohumeral on 06/27/2024 2:30 PM Indications: pain Details: 22 G needle Medications: 1 mg betamethasone acetate-betamethason e sodium phosphate 6 (3-3) MG/ML [facility] General Surgery Office/Clini c [...] mRNA BNT-162b2 vax 09/15/2020 Recorded Normal [facility] Comment on above: Result Comment: Elec tronically Signed By: BRIDGETTE SCOTT, Guy Min\Date and Time Signed: 03/21/24 14:07 EDT Pepe 03-07-2024 L Specimen: [id number] Received: 03/08/24 Status: GAYLE Cole Num: [id number] Spec Type: Surgical Subm Dr: Guy Angeles MD FACS Tissues: A Skin Cyst Procedures: HE, Gross/Micro L3 Age/ Patient Sex Location Account Attending Physician Melo Cuevas 89/M LABELL [id number] Guy Angeles MD FACS SPEC NUM: [id number] RECD: 03/08/24 STATUS: GAYLE COLE NUM: [id number] AALIYAH: 03/07/[address]: Guy Angeles MD FACS ENTERED: 03/08/24 [facility] DR: SPEC TYPE: Surgical DEPT: AHMET NICHOLSON ENTERED BY: [id number] RECV BY: [id number] ORDERED: HE, Gross/Micro L3 ORDERED: HE, Gross/Micro [...] cavity filled with white cystic debris. 1 commissary representative section is submitted in cassette A1. CPT Codes 30843 Specimen: [id number] Received: 03/08/24-1608 Status: GAYLE Cole Num: [id number] Spec Type: Surgical Subm Dr: Guy Angeles MD FACS Tissues: A Skin Cyst Procedures: Brian HAIR/Paige L3 Patient: Melo Cuevas [id number] (Continued) Signed (signature on file) Mahesh Ortiz MD 03/13/24 3895 Normal [facility] Ambulatory Visit Summaryon 0 01-31-2024 [...] you for choosing us for your care. [facility] Physician Referralon 024 Physician Referral [id number] 23#1.00TIFF Normal [facility] Physician Referralon 024 Physician Referral [id number]# 1.00TIFF Normal [facility] Physician Referral [id number]# 1.00TIFF Normal [facility] Comment on above: Other Comment: MINDY KAM Physician Referral [id number]# 1.00TIFF Normal [facility] Heart TransthoracicOrdere d By: Moody Teixeira on 10-19-2023 Aortic Valve Area by Continuity of Peak Velocity 2.59 cm2 [facility] Work Phone: [phone] Aortic Valve Area by Continuity of VTI 2.73 cm2 [facility] Work Phone: [phone] AV mn grad 6.0 mmHg [facility] Work Phone: [phone] AV pk grad 12.0 mmHg [facility] Work Phone: [phone] AV pk arron 1.73 m/s [facility] Work Phone: [phone] LV A4C EF 56.3 [facility] Work Phone: [phone] LVIDd 3.57 cm [facility] Work Phone: [phone] LVOT diam 2.40 cm [facility] Work Phone: [phone] MV avg E/e' ratio 22.20 [facility] Work Phone: [phone] MV E/A ratio 0.61 [facility] Work Phone: [phone] RVSP 23.3 mmHg [facility] Work Phone: [phone] [facility] Work Phone: Heart Transthoracicon [address], [address] [place] [address] TRANSTHORACIC ECHOCARDIOGRAM REPORT Patient Name: MELO Pugh Physician: [id number] Moody Teixeira MD, [facility] Study Date: 10/18/2023 Ordering Provider: [id number] ALEX BECERRA MRN/PID: [id number] Fellow: Nurse: Date of /Age: 8 1935 / 88 years Surgical Scrub Technician: Daniela Veras RDCS, RVT Gender: M Additional Staff: Height: 187.96 cm Admit Date: Weight: 89.81 kg Admission Status: BSA / BMI: 2.16 m2 / 25.42 kg/m2 Department Location: [facility] Blood Pressure: 134 /72 mmHg Study [...] not included)... Moody Aguilar MD - 10/19/2023 [facility] [address] [facility], [address], [place] [address] TRANSTHORACIC ECHOCARDIOGRAM REPORT Patient Name: MELO CUEVAS Reading Physician: [id number] Moody Teixeira MD, [facility] Study Date: 10/18/2023 Ordering Provider: [id number] ALEX BECERRA MRN/PID: [id number] Fellow: Nurse: Date of /Age: 8 1935 / 88 years Surgical Scrub Technician: Daniela Veras RDCS, RVT Gender: M Additional Staff: Height: 187.96 cm Admit Date: Weight: 89.81 kg Admission Status: BSA / BMI: 2.16 m2 / 25.42 kg/m2 Department Location: [facility] Blood Pressure: 134 /72 mmHg Study [...] content not included)... [facility] Work Phone: TRANSTHORACIC ECHO (TTE) COM [facility] 10-18-2023 TRANSTHORACIC ECHO (TTE) COMPLETE [address], [address] [place] [address] TRANSTHORACIC ECHOCARDIOGRAM REPORT Patient Name: MELO Gant MASON Pugh Physician: [id number] Moody Teixeira MD, [facility] Study Date: 10/18/2023 Ordering Provider: [id number] ALEX BECERRA MRN/PID: [id number] Fellow: Nurse: Date of /Age: 8 1935 / 88 years Surgical Scrub Technician: Daniela Veras RDCS, RVT Gender: M Additional Staff: Height: 187.96 cm Admit Date: Weight: 89.81 kg Admission Status: BSA / BMI: 2.16 m2 / 25.42 kg/m2 Department Location: [facility] Blood Pressure: 134 /72 mmHg Study [...] TRICUSPID VALVE/RVSP: No (more content not included)... [facility] Office Visit (Cardiology)on 10-14-2022 Follow-up visit [...] Recorded: 14Oct2022 10:03AM Heart Rate64, L Radial Dmlzpfay646, LUE, Sitting Dpzwwtlpa76, LUE, Sitting Height6 ft 2 in Tqjhji816 lb BMI Eaudxfhxgs10.29 kg/m2 BSA Calculated2.16 Tobacco Useb) No Falls Screening (Age 18+)a) No falls within the last year Physical Exam Constitutional: alert and in no acute distress. Neck: neck is supple, symmetric, trachea midline, no masses and no thyromegaly . Pulmonary: no increased work of breathing or signs of respiratory distress and lungs clear to auscultation. (more content not included)... Normal [facility] Tobacco Screening.on 023 Fall risk assessment a) No falls within the last year [facility] [employer] y 250 DO Work Phone: Tobacco use status [facility] b) No [facility] Work Phone: Covid-19 PCR (CVDTBH)on 08-18 SARS-CoV-2 (COVID-19) RNA SVETLANA+probe Ql (Unsp spec) Detected Abnormal NOT DETECTED [facility] Comment on above: Result Comment: This test is not yet approved or cleared by the [place] FDA. When there are no FDA-approved or cleared tests available, and other criteria are met, FDA can make tests available under an emergency access mechanism called an Emergency Use Authorization (EUA). The EUA for this test is supported by the School Child Care Attendant of Health and Human Service's (HHS's) declaration [...] used). Performed By: #### C VDTBH #### [facility] [address] [place] [address] Dr. Ekaterina Alcocer INFLUENZA A AND B AGon 08-30 [facility] SEE BELOW Normal [facility] Comment on above: Result Comment: Nega tive for Flu A protein angiten. Infection due to Flu A cannot be ruled out. Flu A angiten in the sample may be below the detection limit of the test. Performed By: #### I NFLUAB #### [facility] [address] [place] [address] Dr. Ekaterina Alcocer [facility]BNNEW [facility] SEE BELOW Normal [facility] Comment on above: Result Comment: Nega tive for Flu B protein antigen. Infection due to Flu B cannot be ruled out. Flu B antigen in the sample may be below the detection limit of the test. Performed By: #### I NFLUAB #### [facility] [address] [place] [address] Dr. Ekaterina Alcocer INFLUENZA A AG Negative Normal NEGATIVE SEE COMMENT [facility] Comment on above: Performed By: #### I NFLUAB #### [facility] [address] [place] [address] Dr. Ekaterina Alcocer INFLUENZA B AG Negative Normal NEGATIVE SEE COMMENT [facility] Comment on above: Performed By: #### I NFLUAB #### [facility] [address] [place] [address] Dr. Ekaterina Alcocer PSA, FREE AND TOTAL RATIOon 06-30-2022 % Free PSA 26.8 % Normal [facility] Comment on above: Result Comment: The table [...] of men. Performed By: #### P SAFREE ####[facility] [address] [place] [id number]. Ekaterina Alcocer Prostate specific Ag [Mass/Vol] 4.4 ng/mL Critically high 0.0-4.0 [facility] Comment on above: Result Comment: Antonio WHITE methodology. . According to the [place] [employer], Serum PSA should decrease and [...] malignant disease. Performed By: #### P SAFREE ####[facility] [address] [place] [id number]. Ekaterina Alcocer PSA, Free 1.18 ng/mL Normal N/A [facility] Comment on above: Result Comment: Antonio WHITE methodology. Performed By: #### P SAFREE ####[facility] [address] [place] [id number]. Ekaterina Alcocer INSULINon 06-29-2022 Insulin 7.5 uIU/mL Normal 2.6-24.9 [facility] Comment on above: Performed By: #### I NSULIN ####[facility] [address] [place] [id number]. Ekaterina Alcocer CBC AUTO DIFFon 06-28-2022 BASO # 0.1 103/ul Normal 0.0-0.1 [facility] Comment on above: Performed By: #### C BC #### [facility] [address] [place] [address] [address] Ekaterina Alcocer Basophils/100 WBC (Bld) 1.5 % Normal 0.2-2.0 [facility] Comment on above: Performed By: #### C BC #### [facility] [address] [place] [address] Dr. Ekaterina Alcocer EO # 0.2 103/ul Normal 0.0-0.7 [facility] Comment on above: Performed By: #### C BC #### [facility] [address] [place] [address] Dr. Ekaterina Alcocer Eosinophils/100 WBC (Bld) 2.4 % Normal 0.9-7.0 [facility] Comment on above: Performed By: #### C BC #### [facility] [address] [place] [address] Dr. Ekaterina Alcocer Erythrocyte distribution width (RBC) [Ratio] 13.6 % Normal 11.0-15.0 [facility] Comment on above: Performed By: #### C BC #### [facility] [address] [place] [address] Dr. Ekaterina Alcocer Hematocrit (Bld) [Volume fraction] 46.3 % Normal 42.0-54.0 [facility] Comment on above: Performed By: #### C BC #### [facility] [address] [place] [address] Dr. Ekaterina Alcocer Hemoglobin (Bld) [Mass/Vol] 15.5 g/dL Normal 14.0-18.0 [facility] Comment on above: Performed By: #### C BC #### [facility] [address] [place] [address] Dr. Ekaterina Alcocer IG # 0.03 10e3/ul Normal 0.00-0.03 [facility] Comment on above: Performed By: #### C BC #### [facility] [address] [place] [address] Dr. Ekaterina Alcocer IG % 0.3 % Normal 0.0-0.5 [facility] Comment on above: Performed By: #### C BC #### [facility] [address] [place] [address] Dr. Ekaterina Alcocer LYMPH # 2.6 103/ul Normal 1.2-3.8 [facility] Comment on above: Performed By: #### C BC #### [facility] [address] [place] [address] Dr. Ekaterina Alcocer Lymphocytes/100 WBC (Bld) 28.8 % Normal 20.5-60.0 [facility] Comment on above: Performed By: #### C BC #### [facility] [address] [place] [address] Dr. Ekaterina Alcocer MANUAL DIFF REQ NO Normal [facility] Comment on above: Performed By: #### C BC #### [facility] [address] [place] [address] Dr. Ekaterina Alcocer MCH (RBC) [Entitic mass] 30.7 pg Normal 25.9-34.0 [facility] Comment on above: Performed By: #### C BC #### [facility] [address] [place] [address] Dr. Ekaterina Alcocer MCHC (RBC) [Mass/Vol] 33.5 g/dL Normal 29.9-35.2 [facility] Comment on above: Performed By: #### C BC #### [facility] [address] [place] [address] Dr. Ekaterina Alcocer MCV (RBC) [Entitic vol] 91.7 fL Normal 80.0-94.0 [facility] Comment on above: Performed By: #### C BC #### [facility] [address] [place] [address] Dr. Ekaterina Alcocer MONO # 0.7 103/ul Normal 0.3-0.8 [facility] Comment on above: Performed By: #### C BC #### [facility] [address] [place] [address] Dr. Ekaterina Alcocer Monocytes/100 WBC (Bld) 8.3 % Normal 1.7-12.0 [facility] Comment on above: Performed By: #### C BC #### [facility] [address] [place] [address] Dr. Ekaterina Alcocer NEUT # 5.2 103/ul Normal 1.4-6.5 [facility] Comment on above: Performed By: #### C BC #### [facility] [address] [place] [address] [address] Ekaterina Alcocer Neutrophils/100 WBC (Bld) 58.7 % Normal 43.0-75.0 [facility] Comment on above: Performed By: #### C BC #### [facility] [address] [place] [address] [address] Ekaterina Alcocer Platelet mean volume (Bld) [Entitic vol] 9.8 fL Normal 9.5-13.5 [facility] Comment on above: Performed By: #### C BC #### [facility] [address] [place] [address] [address] Ekaterina Alcocer PLT 230 103/ul Normal 150-450 [facility] Comment on above: Performed By: #### C BC #### [facility] [address] [place] [address] [address] Ekaterina Alcocer RBC 5.05 106/ul Normal 4.70-6.10 [facility] Comment on above: Performed By: #### C BC #### [facility] [address] [place] [address] [address] Ekaterina Alcocer WBC 8.9 103/ul Normal 4.0-11.0 [facility] Comment on above: Performed By: #### C BC #### [facility] [address] [place] [address] [address] Ekaterina Alcocer FREE THYROXINE INDEX T7on FTI 2.02 Normal 1.30-4.50 [facility] Comment on above: Performed By: #### T 7, TSH, LIPID, URIC, CMP #### [facility] [address] [place] [address] [address] Ekaterina Alcocer T3U 32.0 % Critically low 33.0-40.0 [facility] Comment on above: Performed By: #### T 7, TSH, LIPID, URIC, CMP #### [facility] [address] [place] [address] [address] Ekaterina Alcocer T4 [Mass/Vol] 6.30 ug/dL Normal 4.50-12.10 [facility] Comment on above: Performed By: #### T 7, TSH, LIPID, URIC, CMP #### [facility] [address] [place] [address] [address] Ekaterina Alcocer GLYCOHEMOGLOBIN A1Con 2021 ADA RECOMMENDATION SEE BELOW Normal [facility] Comment on above: Result Comment: ADA RECOMMENDED LIMIT 4.0 - 6.0 ADA THERAPEUTIC TARGET < 7.0 ACTION SUGGESTED > 7.0 Performed By: #### A 1C #### [facility] [address] [place] [address] Dr. Ekaterina Alcocer Glucose [Mass/Vol] 134 mg/dL Normal [facility] Comment on above: Performed By: #### A 1C #### [facility] [address] [place] [address] Dr. Ekaterina Alcocer HbA1c (Bld) [Mass fraction] 6.3 % Critically high 4.5-6.2 [facility] Comment on above: Performed By: #### A 1C #### [facility] [address] [place] [address] Dr. Ekaterina Alcocer LIPID PROFILEon 06-28-2022 CHOL-HDL RATIO NORM SEE BELOW Normal [facility] Comment on above: Result Comment: 3.3 - 4.4 LOW RISK 4.4 - 7.1 AVERAGE RISK 7.1 - 11.0 MODERATE RISK >11.0 HIGH RISK Performed By: #### T 7, TSH, LIPID, URIC, CMP #### [facility] [address] [place] [address] Dr. Ekaterina Alcocer Cholesterol [Mass/Vol] 142 mg/dL Normal <=200 [facility] Comment on above: Performed By: #### T 7, TSH, LIPID, URIC, CMP #### [facility] [address] [place] [address] Dr. Ekaterina Alcocer Cholesterol in HDL [Mass/Vol] 43 mg/dL Normal 40-60 [facility] Comment on above: Performed By: #### T 7, TSH, LIPID, URIC, CMP #### [facility] [address] [place] [address] Dr. Ekaterina Alcocer Cholesterol in LDL [Mass/Vol] 78.8 mg/dL Normal [facility] Comment on above: Performed By: #### T 7, TSH, LIPID, URIC, CMP #### [facility] [address] [place] [address] [address] Ekaterina Alcocer Cholesterol.total/Choles terol in HDL [Mass ratio] 3.3 {ratio} Normal [facility] Comment on above: Performed By: #### T 7, TSH, LIPID, URIC, CMP #### [facility] [address] [place] [address] [address] Ekaterina Alcocer HDL NORMAL > or = 60 mg/dl - LOW CARDIOVASCULAR RISK <40 mg/dl - HIGH CARDIOVASCULAR RISK Normal [facility] Comment on above: Performed By: #### T 7, TSH, LIPID, URIC, CMP #### [facility] [address] [place] [address] [address] Ekaterina Alcocer LDL CALC NORMAL SEE BELOW Normal [facility] Comment on above: Result Comment: <100 mg/dl OPTIMAL 100 - 129 mg/dl NEAR OR ABOVE OPTIMAL 130 - 159 mg/dl BORDERLINE HIGH 160 - 189 mg/dl HIGH >190 mg/dl VERY HIGH Performed By: #### T 7, TSH, LIPID, URIC, CMP #### [facility] [address] [place] [address] [address] Ekaterina Alcocer Triglyceride [Mass/Vol] 101 mg/dL Normal <=150 [facility] Comment on above: Performed By: #### T 7, TSH, LIPID, URIC, CMP #### [facility] [address] [place] [address] [address] Ekaterina Alcocer VLDL CALC 20.2 mg/dL Normal [facility] Comment on above: Performed By: #### T 7, TSH, LIPID, URIC, CMP #### [facility] [address] [place] [address] [address] Ekaterina Alcocer PROF 14(COMP METB)on 022 Albumin [Mass/Vol] 3.5 g/dL Normal 3.4-5.0 [facility] Comment on above: Performed By: #### T 7, TSH, LIPID, URIC, CMP #### [facility] [address] [place] [address] [address] Ekaterina Alcocer Albumin/Globulin [Mass ratio] 0.9 {ratio} Normal [facility] Comment on above: Performed By: #### T 7, TSH, LIPID, URIC, CMP #### [facility] [address] [place] [address] [address] Ekaterina Alcocer ALP [Catalytic activity/Vol] 82 U/L Normal 46-116 [facility] Comment on above: Performed By: #### T 7, TSH, LIPID, URIC, CMP #### [facility] [address] [place] [address] [address] Ekaterina Alcocer ALT [Catalytic activity/Vol] 26 U/L Normal 16-63 [facility] Comment on above: Performed By: #### T 7, TSH, LIPID, URIC, CMP #### [facility] [address] [place] [address] Dr. Ekaterina Alcocer Anion gap [Moles/Vol] 8.4 mmol/L Normal [facility] Comment on above: Performed By: #### T 7, TSH, LIPID, URIC, CMP #### [facility] [address] [place] [address] Dr. Ekaterina Alcocer AST [Catalytic activity/Vol] 17 U/L Normal 15-37 [facility] Comment on above: Performed By: #### T 7, TSH, LIPID, URIC, CMP #### [facility] [address] [place] [address] Dr. Ekaterina Alcocer Bilirubin [Mass/Vol] 0.6 mg/dL Normal 0.2-1.0 [facility] Comment on above: Performed By: #### T 7, TSH, LIPID, URIC, CMP #### [facility] [address] [address] [address] Ekaterina Alcocer Calcium [Mass/Vol] 8.8 mg/dL Normal 8.5-10.1 [facility] Comment on above: Performed By: #### T 7, TSH, LIPID, URIC, CMP #### [facility] [address] [place] [address] Dr. Ekaterina Alcocer Chloride [Moles/Vol] 105 mmol/L Normal 98-107 [facility] Comment on above: Performed By: #### T 7, TSH, LIPID, URIC, CMP #### [facility] [address] [place] [address] Dr. Ekaterina Alcocer CO2 [Moles/Vol] 32.6 mmol/L Critically high 21.0-32.0 [facility] Comment on above: Performed By: #### T 7, TSH, LIPID, URIC, CMP #### [facility] [address] [address] [address] Ekaterina Alcocer Creatinine [Mass/Vol] 1.48 mg/dL Critically high 0.70-1.30 [facility] Comment on above: Performed By: #### T 7, TSH, LIPID, URIC, CMP #### [facility] [address] [place] [address] Dr. Ekaterina Alcocer EGFR-AF KAZAKH 55 mL/min/1.73m2 Critically low >=60 [facility] Comment on above: Performed By: #### T 7, TSH, LIPID, URIC, CMP #### [facility] [address] [place] [address] Dr. Ekaterina Alcocer EGFR-NON AF KAZAKH 45 mL/min/1.73m2 Critically low >=60 [facility] Comment on above: Performed By: #### T 7, TSH, LIPID, URIC, CMP #### [facility] [address] [place] [address] Dr. Ekaterina Alcocer Globulin (S) [Mass/Vol] 3.9 g/dL Normal [facility] Comment on above: Performed By: #### T 7, TSH, LIPID, URIC, CMP #### [facility] [address] [place] [address] Dr. Ekaterina Alcocer Glucose [Mass/Vol] 118 mg/dL Critically high 74-106 [facility] Comment on above: Performed By: #### T 7, TSH, LIPID, URIC, CMP #### [facility] [address] [place] [address] Dr. Ekaterina Alcocer Potassium [Moles/Vol] 5.0 mmol/L Normal 3.5-5.1 [facility] Comment on above: Performed By: #### T 7, TSH, LIPID, URIC, CMP #### [facility] [address] [place] [address] Dr. Ekaterina Alcocer Protein [Mass/Vol] 7.4 g/dL Normal 6.4-8.2 [facility] Comment on above: Performed By: #### T 7, TSH, LIPID, URIC, CMP #### [facility] [address] [place] [address] Dr. Ekaterina Alcocer Sodium [Moles/Vol] 141 mmol/L Normal 136-145 [facility] Comment on above: Performed By: #### T 7, TSH, LIPID, URIC, CMP #### [facility] [address] [place] [address] Dr. Ekaterina Alcocer Urea nitrogen [Mass/Vol] 23.0 mg/dL Critically high 7.0-18 .0 [facility] Comment on above: Performed By: #### T 7, TSH, LIPID, URIC, CMP #### [facility] [address] [place] [address] Dr. Ekaterina Alcocer Urea nitrogen/Creatinine [Mass ratio] 15.5 mg/mg Normal [facility] Comment on above: Performed By: #### T 7, TSH, LIPID, URIC, CMP #### [facility] [address] [place] [address] Dr. Ekaterina Alcocer TSHon 06-28-2022 TSH 3.329 uIU/mL Normal 0.358-3.740 [facility] Comment on above: Performed By: #### T 7, TSH, LIPID, URIC, CMP #### [facility] [address] [place] [address] Dr. Ekaterina Alcocer URIC ACID SERUMon 06-28-2022 Urate [Mass/Vol] 8.1 mg/dL Critically high 3.5-7.2 [facility] Comment on above: Performed By: #### T 7, TSH, LIPID, URIC, CMP #### [facility] [address] [place] [address] Dr. Ekaterina Alcocer US CAROTID ART BILon [...] BRIANNA SMITH Date: 2022-06-28 17:35 Normal [facility] VITAMIN D 25 OHon 06-28-2022 VIT D 25-OH 53.8 ng/mL Normal [facility] Comment on above: Performed By: #### Jocelyn SANTIAGOAD, PSASC ####[facility] [id number] [address]DrShayne Alcocer VIT D RANGES SEE BELOW Normal [facility] Comment on above: Result Comment: <20 ng/mL Vit D deficient 20 - <30 ng/mL Vit D insufficient 30 - 100 ng/mL Vit D sufficient >100 ng/mL Potential Toxicity Performed By: #### V GIOVANNI, PSASC ####[facility] [id number] [id number][address] Ekaterina Alcocer Echocardiogramon 04-15-[address], [address], [place] [address] TRANSTHORACIC ECHOCARDIOGRAM REPORT Patient Name: MELO CUEVAS Reading Physician: [id number] Fabián Tony MD Study Date: 04/15/2022 Referring Physician: ALEX BECERRA MRN/PID: [id number] PCP: Lisa Mims Accession/Order#: [id number] Department Location: [facility] Date of : 1935 Fellow: Gender: M Nurse: Admit Date: Surgical Scrub Technician: Dainela Veras RDCS, RVT Height: 187.96 cm CC [...] 3 TAVR-04/2016 Procedure/CPT: Echo Complete w Full Doppler-17091 Study Detail: The following Echo studies were [...] VTI: 22.60 (more content not included)... Normal [facility] Office Visit (Cardiology)on 04-13-2022 Follow-up visit Diagnoses/Problems [...] Status:Hold For - Scheduling,Retrospec tive Authorization; Requested for:[id number]; SocHx: Former smoker Tobacco Use Screening; Status:Complete; Done: [id number] Patient Instructions Please bring all medicines, vitamins, [...] Recorded: 13Apr2022 10:47AM Heart Rate72, L Radial Jugaalfl834, LUE, Sitting Vpxfjbdjk02, LUE, Sitting Height6 ft 2 in Bahjwy562 lb BMI Njlwcgmvir33.65 kg/m2 BSA Calculated2.14 Tobacco Useb) No Falls Screening (Age 18+)a) No falls within the last year Physical Exam Constitutio (more content not included)... Normal [employer] Tobacco Screening.on 022 Fall risk assessment a) No falls within the last year -[facility] Afoundria y 250 DO Work Phone: Tobacco use status [facility] b) No M -[facility] [employer] y 250 DO Work Phone: Tobacco Screening.on 022 Adult depression screening assessment No [facility] HeartKalyani y 250 DO Work Phone: Fall risk assessment a) No falls within the last year [facility] Tata y 250 DO Work Phone: Heart Rate Bounding [facility] Tata Askew DO Work Phone: Tobacco use status [facility] b) No M [facility] HeartKalyani y 250 DO Work Phone: Echocardiogramon 09-29-2021 Echocardiography [facility] [address] [place] [address], [place] [address] TRANSTHORACIC ECHOCARDIOGRAM REPORT Patient Name: MELO CUEVAS Reading Physician: [id number] Fabián Tony MD Study Date: 09/29/2021 Referring Physician: [id number] BECERRA MRN/PID: [id number] PCP: Lisa iMms Accession/Order#: [id number] Department Location: Date of : 1935 Fellow: Gender: M Nurse: Admit Date: Surgical Scrub Technician: Daniela Veras [facility], T Height: 187.96 cm CC Report to: Weight: 88.45 kg Study Type: Echocardiogram BSA: 2.15 m2 Blood Pressure: 116 /58 mmHg Diagnosis/ICD: I35.0-Nonrheumatic aortic (valve) stenosis; 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 Normal [facility] PROGRESSon 12-06-2017 [facility] NOTES Normal [facility] BRIEF OP NOTon 11-21-2017 [facility] CAC NOTES Normal [facility] HISTORY AND PHYSICALon 11-21 [facility] NOTES Normal [facility] OR NURSINGon 11-21-2017 [facility] NOTES Normal [facility] PROGRESSon 11-01-2017 [facility] NOTES Normal [facility] Vital Signs Date Time Vital Sign Value Performing Clinician Facility 08-07-2024 09:28-0500 Body height 188 cm Alex Becerra DO Work Phone: [facility] 08-07-2024 09:28-0500 Body mass index (BMI) [Ratio] 25.42 kg/m2 Alex Becerra DO Work Phone: [facility] 08-07-2024 09:28-0500 Body weight 89.81 kg Alex Becerra DO Work Phone: [facility] 08-07-2024 09:28-0500 Diastolic blood pressure 60 mm[Hg] Alex Becerra DO Work Phone: [facility] 08-07-2024 09:28-0500 Heart rate 72 /min Alex Becerra DO Work Phone: [facility] 08-07-2024 09:28-0500 Systolic blood pressure 126 mm[Hg] Alex Becerra DO Work Phone: [facility] 07-30-2024 10:20-0500 Body height 182.9 cm Brianna Martinez DO Work Phone: [facility] 07-30-2024 10:20-0500 Body mass index (BMI) [Ratio] 26.45 kg/m2 Brianna Martinez DO Work Phone: [facility] 07-30-2024 10:20-0500 Body weight 88.45 kg Brianna Martinez DO Work Phone: [facility] 07-24-2024 09:38-0500 Body height [address] 07-24-2024 09:38-0500 Body mass index (BMI) [Ratio] 25.42 kg/m2 [address] 07-24-2024 09:38-0500 Body weight 89.[address] 07-24-2024 09:38-0500 Diastolic blood pressure 62 mm[Hg] [address] 07-24-2024 09:38-0500 Systolic blood pressure 124 mm[Hg] [address] 07-12-2024 09:59-0500 Body height 182.9 cm Brianna Pocos DO Work Phone: [facility] 07-12-2024 09:59-0500 Body mass index (BMI) [Ratio] 26.45 kg/m2 Brianna Pocos DO Work Phone: [facility] 07-12-2024 09:59-0500 Body weight 88.45 kg Brianna Pocos DO Work Phone: [facility] 06-27-2024 13:46-0500 Body height 182.9 cm Brianna Pocos DO Work Phone: [facility] 06-27-2024 13:46-0500 Body mass index (BMI) [Ratio] 26.45 kg/m2 Brianna Pocos DO Work Phone: [facility] 06-27-2024 13:46-0500 Body weight 88.45 kg Brianna Pocos DO Work Phone: [facility] 01-31-2024 13:10-0400 Blood Pressure Location Guy NILL [facility] 01-31-2024 13:10-0400 Diastolic blood pressure 76 mm[Hg] Guy NILL [facility] 01-31-2024 13:10-0400 Heart rate 72 /min Guy NILL [facility] 01-31-2024 13:10-0400 Respiratory rate 16 /min Guy NILL [facility] 01-31-2024 13:10-0400 Systolic blood pressure 116 mm[Hg] Guy BRIDGETTE [facility] 10-26-2023 09:30-0400 Body height 188 cm Alex Becerra DO Work Phone: [facility] 10-26-2023 09:30-0400 Body mass index (BMI) [Ratio] 25.42 kg/m2 Alex Becerra DO Work Phone: [facility] 10-26-2023 09:30-0400 Body weight 89.81 kg Alex Becerra DO Work Phone: [facility] 10-26-2023 09:30-0400 Diastolic blood pressure 60 mm[Hg] Alex Becerra DO Work Phone: [facility] 10-26-2023 09:30-0400 Heart rate 60 /min Alex Becerra DO Work Phone: [facility] 10-26-2023 09:30-0400 Systolic blood pressure 118 mm[Hg] Alex Becerra DO Work Phone: [facility] 10-18-2023 09:41-0400 Body height [address] 10-18-2023 09:41-0400 Body mass index (BMI) [Ratio] 25.42 kg/m2 [address] 10-18-2023 09:41-0400 Body weight 89.[address] 10-18-2023 09:41-0400 Diastolic blood pressure 72 mm[Hg] [address] 10-18-2023 09:41-0400 Systolic blood pressure 134 mm[Hg] [address] 08-17-2023 11:27-0500 Body height 188 cm Dasia Bledsoe APRN-GROUND DEFENCE OFFICER Work Phone: [facility] 08-17-2023 11:27-0500 Body mass index (BMI) [Ratio] 25.42 kg/m2 Dasia Bledsoe APRN-GROUND DEFENCE OFFICER Work Phone: [facility] 08-17-2023 11:27-0500 Body weight 89.81 kg Dasia Bledsoe EVALUATOR-GROUND DEFENCE OFFICER Work Phone: [facility] 08-17-2023 11:27-0500 Diastolic blood pressure 64 mm[Hg] Dasia Bledsoe EVALUATOR-GROUND DEFENCE OFFICER Work Phone: [facility] 08-17-2023 11:27-0500 Heart rate 60 /min Dasia Bledsoe EVALUATOR-GROUND DEFENCE OFFICER Work Phone: [facility] 08-17-2023 11:27-0500 Systolic blood pressure 138 mm[Hg] Dasia Bledsoe EVALUATOR-GROUND DEFENCE OFFICER Work Phone: [facility] 10-14-2022 10:03-0400 Body height 187.96 cm Lisa Kameron Hoy Work Phone: [facility] 250 DO Work Phone: 10-14-2022 10:03-0400 Body mass index (BMI) [Ratio] 25.29 kg/m2 Lisa Kameron Hoy Work Phone: [facility] 250 DO Work Phone: 10-14-2022 10:03-0400 Body surface area Derived from formula 2.16 m2 Lisa Kameron Hoy Work Phone: [facility] 250 DO Work Phone: 10-14-2022 10:03-0400 Body weight 89.36 kg Lisa M Hoy Work Phone: [facility] 250 DO Work Phone: 10-14-2022 10:03-0400 Diastolic blood pressure 52 mm[Hg] Lisa M Hoy Work Phone: [facility] 250 DO Work Phone: 10-14-2022 10:03-0400 Heart rate 64 /min Lisa M Hoy Work Phone: [facility] 250 DO Work Phone: 10-14-2022 10:03-0400 Systolic blood pressure 112 mm[Hg] Lisa M Hoy Work Phone: [facility] 250 DO Work Phone: 04-15-2022 09:45-0400 70 1 Lisa M Hoy Work Phone: [facility] [address] [place] Work Phone: Comment on above: [id number] 04-13-2022 10:47-0400 Body height 187.96 cm Lisa M Hoy Work Phone: [facility] 250 DO Work Phone: 04-13-2022 10:47-0400 Body mass index (BMI) [Ratio] 24.65 kg/m2 Lisa M Hoy Work Phone: [facility] 250 DO Work Phone: 04-13-2022 10:47-0400 Body surface area Derived from formula 2.14 m2 Lisa M Hoy Work Phone: [facility] 250 DO Work Phone: 04-13-2022 10:47-0400 Body weight 87.09 kg Lisa M Hoy Work Phone: [facility] [address] DO Work Phone: 04-13-2022 10:47-0400 Diastolic blood pressure 74 mm[Hg] Lisa M Hoy Work Phone: [facility] 250 DO Work Phone: 04-13-2022 10:47-0400 Heart rate 72 /min Lisa M Hoy Work Phone: [facility] 250 DO Work Phone: 04-13-2022 10:47-0400 Systolic blood pressure 122 mm[Hg] Lisa M Hoy Work Phone: [facility] 250 DO Work Phone: 10-07-2021 10:50-0400 Body height 185.42 cm Lisa Kameron Hoy Work Phone: [facility] 250 DO Work Phone: 10-07-2021 10:50-0400 Body mass index (BMI) [Ratio] 26.25 kg/m2 Lisa Kameron Hoy Work Phone: [facility] [address] DO Work Phone: 10-07-2021 10:50-0400 Body surface area Derived from formula 2.15 m2 Lisa Kameron Hoy Work Phone: [facility] 250 DO Work Phone: 10-07-2021 10:50-0400 Body weight 90.27 kg Lisa Melo Hoy Work Phone: [facility] [address] DO Work Phone: 10-07-2021 10:50-0400 Diastolic blood pressure 60 mm[Hg] Lisa Kameron Hoy Work Phone: [facility] 250 DO Work Phone: 10-07-2021 10:50-0400 Heart rate 61 /min Lisa Kameron Hoy Work Phone: [facility] [address] DO Work Phone: 10-07-2021 10:50-0400 Systolic blood pressure 136 mm[Hg] Lisa Kameron Hoy Work Phone: [facility] 250 DO Work Phone: 09-29-2021 10:45-0400 70 1 Lisa M Hoy Work Phone: [facility] [address] [place] Work Phone: Comment on above: [id number] Encounters Encounter Date Encounter Type Care Provider Facility Start: 08-07-2024 End: 08-07-2024 Telephone encounter Shayy Trotter PT Work Phone: [facility] Comment on above: re: PT and fu w/ Dr. Martinez Start: 08-07-2024 End: 08-07-2024 Office outpatient visit 25 minutes Alex Yorkdon DO Work Phone: 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 Start: 08-07-2024 End: 08-07-2024 ambulatory [facility] Start: 07-30-2024 End: 07-30-2024 Bamboo flowsheet Brianna Martinez DO Work Phone: [facility] Start: 07-30-2024 End: 07-30-2024 Bamboo flowsheet Brianna Main Pocos DO Work Phone: [facility] Start: 07-30-2024 End: 07-30-2024 Patient encounter procedure Brianna Main Pocflor DO Work Phone: [facility] Comment on above: Strain of right shou lder, subsequent encounter (Primary Dx); Arthritis of right shoulder region; 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 Start: 07-30-2024 End: 07-30-2024 ambulatory BRIANNA DOMINGOOS Not Available Start: 07-27-2024 End: 07-27-2024 Bamboo flowsheet Jim Murillo UROLOGY SURGEON [facility] Start: 07-27-2024 End: 07-27-2024 Bamboo flowsheet Jim Murillo UROLOGY SURGEON [facility] Start: 07-27-2024 End: 07-27-2024 ambulatory Jim Murillo UROLOGY SURGEON [facility] Comment on above: Acute pain of right shoulder (Primary Dx); Arthritis of right shoulder region Start: 07-24-2024 End: 07-24-2024 Bamboo flowsheet Jim Murillo UROLOGY SURGEON [facility] Start: 07-24-2024 End: 07-24-2024 Bamboo flowsheet Jim Murillo UROLOGY SURGEON [facility] Start: 07-24-2024 End: 07-24-2024 Subsequent hospital visit by physician Janet Wu Echo/Vasc Room 2 [facility] Comment on above: Mitral valve stenosi s, unspecified etiology Start: 07-24-2024 End: 07-24-2024 ambulatory Jim Murillo UROLOGY SURGEON [facility] Comment on above: Acute [...] 07-06-2024 End: 07-06-2024 Bamboo flowsheet Mary Leon UROLOGY SURGEON [facility] Start: 07-06-2024 End: 07-06-2024 Bamboo flowsheet Mary Leon UROLOGY SURGEON [facility] Start: 07-06-2024 End: 07-06-2024 ambulatory Mary Leon UROLOGY SURGEON [facility] Comment on above: Acute [...] End: 07-03-2024 ambulatory Alex Cerda Facility:[facility] Start: 06-27-2024 End: 06-27-2024 Patient encounter procedure [...] encounter procedure MD Lisa Mims Work Phone: [facility] Start: 04-03-2024 End: 04-03-2024 ambulatory MD Lisa Mims Work Phone: [facility] Work Phone: Start: 03-21-2024 End: 03-21-2024 ambulatory Guy ANGELES Facility:[facility] Start: 03-21-2024 End: 03-21-2024 Patient encounter procedure Guy Potter NILL [facility] Start: 03-07-2024 End: 03-07-2024 ambulatory MD Lisa Mims Work Phone: [facility] Work Phone: Start: 03-07-2024 End: 03-07-2024 Departed Referred MD Lisa Mims Work Phone: [facility] Start: 03-07-2024 End: 03-07-2024 ambulatory Guy LARIOSL Facility:CD:[id number] Start: 01-31-2024 End: 01-31-2024 ambulatory Lisa Mims Facility: [facility] Start: 01-31-2024 End: 01-31-2024 Patient encounter procedure Guy Potter BRIDGETTE [facility] Start: 01-03-2024 End: 01-03-2024 Patient encounter procedure MD Lisa Mims Work Phone: [facility] Start: 01-03-2024 End: 01-03-2024 ambulatory MD Lisa Mims Work Phone: [facility] Work Phone: Start: 12-26-2023 ambulatory Guy ANGELES Facility:[facility] Start: 10-26-2023 End: 10-26-2023 Office outpatient visit 25 minutes Alex Becerra DO Work Phone: 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; Fatigue, unspecified type; SSS (sick sinus syndrome) (CMS/HCC); Pacemaker; Mitral valve stenosis, unspecified etiology; Primary hypertension; Mixed hyperlipidemia; BMI 25.0-25.9,adult; Former smoker Start: 10-26-2023 End: 10-26-2023 ambulatory [facility] Start: 10-18-2023 End: 10-18-2023 Subsequent hospital visit by physician Janet Wu Echo/Vasc Room 2 [facility] Comment on above: Aortic valve stenosi s, etiology of cardiac valve disease unspecified Start: 10-18-2023 End: 10-18-2023 ambulatory LISA BYERS [facility] Start: 10-04-2023 End: 10-04-2023 Patient encounter procedure MD Lisa Mims Work Phone: [facility] Start: 10-04-2023 End: 10-04-2023 ambulatory MD Lisa Mims Work Phone: [facility] Work Phone: Start: 08-17-2023 End: 08-17-2023 Office outpatient visit 25 minutes Dasia Bledsoe APRN-GROUND DEFENCE OFFICER Work Phone: 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; Mitral valve stenosis, unspecified etiology; Mixed hyperlipidemia; Primary hypertension; Pacemaker; BMI 25.0-25.9,adult Start: 07-04-2023 End: 07-04-2023 ambulatory MD Lisa Mims Work Phone: [facility] Work Phone: Start: 07-04-2023 End: 07-04-2023 Patient encounter procedure MD Lisa Mims Work Phone: [facility] Start: 04-04-2023 End: 04-04-2023 Patient encounter procedure MD Lisa Mims Work Phone: [facility] Start: 04-04-2023 End: 04-04-2023 ambulatory MD Lisa Mims Work Phone: [facility] Work Phone: Start: 01-03-2023 End: 01-03-2023 ambulatory MD Lisa Mims Work Phone: [facility] Work Phone: Start: 01-03-2023 End: 01-03-2023 Patient encounter procedure MD Lisa Mims Work Phone: [facility] Start: 01-03-[address] Lisa Mims Facility:[id number] Start: 10-14-2022 Office outpatient vi sit 15 minutes Lisa Mims Work Phone: [facility] [address] DO Work Phone: Start: 10-14-[address] Lisa Mims Facility: Start: 10-04-2022 End: 10-04-2022 Patient encounter procedure MD Lisa Mims Work Phone: [facility] Start: 10-04-2022 End: 10-04-2022 ambulatory MD Lisa Mims Work Phone: [facility] Work Phone: Start: 08-30-2022 End: 08-30-[address] LISA MIMS Facility:H1 Start: 07-05-[address] Lisa Mims Facility:[id number] Start: 07-05-2022 End: 07-05-2022 ambulatory MD Lisa Mims Work Phone: [facility] Work Phone: Start: 07-05-2022 End: 07-05-2022 Patient encounter procedure MD Lisa Mims Work Phone: [facility] Start: 06-28-2022 End: 06-29-[address] LISA MIMS Facility:H1 Start: 04-21-2022 Chart Update Lisa Mims Work Phone: [facility] [address] DO Work Phone: Start: 04-15-2022 ECHO, Provider: MARIELLE EVANS ULTRASOUND 01,[id number], Status: Pen, Time: 9:45 AM Lisa Kameron Hoy Work Phone: [facility] DO Work Phone: Start: 04-15-2022 Patient encounter procedure Lisa M Hoy Work Phone: [facility] [address] [place] Work Phone: Start: 04-15-[address] Alex Berman ility:[id number] Start: 04-13-2022 Office outpatient vi sit 25 minutes Lisa M Hoy Work Phone: [facility] DO Work Phone: Start: 04-02-2022 End: 04-02-2022 Patient encounter procedure MD Lisa Mism Work Phone: [facility] Start: 01-01-2022 End: 01-01-2022 Patient encounter procedure MD Lisa Mims Work Phone: [facility] Start: 10-07-2021 Office outpatient vi sit 25 minutes Lisa M Hoy Work Phone: [facility] [address] [place] Work Phone: Start: 09-29-2021 Patient encounter procedure Lisa M Hoy Work Phone: [facility] [address] [place] Work Phone: Start: 09-29-[address] Alex Berman ility:[id number] Start: 05-10-2018 Patient encounter procedure PROVIDER UNKNOWN Facility:[id number] Start: 12-06-2017 Ambulatory [facility] Start: 11-21-2017 Ambulatory [facility] Start: 11-21-2017 End: 11-21-2017 Ambulatory [facility] Start: 11-01-2017 Ambulatory [facility] Procedures Date Procedure Procedure Detail Performing Clinician [...] above: Performed By: #### V ITAD, PSASC ####[facility] [id number] [place], [place] [address]Dr. Ekaterina Alcocer Start: 04-15-2022 Echocardiography Melo Mims [...] 07-24-2025 Echocardiography Echocardiogram [facility] Start: 05-09-2025 DTaP/Tdap/Td Vaccines (2 - Td or Tdap) DTaP/Tdap/Td Vaccines (2 - Td or Tdap) [facility] Start: 08-27-2024 End: 10-25-2025 US Heart Transthoracic Transthoracic Echo Complete Echocardiography Routine Mitral valve stenosis, unspecified etiology Expected: 08/27/2024 (Approximate), Expires: 10/25/2025 [facility] Service Area Work Phone: Comment on above: Expected: 08/27/2024 (Approximate), Expi res: 10/25/2025 Start: 08-07-2024 End: 08-07-2025 Alanine aminotransferase [Enzymatic activity/volume] in Serum or Plasma by With P-5'-P Alanine Aminotransferase Lab Routine Mixed hyperlipidemia Expected: 08/07/2024 (Approximate), Expires: 08/07/2025 [facility] Work Phone: Comment on above: Expected: 08/07/2024 (Approximate), Expi res: 08/07/2025 Start: 08-07-2024 End: 08-07-2025 Aspartate aminotransferase [Enzymatic activity/volume] in Serum or Plasma by With P-5'-P Aspartate Aminotransferase Lab Routine Mixed hyperlipidemia Expected: 08/07/2024 (Approximate), Expires: 08/07/2025 [facility] Work Phone: Comment on above: Expected: 08/07/2024 (Approximate), Expi res: 08/07/2025 Start: 08-07-2024 End: 08-07-2025 Basic metabolic 2000 panel - Serum or Plasma Basic Metabolic Panel Lab Routine Primary hypertension Expected: 08/07/2024 (Approximate), Expires: 08/07/2025 [facility] Work Phone: Comment on above: Expected: 08/07/2024 (Approximate), Expi res: 08/07/2025 Start: 08-07-2024 End: 08-07-2025 Lipid 1996 panel - Serum or Plasma Lipid Panel Lab Routine Mixed hyperlipidemia Expected: 08/07/2024 (Approximate), Expires: 08/07/2025 [facility] Work Phone: Comment on above: Expected: 08/07/2024 (Approximate), Expi res: 08/07/2025 Start: 08-07-2024 End: 08-07-2025 Natriuretic peptide B [Mass/volume] in Blood B-Type Natriuretic Peptide Lab Routine Mitral valve stenosis, unspecified etiology Mitral valve insufficiency, unspecified etiology Aortic valve stenosis, etiology of cardiac valve disease unspecified S/P TAVR (transcatheter aortic valve replacement) Paroxysmal atrial fibrillation (Multi) Status post CVA [facility] current use of anticoagulant therapy SSS (sick sinus syndrome) (Multi) Primary hypertension Mixed hyperlipidemia BMI 25.0-25.9,adult Former smoker 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 (Multi) Expected: 08/07/2024 (Approximate), Expires: 08/07/2025 [facility] Work Phone: Comment on above: Expected: 08/07/2024 (Approximate), Expi res: 08/07/2025 Start: 08-07-2024 End: 08-07-2026 Heart Transthoracic Transthoracic Echo Complete Echocardiography Routine Mitral valve stenosis, unspecified etiology Mitral valve insufficiency, unspecified etiology Aortic valve stenosis, etiology of cardiac valve disease unspecified S/P TAVR (transcatheter aortic valve replacement) Expected: 08/07/2024 (Approximate), Expires: 08/07/2026 [facility] Service Area Work Phone: Comment on above: Expected: 08/07/2024 (Approximate), Expi res: 08/07/2026 Start: 08-07-2024 End: 08-07-2024 Patient encounter procedure 08/07/2024 9:30 AM EST Office Visit [facility] [address] [facility] [address] [place] [address] Alex Becerra DO [address] [facility] [address] [place] [address] [facility] Start: 08-02-2024 End: 08-02-2024 ambulatory 08/02/2024 10:00 AM EST Treatment [facility] [address] [place] [address] Jim Murillo UROLOGY SURGEON [facility] Start: 07-31-2024 End: 07-31-2024 ambulatory 07/31/2024 1:00 PM EST Treatment [facility] [address] [place] [address] Jim Murillo UROLOGY SURGEON [facility] Start: 07-30-2024 End: 07-30-2024 Patient encounter procedure [facility] Comment on above: Arrived Start: 07-27-2024 End: 07-27-2024 ambulatory [facility] Comment on above: Arrived Start: 07-24-2024 End: 07-24-2024 ambulatory [facility] Comment on above: Arrived Start: 07-24-2024 End: 07-24-2024 Patient encounter procedure 07/24/2024 9:45 AM EST Appointment [facility] [address] [facility] [address] [place] [address] [facility] Start: 07-20-2024 End: 07-20-2024 ambulatory [facility] Comment on above: Acute pain of right shoulder (Primary Dx ); Arthritis of right shoulder region Start: 07-17-2024 End: 07-17-2024 ambulatory 07/17/2024 10:00 AM EST Treatment [facility] [address] [facility] [address] [place] [address] Shayy Trotter, PT [address] [facility] [address] [place] [address] [facility] Start: 07-12-2024 End: 07-12-2024 ambulatory 07/12/2024 3:30 PM EST Treatment [facility] [address] [facility] [address] [place] [address] Mary Leon, UROLOGY SURGEON [facility] Start: 07-10-2024 End: 07-10-2024 ambulatory 07/10/2024 1:00 PM EST Treatment [facility] [address] [facility] [address] [place] [address] Jim Murillo, UROLOGY SURGEON [facility] Start: 07-06-2024 End: 07-06-2024 ambulatory [facility] Comment on above: Acute pain of right shoulder (Primary Dx ); Arthritis of right shoulder region Start: 07-04-2024 End: 07-04-2024 ambulatory [facility] Comment on above: Arrived Start: 03-18-2024 COVID-19 Vaccine ( season) COVID-19 Vaccine ( season) [facility] Start: 03-18-2024 Influenza vaccination [facility] Start: 10-26-2023 FUV, Provider: Alex Becerra, Status: Pen, Time: 9:30 AM FUV, Provider: Alex Becrera, Status: Pen, [facility]: 9:30 [facility] Work [facility]: Start: 10-26-2023 End: 10-26-2023 Patient encounter procedure 10/26/2023 9:30 AM EDT Office Visit [facility] [address] [facility] [address] [place] [address] Alex Becerra S, DO [address] [facility] [address] [place] [address] [facility] Start: 10-18-2023 ECHO, Provider: [facility] [facility] 01,[id number], Status: Pen, Time: 9:45 AM ECHO, Provider: [facility] 01,[id number], Status: Pen, Time: 9:45 AM [facility] Work Phone: Start: 10-18-2023 End: 10-18-2023 Patient encounter procedure 10/18/2023 9:45 AM EDT Appointment [address] [place] [address] [facility] Start: 03-18-2023 COVID-19 Vaccine ( season) COVID-19 Vaccine ( season) [facility] Start: 03-18-2023 Influenza vaccination Influenza Vaccine (#1) [facility] Start: 10-14-2022 FUV, Provider: Alex Becerra, Status: Pen, Time: 10:00 AM [facility], Provider: Alex Becerra, Status: Pen, Time: 10:00 AM [facility] Work Phone: Start: 04-13-2022 FUV, Provider: Alex Becerra, Status: Pen, Time: 10:40 AM FUV, Provider: Alex Becerra, Status: Pen, Time: 10:40 AM [facility] [address] DO Work Phone: Start: 10-07-2021 FUV, Provider: Alex Becerra, Status: Pen, Time: 10:30 AM FUV, Provider: Alex Becerra, Status: Pen, Time: 10:30 AM -[facility] [address] [place] Work Phone: Start: 06-28-2018 Pneumococcal Vaccine: 65+ Years (2 - PPSV23 or PCV20) Pneumococcal Vaccine: 65+ Years (2 - PPSV23 or PCV20) [facility] Start: 06-28-2018 Pneumococcal Vaccine: 65+ Years (2 of 2 - PPSV23 or PCV20) Pneumococcal Vaccine: 65+ Years (2 of 2 - PPSV23 or PCV20) [facility] Start: 07-13-2016 Pneumococcal vaccination Pneumococcal Vaccine (2 of 2 - PPSV23) [facility] Start: 02-17-2012 RSV High Risk: (Elderly (60+) or Population) (1 - 1-dose 75+ series) RSV High Risk: (Elderly (60+) or Population) (1 - 1-dose 75+ series) [facility] Start: 1987 Zoster Vaccines (1 of 2) Zoster Vaccines (1 of 2) [facility] Start: 1959 DTaP/Tdap/Td Vaccines (1 - Tdap) DTaP/Tdap/Td Vaccines (1 - Tdap) [facility] Start: 1955 Diabetes mellitus screening Diabetes Screening [facility] Start: 1937 Creatinine measurement Creatinine Level [facility] Start: 1937 Lipid panel Lipid Panel [facility] Start: 1937 Medicare Annual Wellness Visit Medicare Annual Wellness Visit (AWV) [facility] Start: 1937 Potassium measurement Potassium Level [facility] End: 10-18-2023 [facility] Work Phone: Comment on above: Once for 1 Occurrences starting 10/18/19 24 until 10/18/2023 XR Knee - right 3 Views XR knee 3 views right Imaging Routine Right knee pain, unspecified chronicity 07/12/2024 10:05 AM [employer] Work Phone: XR Shoulder - right 2 Views XR shoulder 2+ views right Imaging Routine Right shoulder pain, unspecified chronicity 06/27/2024 11:17 AM EST [facility] Work Phone: Immunizations Immunization Date Immunization Notes Care Provider Pricila smith 06-25-2021 Influenza, injectabl e, Madin [place] Canine Kidney, preservative free, quadrivalent Lisa M Hoy Work Phone: [facility] [address] [place] Work Phone: 06-25-2021 influenza virus vacc ine, unspecified formulation Brianna Martinez DO Work Phone: [facility] 10-07-2020 Pfizer-BioNTech COVI D-19 Vacc 30 MCG/0.3ML Intramuscular Suspension Lisa M Hoy Work Phone: [facility] 09-15-2020 Pfizer-BioNTech COVI D-19 Vacc 30 MCG/0.3ML Intramuscular Suspension Lisa M Hoy Work Phone: [facility] 04-29-2020 Seasonal trivalent influenza vaccine, adjuvanted, preservative free Lisa M Hoy Work Phone: [facility] [address] [place] Work Phone: 04-17-2020 influenza virus vacc ine, unspecified formulation Lisa M Hoy Work Phone: [facility] [address] [place] Work Phone: 04-25-2019 Seasonal trivalent influenza vaccine, adjuvanted, preservative free Lisa M Hoy Work Phone: [facility] [address] [place] Work Phone: 03-18-2019 influenza virus vacc ine, unspecified formulation Lisa M Hoy Work Phone: [facility] [address] [place] Work Phone: 05-03-2018 pneumococcal vaccine , unspecified formulation Lisa M Hoy Work Phone: [facility] [address] [place] Work Phone: 05-02-2018 pneumococcal polysaccharide vaccine, 23 valent Lisa M Hoy Work Phone: [facility] [address] [place] Work Phone: 04-26-2018 influenza virus vacc ine, unspecified formulation Lisa Mims Work Phone: [facility] [address] [place] Work Phone: 04-18-2018 Seasonal trivalent influenza vaccine, adjuvanted, preservative free Lisa Mims Work Phone: [facility] [address] [place] Work Phone: 06-15-2017 pneumococcal polysaccharide vaccine, 23 valent Lisa Melo [employer] Work Phone: [facility] [address] [place] Work Phone: 05-05-2017 influenza, injectabl e, quadrivalent, preservative free Lisa Melo [employer] Work Phone: [facility] [address] [place] Work Phone: 04-17-2017 influenza virus vacc ine, unspecified formulation Lisa Melo [employer] Work Phone: [facility] [address] [place] Work Phone: 06-14-2016 pneumococcal conjuga te vaccine, 13 valent Lisa Melo [employer] Work Phone: [facility] [address] [place] Work Phone: 05-18-2016 pneumococcal conjuga te vaccine, 13 valent Lisa Melo y Work Phone: [facility] [address] [place] Work Phone: 04-17-2016 influenza virus vacc ine, unspecified formulation Lisa Melo [employer] Work Phone: [facility] [address] [place] Work Phone: 05-09-2015 tetanus toxoid, redu alexandra diphtheria toxoid, and acellular pertussis vaccine, adsorbed Lisa Melo [employer] Work Phone: [facility] [address] [place] Work Phone: 05-01-2015 influenza, high dose seasonal, preservative-free Lisa Mims [facility] [address] [place] Work Phone: 04-17-2015 influenza virus vacc ine, unspecified formulation Lisa Mims [facility] [address] [place] Work Phone: 07-30-2005 hepatitis A vaccine, unspecified formulation Lisa Mims [facility] [address] [place] Work Phone: Comment on above: Series: Payers Date Payer Category Payer Self-pay [id number] 2023 Private Health Insurance 2015 Medicare supplementa l policy (as second payer) [id number] 2002 Medicare [id number] 2002 Medicare [id number] 1959 Medicare [id number] 1959 Unknown [id number] 1937 Unknown [id number] 2.16.840.1.783011.3.579.2.355 1937 Unknown [id number] 2.16.840.1.870946.3.579.2.1068 1937 Unknown [id number] 2.16.840.1.894124.3.579.2.1068 1937 Unknown [id number] 2.16.840.1.477032.3.579.2.593 1937 Unknown [id number] 2.840.1.342458.3.579.2.593 1937 Unknown [id number] 2.16.840.1.794141.3.579.2.356 1937 Unknown [id number] 2.840.1.248138.3.579.2.356 1937 Unknown [id number] 2.840.1.752010.3.579.2.356 1937 Unknown [id number] 2.0.1.278615.3.579.2.356 1937 Unknown [id number] 2.0.1.931501.3.579.2.356 1937 Unknown [id number] .0.1.395565.3.579.2.727 1937 Unknown [id number] .0.1.332748.3.579.2.727 1937 Unknown [id number] ..1.479149.3.579.2.727 1937 Unknown [id number] .0.1.825833.3.579.2.727 1937 Unknown [id number] 09.02.830.1.861991.3.579.2.1259 1937 Unknown [id number] .0.1.185053.3.579.2.1259 1937 Unknown [id number] 09.02.830.1.514448.3.579.2.1259 1937 Unknown [id number] .0.1.814953.3.579.2.1259 1937 Unknown [id number] 840.1.230021.3.579.2.1259 1937 Unknown [id number] 2.16.840.1.571795.3.579.2.1258 1937 Unknown [id number] 2.16.840.1.057335.3.579.2.1258 1937 Unknown [id number] 2.16.840.1.815231.3.579.2.1258 1937 Unknown [id number] 2.16.840.1.654467.3.579.2.1258 1937 Unknown [id number] 2.16.840.1.918029.3.579.2.1258 1937 Unknown [id number] 2.16.840.1.160736.3.579.2.1258 1937 Unknown [id number] 2.840.1.609382.3.579.2.1258 1937 Unknown [id number] 2.840.1.226821.3.579.2.1258 1937 Unknown [id number] 2.16840.1.024128.3.579.2.1245 1937 Unknown [id number] 2.16840.1.677481.3.579.2.1245 1937 Unknown [id number] 2.840.1.231246.3.579.2.4 1937 Unknown [id number] 2.16840.1.475739.3.579.2.1244 Medicare [id number] Unknown Unknown [id number] 2.16.840.1.194401.3.579.2.531 Unknown [id number] 2.16.840.1.006004.3.579.2.531 Unknown [id number] 2.16.840.1.336892.3.579.2.531 Unknown [id number] 2.16.840.1.031548.3.579.2.531 Unknown [id number] 2.16.840.1.498953.3.579.2.531 Social History Date Type Detail Facility Start: 08-17-2023 End: 07-30-2024 [facility] [place] Work Phone: Comment on above: Quit at 37. 2 ppd; Coffee - 1/2 cup michael ly; Rarely; Quit at age 37. 2 pp d; Start: 12-16-2020 End: 06-23-2023 Tobacco smoking status NHIS Ex-smoker (finding) [facility] Start: 08-17-2023 End: 07-30-2024 History of tobacco use [facility] Start: 1935 Sex Assigned At Male F [facility] History of tobacco use Current smoker [facility] Work Phone: History of tobacco use Cigarette Smoker [facility] Work Phone: Start: 06-23-2023 End: 08-17-2023 Tobacco use and exposure Smokeless tobacco non-user [facility] Work Phone: Start: 08-17-2023 End: 07-30-2024 Alcohol intake Current drinker of alcohol (finding) [facility] Work Phone: Start: 08-17-2023 Alcohol Comment beer nightly [facility] Work Phone: Start: 1935 Sex Assigned At Not on file [facility] Work Phone: Start: 08-07-2023 End: 08-07-2024 Exposure to SARS-CoV-2 (event) Not sure [facility] Start: 10-18-2023 Gender identity Identifies as male gender (finding) [facility] Work Phone: Start: 10-18-2023 Sexual orientation Heterosexual (fin padma) [facility] Work Phone: Tobacco [facility] status [facility] often to you hav e [...] Identifier Dates Insertion, pacemaker Endocardial pacing lead ()[id number] FDA Start: 12-16-2020 Insertion, pacemaker Endocardial pacing lead ()[id number] FDA Start: 12-16-2020 Insertion, pacemaker Dual-chamber implantable pacemaker, rate-responsive ()[id number] FDA Start: 12-16-2020 Functional Status Date Assessment Result Facility 01-31-2024 Functional Status N/A [facility] Clinical Notes 08-17-2023 to 08-07-2024 [...] not to hesitate and contact if needed. [facility] 08-07-2024 Miscellaneous Notes Called to request status and to check on fu w/ Dr. Martinez. He said he's feeling better and happy w/ status. His fu went very well and per [place] he can cont on if he feels needed; he said he is happy as of now. I reminded not to hesitate and contact if needed. documented in this encounter [facility] 08-07-2024 History of Present illness Narrative Subjective [...] one tablet daily. Take as directed per [place] [facility], Disp: 90 tablet, Rfl: 0 Assessment/Plan 1. Mitral valve stenosis, unspecified etiology Follow Up In Cardiology 2. Mitral valve insufficiency, unspecified etiology 3. Aortic valve stenosis, etiology of cardiac valve disease unspecified 4. S/P TAVR (transcatheter aortic valve replacement) 5. Paroxysmal atrial fibrillation (Multi) 6. 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 SSS (sick sinus syndrome) (Multi) 9. Pacemaker 10. Primary hypertension 11. Mixed hyperlipidemia 12. BMI 25.0-25.9,adult 13. Former smoker Scribe Attestation By signing my name below, eBbe Hernandez LPN , Scribe attest that this [...] in this encounter [facility] Work Phone: 08-07-2024 Instructions Bebe Pop LPN [...] be sent through Care Everywhere.Heart Healthy Diet (Nauruan)documented in this encounter [facility] Work Phone: 07-30-2024 History of Present illness [...] joint osteoarthritis. The findings are discussed. At [id number], we would recommend strength and optimization as [...] 7:53 AM EST documented in this encounter [facility] 07-20-2024 History of Present illness Narrative Physical [...] started after racking leaves and pulling wheel [place]. Precautions: PACEMAKER Subjective Pt. Reports shoulder is [...] to be instructed in home exercise program. Invoicing Specialist Goals: To be met in 10 weeks [...] sign below. Date: documented in this encounter [facility] 12-31-2024 History of Present illness Narrative Images [...] started after racking leaves and pulling wheel [place]. Precautions: PACEMAKER Subjective Pt. Reports shoulder is [...] to be instructed in home exercise program. Invoicing Specialist Goals: To be met in 10 weeks [...] sign below. Date: documented in this encounter [facility] 07-12-2024 History of Present illness Narrative Images [...] 7:33 AM EST documented in this encounter [facility] 07-04-2024 History of Present illness Narrative Physical [...] started after racking leaves and pulling wheel [place]. Precautions: PACEMAKER Subjective Pain: 0/10 rest; 2/10 [...] to be instructed in home exercise program. Fpc Goals: To be met in 10 weeks [...] sign below. Date: documented in this encounter [facility] 06-27-2024 History of Present illness Narrative Associated [...] 4:36 PM EST documented in this encounter [facility] 01-31-2024 Note General Surgery Offi ce/Clinic Note [...] plan excisional biopsy under local anesthesia at [facility]; informed consent obtained; hold Coumadin 4 days [...] SARS-CoV-2 (COVID-19) mRNA BNT-162b2 vax 09/15/2020 Recorded [facility] Comment on above: Result Comment: Elec tronically Signed By: BRIDGETTE SCOTT, Guy Min\Date and Time Signed: 01/31/24 14:00 EDT 10-26-2023 History of Present illness Narrative Subjective Melo Cuevas is a 88 y.o. male Chief Complaint Annual Exam 88-year-old healthy gentleman returns for 3-month follow-up following recent PROCEDURAL NURSE evaluation and echo from 07/09. He is [...] one tablet daily. Take as directed per [place] coumadin [facility], Disp: 90 tablet, Rfl: 0 Assessment/Plan 1. 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 Fatigue, [...] in this encounter [facility] Work Phone: 10-26-2023 Instructions Bebe Pop LPN [...] in this encounter [facility] Work Phone: 08-18-2023 Evaluation + Plan note Associated Problem(s): Cardiac and Vasculature February 2016 cardiac cath minimal CAD March 2022 TTE LVEF 70% [facility] Work Phone: 08-18-2023 Miscellaneous Notes Associated Problem(s): Cardiac and Vasculature February 2016 cardiac cath minimal CAD March 2022 TTE LVEF 70% Associated Problem(s): BMI 25.0-25.9,adult Reviewed the merits of healthy lifestyle choices on overall cardiovascular health. Associated Problem(s): [facility] current use of anticoagulant therapy CHADS VASc [...] had lab completed earlier this month at [facility] documented in this encounter [facility] Work Phone: 08-18-2023 Evaluation + Plan note Associated Problem(s): BMI 25.0-25.9,adult Reviewed the merits of healthy lifestyle choices on overall cardiovascular health. [facility] Work Phone: 08-18-2023 Evaluation + Plan note Associated Problem(s): penitentiary current use of anticoagulant therapy CHADS VASc 5 (prior CVA) recently initiated on Coumadin Denies bleeding diatheses DOACs cost prohibitive [facility] Work Phone: 08-18-2023 Evaluation + Plan note Associated Problem(s): Paroxysmal atrial fibrillation (CMS/HCC) June 2023 device interrogation with 10 seconds atrial fibrillation [facility] Work Phone: 08-18-2023 Evaluation + Plan note Associated Problem(s): S/P TAVR (transcatheter aortic valve replacement) 2016 TAVR Last evaluated March 2022 TTE Peak 12, mean 6 [facility] Work Phone: 08-18-2023 Evaluation + Plan note Associated Problem(s): Pacemaker SJM Assurity 2272 dual-chamber permanent pacemaker June 2023 device interrogation [facility] Work Phone: 08-18-2023 Evaluation + Plan note Associated Problem(s): Mitral stenosis March 2022 TTE Mild mitral stenosis peak 17, mean 6 Valve area 1.5 [facility] Work Phone: 08-18-2023 Evaluation + Plan note Associated Problem(s): HTN (hypertension) Optimal in office [facility] Work Phone: 08-18-2023 Evaluation + Plan note Associated Problem(s): HLD (hyperlipidemia) Moderate intensity statin Reports had lab completed earlier this month at [facility] Work Phone: 08-17-2023 History of Present illness [...] echocardiogram earlier than scheduled. He prefers to [id number] and will notify me if symptoms do [...] one tablet daily. Take as directed per [place] [facility] Assessment: HLD (hyperlipidemia) Moderate intensity statin Reports had lab completed earlier this month at [facility] HTN (hypertension) Optimal in office Mitral stenosis March 2022 TTE Mild mitral stenosis peak 17, mean 6 Valve area 1.5 Pacemaker SJM Assurity 2272 dual-chamber permanent pacemaker June 2023 device interrogation S/P TAVR (transcatheter aortic valve replacement) 2015 TAVR Last evaluated March 2022 TTE Peak 12, mean 6 Paroxysmal atrial fibrillation (CMS/HCC) June 2023 device interrogation with 10 seconds atrial fibrillation penitentiary current use of anticoagulant therapy [facility] VASc [...] Dr. Becerra as scheduled Dasia Bledsoe MSN, EVALUATOR-GROUND DEFENCE OFFICER, PMHNP-BC [facility] Please excuse any errors in grammar or translation related to this dictation. Voice recognition software was utilized to prepare this document. 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 Mitral valve stenosis, unspecified etiology Mixed hyperlipidemia Primary hypertension Unspecified essential hypertension Pacemaker Cardiac pacemaker in situ BMI 25.0-25.9,adult documented in this encounter [facility] Work Phone: Evaluation note* Diagnosis Aortic valve stenosis, etiology of cardiac valve disease unspecified documented in this encounter [facility] Work Phone: Evaluation note* Diagnosis Aortic valve stenosis, etiology of cardiac valve disease unspecified documented in this encounter [facility] Work Phone: Evaluation note* Diagnosis Paroxysmal atrial fibrillation (CMS/HCC) Atrial fibrillation penitentiary current use of anticoagulant therapy Fatigue, unspecified type SSS (sick sinus syndrome) (CMS/HCC) Sinoatrial node dysfunction Pacemaker Cardiac pacemaker in situ Mitral valve stenosis, unspecified etiology Primary hypertension Unspecified essential hypertension Mixed hyperlipidemia BMI 25.0-25.9,adult Former smoker Personal history of tobacco use, presenting hazards to health documented in this encounter [facility] Work Phone: Evaluation note* Diagnosis Right shoulder [...] right shoulder region documented in this encounter [facility]* Diagnosis S/P TAVR (transcatheter aortic valve replacement)- Primary Paroxysmal atrial fibrillation (Multi) Atrial 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 Mitral valve stenosis, unspecified etiology Mixed hyperlipidemia Primary hypertension Unspecified essential hypertension Pacemaker Cardiac pacemaker in situ BMI 25.0-25.9,adult Mitral valve stenosis, unspecified etiology documented in this encounter [facility] Work Phone: Evaluation note* Diagnosis Acute pain of right shoulder- Primary Arthritis of right shoulder region documented in this encounter [facility] HealthcareEvaluation note* Diagnosis Strain of right shoulder, subsequent encounter- Primary Arthritis of right shoulder region penitentiary (current) use of anticoagulants Long-term (current) use of anticoagulants documented in this encounter [facility] HealthcareEvaluation note* Diagnosis S/P TAVR (transcatheter aortic valve replacement)- Primary Paroxysmal atrial fibrillation (Multi) Atrial 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 Mitral valve stenosis, unspecified etiology Mixed hyperlipidemia Primary hypertension Unspecified essential hypertension Pacemaker Cardiac pacemaker in situ BMI 25.0-25.9,adult Mitral valve stenosis, unspecified etiology Mitral valve insufficiency, unspecified etiology Aortic valve stenosis, etiology of cardiac valve disease unspecified S/P TAVR (transcatheter aortic valve replacement) Paroxysmal atrial fibrillation (Multi) Atrial fibrillation Status post CVA penitentiary current use of anticoagulant therapy SSS (sick sinus syndrome) (Multi) Sinoatrial node dysfunction Pacemaker Cardiac pacemaker in situ Primary hypertension Unspecified essential hypertension Mixed hyperlipidemia BMI 25.0-25.9,adult Former smoker Personal history of tobacco use, presenting hazards to health 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 documented in this encounter [facility] Work Phone: Hospital Discharge instructions No data available for this section [facility] Surgery [place] Progress note No data available for this section [facility] [place] Reason for visit Narrative* Consultation (Routine) - Authorized Specialty Diagnoses / Procedures Referred By Contac t Referred To Contact Physical Therapy Diagnoses Right shoulder pain, unspecified chronicity Right shoulder strain, initial encounter Arthritis of shoulder region, right Procedures IA OFFICE/OUTPATIENT [facility] Brianna Martinez, DO [address] [facility] [place] [address] Phone: tel: fax: Shayy Trotter, PT [address] [address] Phone: tel: fax: Referral ID Status Reason Start Date Expiration Date Visits Requested Visits Authorized [id number] Authorized Consult and Treat 06/27/2024 12/24/2024 10 10 [facility] for visit Narrative* Consultation (Routine) - Authorized Specialty Diagnoses / Procedures Referred By Tiaac t Referred To Contact Physical Therapy Diagnoses Right shoulder pain, unspecified chronicity Right shoulder strain, initial encounter Arthritis of shoulder region, right Procedures IA OFFICE/OUTPATIENT [facility] Brianna Martinez, DO [address] [place] [address] Phone: tel: fax: Shayy Trotter, PT [address] [address] Phone: tel: fax: Referral ID Status Reason Start Date Expiration Date Visits Requested Visits Authorized [id number] Authorized Consult and Treat 06/27/2024 07/17/2024 30 30 [facility] for visit Narrative* Consultation (Routine) - Closed Specialty Diagnoses / Procedures Referred By Tiaac t Referred To Contact Physical Therapy Diagnoses Right shoulder pain, unspecified chronicity Right shoulder strain, initial encounter Arthritis of shoulder region, right Procedures IA OFFICE/OUTPATIENT [facility] Brianna Martinez, DO [address] [facility] [place] [address] Phone: tel: fax: Shayy Trotter, PT [address] [address] Phone: tel: fax: Referral ID Status Reason Start Date Expiration Date V isits Requested Visits Authorized [id number] Closed Consult and Treat 06/27/2024 07/17/2024 30 30 [facility]* Consultation (Routine) - Authorized Specialty Diagnoses / Procedures Referred By Tiaac t Referred To Contact Physical Therapy Diagnoses Right shoulder pain, unspecified chronicity Right shoulder strain, initial encounter Arthritis of shoulder region, right Procedures PHYS/OCC THERAPY SS IA MANUAL THERAPY TQS 1/> REGIONS EACH 15 MINUTES IA THERAPEUTIC PX 1/> AREAS EACH 15 MIN EXERCISES IA THER PX 1/> AREAS EACH 15 MIN NEUROMUSC REEDBrianna Kasper, DO [address] [place] [address] Phone: tel: fax: Shayy Trotter, PT [address] [address] Phone: tel: fax: Referral ID Status Reason Start Date Expiration Date Visits Requested Visits Authorized [id number] Authorized Consult and Treat 07/18/2024 08/07/2024 20 20 [facility] N[facility]* Consultation (Routine) - Authorized Specialty Diagnoses / Procedures Referred By Julius t Referred To Contact Physical Therapy Diagnoses Right shoulder pain, unspecified chronicity Right shoulder strain, initial encounter Arthritis of shoulder region, right Procedures PHYS/OCC THERAPY SS IA MANUAL THERAPY TQS 1/> REGIONS EACH 15 MINUTES IA THERAPEUTIC PX 1/> AREAS EACH 15 MIN EXERCISES IA THER PX 1/> AREAS EACH 15 MIN NEUROMUSC REEDUCA Brianna Martinez, DO [address] [place] [address] Phone: tel: fax: Shayy Trotter, PT [address] [address] Phone: tel: fax: Referral ID Status Reason Start Date Expiration Date Visits Requested Visits Authorized [id number] Authorized Consult and Treat 07/18/2024 08/07/2024 20 30 [facility] N[facility]ative* CV Imaging (Routine) - Authorized Specialty Diagnoses / Procedures Referred By Contac t Referred To Contact Cardiology Diagnoses Mitral valve stenosis, unspecified etiology Procedures Transthoracic Echo Complete IA ECHO TTHRC R-T 2D W/WOM-MODE COMPL SPEC&COLR D Alex Becerra, DO [address] [facility], [address] [place] [address] Phone: tel: fax: Referral ID Status Reason Start Date Expiration Date Visits Requested Visits Authorized [id number] Authorized Perform Procedure 10/26/2023 10/25/2024 1 1 [facility] Work Phone: Reason for visit Narrative* Consultation (Routine) - Authorized Specialty Diagnoses / Procedures Referred By Julius t Referred To Contact Physical Therapy Diagnoses Right shoulder pain, unspecified chronicity Right shoulder strain, initial encounter Arthritis of shoulder region, right Procedures PHYS/OCC THERAPY SS IA MANUAL THERAPY TQS 1/> REGIONS EACH 15 MINUTES IA THERAPEUTIC PX 1/> AREAS EACH 15 MIN EXERCISES IA THER PX 1/> AREAS EACH 15 MIN NEUROMUSC REEDUCA Brianna Martinez, DO [address] [facility] [place] [address] Phone: tel: fax: Shayy Trotter, PT 112 [facility] [address] [place] [address] Phone: tel: fax: Referral ID Status Reason Start Date Expiration Date Visits Requested Visits Authorized [id number] Authorized Consult and Treat 07/18/2024 07/17/2025 20 [...] disease unspecified Procedures Transthoracic Echo (TTE) Complete IA ECHO TRANSTHORC R-T 2D W/WO M-MODE REC F-UP/LMTD IA DOP ECHOCARD COLOR FLOW VELOCITY MAPPING IA DOP ECHOCARD PULSE WAVE W/SPECTRAL F-UP/LMTD STD Alex Becerra, DO [address] [place] [address] [address], [address] [address] Referral ID Status Reason Start Date Expiration Date Visits Requested Visits Authorized [id number] Authorized Perform Procedure 3 06/28/2024 1 1 Specialty Diagnoses / Procedures Referred By Contac t Referred To Contact Cardiology Diagnoses Mitral valve stenosis, unspecified etiology Procedures Transthoracic Echo Complete IA ECHO TTHRC R-T 2D W/WOM-MODE COMPL SPEC&COLR D Alex Becerra, DO [address] [place] [address] 2, [address] [address] Referral ID Status Reason Start Date Expiration Date Visits Requested Visits Authorized [id number] Pending Review Perform Procedure 10/26/2023 10/25/2024 1 1 Specialty Diagnoses / Procedures Referred By Contac t Referred To Contact Cardiology Diagnoses Mitral valve stenosis, unspecified etiology Procedures Follow Up In Cardiology Alex Becerra, [address] [place] [address] 2, [address] [address] Alex Becerra, [address], [address] [address] Referral ID Status Reason Start Date Expiration Date V isits Requested Visits Authorized [id number] Authorized 10/26/2023 10/25/2024 1 1 Additional Source [...] DATE CREATED AUTHOR AUTHOR'S ORGANIZ ATION 06/16/2018 [facility] Healthcare DATE CREATED AUTHOR AUTHOR'S ORGANIZ ATION 04/19/2022 [facility] DATE CREATED AUTHOR AUTHOR'S ORGANIZ ATION 09/04/2022 [facility] DATE CREATED AUTHOR AUTHOR'S ORGANIZ ATION 10/19/2022 [employer] DATE CREATED AUTHOR AUTHOR'S ORGANIZ ATION 05/14/2023 [facility] DATE CREATED AUTHOR AUTHOR'S ORGANIZ ATION 03/23/2024 [facility] DATE CREATED AUTHOR AUTHOR'S ORGANIZ ATION 07/06/2024 [facility] DATE CREATED AUTHOR AUTHOR'S ORGANIZ ATION 08/02/2024 [facility] EPIC DATE CREATED AUTHOR AUTHOR'S ORGANIZ ATION 08/09/2024 [facility] DATE CREATED AUTHOR AUTHOR'S ORGANIZ ATION 08/17/2024 [facility] [employer] Teams (unrecognized sec tion and content) Team Status: Active Member Role Status Dates Lisa Mims MD Primary Care Provider Active Team Status: Inactive Member Role Status Dates Lisa Mims MD Primary Care Provider Active Alex Cerda MD Attending Provider Active Cell [employer] Department Supervisor Relationship Specialty Start Date End Date Lisa Mims MD [address] [place] [address] PCP - General 05/13/20 Team Status: Inactive Member Role Status Dates Lisa Mims MD Primary Care Provider Active Start: October 04, 2023 End: October 04, 2023 Alex Cerda MD Attending Provider Active Start: October 04, 2023 End: October 04, 2023 [employer] Department Supervisor Relationship Specialty Start Date End Date Lisa Mims MD [address] [place] [address] PCP - General 05/13/20 Cell [employer] Department Supervisor Relationship Specialty Start Date End Date Lisa Mims MD [address] [place] [address] PCP - General 05/13/20 Cell [employer] Department Supervisor Relationship Specialty Start Date End Date Lisa Mims MD [address] [place] [address] PCP - General 05/13/20 Team Status: Inactive [...] End: March 07, 2024 Guy Angeles MD [facility] Attending Provider Active Start: March 07, 2024 End: March 07, 2024 Team Status: Inactive Member Role Status Dates Lisa Mims MD Primary Care Provider Active Start: April 03, 2024 End: April 03, 2024 Alex Cerda MD Attending Provider Active Start: April 03, 2024 End: April 03, 2024 Cell [employer] Department Supervisor Relationship Specialty Start Date End Date Lisa Mims MD [facility] [place] [address] PCP - General Family Medicine 06/23/23 Cell [employer] Department Supervisor Relationship Specialty Start Date End Date Lisa Mims MD [address] [place] [address] PCP - General Family Medicine 06/23/23 Cell [employer] Department Supervisor Relationship Specialty Start Date End Date Lisa Mims MD [address] [place] [address] PCP - General Family Medicine 06/23/23 Cell [employer] Department Supervisor Relationship Specialty Start Date End Date Lisa Mims MD [address] [facility] [address] PCP - General Family Medicine 06/23/23 Cell [employer] Department Supervisor Relationship Specialty Start Date End Date Lisa Mims MD [address] [facility] [address] PCP - General Family Medicine 06/23/23 Cell [employer] Department Supervisor Relationship Specialty Start Date End Date Lisa Mims MD [address] [facility] [address] PCP - General Family Medicine 06/23/23 Cell [employer] Department Supervisor Relationship Specialty Start Date End Date Lisa Mims MD [address] [facility], [id number] PCP - General Family Medicine 06/23/23 Cell [employer] Department Supervisor Relationship Specialty Start Date End Date Lisa Mims MD [address] [facility] [address] PCP - General Family Medicine 06/23/23 Cell [employer] Department Supervisor Relationship Specialty Start Date End Date Lisa Mims MD [address] [facility] [address] PCP - General Family Medicine 06/23/23 Cell [employer] Department Supervisor Relationship Specialty Start Date End Date Lisa Mims MD [address] [facility] [address] PCP - General Family Medicine 06/23/23 Cell [employer] Department Supervisor Relationship Specialty Start Date End Date Lisa Mims MD [address] [facility] [address] PCP - General Family Medicine 06/23/23 Cell [employer] Department Supervisor Relationship Specialty Start Date End Date Lisa Mims MD [address] [place] [facility] [place] [facility] [address] PCP - General 05/13/20 Cell Feed Department Supervisor Relationship Specialty Start Date End Date Lisa Mims MD [address] [facility] [address] PCP - General Family Medicine 06/23/23 Cell Feed Department Supervisor Relationship Specialty Start Date End Date Lisa Mims MD [address] [facility] [address] PCP - General Family Medicine 06/23/23 Cell [employer] Department Supervisor Relationship Specialty Start Date End Date Lisa Mims MD [address] [place] [facility] [place] [facility] [address] PCP - General 05/13/20 Goals (unrecognized section [...] Up In Cardiology Alex Becerra, DO [address] [facility] [address], [address] [place] [address] Dasia Bledsoe, EVALUATOR-GROUND DEFENCE OFFICER [address] [facility] [address], [address] [address] Referral ID Status Reason Start Date Expiration Date V isits Requested Visits Authorized [id number] Authorized 07/08/2023 07/07/2024 1 1 Specialty Diagnoses / Procedures Referred By Contac t Referred To Contact Cardiology Diagnoses Aortic valve stenosis, etiology of cardiac valve disease unspecified Procedures Transthoracic Echo (TTE) Complete IA ECHO TRANSTHORC R-T 2D W/WO M-MODE REC F-UP/LMTD IA DOP ECHOCARD COLOR FLOW VELOCITY MAPPING IA DOP ECHOCARD PULSE WAVE W/SPECTRAL F-UP/LMTD STD Alex Becerra, DO [address] [facility] 2, [address] [address] Referral ID Status Reason Start Date Expiration Date Visits Requested Visits Authorized [id number] Authorized Perform Procedure 3 06/28/2024 1 1 Reason Comments Annual Exam 1yr Reason Comments Pain Reason Comments Pain Fall DOI 07/08/24 Reason Comments Follow-up Reason Comments Follow-up 9 month/echo results Specialty Diagnoses / Procedures Referred By Contac t Referred To Contact Cardiology Diagnoses Mitral valve stenosis, unspecified etiology Procedures Follow Up In Cardiology Alex Becerra, [address] [place] [address] [address], [address] [address] Phone: tel: fax: Alex Becerra, [address] [place] [address] [address], [address] [address] Phone: tel: fax: Referral ID Status Reason Start Date Expiration Date V isits Requested Visits Authorized [id number] Pending Review 10/26/2023 10/25/2024 1 1 Reason [...] BE BASED ON THE PRIMARY CLINICAL RECORDS. [facility]. provides no warranty or guarantee of the accuracy or completeness of information in this document.
[2024-08-23 09:42] LABS: Anion Gap 10.9; BUN Creatinine Ratio 12.5; Calcium 8.9 mg/dL (8.5-10.1); Carbon Dioxide 30.5 mmol/L (21.0-32.0); Chloride 106 mmol/L (98-107); Estimated GFR (African America 53 (>=60 mL/min/1.73m^2); Estimated GFR (Non-African Ame 44 (>=60 mL/min/1.73m^2); Glucose 127 mg/dL (74-106); Potassium 4.4 mmol/L (3.5-5.1); Sodium 143 mmol/L (136-145)
== END 2024-08-23 08:50 | disposition home or self-care (01) ==
LOC: LAB 08:51
PROVIDERS: PCP Family Medicine; Visit Provider Internal Medicine Cardiovascular Disease
DX: E87.5 Hyperkalemia (principal)
CPT/HCPCS: 36415; 80048

== ENCOUNTER 2024-09-03 08:38 | Outpatient (OUT) | payer MEDICARE, SELFPAY ==
--- OUTSIDE RECORDS SUMMARY | 2024-09-03 09:03 | XMS_ITS | CCD ---
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 Role Phone GHAZOUL, BEBE Unavailable Unavailable [...] Provider Lisa Mims MD Primary Care Provider [phone] MD Lisa Mims Primary Care Provider [phone] MD Alex Cerda Attending Provider MD Lisa Mims Primary Care Provider MD Alex Cerda Attending Provider Lisa Mims Primary Care Physician MD Guy Angeles Attending Provider [phone] Guy ANGELES Attending Unavailable Lisa Mims Referring [...] Unavailable JIM MURILLO Attending Unavailable POCOS, BRIANNA Mian Referring Unavailable JIM MURILLO Attending Unavailable POCOS, BRIANNA Main Referring Unavailable POCFLOR, BRIANNA Main Attending Unavailable LISA MIMS Primary Care Unavailable ALEX BECERRA Referring Unavailable ALEX BECERRA Referring Unavailable LISA MIMS Primary Care Unavailable ALEX BECERRA Attending Unavailable LISA MIMS Primary Care Unavailable HERNAN, ALEX Bonilla Attending Unavailable ALEX BECERRA Referring Unavailable LISA MIMS [facility] Care Unavailable Allergies Allergy Classification Reported Allergen(s) Allergy Type Date of Onset Reaction(s) Facility (1 source) meloxicam; Translations: [Mobic] Drug Allergy [facility] Repository (1 source) Naproxen; Translations: [Naprosyn] Drug Allergy [facility] Repository Medications Current Medications Medication Drug Class(es) [...] one tablet daily. 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] Onset: 08-17-2023 Episodic [...] COM PLETEon 07-24-2024 TRANSTHORACIC ECHO (TTE) COMPLETE [address], [address] [place] [address] TRANSTHORACIC ECHOCARDIOGRAM REPORT Patient Name: MELO CUEVAS Reading Physician: [id number] Fabián Tony MD Study Date: 07/24/2024 Ordering Provider: [id number] ALEX BECERRA MRN/PID: [id number] Fellow: Nurse: Date of /Age: 8 1935 / 89 years Technical Training Specialist: Daniela Veras RDCS, RVT Gender Assigned at Additional Staff: : Height: 187.96 cm Admit Date: Weight: 89.81 kg Admission Status: BSA / BMI: 2.16 m2 / 25.42 Department Location: [address] Blood Pressure: 124 /62 mmHg Study Type: TRANSTHORACIC ECHO (TTE) COMPLETE 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 Normal [facility] US Heart TransthoracicOrdere d By: Fabián Tony on 07-24-2024 Aortic Valve Area by Continuity of Peak Velocity 2.74 cm2 [facility] Work Phone: Aortic Valve Area by Continuity of VTI 2.8 cm2 [facility] Work Phone: AV mn grad 5 mmHg [facility] Work Phone: [phone] AV pk grad 11 mmHg [facility] Work Phone: [phone] AV pk arron 1.65 m/s [facility] Work Phone: [phone] LV A4C EF 65.7 [facility] Work Phone: LV Biplane EF 62 % [facility] Work Phone: LV EF 65 % [facility] Work Phone: LVIDd 4.98 cm [facility] Work Phone: LVOT diam 2.6 cm [facility] Work Phone: MV avg E/e' ratio 16.4 [facility] Work Phone: MV E/A ratio 0.58 [facility] Work Phone: RVSP 20.5 mmHg [facility] Work Phone: [facility] Work Phone: Heart Transthoracicon [address], [address] [place] [address] TRANSTHORACIC ECHOCARDIOGRAM REPORT Patient Name: MELO Stalin CUEVAS Reading Physician: [id number] Fabián Tony MD Study Date: 07/24/2024 Ordering Provider: [id number] ALEX BECERRA MRN/PID: [id number] Fellow: Nurse: Date of /Age: 8 1935 / 89 years Technical Training Specialist: Daniela Veras RDCS, RVT Gender Assigned at Additional Staff: : Height: 187.96 cm Admit Date: Weight: 89.81 kg Admission Status: BSA / BMI: 2.16 m2 / 25.42 Department Location: [facility] kg/m2 [facility] Blood Pressure: 124 /62 mmHg Study Type: TRANSTHORACIC ECHO (TTE) COMPLETE 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 Fabián Beverly MD - 07/24/[address], [address], [place] [address] TRANSTHORACIC ECHOCARDIOGRAM REPORT Patient Name: MELO CUEVAS Reading Physician: [id number] Fabián Tony MD Study Date: 07/24/2024 Ordering Provider: [id number] ALEX BECERRA MRN/PID: [id number] Fellow: Nurse: Date of /Age: 8 1935 / 89 years Technical Training Specialist: Daniela Veras RD, RVT Gender Assigned at M Additional Staff: : Height: 187.96 cm Admit Date: Weight: 89.81 kg Admission Status: BSA / BMI: 2.16 m2 / 25.42 Department Location: [facility]/[address] Blood Pressure: 124 /62 mmHg Study Type: TRANSTHORACIC ECHO (TTE) COMPLETE 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 [facility] Work Phone: No Panel Informationon 06-27 Mini Joya MA 07/02/2024 4:42 PM L Inj/Asp: R glenohumeral on 06/27/2024 2:30 PM Indications: pain Details: 22 G needle Medications: 1 mg betamethasone acetate-betamethason e sodium phosphate 6 (3-3) MG/ML Formerly [facility] General Surgery Office/Clini c Noteon 03-21-2024 General [...] 03/21/24 14:07 EDT Pepe 03-07-2024 L Specimen: [id number] Received: 03/08/24 Status: GAYLE Cole Num: [id number] Spec Type: Surgical Subm Dr: Guy Angeles MD FACS Tissues: A Skin Cyst Procedures: HE, Gross/Micro L3 Age/ Patient Sex Location Account Attending Physician Melo Cuevas 89/M LABELL [id number] Guy Angeles MD FACS SPEC NUM: [id number] RECD: 03/08/24 STATUS: GAYLE COLE NUM: [id number] AALIYAH: 03/07/[address]: Guy Angeles MD FACS ENTERED: 03/08/[address] [facility] [address]: SPEC TYPE: Surgical DEPT: AHMET NICHOLSON ENTERED BY: [id number] RECV BY: [id number] ORDERED: HE, Gross/Micro L3 ORDERED: HE, Gross/Micro [...] cavity filled with white cystic debris. 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 CPT Codes 87555 Specimen: [id number] Received: 03/08/24-1608 Status: GAYLE Cole Num: [id number] Spec Type: Surgical Subm Dr: Guy Angeles MD FACS Tissues: A Skin Cyst Procedures: Brian HAIR/Paige L3 Patient: Melo Cuevas [id number] (Continued) Signed (signature on file) Mahesh Ortiz MD 03/13/24 3798 Normal [facility] Ambulatory Visit Summaryon 0 01-31-2024 [...] you for choosing us for your care. [facility] Physician Referralon 024 Physician Referral [id number] 23#1.00TIFF Normal [facility] Physician Referralon 024 Physician Referral [id number]# 1.00TIFF Normal [facility] Physician Referral [id number]# 1.00TIFF Normal [facility] Comment on above: Other Comment: MINDY KAM Physician Referral [id number]# 1.00TIFF Normal [facility] Heart TransthoracicOrdere d By: Moody Teixeira on 10-19-2023 Aortic Valve Area by Continuity of Peak Velocity 2.59 cm2 [facility] Work Phone: [phone] Aortic Valve Area by Continuity of VTI 2.73 cm2 [facility] Work Phone: [phone] AV mn grad 6.0 mmHg [facility] Work Phone: [phone] AV pk grad 12.0 mmHg [facility] Work Phone: [phone] AV pk arron 1.73 m/s [facility] Work Phone: [phone] LV A4C EF 56.3 [facility] Work Phone: [phone] LVIDd 3.57 cm [facility] Work Phone: [phone] LVOT diam 2.40 cm [facility] Work Phone: [phone] MV avg E/e' ratio 22.20 [facility] Work Phone: [phone] MV E/A ratio 0.61 [facility] Work Phone: [phone] RVSP 23.3 mmHg [facility] Work Phone: [phone] [facility] Work Phone: Heart Transthoracicon [address], [address] [place] [address] TRANSTHORACIC ECHOCARDIOGRAM REPORT Patient Name: MELO Pugh Physician: [id number] Moody Teixeira MD, [facility] Study Date: 10/18/2023 Ordering Provider: [id number] ALEX BECERRA MRN/PID: [id number] Fellow: Nurse: Date of /Age: 8 1935 / 88 years Technical Training Specialist: Daniela Veras RDCS, RVT Gender: M Additional Staff: Height: 187.96 cm Admit Date: Weight: 89.81 kg Admission Status: BSA / BMI: 2.16 m2 / 25.42 kg/m2 Department Location: [facility] Blood Pressure: 134 /72 mmHg [...] not included)... Moody Aguilar MD - 10/19/2023 [facility] [address], [address], [place] [address] TRANSTHORACIC ECHOCARDIOGRAM REPORT Patient Name: MELO CUEVAS Reading Physician: [id number] Moody Teixeira MD, [facility] Study Date: 10/18/2023 Ordering Provider: [id number] ALEX BECERRA MRN/PID: [id number] Fellow: Nurse: Date of /Age: 8 1935 / 88 years Technical Training Specialist: Daniela Veras RDCS, RVT Gender: M Additional Staff: Height: 187.96 cm Admit Date: Weight: 89.81 kg Admission Status: BSA / BMI: 2.16 m2 / 25.42 kg/m2 Department Location: [facility] Blood Pressure: 134 /72 mmHg [...] 0.60 AORTIC INSUF (more content not included)... [facility] Work Phone: TRANSTHORACIC ECHO (TTE) COM [facility] 10-18-2023 TRANSTHORACIC ECHO (TTE) COMPLETE [address], [address] [place] [address] TRANSTHORACIC ECHOCARDIOGRAM REPORT Patient Name: MELO Gant MASON Pugh Physician: [id number] Moody Teixeira MD, [facility] Study Date: 10/18/2023 Ordering Provider: [id number] ALEX BECERRA MRN/PID: [id number] Fellow: Nurse: Date of /Age: 8 1935 / 88 years Technical Training Specialist: Daniela Veras RDCS, RVT Gender: M Additional Staff: Height: 187.96 cm Admit Date: Weight: 89.81 kg Admission Status: BSA / BMI: 2.16 m2 / 25.42 kg/m2 Department Location: [facility] Blood Pressure: 134 /72 mmHg [...] TRICUSPID VALVE/RVSP: No (more content not included)... [facility] Office Visit (Cardiology)on 10-14-2022 Follow-up visit [...] Recorded: 14Oct2022 10:03AM Heart Rate64, L Radial Oqfodojj687, LUE, Sitting Pkhkipzvp64, LUE, Sitting Height6 ft 2 in Zjtwyh701 lb BMI Guogbqdjbv11.29 kg/m2 BSA Calculated2.16 Tobacco Useb) No Falls Screening (Age 18+)a) No falls within the last year Physical Exam Constitutional: alert and in no acute distress. Neck: neck is supple, symmetric, trachea midline, no masses and no thyromegaly . Pulmonary: no increased work of breathing or signs of respiratory distress and lungs clear to auscultation. (more content not included)... Normal 36Kr Tobacco Screening.on 023 Fall risk assessment a) No falls within the last year [facility] [employer] y 250 DO Work Phone: Tobacco use status [facility] b) No [facility] Work Phone: Covid-19 PCR (CVDTBH)on 08-18 SARS-CoV-2 (COVID-19) RNA SVETLANA+probe Ql (Unsp spec) Detected Abnormal NOT DETECTED [facility] Comment on above: Result Comment: This test is not yet approved or cleared by the [place] FDA. When there are no FDA-approved or cleared tests available, and other criteria are met, FDA can make tests available under an emergency access mechanism called an Emergency Use Authorization (EUA). The EUA for this test is supported by the [place] of Health and Human Service's (HHS's) declaration [...] used). Performed By: #### C VDTBH #### [facility] [address] [place] [address] Dr. Ekaterina Alcocer INFLUENZA A AND B AGon 08-30 [facility] SEE BELOW Normal [facility] Comment on above: Result Comment: Nega tive for Flu A protein angiten. Infection due to Flu A cannot be ruled out. Flu A angiten in the sample may be below the detection limit of the test. Performed By: #### I NFLUAB #### [facility] [address] [place] [address] Dr. Ekaterina Alcocer [facility] SEE BELOW Normal [facility] Comment on above: Result Comment: Nega tive for Flu B protein antigen. Infection due to Flu B cannot be ruled out. Flu B antigen in the sample may be below the detection limit of the test. Performed By: #### I NFLUAB #### [facility] [address] [place] [address] Dr. Ekaterina Alcocer INFLUENZA A AG Negative Normal NEGATIVE SEE COMMENT [facility] Comment on above: Performed By: #### I NFLUAB #### [facility] [address] [place] [address] Dr. Ekaterina Alcocer INFLUENZA B AG Negative Normal NEGATIVE SEE COMMENT [facility] Comment on above: Performed By: #### I NFLUAB #### [facility] [address] [place] [address] Dr. Ekaterina Alcocer PSA, FREE AND TOTAL RATIOon 06-30-2022 % Free PSA 26.8 % Normal [facility] Comment on above: Result Comment: [...] of men. Performed By: #### P SAFREE ####[facility] [address] [place] [id number]. Ekaterina Alcocer Prostate specific Ag [Mass/Vol] 4.4 ng/mL Critically high 0.0-4.0 [facility] Comment on above: Result Comment: Antonio WHITE methodology. . According to the [place] [employer], Serum PSA should decrease and [...] malignant disease. Performed By: #### P SAFREE ####[facility] [address] [place] [id number]. Ekaterina Alcocer PSA, Free 1.18 ng/mL Normal N/A [facility] Comment on above: Result Comment: Antonio WHITE methodology. Performed By: #### P SAFREE ####[facility] [address] [place] [id number]. Ekaterina Alcocer INSULINon 06-29-2022 Insulin 7.5 uIU/mL Normal 2.6-24.9 [facility] Comment on above: Performed By: #### I NSULIN ####[facility] [address] [place] [id number]. Ekaterina Alcocer CBC AUTO DIFFon 06-28-2022 BASO # 0.1 103/ul Normal 0.0-0.1 [facility] Comment on above: Performed By: #### C BC #### [facility] [address] [place] [address] [address] Ekaterina Alcocer Basophils/100 WBC (Bld) 1.5 % Normal 0.2-2.0 [facility] Comment on above: Performed By: #### C BC #### [facility] [address] [place] [address] Dr. Ekaterina Alcocer EO # 0.2 103/ul Normal 0.0-0.7 [facility] Comment on above: Performed By: #### C BC #### [facility] [address] [place] [address] Dr. Ekaetrina Alcocer Eosinophils/100 WBC (Bld) 2.4 % Normal 0.9-7.0 [facility] Comment on above: Performed By: #### C BC #### [facility] [address] [place] [address] Dr. Ekaterina Alcocer Erythrocyte distribution width (RBC) [Ratio] 13.6 % Normal 11.0-15.0 [facility] Comment on above: Performed By: #### C BC #### [facility] [address] [place] [address] Dr. Ekaterina Alcocer Hematocrit (Bld) [Volume fraction] 46.3 % Normal 42.0-54.0 [facility] Comment on above: Performed By: #### C BC #### [facility] [address] [place] [address] Dr. Ekaterina Alcocer Hemoglobin (Bld) [Mass/Vol] 15.5 g/dL Normal 14.0-18.0 [facility] Comment on above: Performed By: #### C BC #### [facility] [address] [place] [address] Dr. Ekaterina Alcocer IG # 0.03 10e3/ul Normal 0.00-0.03 [facility] Comment on above: Performed By: #### C BC #### [facility] [address] [place] [address] Dr. Ekaterina Alcocer IG % 0.3 % Normal 0.0-0.5 [facility] Comment on above: Performed By: #### C BC #### [facility] [address] [place] [address] Dr. Ekaterina Alcocer LYMPH # 2.6 103/ul Normal 1.2-3.8 [facility] Comment on above: Performed By: #### C BC #### [facility] [address] [place] [address] Dr. Ekaterina Alcocer Lymphocytes/100 WBC (Bld) 28.8 % Normal 20.5-60.0 [facility] Comment on above: Performed By: #### C BC #### [facility] [address] [place] [address] Dr. Ekaterina Alcocer MANUAL DIFF REQ NO Normal [facility] Comment on above: Performed By: #### C BC #### [facility] [address] [place] [address] Dr. Ekaterina Alcocer MCH (RBC) [Entitic mass] 30.7 pg Normal 25.9-34.0 [facility] Comment on above: Performed By: #### C BC #### [facility] [address] [place] [address] Dr. Ekaterina Alcocer MCHC (RBC) [Mass/Vol] 33.5 g/dL Normal 29.9-35.2 [facility] Comment on above: Performed By: #### C BC #### [facility] [address] [place] [address] Dr. Ekaterina Alcocer MCV (RBC) [Entitic vol] 91.7 fL Normal 80.0-94.0 [facility] Comment on above: Performed By: #### C BC #### [facility] [address] [place] [address] Dr. Ekaterina Alcocer MONO # 0.7 103/ul Normal 0.3-0.8 [facility] Comment on above: Performed By: #### C BC #### [facility] [address] [place] [address] Dr. Ekaterina Alcocer Monocytes/100 WBC (Bld) 8.3 % Normal 1.7-12.0 [facility] Comment on above: Performed By: #### C BC #### [facility] [address] [place] [address] Dr. Ekaterina Alcocer NEUT # 5.2 103/ul Normal 1.4-6.5 [facility] Comment on above: Performed By: #### C BC #### [facility] [address] [place] [address] [address] Ekaterina Alcocer Neutrophils/100 WBC (Bld) 58.7 % Normal 43.0-75.0 [facility] Comment on above: Performed By: #### C BC #### [facility] [address] [place] [address] [address] Ekaterina Alcocer Platelet mean volume (Bld) [Entitic vol] 9.8 fL Normal 9.5-13.5 [facility] Comment on above: Performed By: #### C BC #### [facility] [address] [place] [address] [address] Ekaterina Alcocer PLT 230 103/ul Normal 150-450 [facility] Comment on above: Performed By: #### C BC #### [facility] [address] [place] [address] [address] Ekaterina Alcocer RBC 5.05 106/ul Normal 4.70-6.10 [facility] Comment on above: Performed By: #### C BC #### [facility] [address] [place] [address] [address] Ekaterina Alcocer WBC 8.9 103/ul Normal 4.0-11.0 [facility] Comment on above: Performed By: #### C BC #### [facility] [address] [place] [address] [address] Ekaterina Alcocer FREE THYROXINE INDEX T7on FTI 2.02 Normal 1.30-4.50 [facility] Comment on above: Performed By: #### T 7, TSH, LIPID, URIC, CMP #### [facility] [address] [place] [address] [address] Ekaterina Alcocer T3U 32.0 % Critically low 33.0-40.0 [facility] Comment on above: Performed By: #### T 7, TSH, LIPID, URIC, CMP #### [facility] [address] [place] [address] [address] Ekaterina Alcocer T4 [Mass/Vol] 6.30 ug/dL Normal 4.50-12.10 [facility] Comment on above: Performed By: #### T 7, TSH, LIPID, URIC, CMP #### [facility] [address] [place] [address] [address] Ekaterina Alcocer GLYCOHEMOGLOBIN A1Con 2021 ADA RECOMMENDATION SEE BELOW Normal [facility] Comment on above: Result Comment: ADA RECOMMENDED LIMIT 4.0 - 6.0 ADA THERAPEUTIC TARGET < 7.0 ACTION SUGGESTED > 7.0 Performed By: #### A 1C #### [facility] [address] [place] [address] Dr. Ekaterina Alcocer Glucose [Mass/Vol] 134 mg/dL Normal [facility] Comment on above: Performed By: #### A 1C #### [facility] [address] [place] [address] Dr. Ekaterina Alcocer HbA1c (Bld) [Mass fraction] 6.3 % Critically high 4.5-6.2 [facility] Comment on above: Performed By: #### A 1C #### [facility] [address] [place] [address] Dr. Ekaterina Alcocer LIPID PROFILEon 06-28-2022 CHOL-HDL RATIO NORM SEE BELOW Normal [facility] Comment on above: Result Comment: 3.3 - 4.4 LOW RISK 4.4 - 7.1 AVERAGE RISK 7.1 - 11.0 MODERATE RISK >11.0 HIGH RISK Performed By: #### T 7, TSH, LIPID, URIC, CMP #### [facility] [address] [place] [address] Dr. Ekaterina Alcocer Cholesterol [Mass/Vol] 142 mg/dL Normal <=200 Th [facility] Comment on above: Performed By: #### T 7, TSH, LIPID, URIC, CMP #### [facility] [address] [place] [address] Dr. Ekaterina Alcocer Cholesterol in HDL [Mass/Vol] 43 mg/dL Normal 40-60 [facility] Comment on above: Performed By: #### T 7, TSH, LIPID, URIC, CMP #### [facility] [address] [place] [address] Dr. Ekaterina Alcocer Cholesterol in LDL [Mass/Vol] 78.8 mg/dL Normal [facility] Comment on above: Performed By: #### T 7, TSH, LIPID, URIC, CMP #### [facility] [address] [place] [address] [address] Ekaterina Alcocer Cholesterol.total/Choles terol in HDL [Mass ratio] 3.3 {ratio} Normal [facility] Comment on above: Performed By: #### T 7, TSH, LIPID, URIC, CMP #### [facility] [address] [place] [address] [address] Ekaterina Alcocer HDL NORMAL > or = 60 mg/dl - LOW CARDIOVASCULAR RISK <40 mg/dl - HIGH CARDIOVASCULAR RISK Normal [facility] Comment on above: Performed By: #### T 7, TSH, LIPID, URIC, CMP #### [facility] [address] [place] [address] [address] Ekaterina Alcocer LDL CALC NORMAL SEE BELOW Normal [facility] Comment on above: Result Comment: <100 mg/dl OPTIMAL 100 - 129 mg/dl NEAR OR ABOVE OPTIMAL 130 - 159 mg/dl BORDERLINE HIGH 160 - 189 mg/dl HIGH >190 mg/dl VERY HIGH Performed By: #### T 7, TSH, LIPID, URIC, CMP #### [facility] [address] [address] [address] Ekaterina Alcocer Triglyceride [Mass/Vol] 101 mg/dL Normal <=150 [facility] Comment on above: Performed By: #### T 7, TSH, LIPID, URIC, CMP #### [facility] [address] [address] [address] Ekaterina Alcocer VLDL CALC 20.2 mg/dL Normal [facility] Comment on above: Performed By: #### T 7, TSH, LIPID, URIC, CMP #### [facility] [address] [address] [address] Ekaterina Alcocer PROF 14(COMP METB)on 022 Albumin [Mass/Vol] 3.5 g/dL Normal 3.4-5.0 [facility] Comment on above: Performed By: #### T 7, TSH, LIPID, URIC, CMP #### [facility] [address] [address] [address] Ekaterina Alcocer Albumin/Globulin [Mass ratio] 0.9 {ratio} Normal [facility] Comment on above: Performed By: #### T 7, TSH, LIPID, URIC, CMP #### [facility] [address] [address] [address] Ekaterina Alcocer ALP [Catalytic activity/Vol] 82 U/L Normal 46-116 [facility] Comment on above: Performed By: #### T 7, TSH, LIPID, URIC, CMP #### [facility] [address] [address] [address] Ekaterina Alcocer ALT [Catalytic activity/Vol] 26 U/L Normal 16-63 [facility] Comment on above: Performed By: #### T 7, TSH, LIPID, URIC, CMP #### [facility] [address] [place] [address] Dr. Ekaterina Alcocer Anion gap [Moles/Vol] 8.4 mmol/L Normal [facility] Comment on above: Performed By: #### T 7, TSH, LIPID, URIC, CMP #### [facility] [address] [place] [address] Dr. Ekaterina Alcocer AST [Catalytic activity/Vol] 17 U/L Normal 15-37 [facility] Comment on above: Performed By: #### T 7, TSH, LIPID, URIC, CMP #### [facility] [address] [place] [address] Dr. Ekaterina Alcocer Bilirubin [Mass/Vol] 0.6 mg/dL Normal 0.2-1.0 [facility] Comment on above: Performed By: #### T 7, TSH, LIPID, URIC, CMP #### [facility] [address] [address] [address] Ekaterina Alcocer Calcium [Mass/Vol] 8.8 mg/dL Normal 8.5-10.1 [facility] Comment on above: Performed By: #### T 7, TSH, LIPID, URIC, CMP #### [facility] [address] [place] [address] Dr. Ekaterina Alcocer Chloride [Moles/Vol] 105 mmol/L Normal 98-107 [facility] Comment on above: Performed By: #### T 7, TSH, LIPID, URIC, CMP #### [facility] [address] [place] [address] Dr. Ekaterina Alcocer CO2 [Moles/Vol] 32.6 mmol/L Critically high 21.0-32.0 [facility] Comment on above: Performed By: #### T 7, TSH, LIPID, URIC, CMP #### [facility] [address] [address] [address] Ekaterina Alcocer Creatinine [Mass/Vol] 1.48 mg/dL Critically high 0.70-1.30 [facility] Comment on above: Performed By: #### T 7, TSH, LIPID, URIC, CMP #### [facility] [address] [place] [address] Dr. Ekaterina Alcocer EGFR-AF BULGARIAN 55 mL/min/1.73m2 Critically low >=60 [facility] Comment on above: Performed By: #### T 7, TSH, LIPID, URIC, CMP #### [facility] [address] [place] [address] Dr. Ekaterina Alcocer EGFR-NON AF BULGARIAN 45 mL/min/1.73m2 Critically low >=60 [facility] Comment on above: Performed By: #### T 7, TSH, LIPID, URIC, CMP #### [facility] [address] [place] [address] Dr. Ekaterina Alcocer Globulin (S) [Mass/Vol] 3.9 g/dL Normal [facility] Comment on above: Performed By: #### T 7, TSH, LIPID, URIC, CMP #### [facility] [address] [place] [address] Dr. Ekaterina Alcocer Glucose [Mass/Vol] 118 mg/dL Critically high 74-106 [facility] Comment on above: Performed By: #### T 7, TSH, LIPID, URIC, CMP #### [facility] [address] [place] [address] Dr. Ekaterina Alcocer Potassium [Moles/Vol] 5.0 mmol/L Normal 3.5-5.1 [facility] Comment on above: Performed By: #### T 7, TSH, LIPID, URIC, CMP #### [facility] [address] [place] [address] Dr. Ekaterina Alcocer Protein [Mass/Vol] 7.4 g/dL Normal 6.4-8.2 [facility] Comment on above: Performed By: #### T 7, TSH, LIPID, URIC, CMP #### [facility] [address] [place] [address] Dr. Ekaterina Alcocer Sodium [Moles/Vol] 141 mmol/L Normal 136-145 [facility] Comment on above: Performed By: #### T 7, TSH, LIPID, URIC, CMP #### [facility] [address] [place] [address] Dr. Ekaterina Alcocer Urea nitrogen [Mass/Vol] 23.0 mg/dL Critically high 7.0-18 .0 [facility] Comment on above: Performed By: #### T 7, TSH, LIPID, URIC, CMP #### [facility] [address] [place] [address] Dr. Ekaterina Alcocer Urea nitrogen/Creatinine [Mass ratio] 15.5 mg/mg Normal [facility] Comment on above: Performed By: #### T 7, TSH, LIPID, URIC, CMP #### [facility] [address] [place] [address] Dr. Ekaterina Alcocer TSHon 06-28-2022 TSH 3.329 uIU/mL Normal 0.358-3.740 [facility] Comment on above: Performed By: #### T 7, TSH, LIPID, URIC, CMP #### [facility] [address] [place] [address] Dr. Ekaterina Alcocer URIC ACID SERUMon 06-28-2022 Urate [Mass/Vol] 8.1 mg/dL Critically high 3.5-7.2 [facility] Comment on above: Performed By: #### T 7, TSH, LIPID, URIC, CMP #### [facility] [address] [place] [address] Dr. Ekaterina Alcocer US CAROTID ART BILon [...] BRIANNA SMITH Date: 2022-06-28 17:35 Normal [facility] VITAMIN D 25 OHon 06-28-2022 VIT D 25-OH 53.8 ng/mL Normal [facility] Comment on above: Performed By: #### Jocelyn SANTIAGOAD, PSASC ####[facility] [address] [address]DrShayne Alcocer VIT D RANGES SEE BELOW Normal [facility] Comment on above: Result Comment: <20 ng/mL Vit D deficient 20 - <30 ng/mL Vit D insufficient 30 - 100 ng/mL Vit D sufficient >100 ng/mL Potential Toxicity Performed By: #### V GIOVANNI, PSASC ####[facility] [address] [id number] Ekaterina Alcocer Echocardiogramon 04-15-[address], [address], [place] [address] TRANSTHORACIC ECHOCARDIOGRAM REPORT Patient Name: MELO CUEVAS Reading Physician: [id number] Fabián Tony MD Study Date: 04/15/2022 Referring Physician: ALEX BECERRA MRN/PID: [id number] PCP: Lisa Mims Accession/Order#: [id number] Department Location: [facility] Date of : 1935 Fellow: Gender: M Nurse: Admit Date: Technical Training Specialist: Daniela Veras RDCS, RVT Height: 187.96 cm [...] 3 TAVR-04/2016 Procedure/CPT: Echo Complete w Full Doppler-72709 Study Detail: The following Echo studies were [...] VTI: 22.60 (more content not included)... Normal [facility] Office Visit (Cardiology)on 04-13-2022 Follow-up visit [...] Status:Hold For - Scheduling,Retrospec tive Authorization; Requested for:[id number]; SocHx: Former smoker Tobacco Use Screening; Status:Complete; Done: [id number] Patient Instructions Please bring all medicines, vitamins, [...] Recorded: 13Apr2022 10:47AM Heart Rate72, L Radial Qatwdcms920, LUE, Sitting Vabddsalg73, LUE, Sitting Height6 ft 2 in Rxytvh899 lb BMI Ilhivyzjip19.65 kg/m2 BSA Calculated2.14 Tobacco Useb) No Falls Screening (Age 18+)a) No falls within the last year Physical Exam Constitutio (more content not included)... Normal [employer] Tobacco Screening.on 022 Fall risk assessment a) No falls within the last year -[facility] [employer] y 250 DO Work Phone: Tobacco use status [facility] b) No M -[facility] [employer] y 250 DO Work Phone: Tobacco Screening.on 022 Adult depression screening assessment No [facility] HeartKalyani y 250 DO Work Phone: Fall risk assessment a) No falls within the last year [facility] Tata y 250 DO Work Phone: Heart Rate Bounding [facility] Tata Askew DO Work Phone: Tobacco use status [facility] b) No M [facility] HeartKalyani y 250 DO Work Phone: Echocardiogramon 09-29-2021 [facility] [address] [place] [address], [place] [address] TRANSTHORACIC ECHOCARDIOGRAM REPORT Patient Name: MELO CUEVAS Reading Physician: [id number] Fabián Tony MD Study Date: 09/29/2021 Referring Physician: [id number] BECERRA MRN/PID: [id number] PCP: Lisa Mims Accession/Order#: [id number] Department Location: Date of : 1935 Fellow: Gender: M Nurse: Admit Date: Technical Training Specialist: Daniela Veras 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 Normal [facility] PROGRESSon 12-06-2017 [facility] NOTES Normal [facility] BRIEF OP NOTon 11-21-2017 [facility] HIM CAC NOTES Normal [facility] HISTORY AND PHYSICALon 11-21 [facility] NOTES Normal [facility] OR NURSINGon 11-21-2017 [facility] HIM CAC NOTES Normal [facility] PROGRESSon 11-01-2017 [facility] NOTES Normal [facility] Vital Signs Date Time Vital Sign Value Performing Clinician Facility 08-07-2024 09:28-0500 Body height 188 cm Alex Becerra DO Work Phone: [facility] 08-07-2024 09:28-0500 Body mass index (BMI) [Ratio] 25.42 kg/m2 Alex Becerra DO Work Phone: [facility] 08-07-2024 09:28-0500 Body weight 89.81 kg Alex Bceerra DO Work Phone: [facility] 08-07-2024 09:28-0500 Diastolic blood pressure 60 mm[Hg] Alex Becerra DO Work Phone: [facility] 08-07-2024 09:28-0500 Heart rate 72 /min Alex Becerra DO Work Phone: [facility] 08-07-2024 09:28-0500 Systolic blood pressure 126 mm[Hg] Alex Becerra DO Work Phone: [facility] 07-30-2024 10:20-0500 Body height 182.9 cm Brianna Martinez DO Work Phone: [facility] 07-30-2024 10:20-0500 Body mass index (BMI) [Ratio] 26.45 kg/m2 Brianna Martinez DO Work Phone: [facility] 07-30-2024 10:20-0500 Body weight 88.45 kg Brianna Martinez DO Work Phone: [facility] 07-24-2024 09:38-0500 Body height [address] 07-24-2024 09:38-0500 Body mass index (BMI) [Ratio] 25.42 kg/m2 [address] 07-24-2024 09:38-0500 Body weight 89.[address] 07-24-2024 09:38-0500 Diastolic blood pressure 62 mm[Hg] [address] 07-24-2024 09:38-0500 Systolic blood pressure 124 mm[Hg] [address] 07-12-2024 09:59-0500 Body height 182.9 cm Brianna Pocos DO Work Phone: [facility] 07-12-2024 09:59-0500 Body mass index (BMI) [Ratio] 26.45 kg/m2 Brianna Pocos DO Work Phone: [facility] 07-12-2024 09:59-0500 Body weight 88.45 kg Brianna Pocos DO Work Phone: [facility] 06-27-2024 13:46-0500 Body height 182.9 cm Brianna Pocos DO Work Phone: [facility] 06-27-2024 13:46-0500 Body mass index (BMI) [Ratio] 26.45 kg/m2 Brianna Pocos DO Work Phone: [facility] 06-27-2024 13:46-0500 Body weight 88.45 kg Brianna Pocos DO Work Phone: [facility] 01-31-2024 13:10-0400 Blood Pressure Location Guy NILL [facility] 01-31-2024 13:10-0400 Diastolic blood pressure 76 mm[Hg] Guy NILL [facility] 01-31-2024 13:10-0400 Heart rate 72 /min Guy NILL [facility] 01-31-2024 13:10-0400 Respiratory rate 16 /min Guy NILL [facility] 01-31-2024 13:10-0400 Systolic blood pressure 116 mm[Hg] Guy BRIDGETTE [facility] 10-26-2023 09:30-0400 Body height 188 cm Alex Becerra DO Work Phone: [facility] 10-26-2023 09:30-0400 Body mass index (BMI) [Ratio] 25.42 kg/m2 Alex Becerra DO Work Phone: [facility] 10-26-2023 09:30-0400 Body weight 89.81 kg Alex Becerra DO Work Phone: [facility] 10-26-2023 09:30-0400 Diastolic blood pressure 60 mm[Hg] Alex Becerra DO Work Phone: [facility] 10-26-2023 09:30-0400 Heart rate 60 /min Alex Becerra DO Work Phone: [facility] 10-26-2023 09:30-0400 Systolic blood pressure 118 mm[Hg] Alex Becerra DO Work Phone: [facility] 10-18-2023 09:41-0400 Body height [address] 10-18-2023 09:41-0400 Body mass index (BMI) [Ratio] 25.42 kg/m2 [address] 10-18-2023 09:41-0400 Body weight 89.[address] 10-18-2023 09:41-0400 Diastolic blood pressure 72 mm[Hg] [address] 10-18-2023 09:41-0400 Systolic blood pressure 134 mm[Hg] [address] 08-17-2023 11:27-0500 Body height 188 cm Dasia Bledsoe APRN-SOFTWARE TRAINER Work Phone: [facility] 08-17-2023 11:27-0500 Body mass index (BMI) [Ratio] 25.42 kg/m2 Dasia Bledsoe APRN-SOFTWARE TRAINER Work Phone: [facility] 08-17-2023 11:27-0500 Body weight 89.81 kg Dasia Bledsoe ASSEMBLER [employer]-SOFTWARE TRAINER Work Phone: [facility] 08-17-2023 11:27-0500 Diastolic blood pressure 64 mm[Hg] Dasia Bledsoe ASSEMBLER [employer]-SOFTWARE TRAINER Work Phone: [facility] 08-17-2023 11:27-0500 Heart rate 60 /min Dasia Bledsoe ASSEMBLER [employer]-SOFTWARE TRAINER Work Phone: [facility] 08-17-2023 11:27-0500 Systolic blood pressure 138 mm[Hg] Dasia Bledsoe ASSEMBLER [employer]-SOFTWARE TRAINER Work Phone: [facility] 10-14-2022 10:03-0400 Body height 187.96 cm Lisa Kameron Hoy Work Phone: [facility] 250 DO Work Phone: 10-14-2022 10:03-0400 Body mass index (BMI) [Ratio] 25.29 kg/m2 Lisa Kameron Hoy Work Phone: [facility] 250 DO Work Phone: 10-14-2022 10:03-0400 Body surface area Derived from formula 2.16 m2 Lisa Kameron Hoy Work Phone: [facility] 250 DO Work Phone: 10-14-2022 10:03-0400 Body weight 89.36 kg Lisa M Hoy Work Phone: [facility] 250 DO Work Phone: 10-14-2022 10:03-0400 Diastolic blood pressure 52 mm[Hg] Lisa M Hoy Work Phone: [facility] 250 DO Work Phone: 10-14-2022 10:03-0400 Heart rate 64 /min Lisa M Hoy Work Phone: [facility] 250 DO Work Phone: 10-14-2022 10:03-0400 Systolic blood pressure 112 mm[Hg] Lisa M Hoy Work Phone: [facility] 250 DO Work Phone: 04-15-2022 09:45-0400 70 1 Lisa M Hoy Work Phone: [facility] [address] [place] Work Phone: Comment on above: [id number] 04-13-2022 10:47-0400 Body height 187.96 cm Lisa M Hoy Work Phone: [facility] 250 DO Work Phone: 04-13-2022 10:47-0400 Body mass index (BMI) [Ratio] 24.65 kg/m2 Lisa M Hoy Work Phone: [facility] 250 DO Work Phone: 04-13-2022 10:47-0400 Body surface area Derived from formula 2.14 m2 Lisa M Hoy Work Phone: [facility] 250 DO Work Phone: 04-13-2022 10:47-0400 Body weight 87.09 kg Lisa M Hoy Work Phone: [facility] 250 DO Work Phone: 04-13-2022 10:47-0400 Diastolic blood pressure 74 mm[Hg] Lisa M Hoy Work Phone: [facility] 250 DO Work Phone: 04-13-2022 10:47-0400 Heart rate 72 /min Lisa M Hoy Work Phone: [facility] 250 DO Work Phone: 04-13-2022 10:47-0400 Systolic blood pressure 122 mm[Hg] Lisa M Hoy Work Phone: [facility] 250 DO Work Phone: 10-07-2021 10:50-0400 Body height 185.42 cm Lisa Kameron Hoy Work Phone: [facility] 250 DO Work Phone: 10-07-2021 10:50-0400 Body mass index (BMI) [Ratio] 26.25 kg/m2 Lisa Kameron Hoy Work Phone: [facility] 250 DO Work Phone: 10-07-2021 10:50-0400 Body surface area Derived from formula 2.15 m2 Lisa Kameron Hoy Work Phone: [facility] 250 DO Work Phone: 10-07-2021 10:50-0400 Body weight 90.27 kg Lisa Melo Hoy Work Phone: [facility] 250 DO Work Phone: 10-07-2021 10:50-0400 Diastolic blood pressure 60 mm[Hg] Lisa Kameron Hoy Work Phone: [facility] 250 DO Work Phone: 10-07-2021 10:50-0400 Heart rate 61 /min Lisa Kameron Hoy Work Phone: [facility] 250 DO Work Phone: 10-07-2021 10:50-0400 Systolic blood pressure 136 mm[Hg] Ilsa Kameron Hoy Work Phone: [facility] 250 DO Work Phone: 09-29-2021 10:45-0400 70 1 Lisa M Hoy Work Phone: [facility] [address] [place] Work Phone: Comment on above: [id number] Encounters Encounter Date Encounter Type Care Provider Facility Start: 08-07-2024 End: 08-07-2024 Telephone encounter Shayy Trotter PT Work Phone: [facility] Comment on above: re: PT and fu w/ Dr. 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 Start: 08-07-2024 End: 08-07-2024 ambulatory [facility] Start: 07-30-2024 End: 07-30-2024 Bamboo flowsheet Brianna Martinez DO Work Phone: [facility] Start: 07-30-2024 End: 07-30-2024 Bamboo flowsheet Brianna Main Pocos DO Work Phone: [facility] Start: 07-30-2024 End: 07-30-2024 Patient encounter procedure Brianna Main Pocflor DO Work Phone: [facility] Comment on above: Strain of right shou lder, subsequent encounter (Primary Dx); Arthritis of right shoulder region; [facility] (current) use of anticoagulants Start: 07-30-2024 End: 07-30-2024 ambulatory BRIANNA DOMINGOOS Not Available Start: 07-27-2024 End: 07-27-2024 Bamboo flowsheet Jim Murillo ANTISQUEAK APPLIER [facility] Start: 07-27-2024 End: 07-27-2024 Bamboo flowsheet Jim Murillo ANTISQUEAK APPLIER [facility] Start: 07-27-2024 End: 07-27-2024 ambulatory Jim Murillo ANTISQUEAK APPLIER [facility] Comment on above: Acute pain of right shoulder (Primary Dx); Arthritis of right shoulder region Start: 07-24-2024 End: 07-24-2024 Bamboo flowsheet Jim Murillo ANTISQUEAK APPLIER [facility] Start: 07-24-2024 End: 07-24-2024 Bamboo flowsheet Jim Murillo ANTISQUEAK APPLIER [facility] Start: 07-24-2024 End: 07-24-2024 Subsequent hospital visit by physician Janet Wu Echo/Vasc Room 2 [facility] Comment on above: Mitral valve stenosi s, unspecified etiology Start: 07-24-2024 End: 07-24-2024 ambulatory Jim Murillo ANTISQUEAK APPLIER [facility] Comment on above: Acute [...] 07-06-2024 End: 07-06-2024 Bamboo flowsheet Mary Leon ANTISQUEAK APPLIER [facility] Start: 07-06-2024 End: 07-06-2024 Bamboo flowsheet Mary Leon ANTISQUEAK APPLIER [facility] Start: 07-06-2024 End: 07-06-2024 ambulatory Mary Leon ANTISQUEAK APPLIER [facility] Comment on above: Acute [...] Start: 07-03-2024 End: 07-03-2024 ambulatory Alex Cerda Facility:[facility] Start: 06-27-2024 End: 06-27-2024 Patient encounter procedure [...] encounter procedure MD Lisa Mims Work Phone: [facility]Pacemaker Check Start: 04-03-2024 End: 04-03-2024 ambulatory MD Lisa Mims Work Phone: [facility] Work Phone: Start: 03-21-2024 End: 03-21-2024 ambulatory Guy ANGELES Facility:[facility] Start: 03-21-2024 End: 03-21-2024 Patient encounter procedure Guy Potter NILL [facility] Start: 03-07-2024 End: 03-07-2024 ambulatory MD Lisa Mims Work Phone: [facility] Work Phone: Start: 03-07-2024 End: 03-07-2024 Departed Referred MD Lisa Mims Work Phone: [facility] Start: 03-07-2024 End: 03-07-2024 ambulatory Guy LARIOSL Facility:CD:[id number] Start: 01-31-2024 End: 01-31-2024 ambulatory Lisa Mims Facility: [facility] Start: 01-31-2024 End: 01-31-2024 Patient encounter procedure Gyu Potter BRIDGETTE [facility] Start: 01-03-2024 End: 01-03-2024 Patient encounter procedure MD Lisa Mims Work Phone: [facility]-Pacemaker Check Start: 01-03-2024 End: 01-03-2024 ambulatory MD Lisa Mims Work Phone: [facility] Work Phone: Start: 12-26-2023 ambulatory Guy ANGELES Facility:[facility] [place] Start: 10-26-2023 End: 10-26-2023 Office outpatient visit 25 minutes Alex Becerra DO Work Phone: [facility] Comment on above: Paroxysmal atrial fi brillation (CMS/HCC); [facility]CI current use of anticoagulant therapy; Fatigue, unspecified type; SSS (sick sinus syndrome) (CMS/HCC); Pacemaker; Mitral valve stenosis, unspecified etiology; Primary hypertension; Mixed hyperlipidemia; BMI 25.0-25.9,adult; Former smoker Start: 10-26-2023 End: 10-26-2023 ambulatory [facility] Start: 10-18-2023 End: 10-18-2023 Subsequent hospital visit by physician Janet Wu Echo/Vasc Room 2 [facility] Comment on above: Aortic valve stenosi s, etiology of cardiac valve disease unspecified Start: 10-18-2023 End: 10-18-2023 ambulatory LISA BYERS [facility] Start: 10-04-2023 End: 10-04-2023 Patient encounter procedure MD Lisa Mims Work Phone: [facility]-Pacemaker Check Start: 10-04-2023 End: 10-04-2023 ambulatory MD Lisa Mims Work Phone: [facility] Work Phone: Start: 08-17-2023 End: 08-17-2023 Office outpatient visit 25 minutes Dasia Bledsoe APRN-SOFTWARE TRAINER Work Phone: [facility] Comment on above: S/P TAVR (transcathe ter aortic valve replacement) (Primary Dx); Paroxysmal atrial fibrillation (CMS/HCC); [facility]CI current use of anticoagulant therapy; Mitral valve stenosis, unspecified etiology; Mixed hyperlipidemia; Primary hypertension; Pacemaker; BMI 25.0-25.9,adult Start: 07-04-2023 End: 07-04-2023 ambulatory MD Lisa Mims Work Phone: [facility] Work Phone: Start: 07-04-2023 End: 07-04-2023 Patient encounter procedure MD Lisa Mims Work Phone: [facility] Ctr[facility]Pac[facility] Check Start: 04-04-2023 End: 04-04-2023 Patient encounter procedure MD Lisa Mims Work Phone: [facility]tr-Pacemaker Check Start: 04-04-2023 End: 04-04-2023 ambulatory MD Lisa Mims Work Phone: [facility] Ctr Work Phone: Start: 01-03-2023 End: 01-03-2023 ambulatory MD Lisa Mims Work Phone: [facility] Ctr Work Phone: Start: 01-03-2023 End: 01-03-2023 Patient encounter procedure MD Lisa Mims Work Phone: [facility] Ctr-Pacemaker Check Start: 01-03-[address] Lisa Mims Facility:[id number] Start: 10-14-2022 Office outpatient vi sit 15 minutes Lisa Mims Work Phone: [facility] [address] DO Work Phone: Start: 10-14-[address] Lisa Mims Facility: Start: 10-04-2022 End: 10-04-2022 Patient encounter procedure MD Lisa Mims Work Phone: [facility] Ctr-Pacemaker Check Start: 10-04-2022 End: 10-04-2022 ambulatory MD Lisa Mims Work Phone: [facility] Ctr Work Phone: Start: 08-30-2022 End: 08-30-[address] LISA MIMS Facility:H1 Start: 07-05-[address] Lisa Mims Facility:[id number] Start: 07-05-2022 End: 07-05-2022 ambulatory MD Lisa Mims Work Phone: [facility] Ctr Work Phone: Start: 07-05-2022 End: 07-05-2022 Patient encounter procedure MD Lisa Mims Work Phone: [facility] Ctr-Pacemaker Check Start: 06-28-2022 End: 06-29-[address] LISA MIMS Facility:H1 Start: 04-21-2022 Chart Update Lisa Mims Work Phone: [facility] [address] DO Work Phone: Start: 04-15-2022 ECHO, Provider: MARIELLE EVANS ULTRASOUND 01,[id number], Status: Pen, Time: 9:45 AM Lisa Kameron Hoy Work Phone: [facility] [address] DO Work Phone: Start: 04-15-2022 Patient encounter procedure Lisa M Hoy Work Phone: [facility] [address] [place] Work Phone: Start: 04-15-[address] Alex Berman ility:[id number] Start: 04-13-2022 Office outpatient vi sit 25 minutes Lisa M Hoy Work Phone: [facility] [address] DO Work Phone: Start: 04-02-2022 End: 04-02-2022 Patient encounter procedure MD Lisa Mims Work Phone: [facility] Ctr-Pacemaker Check Start: 01-01-2022 End: 01-01-2022 Patient encounter procedure MD Lisa Mims Work Phone: [facility] Ctr-Pacemaker Check Start: 10-07-2021 Office outpatient vi sit 25 minutes Lisa M Hoy Work Phone: [facility] [address] DO Work Phone: Start: 09-29-2021 Patient encounter procedure Lisa M Hoy Work Phone: [facility] [address] [place] Work Phone: Start: 09-29-[address] Alex Berman ility:[id number] Start: 05-10-2018 Patient encounter procedure PROVIDER UNKNOWN Facility:[id number] Start: 12-06-2017 Ambulatory [facility] Start: 11-21-2017 Ambulatory [facility] Start: 11-21-2017 End: 11-21-2017 Ambulatory [facility] Start: 11-01-2017 Ambulatory [facility] Procedures Date Procedure Procedure Detail Performing Clinician [...] above: Performed By: #### V ITAD, PSASC ####[facility] Xscqv[address] [place], [place] [address]Dr. Ekaterina Alcocer Start: 04-15-2022 Echocardiography Melo Mims [...] Activity Detail Author Start: 07-24-2025 Echocardiography Echocardiogram [facility] Start: 05-09-2025 DTaP/Tdap/Td Vaccines (2 - Td or Tdap) DTaP/Tdap/Td Vaccines (2 - Td or Tdap) [facility] Start: 08-27-2024 End: 10-25-2025 US Heart Transthoracic Transthoracic Echo Complete Echocardiography Routine Mitral valve stenosis, unspecified etiology Expected: 08/27/2024 (Approximate), Expires: 10/25/2025 [facility] Service Area Work Phone: Comment on above: Expected: 08/27/2024 (Approximate), Expi res: 10/25/2025 Start: 08-07-2024 End: 08-07-2025 Alanine aminotransferase [Enzymatic activity/volume] in Serum or Plasma by With P-5'-P Alanine Aminotransferase Lab Routine Mixed hyperlipidemia Expected: 08/07/2024 (Approximate), Expires: 08/07/2025 [facility] Work Phone: Comment on above: Expected: 08/07/2024 (Approximate), Expi res: 08/07/2025 Start: 08-07-2024 End: 08-07-2025 Aspartate aminotransferase [Enzymatic activity/volume] in Serum or Plasma by With P-5'-P Aspartate Aminotransferase Lab Routine Mixed hyperlipidemia Expected: 08/07/2024 (Approximate), Expires: 08/07/2025 [facility] Work Phone: Comment on above: Expected: 08/07/2024 (Approximate), Expi res: 08/07/2025 Start: 08-07-2024 End: 08-07-2025 Basic metabolic 2000 panel - Serum or Plasma Basic Metabolic Panel Lab Routine Primary hypertension Expected: 08/07/2024 (Approximate), Expires: 08/07/2025 [facility] Work Phone: Comment on above: Expected: 08/07/2024 (Approximate), Expi res: 08/07/2025 Start: 08-07-2024 End: 08-07-2025 Lipid 1996 panel - Serum or Plasma Lipid Panel Lab Routine Mixed hyperlipidemia Expected: 08/07/2024 (Approximate), Expires: 08/07/2025 [facility] Work Phone: Comment on above: Expected: 08/07/2024 (Approximate), Expi res: 08/07/2025 Start: 08-07-2024 End: 08-07-2025 Natriuretic peptide B [Mass/volume] in Blood B-Type Natriuretic Peptide Lab Routine Mitral valve stenosis, unspecified etiology Mitral valve insufficiency, unspecified etiology Aortic valve stenosis, etiology of cardiac valve disease unspecified S/P TAVR (transcatheter aortic valve replacement) Paroxysmal atrial fibrillation (Multi) Status post CVA [facility] current use of anticoagulant therapy SSS (sick sinus syndrome) (Multi) Primary hypertension Mixed hyperlipidemia BMI 25.0-25.9,adult Former smoker 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 (Multi) Expected: 08/07/2024 (Approximate), Expires: 08/07/2025 [facility] Work Phone: Comment on above: Expected: 08/07/2024 (Approximate), Expi res: 08/07/2025 Start: 08-07-2024 End: 08-07-2026 Heart Transthoracic Transthoracic Echo Complete Echocardiography Routine Mitral valve stenosis, unspecified etiology Mitral valve insufficiency, unspecified etiology Aortic valve stenosis, etiology of cardiac valve disease unspecified S/P TAVR (transcatheter aortic valve replacement) Expected: 08/07/2024 (Approximate), Expires: 08/07/2026 [facility] Service Area Work Phone: Comment on above: Expected: 08/07/2024 (Approximate), Expi res: 08/07/2026 Start: 08-07-2024 End: 08-07-2024 Patient encounter procedure 08/07/2024 9:30 AM EST Office Visit [facility] [address] [facility] [address] [place] [address] Alex Becerra DO [address] [facility] [address] [place] [address] [facility] Start: 08-02-2024 End: 08-02-2024 ambulatory 08/02/2024 10:00 AM EST Treatment [facility] [address] [place] [address] Jim Murillo ANTISQUEAK APPLIER [facility] Start: 07-31-2024 End: 07-31-2024 ambulatory 07/31/2024 1:00 PM EST Treatment [facility] [address] [place] [address] Jim Murillo ANTISQUEAK APPLIER [facility] Start: 07-30-2024 End: 07-30-2024 Patient encounter procedure [facility] Comment on above: Arrived Start: 07-27-2024 End: 07-27-2024 ambulatory [facility] Comment on above: Arrived Start: 07-24-2024 End: 07-24-2024 ambulatory [facility] Comment on above: Arrived Start: 07-24-2024 End: 07-24-2024 Patient encounter procedure 07/24/2024 9:45 AM EST Appointment [facility] [address] [facility] [address] [place] [address] [facility] Start: 07-20-2024 End: 07-20-2024 ambulatory [facility] Comment on above: Acute pain of right shoulder (Primary Dx ); Arthritis of right shoulder region Start: 07-17-2024 End: 07-17-2024 ambulatory 07/17/2024 10:00 AM EST Treatment [facility] [address] [facility] [address] [place] [address] Shayy Trotter, PT [address] [facility] [address] [place] [address] [facility] Start: 07-12-2024 End: 07-12-2024 ambulatory 07/12/2024 3:30 PM EST Treatment [facility] [address] [facility] [address] [place] [address] Mary Leon, ANTISQUEAK APPLIER [facility] Start: 07-10-2024 End: 07-10-2024 ambulatory 07/10/2024 1:00 PM EST Treatment [facility] [address] [facility] [address] [place] [address] Jim Murillo, ANTISQUEAK APPLIER [facility] Start: 07-06-2024 End: 07-06-2024 ambulatory [facility] Comment on above: Acute pain of right shoulder (Primary Dx ); Arthritis of right shoulder region Start: 07-04-2024 End: 07-04-2024 ambulatory [facility] Comment on above: Arrived Start: 03-18-2024 COVID-19 Vaccine ( season) COVID-19 Vaccine ( season) [facility] Start: 03-18-2024 Influenza vaccination [facility] Start: 10-26-2023 FUV, Provider: Alex Becerra, Status: Pen, Time: 9:30 AM FUV, Provider: Alex Becerra, Status: Pen, Time: 9:30 AM [facility] Work Phone: Start: 10-26-2023 End: 10-26-2023 Patient encounter procedure 10/26/2023 9:30 AM EDT Office Visit [facility] [address] [facility] [address] [place] [address] Alex Becerra S, DO [address] [facility] [place] [address] [facility] Start: 10-18-2023 ECHO, Provider: [facility] ULTRASOUND 01,[id number], Status: Pen, Time: 9:45 AM ECHO, Provider: [facility] ULTRASOUND 01,[id number], Status: Pen, Time: 9:45 AM [facility] Work Phone: Start: 10-18-2023 End: 10-18-2023 Patient encounter procedure 10/18/2023 9:45 AM EDT Appointment [address] [place] [address] [facility] Start: 03-18-2023 COVID-19 Vaccine ( season) COVID-19 Vaccine ( season) [facility] Start: 03-18-2023 Influenza vaccination Influenza Vaccine (#1) [facility] Start: 10-14-2022 FUV, Provider: Alex Becerra, Status: Pen, Time: 10:00 AM FUV, Provider: Alex Becerra, Status: Pen, Time: 10:00 AM [facility] Work Phone: Start: 04-13-2022 FUV, Provider: Alex Becerra, Status: Pen, Time: 10:40 AM FUV, Provider: Alex Becerra, Status: Pen, Time: 10:40 AM [facility] [address] DO Work Phone: Start: 10-07-2021 FUV, Provider: Alex Becerra, Status: Pen, Time: 10:30 AM FUV, Provider: Alex Becerra, Status: Pen, Time: 10:30 AM -[facility] [address] [place] Work Phone: Start: 06-28-2018 Pneumococcal Vaccine: 65+ Years (2 - PPSV23 or PCV20) Pneumococcal Vaccine: 65+ Years (2 - PPSV23 or PCV20) [facility] Start: 06-28-2018 Pneumococcal Vaccine: 65+ Years (2 of 2 - PPSV23 or PCV20) Pneumococcal Vaccine: 65+ Years (2 of 2 - PPSV23 or PCV20) [facility] Start: 07-13-2016 Pneumococcal vaccination Pneumococcal Vaccine (2 of 2 - PPSV23) [facility] Start: 02-17-2012 RSV High Risk: (Elderly (60+) or Population) (1 - 1-dose 75+ series) RSV High Risk: (Elderly (60+) or Population) (1 - 1-dose 75+ series) [facility] Start: 1987 Zoster Vaccines (1 of 2) Zoster Vaccines (1 of 2) [facility] Start: 1959 DTaP/Tdap/Td Vaccines (1 - Tdap) DTaP/Tdap/Td Vaccines (1 - Tdap) [facility] Start: 1955 Diabetes mellitus screening Diabetes Screening [facility] Start: 1937 Creatinine measurement Creatinine Level [facility] Start: 1937 Lipid panel Lipid Panel [facility] Start: 1937 Medicare Annual Wellness Visit Medicare Annual Wellness Visit (AWV) [facility] Start: 1937 Potassium measurement Potassium Level [facility] End: 10-18-2023 [facility] Service Area Work Phone: Comment on above: Once for 1 Occurrences starting 10/18/19 24 until 10/18/2023 XR Knee - right 3 Views XR knee 3 views right Imaging Routine Right knee pain, unspecified chronicity 07/12/2024 10:05 AM [place] Work Phone: XR Shoulder - right 2 Views XR shoulder 2+ views right Imaging Routine Right shoulder pain, unspecified chronicity 06/27/2024 11:17 AM EST [facility] Work Phone: Immunizations Immunization Date Immunization Notes Care Provider Pricila smith 06-25-2021 Influenza, injectabl e, Madin Gaylord Canine Kidney, preservative free, quadrivalent Lisa M Hoy Work Phone: [facility] [address] [place] Work Phone: 06-25-2021 influenza virus vacc ine, unspecified formulation Brianna Martinez DO Work Phone: [facility] [employer] 10-07-2020 Pfizer-BioNTech COVI D-19 Vacc 30 MCG/0.3ML Intramuscular Suspension Lisa M Hoy Work Phone: [facility] 09-15-2020 Pfizer-BioNTech COVI D-19 Vacc 30 MCG/0.3ML Intramuscular Suspension Lisa M Hoy Work Phone: [facility] 04-29-2020 Seasonal trivalent influenza vaccine, adjuvanted, preservative free Lisa M Hoy Work Phone: [facility] [address] [place] Work Phone: 04-17-2020 influenza virus vacc ine, unspecified formulation Lisa M Hoy Work Phone: [facility] [address] [place] Work Phone: 04-25-2019 Seasonal trivalent influenza vaccine, adjuvanted, preservative free Lisa M Hoy Work Phone: [facility] [address] [place] Work Phone: 03-18-2019 influenza virus vacc ine, unspecified formulation Lisa M Hoy Work Phone: [facility] [address] [place] Work Phone: 05-03-2018 pneumococcal vaccine , unspecified formulation Lisa M Hoy Work Phone: [facility] [address] [place] Work Phone: 05-02-2018 pneumococcal polysaccharide vaccine, 23 valent Lisa M Hoy Work Phone: [facility] [address] [place] Work Phone: 04-26-2018 influenza virus vacc ine, unspecified formulation Lisa Mims Work Phone: [facility] [address] [place] Work Phone: 04-18-2018 Seasonal trivalent influenza vaccine, adjuvanted, preservative free Lisa Mims Work Phone: [facility] [address] [place] Work Phone: 06-15-2017 pneumococcal polysaccharide vaccine, 23 valent Lisa Melo Haoguihuacurtis Work Phone: [facility] [address] [place] Work Phone: 05-05-2017 influenza, injectabl e, quadrivalent, preservative free Lisa Melo Haoguihuay Work Phone: [facility] [address] [place] Work Phone: 04-17-2017 influenza virus vacc ine, unspecified formulation Lisa Melo Haoguihuacurtis Work Phone: [facility] [address] [place] Work Phone: 06-14-2016 pneumococcal conjuga te vaccine, 13 valent Lisa Melo Haoguihuay Work Phone: [facility] [address] [place] Work Phone: 05-18-2016 pneumococcal conjuga te vaccine, 13 valent Lisa Melo y Work Phone: [facility] [address] [place] Work Phone: 04-17-2016 influenza virus vacc ine, unspecified formulation Lisa Melo Haoguihuay Work Phone: [facility] [address] [place] Work Phone: 05-09-2015 tetanus toxoid, redu alexandra diphtheria toxoid, and acellular pertussis vaccine, adsorbed Lisa Melo Haoguihuacurtis Work Phone: [facility] [address] [place] Work Phone: 05-01-2015 influenza, high dose seasonal, preservative-free Lisa Mims Work Phone: [facility] [address] [place] Work Phone: 04-17-2015 influenza virus vacc ine, unspecified formulation Lisa Mims Work Phone: [facility] [place] Work Phone: 07-30-2005 hepatitis A vaccine, unspecified formulation Lisa Mims Work Phone: [facility] [place] Work Phone: Comment on above: Series: Payers Date Payer Category Payer Self-pay [id number] 2023 Private Health Insurance 2015 Medicare supplementa l policy (as second payer) [id number] 2002 Medicare [id number] 2002 Medicare [id number] 1959 Medicare [id number] 1959 Unknown [id number] 1937 Unknown [id number] 2.16.840.1.631675.3.579.2.355 1937 Unknown [id number] 2.16.840.1.102195.3.579.2.1068 1937 Unknown [id number] 2.16.840.1.204740.3.579.2.1068 1937 Unknown [id number] 2.16.840.1.912287.3.579.2.593 1937 Unknown [id number] 2.840.1.708940.3.579.2.593 1937 Unknown [id number] 2.16.840.1.320612.3.579.2.356 1937 Unknown [id number] 2.840.1.308730.3.579.2.356 1937 Unknown [id number] 2.840.1.999743.3.579.2.356 1937 Unknown [id number] 2.0.1.708436.3.579.2.356 1937 Unknown [id number] 2.0.1.623471.3.579.2.356 1937 Unknown [id number] .0.1.008936.3.579.2.727 1937 Unknown [id number] .0.1.095921.3.579.2.727 1937 Unknown [id number] ..1.616395.3.579.2.727 1937 Unknown [id number] .0.1.724728.3.579.2.727 1937 Unknown [id number] 09.02.830.1.727659.3.579.2.1259 1937 Unknown [id number] .0.1.551899.3.579.2.1259 1937 Unknown [id number] 09.02.830.1.261128.3.579.2.1259 1937 Unknown [id number] .0.1.778289.3.579.2.1259 1937 Unknown [id number] 840.1.541743.3.579.2.1259 1937 Unknown [id number] 2.16.840.1.891167.3.579.2.1258 1937 Unknown [id number] 2.16.840.1.774307.3.579.2.1258 1937 Unknown [id number] 2.16.840.1.699471.3.579.2.1258 1937 Unknown [id number] 2.16.840.1.137824.3.579.2.1258 1937 Unknown [id number] 2.16.840.1.084537.3.579.2.1258 1937 Unknown [id number] 2.16.840.1.564024.3.579.2.1258 1937 Unknown [id number] 2.840.1.446053.3.579.2.1258 1937 Unknown [id number] 2.840.1.093684.3.579.2.1258 1937 Unknown [id number] 2.16840.1.473733.3.579.2.1245 1937 Unknown [id number] 2.16840.1.940767.3.579.2.1245 1937 Unknown [id number] 2.840.1.958147.3.579.2.4 1937 Unknown [id number] 2.16840.1.007250.3.579.2.1244 Medicare [id number] Unknown Unknown [id number] 2.16.840.1.848863.3.579.2.531 Unknown [id number] 2.16.840.1.071172.3.579.2.531 Unknown [id number] 2.16.840.1.956676.3.579.2.531 Unknown [id number] 2.16.840.1.925215.3.579.2.531 Unknown [id number] 2.16.840.1.848237.3.579.2.531 Social History Date Type Detail Facility Start: 08-17-2023 End: 07-30-2024 [facility] [place] Work Phone: Comment on above: Quit at 37. 2 ppd; Coffee - 1/2 cup michael ly; Rarely; Quit at age 37. 2 pp d; Start: 12-16-2020 End: 06-23-2023 Tobacco smoking status NHIS Ex-smoker (finding) [facility] Start: 08-17-2023 End: 07-30-2024 History of tobacco use [facility] Start: 1935 Sex Assigned At Male F [facility] History of tobacco use Current smoker [facility] Work Phone: History of tobacco use Cigarette Smoker [facility] Work Phone: Start: 06-23-2023 End: 08-17-2023 Tobacco use and exposure Smokeless tobacco non-user [facility] Work Phone: Start: 08-17-2023 End: 07-30-2024 Alcohol intake Current drinker of alcohol (finding) [facility] Work Phone: Start: 08-17-2023 Alcohol Comment beer nightly [facility] Work Phone: Start: 1935 Sex Assigned At Not on file [facility] Work Phone: Start: 08-07-2023 End: 08-07-2024 Exposure to SARS-CoV-2 (event) Not sure [facility] Start: 10-18-2023 Gender identity Identifies as male gender (finding) [facility] Work Phone: Start: 10-18-2023 Sexual orientation Heterosexual (fin padma) [facility] Work Phone: Tobacco [facility] status [facility] How often to you hav [...] Identifier Dates Insertion, pacemaker Endocardial pacing lead ()[id number] FDA Start: 12-16-2020 Insertion, pacemaker Endocardial pacing lead ()[id number] FDA Start: 12-16-2020 Insertion, pacemaker Dual-chamber implantable pacemaker, rate-responsive ()[id number] FDA Start: 12-16-2020 Functional Status Date Assessment Result Facility 01-31-2024 Functional Status N/A [facility] Clinical Notes 08-17-2023 to 08-07-2024 Telephone [...] not to hesitate and contact if needed. [facility] 08-07-2024 Miscellaneous Notes Called to request status and to check on fu w/ Dr. Martinez. He said he's feeling better and happy w/ status. His fu went very well and per [place] he can cont on if he feels needed; he said he is happy as of now. I reminded not to hesitate and contact if needed. documented in this encounter [facility] 08-07-2024 History of Present illness Narrative Subjective [...] one tablet daily. Take as directed per [place] coumadin clinic, Disp: 90 tablet, Rfl: 0 Assessment/Plan 1. Mitral valve stenosis, unspecified etiology Follow Up In Cardiology 2. Mitral valve insufficiency, unspecified etiology 3. Aortic valve stenosis, etiology of cardiac valve disease unspecified 4. S/P TAVR (transcatheter aortic valve replacement) 5. Paroxysmal atrial fibrillation (Multi) 6. 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 SSS [...] discussion and plan. documented in this encounter [facility] Work Phone: 08-07-2024 Instructions Bebe [...] be sent through Care Everywhere.Heart Healthy Diet (Welsh)documented in this encounter [facility] Work Phone: 07-30-2024 History of [...] joint osteoarthritis. The findings are discussed. At [id number], we would recommend strength and optimization as [...] 7:53 AM EST documented in this encounter [facility] 07-20-2024 History of Present illness Narrative Physical [...] started after racking leaves and pulling wheel [place]. Precautions: PACEMAKER Subjective Pt. Reports shoulder is [...] to be instructed in home exercise program. [facility] Goals: To be met in 10 weeks [...] sign below. Date: documented in this encounter [facility] 12-31-2024 History of Present illness Narrative Images [...] started after racking leaves and pulling wheel [place]. Precautions: PACEMAKER Subjective Pt. Reports shoulder is [...] to be instructed in home exercise program. C[facility] Rn Goals: To be met in 10 weeks [...] sign below. Date: documented in this encounter [facility] 07-12-2024 History of Present illness Narrative Images [...] 7:33 AM EST documented in this encounter [facility] 07-04-2024 History of Present illness Narrative Physical [...] started after racking leaves and pulling wheel [place]. Precautions: PACEMAKER Subjective Pain: 0/10 rest; 2/10 [...] to be instructed in home exercise program. [facility]vic[facility] Rn Goals: To be met in 10 weeks [...] sign below. Date: documented in this encounter [facility] 06-27-2024 History of Present illness Narrative Associated [...] 4:36 PM EST documented in this encounter [facility] 01-31-2024 Note General Surgery Offi ce/Clinic Note [...] plan excisional biopsy under local anesthesia at [facility]; informed consent obtained; hold Coumadin 4 [...] (COVID-19) mRNA BNT-162b2 vax 09/15/2020 Recorded [facility] Comment on above: Result Comment: Elec tronically Signed By: BRIDGETTE SCOTT, Guy Min\Date and Time Signed: 01/31/24 14:00 EDT 10-26-2023 History of Present illness Narrative Subjective Melo Cuevas is a 88 y.o. 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 He is [...] one tablet daily. Take as directed per [place] coumadin [facility], Disp: 90 tablet, Rfl: 0 Assessment/Plan 1. 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 Fatigue, [...] discussion and plan. documented in this encounter [facility] Work Phone: 10-26-2023 Instructions Bebe [...] instructions on exercise. documented in this encounter [facility] Work Phone: 08-18-2023 Evaluation + Plan note Associated Problem(s): Cardiac and Vasculature February 2016 cardiac cath minimal CAD March 2022 TTE LVEF 70% [facility] Work Phone: 08-18-2023 Miscellaneous Notes Associated Problem(s): Cardiac and Vasculature February 2016 cardiac cath minimal CAD March 2022 TTE LVEF 70% Associated Problem(s): BMI 25.0-25.9,adult Reviewed the merits of healthy lifestyle choices on overall cardiovascular health. 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 [facility] Work Phone: 08-18-2023 Evaluation + Plan note Associated Problem(s): FCI current use of anticoagulant therapy CHADS VASc 5 (prior CVA) recently initiated on Coumadin Denies bleeding diatheses DOACs cost prohibitive [facility] Work Phone: 08-18-2023 Evaluation + Plan note Associated Problem(s): Paroxysmal atrial fibrillation (CMS/HCC) June 2023 device interrogation with 10 seconds atrial fibrillation [facility] Work Phone: 08-18-2023 Evaluation + Plan note Associated Problem(s): S/P TAVR (transcatheter aortic valve replacement) 2016 TAVR Last evaluated March 2022 TTE Peak 12, mean 6 [facility] Work Phone: 08-18-2023 Evaluation + Plan note Associated Problem(s): Pacemaker SJM Assurity 2272 dual-chamber permanent pacemaker June 2023 device interrogation [facility] Work Phone: 08-18-2023 Evaluation + Plan note Associated Problem(s): Mitral stenosis March 2022 TTE Mild mitral stenosis peak 17, mean 6 Valve area 1.5 [facility] Work Phone: 08-18-2023 Evaluation + Plan note Associated Problem(s): HTN (hypertension) Optimal in office [facility] Work Phone: 08-18-2023 Evaluation + Plan note Associated Problem(s): HLD (hyperlipidemia) Moderate intensity statin Reports had lab completed earlier this month at [facility] Work Phone: 08-17-2023 History of [...] echocardiogram earlier than scheduled. He prefers to [id number] and will notify me if symptoms do [...] one tablet daily. 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 Becerra as scheduled Dasia Bledsoe MSN, ASSEMBLER [employer]-SOFTWARE TRAINER, PMHNP-BC [facility] Please excuse any errors in grammar or translation related to this dictation. Voice recognition software was utilized to prepare this document. documented in this encounter [facility] Work Phone: 08-17-2023 Instructions BUCK [...] Becerra as scheduled documented in this encounter [facility] Work Phone: Evaluation + Plan note No data available for this section [facility] Evaluation note No assessment inform ation available [facility] Work Phone: Evaluation note Diagnosis S/P TAVR (transcatheter aortic valve replacement)- Primary Paroxysmal atrial fibrillation (CMS/HCC) Atrial fibrillation FCI current use of anticoagulant therapy Mitral valve stenosis, unspecified etiology Mixed hyperlipidemia Primary hypertension Unspecified essential hypertension Pacemaker Cardiac pacemaker in situ BMI 25.0-25.9,adult documented in this encounter [facility] Work Phone: Evaluation note* Diagnosis Aortic valve stenosis, etiology of cardiac valve disease unspecified documented in this encounter [facility] Work Phone: Evaluation note* Diagnosis Aortic valve stenosis, etiology of cardiac valve disease unspecified documented in this encounter [facility] Work Phone: Evaluation note* Diagnosis Paroxysmal atrial fibrillation (CMS/HCC) Atrial fibrillation FCI current use of anticoagulant therapy Fatigue, unspecified type SSS (sick sinus syndrome) (CMS/HCC) Sinoatrial node dysfunction Pacemaker Cardiac pacemaker in situ Mitral valve stenosis, unspecified etiology Primary hypertension Unspecified essential hypertension Mixed hyperlipidemia BMI 25.0-25.9,adult Former smoker Personal history of tobacco use, presenting hazards to health documented in this encounter [facility] Work Phone: Evaluation note* Diagnosis [...] right shoulder region documented in this encounter [facility] Healthcare[facility]* Diagnosis S/P TAVR (transcatheter aortic valve replacement)- Primary Paroxysmal atrial fibrillation (Multi) Atrial fibrillation FCI current use of anticoagulant therapy Mitral valve stenosis, unspecified etiology Mixed hyperlipidemia Primary hypertension Unspecified essential hypertension Pacemaker Cardiac pacemaker in situ BMI 25.0-25.9,adult Mitral valve stenosis, unspecified etiology documented in this encounter [facility] Work Phone: Evaluation note* Diagnosis Acute pain of right shoulder- Primary Arthritis of right shoulder region documented in this encounter [facility] HealthcareEvaluation note* Diagnosis Strain of right shoulder, subsequent encounter- Primary Arthritis of right shoulder region FCI (current) use of anticoagulants Long-term (current) use of anticoagulants documented in this encounter [facility] HealthcareEvaluation note* Diagnosis S/P TAVR (transcatheter aortic valve replacement)- Primary Paroxysmal atrial fibrillation (Multi) Atrial fibrillation FCI current use of anticoagulant therapy Mitral valve stenosis, unspecified etiology Mixed hyperlipidemia Primary hypertension Unspecified essential hypertension Pacemaker Cardiac pacemaker in situ BMI 25.0-25.9,adult Mitral valve stenosis, unspecified etiology Mitral valve insufficiency, unspecified etiology Aortic valve stenosis, etiology of cardiac valve disease unspecified S/P TAVR (transcatheter aortic valve replacement) Paroxysmal atrial fibrillation (Multi) Atrial fibrillation 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 SSS (sick sinus syndrome) (Multi) Sinoatrial node dysfunction Pacemaker Cardiac pacemaker in situ Primary hypertension Unspecified essential hypertension Mixed hyperlipidemia BMI 25.0-25.9,adult Former smoker Personal history of tobacco use, presenting hazards to health 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 documented in this encounter [facility] Work Phone: Hospital Discharge instructions No data available for this section [facility] [place] Progress note No data available for this section [facility] [place] Reason for visit Narrative* Consultation (Routine) - Authorized Specialty Diagnoses / Procedures Referred By Contac t Referred To Contact Physical Therapy Diagnoses Right shoulder pain, unspecified chronicity Right shoulder strain, initial encounter Arthritis of shoulder region, right Procedures IA OFFICE/OUTPATIENT [facility] Brianna Martinez, DO [address] [facility] [place] [address] Phone: tel: fax: Shayy Trotter, PT [address] [address] Phone: tel: fax: Referral ID Status Reason Start Date Expiration Date Visits Requested Visits Authorized [id number] Authorized Consult and Treat 06/27/2024 12/24/2024 10 10 [facility] for visit Narrative* Consultation (Routine) - Authorized Specialty Diagnoses / Procedures Referred By Tiaac t Referred To Contact Physical Therapy Diagnoses Right shoulder pain, unspecified chronicity Right shoulder strain, initial encounter Arthritis of shoulder region, right Procedures IA OFFICE/OUTPATIENT [facility] Brianna Martinez, DO [address] [place] [address] Phone: tel: fax: Shayy Trotter, PT [address] [address] Phone: tel: fax: Referral ID Status Reason Start Date Expiration Date Visits Requested Visits Authorized [id number] Authorized Consult and Treat 06/27/2024 07/17/2024 30 30 [facility] for visit Narrative* Consultation (Routine) - Closed Specialty Diagnoses / Procedures Referred By Tiaac t Referred To Contact Physical Therapy Diagnoses Right shoulder pain, unspecified chronicity Right shoulder strain, initial encounter Arthritis of shoulder region, right Procedures IA OFFICE/OUTPATIENT [facility] Brianna Martinez, DO [address] [facility] [place] [address] Phone: tel: fax: Shayy Trotter, PT [address] [address] Phone: tel: fax: Referral ID Status Reason Start Date Expiration Date V isits Requested Visits Authorized [id number] Closed Consult and Treat 06/27/2024 07/17/2024 30 [...] 15 MIN NEUROMUS[facility] REEDBrianna Kasper, DO [address] [place] [address] Phone: tel: fax: Shayy Trotter, PT [address] [address] Phone: tel: fax: Referral ID Status Reason Start Date Expiration Date Visits Requested Visits Authorized [id number] Authorized Consult and Treat 07/18/2024 08/07/2024 20 [...] MIN [facility] REEDUCA Brianna Martinez, DO [address] [place] [address] Phone: tel: fax: Shayy Trotter, PT [address] [address] Phone: tel: fax: Referral ID Status Reason Start Date Expiration Date Visits Requested Visits Authorized [id number] Authorized Consult and Treat 07/18/2024 08/07/2024 20 30 [facility] N[facility]* CV Imaging (Routine) - Authorized Specialty Diagnoses / Procedures Referred By Contac t Referred To Contact Cardiology Diagnoses Mitral valve stenosis, unspecified etiology Procedures Transthoracic Echo Complete IA ECHO TTHRC R-T 2D W/WOM-MODE COMPL SPEC&COLR D Alex Becerra, DO [address] [facility] [address] [place] [address] Phone: tel: fax: Referral ID Status Reason Start Date Expiration Date Visits Requested Visits Authorized [id number] Authorized Perform Procedure 10/26/2023 10/25/2024 1 1 [facility] Work Phone: Reason for visit [...] MIN NEUROMUSC REEDUCA Brianna Martinez, DO [address] [facility] [place] [address] Phone: tel: fax: Shayy Trotter, PT 112 [facility] [address] [place] [address] Phone: tel: fax: Referral ID Status Reason Start Date Expiration Date Visits Requested Visits Authorized [id number] Authorized Consult and Treat 07/18/2024 07/17/2025 20 [...] WAVE W/SPECTRAL F-UP/LMTD STD Alex Becerra, DO [address] [place] [address] [address], [address] [address] Referral ID Status Reason Start Date Expiration Date Visits Requested Visits Authorized [id number] Authorized Perform Procedure 3 06/28/2024 1 1 Specialty Diagnoses / Procedures Referred By Contac t Referred To Contact Cardiology Diagnoses Mitral valve stenosis, unspecified etiology Procedures Transthoracic Echo Complete IA ECHO TTHRC R-T 2D W/WOM-MODE COMPL SPEC&COLR D Alex Becerra, DO [address] [place] [address] 2, [address] [address] Referral ID Status Reason Start Date Expiration Date Visits Requested Visits Authorized [id number] Pending Review Perform Procedure 10/26/2023 10/25/2024 1 1 Specialty Diagnoses / Procedures Referred By Contac t Referred To Contact Cardiology Diagnoses Mitral valve stenosis, unspecified etiology Procedures Follow Up In Cardiology Alex Becerra, [address] [place] [address] 2, [address] [address] Alex Becerra, [address], [address] [address] Referral ID Status Reason Start Date Expiration Date V isits Requested Visits Authorized [id number] Authorized 10/26/2023 10/25/2024 1 1 Additional Source [...] DATE CREATED AUTHOR AUTHOR'S ORGANIZ ATION 06/16/2018 [facility] DATE CREATED AUTHOR AUTHOR'S ORGANIZ ATION 04/19/2022 [facility] DATE CREATED AUTHOR AUTHOR'S ORGANIZ ATION 09/04/2022 [facility] [facility] DATE CREATED AUTHOR AUTHOR'S ORGANIZ ATION 10/19/2022 [employer] DATE CREATED AUTHOR AUTHOR'S ORGANIZ ATION 05/14/2023 [facility] DATE CREATED AUTHOR AUTHOR'S ORGANIZ ATION 03/23/2024 [facility] DATE CREATED AUTHOR AUTHOR'S ORGANIZ ATION 07/06/2024 [facility] DATE CREATED AUTHOR AUTHOR'S ORGANIZ ATION 08/02/2024 [facility] EPIC DATE CREATED AUTHOR AUTHOR'S ORGANIZ ATION 08/09/2024 [facility] DATE CREATED AUTHOR AUTHOR'S ORGANIZ ATION 09/02/2024 [facility] Technical Engineer Teams (unrecognized sec tion and content) Team Status: Active Member Role Status Dates Lisa Mims MD Primary Care Provider Active Team Status: Inactive Member Role Status Dates Lisa Mims MD Primary Care Provider Active Alex Cerda MD Attending Provider Active Pug Mill Operator Helper Relationship Specialty Start Date End Date Lisa Mims MD [address] [place] [address] PCP - General 05/13/20 Team Status: Inactive Member Role Status Dates Lisa Mims MD Primary Care Provider Active Start: October 04, 2023 End: October 04, 2023 Alex Cerda MD Attending Provider Active Start: October 04, 2023 End: October 04, 2023 Pug Mill Operator Helper Relationship Specialty Start Date End Date Lisa Mims MD [address] [place] [address] PCP - General 05/13/20 Pug Mill Operator Helper Relationship Specialty Start Date End Date Lisa Mims MD [address] [place] [address] PCP - General 05/13/20 Pug Mill Operator Helper Relationship Specialty Start Date End Date Lisa Mims MD [address] [place] [address] PCP - General 05/13/20 Team Status: Inactive [...] End: March 07, 2024 Guy Angeles MD [facility] Attending Provider Active Start: March 07, 2024 End: March 07, 2024 Team Status: Inactive Member Role Status Dates Lisa Mims MD Primary Care Provider Active Start: April 03, 2024 End: April 03, 2024 Alex Cerda MD Attending Provider Active Start: April 03, 2024 End: April 03, 2024 Pug Mill Operator Helper Relationship Specialty Start Date End Date Lisa Mims MD [facility] [place] [address] PCP - General Family Medicine 06/23/23 Pug Mill Operator Helper Relationship Specialty Start Date End Date Lisa Mims MD [address] [place] [address] PCP - General Family Medicine 06/23/23 Pug Mill Operator Helper Relationship Specialty Start Date End Date Lisa Mims MD [address] [place] [address] PCP - General Family Medicine 06/23/23 Pug Mill Operator Helper Relationship Specialty Start Date End Date Lisa Mims MD [address] [facility] [place] [address] PCP - General Family Medicine 06/23/23 Pug Mill Operator Helper Relationship Specialty Start Date End Date Lisa iMms MD [address] [facility] [place] [address] PCP - General Family Medicine 06/23/23 Pug Mill Operator Helper Relationship Specialty Start Date End Date Lisa Mims MD [address] [facility] [place] [address] PCP - General Family Medicine 06/23/23 Pug Mill Operator Helper Relationship Specialty Start Date End Date Lisa Mims MD [address] [facility], [facility] PCP - General Family Medicine 06/23/23 Pug Mill Operator Helper Relationship Specialty Start Date End Date Lisa Mims MD [address] [facility] [place] [address] PCP - General Family Medicine 06/23/23 Pug Mill Operator Helper Relationship Specialty Start Date End Date Lisa Mims MD [address] [facility] [place] [address] PCP - General Family Medicine 06/23/23 Pug Mill Operator Helper Relationship Specialty Start Date End Date Lisa Mims MD [address] [facility] [place] [address] PCP - General Family Medicine 06/23/23 Pug Mill Operator Helper Relationship Specialty Start Date End Date Lisa Mims MD [address] [facility] [place] [address] PCP - General Family Medicine 06/23/23 Pug Mill Operator Helper Relationship Specialty Start Date End Date Lisa Mims MD [address] [facility] [place] [address] PCP - General 05/13/20 Pug Mill Operator Helper Relationship Specialty Start Date End Date Lisa Mims MD [address] [facility] [place] [address] PCP - General Family Medicine 06/23/23 Pug Mill Operator Helper Relationship Specialty Start Date End Date Lisa Mims MD [address] [facility] [place] [address] PCP - General Family Medicine 06/23/23 Pug Mill Operator Helper Relationship Specialty Start Date End Date Lisa Mims MD [address] [facility] [place] [address] PCP - General 05/13/20 Goals (unrecognized section [...] Up In Cardiology Alex Becerra, DO [address] [facility] [address] [place] [address] Dasia Bledsoe, ASSEMBLER [employer]-SOFTWARE TRAINER [address] [facility] [address], [address] [address] Referral ID Status Reason Start Date Expiration Date V isits Requested Visits Authorized [id number] Authorized 07/08/2023 07/07/2024 1 1 Specialty Diagnoses / Procedures Referred By Contac t Referred To Contact Cardiology Diagnoses Aortic valve stenosis, etiology of cardiac valve disease unspecified Procedures Transthoracic Echo (TTE) Complete IA ECHO TRANSTHORC R-T 2D W/WO M-MODE REC F-UP/LMTD IA DOP ECHOCARD COLOR FLOW VELOCITY MAPPING IA DOP ECHOCARD PULSE WAVE W/SPECTRAL F-UP/LMTD STD Alex Becerra, DO [address] [facility] [address], [address] [address] Referral ID Status Reason Start Date Expiration Date Visits Requested Visits Authorized [id number] Authorized Perform Procedure 3 06/28/2024 1 1 Reason Comments Annual Exam 1yr Reason Comments Pain Reason Comments Pain Fall DOI 07/08/24 Reason Comments Follow-up Reason Comments Follow-up 9 month/echo results Specialty Diagnoses / Procedures Referred By Contac t Referred To Contact Cardiology Diagnoses Mitral valve stenosis, unspecified etiology Procedures Follow Up In Cardiology Alex Becerra, [address] [place] [address] 2, [address] [address] Phone: tel: fax: Alex Becerra, [address] [place] [address] 2, [address] [address] Phone: tel: fax: Referral ID Status Reason Start Date Expiration Date V isits Requested Visits Authorized [id number] Pending Review 10/26/2023 10/25/2024 1 1 Reason [...] BE BASED ON THE PRIMARY CLINICAL RECORDS. [facility] [employer] [facility]. provides no warranty or guarantee of the accuracy or completeness of information in this document.
[2024-09-03 09:23] LABS: Anion Gap 11.1; BUN Creatinine Ratio 16.4; Calcium 8.9 mg/dL (8.5-10.1); Carbon Dioxide 28.4 mmol/L (21.0-32.0); Chloride 106 mmol/L (98-107); Estimated GFR (African America 41 (>=60 mL/min/1.73m^2); Estimated GFR (Non-African Ame 34 (>=60 mL/min/1.73m^2); Glucose 126 mg/dL (74-106); Potassium 4.5 mmol/L (3.5-5.1); Sodium 141 mmol/L (136-145)
== END 2024-09-03 08:39 | disposition home or self-care (01) ==
LOC: LAB 08:41
PROVIDERS: PCP Family Medicine; Visit Provider Family Medicine
DX: E87.5 Hyperkalemia (principal)
CPT/HCPCS: 36415; 80048

== ENCOUNTER 2024-09-11 08:56 | Outpatient (OUT) | payer MEDICARE, SELFPAY ==
--- NOTE | 2024-09-11 08:58 | US_ITS ---
The [address] [address] Patient Name: MELO CUEVAS MRN: [id number] date: 1935 Sex: M Assigned Patient Location: US Current Patient Location: US Accession/Order Number: [id number] Exam Date: 09/11/2024 11:44 Report Date: 09/11/2024 12:19 At the request of: LISA MIMS MD Procedure: US renal bladder BILATERAL RENAL AND BLADDER ULTRASOUND CLINICAL HISTORY: Disorder Of Kidney And Ureter. Patient is a poor historian. COMPARISON: None Estimation of renal size is approximately 9.3 cm on the right and 9.7 cm on the left. No shadowing calculi or hydronephrosis are identified. No renal mass lesions were imaged. There is no perinephric fluid. The urinary bladder is not well distended with a volume of 58 mL. There is apparent bladder wall thickening that may relate to the underdistention. The prostate appears slightly prominent. The post void bladder residual is 16 mL. US/US renal bladder IMPRESSION: NO OBSTRUCTIVE UROPATHY. Impression dictated by: Charlene Phoenix M.D.09/11/2024 12:19 PM Dictation Location: [place] [address] Electronically authenticated by: [id number] Y Date: 09/11/2024 12:19
== END 2024-09-11 08:57 | disposition home or self-care (01) ==
LOC: US 08:56
PROVIDERS: PCP Family Medicine; Visit Provider Family Medicine
DX: N28.9 Disorder of kidney and ureter, unspecified (principal)
CPT/HCPCS: 76770

== ENCOUNTER 2024-09-16 07:18 | Outpatient (RCR) | payer MEDICARE, SELFPAY | END 2024-10-12 13:44 | disposition home or self-care (01) | LOC: MM 07:18 | PROVIDERS: PCP Family Medicine; Visit Provider Internal Medicine | DX: Z51.81 Encounter for therapeutic drug level monitoring (principal); Z79.01 Long term (current) use of anticoagulants; I48.0 Paroxysmal atrial fibrillation | CPT/HCPCS: 85610; G0463 ==

== ENCOUNTER 2024-10-16 06:06 | Outpatient (RCR) | payer MEDICARE, SELFPAY | END 2024-11-14 14:45 | disposition home or self-care (01) | LOC: MM 06:06 | PROVIDERS: PCP Family Medicine; Visit Provider Internal Medicine | DX: Z51.81 Encounter for therapeutic drug level monitoring (principal); Z79.01 Long term (current) use of anticoagulants; I48.91 Unspecified atrial fibrillation | CPT/HCPCS: 85610; G0463 ==

== ENCOUNTER 2024-11-15 04:46 | Outpatient (RCR) | payer MEDICARE, SELFPAY | END 2024-12-14 15:06 | disposition home or self-care (01) | LOC: MM 04:46 | PROVIDERS: PCP Family Medicine; Visit Provider Internal Medicine | DX: Z51.81 Encounter for therapeutic drug level monitoring (principal); Z79.01 Long term (current) use of anticoagulants; I48.0 Paroxysmal atrial fibrillation | CPT/HCPCS: 85610; G0463 ==

== ENCOUNTER 2024-12-16 07:56 | Outpatient (RCR) | payer MEDICARE, SELFPAY | END 2025-01-10 14:49 | disposition home or self-care (01) | LOC: MM 07:56 | PROVIDERS: PCP Family Medicine; Visit Provider Internal Medicine | DX: Z51.81 Encounter for therapeutic drug level monitoring (principal); Z79.01 Long term (current) use of anticoagulants; I48.91 Unspecified atrial fibrillation | CPT/HCPCS: 85610; G0463 ==

== ENCOUNTER 2025-01-15 02:31 | Outpatient (RCR) | payer MEDICARE, SELFPAY | END 2025-02-14 16:53 | disposition home or self-care (01) | LOC: MM 02:31 | PROVIDERS: PCP Family Medicine; Visit Provider Internal Medicine | DX: Z51.81 Encounter for therapeutic drug level monitoring (principal); Z79.01 Long term (current) use of anticoagulants; I48.91 Unspecified atrial fibrillation | CPT/HCPCS: 85610; G0463 ==

== ENCOUNTER 2025-02-15 00:19 | Outpatient (RCR) | payer MEDICARE, SELFPAY | END 2025-03-14 13:13 | disposition home or self-care (01) | LOC: MM 00:19 | PROVIDERS: PCP Family Medicine; Visit Provider Internal Medicine | DX: Z51.81 Encounter for therapeutic drug level monitoring (principal); Z79.01 Long term (current) use of anticoagulants; I48.0 Paroxysmal atrial fibrillation | CPT/HCPCS: 85610; G0463 ==

== ENCOUNTER 2025-03-18 01:59 | Outpatient (RCR) | payer MEDICARE, SELFPAY | END 2025-04-16 15:47 | disposition home or self-care (01) | LOC: MM 01:59 | PROVIDERS: PCP Family Medicine; Visit Provider Internal Medicine | DX: Z51.81 Encounter for therapeutic drug level monitoring (principal); Z79.01 Long term (current) use of anticoagulants; I48.0 Paroxysmal atrial fibrillation | CPT/HCPCS: 85610; G0463 ==

== ENCOUNTER 2025-04-17 04:35 | Outpatient (RCR) | payer MEDICARE, SELFPAY | END 2025-05-17 23:59 | disposition home or self-care (01) | LOC: MM 04:35 | PROVIDERS: PCP Family Medicine; Visit Provider Internal Medicine | DX: Z51.81 Encounter for therapeutic drug level monitoring (principal); Z79.01 Long term (current) use of anticoagulants; I48.0 Paroxysmal atrial fibrillation | CPT/HCPCS: 85610; G0463 ==

== ENCOUNTER 2025-05-18 | Outpatient (RCR) | payer MEDICARE, SELFPAY | END 2025-06-16 23:59 | disposition home or self-care (01) | LOC: MM | PROVIDERS: PCP Family Medicine; Visit Provider Internal Medicine | DX: Z51.81 Encounter for therapeutic drug level monitoring (principal); Z79.01 Long term (current) use of anticoagulants; I48.0 Paroxysmal atrial fibrillation | CPT/HCPCS: 85610; G0463 ==

== ENCOUNTER 2025-06-17 11:34 | Outpatient (RCR) | payer MEDICARE, SELFPAY | END 2025-07-17 13:04 | disposition home or self-care (01) | LOC: MM 11:34 | PROVIDERS: PCP Family Medicine; Visit Provider Internal Medicine | DX: Z51.81 Encounter for therapeutic drug level monitoring (principal); Z79.01 Long term (current) use of anticoagulants; I48.0 Paroxysmal atrial fibrillation | CPT/HCPCS: 85610; G0463 ==